=== PATIENT | female | born 1945 ===

== ENCOUNTER 2017-06-14 07:40 | Inpatient (IN) | payer OTHER ==
[2017-06-14 07:52] VITALS: BMI 32.5
--- NOTE | 2017-06-14 07:54 | ED PDOC ---
Arrival/HPI - General Time Seen by Provider: 06/14/17 07:47 Historian: Patient - Critical Care Critical Care Minutes: 30 minutes - History of Present Illness Narrative History of Present Illness (Text): 06/14/17 07:41 A 72 year old female whose past medical history includes, hypertension, Type II Diabetes, presents to the emergency department with neurological deficit after a family member found her in bed this morning. As per EMS, the patient's last known normal was at 11PM. Patient's history was obtained from EMS. PMD: Dr. Jones Time/Duration: Prior to Arrival Symptom Onset: Sudden Symptom Course: Unchanged Activities at Onset: Rest, Light Context: Home Past Medical History - Provider Review Nursing Documentation Reviewed: Yes - Tetanus Immunization Tetanus Immunization: Unknown - Cardiac Hx Cardiac Disorders: Yes Hx Hypertension: Yes - Pulmonary Other/Comment: 06/04/2014. 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 - Neurological Hx Neurological Disorder: No - HEENT Hx HEENT Disorder: Yes Hx Cataracts: Yes - Renal Hx Renal Disorder: No - Endocrine/Metabolic Hx Endocrine Disorders: Yes Hx Diabetes Mellitus Type 2: Yes - Hematological/Oncological Hx Blood Disorders: No Hx Blood Transfusions: No Hx Blood Transfusion Reaction: No - Integumentary Hx Dermatological Disorder: No - Musculoskeletal/Rheumatological Hx Musculoskeletal Disorders: Yes Hx Arthritis: Yes - Gastrointestinal Hx Gastrointestinal Disorders: Yes Hx Gastroesophageal Reflux: Yes - Genitourinary/Gynecological Hx Genitourinary Disorders: No Hx Reproductive Disorders: No - Psychiatric Hx Psychophysiologic Disorder: No Hx Emotional Abuse: No Hx Physical Abuse: No Hx Substance Use: No - Surgical History Hx Cardiac Catheterization: Yes - Anesthesia Hx Anesthesia Reactions: No Hx Malignant Hyperthermia: No - Suicidal Assessment Feels Threatened In Home Enviroment: No Family/Social History - Physician Review Nursing Documentation Reviewed: Yes Family/Social History: No Known Family HX Smoking Status: Never Smoked Hx Alcohol Use: No Hx Substance Use: No Hx Substance Use Treatment: No Allergies/Home Meds Allergies/Adverse Reactions: Allergies shrimp Allergy (Verified 06/14/17 07:50) SWELLING Home Medications: Home Meds Medication Instructions Recorded Confirmed Risperidone 1 mg PO BID 07/05/13 06/14/17 Atorvastatin [Lipitor] 40 mg PO DAILY 06/15/15 06/14/17 Clopidogrel [Plavix] 75 mg PO DAILY 06/15/15 06/14/17 Metformin HCl [Metformin] 1,000 mg PO BID 06/15/15 06/14/17 Insulin Human NPH/Reg [humulin 0 units SC ACB 12/12/15 06/14/17 70/30 70 U/Ml-30 U/Ml 10 Ml] Ranitidine HCl [Sunmark Acid 150 mg PO BID 12/12/15 06/14/17 Editorial Specialist] Ciclopirox/Ure/Camph/Menth/Euc 34.6 ml TOP DAILY 06/14/17 06/14/17 [Ciclodan 34.6 ml] Clonazepam [Klonopin] 1 mg PO BID 06/14/17 06/14/17 Esomeprazole Magnesium [Nexium] 40 mg PO DAILY 06/14/17 06/14/17 GlipiZIDE [Glipizide] 10 mg PO DAILY 06/14/17 06/14/17 Levocetirizine Dihydrochloride 5 mg PO DAILY 06/14/17 06/14/17 [Xyzal] Losartan [Cozaar] 100 mg PO DAILY 06/14/17 06/14/17 Lubiprostone [Amitiza] 24 mcg PO BID 06/14/17 06/14/17 Metoprolol Tartrate [Lopressor] 100 mg PO DAILY 06/14/17 06/14/17 Montelukast [Singulair] 10 mg PO DAILY 06/14/17 06/14/17 Review of Systems - Review of Systems Systems not reviewed;Unavailable: Altered Mental Status Physical Exam - Physical Exam Narrative Physical Exam (Text): 06/14/17 07:46 - Review of Systems: unobtainable due to patient's condition. - Physical exam - Systems Exam Head: Present: Left sided facial droop, Atraumatic, Normocephalic Pupils: Present: PERRL Conjunctiva: Present: Normal Mouth: Present: Moist Mucous Membranes Neck: Present: Normal Range of Motion. No: MIDLINE TENDERNESS, Paraspinal Tenderness Respiratory/Chest: Present: poor insp and exp. effort Cardiovascular: Present: Regular Rate and Rhythm, Normal S1, S2, Peripheral Pulses Present. No: Murmurs Abdomen: Present: Normal Bowel Sounds, No: Tenderness, Peritoneal Signs, Rebound, Guarding, Distention Back: Present: Normal Inspection. No: Midline Tenderness, Paraspinal Tenderness Upper Extremity: Present: Left sided body paralysis No: Cyanosis, Edema Lower Extremity: Present: Left sided body paralysis. No: Edema Neurological: Present: facial droop Skin: Present: Warm, Dry, Normal Color. No: Rashes Lymphatic: Present: OX3, NI, NC Psychiatric: Present: alert to verbal and tactile stimuli, incoherent speech Vital Signs Reviewed: Yes Vital Signs Temp Pulse Resp BP Pulse Ox 06/14/17 10:08 152/81 H 06/14/17 10:00 87 19 181/99 H 100 06/14/17 09:46 198/102 H 06/14/17 08:03 88 18 153/108 H 99 06/14/17 07:55 96 F L 72 14 68/36 L 93 L Temperature: Afebrile Blood Pressure: Hypotensive Pulse: Regular Respiratory Rate: Normal Medical Decision Making ED Course and Treatment: Impression: A 72 year old female brought in via EMS with neurological deficits this morning. On exam, left sided facial droop and left sided body paralysis. Seen immediately on arrival. Differential Diagnosis included but are not limited to: hemorrhagic vs ischemic stroke Plan: -- Head Ct -- EKG -- Chest X- Ray -- Labs -- Diprivan and Desmopressin -- Reassess and disposition Prior Visits: Notes and results from previous visits were reviewed. On 12/13/2016 patient was advised to come in to the emergency department by her forest fire equipment operator for elevated blood pressure. Progress Notes: 06/14/17 07:41: Patient seen immediately upon arrival. CT ordered. Code stroke called. Blood Glucose 187. 06/14/17 07:48: Case discussed with Dr. Glover (Neurology) in detail. Agrees with no tPA at this time. Will follow up. CT HEAD WITHOUT CONTRAST Dictator : Julio César Weber MD Report Date : 06/14/2017 08:05:03 IMPRESSION:There is a large intraparenchymal hemorrhage in the left occipital lobe with intraventricular extension. The hemorrhage measures 4 cm in diameter. The lateral 3rd and 4th ventricles are filled with blood. 06/14/17 08:22: Patient started vomiting and was no longer protecting her airway. Patient was intubated. Passive oxygenation. O2 sat remained >95% during procedure. After intubation, patient was placed in 90 degrees with head forward position. 06/14/17 08:30: Patient's nurse confirms she is on Plavix. 06/14/17 08:39: Case discussed with Dr. Santos. States that there is no indication for acute intervention intraoperatively at this time. Recommends Desmopressin. 06/14/17 08:41: Dose of Desmopressin 0.3mcg per kilo per dose ordered. 06/14/17 09:28: Dr. Mccarthy at bedside. patient's blood pressure 206 systolic. Cardene drip ordered pt accepted to the MICU. Family informed. - Critical Care Critical Care Minutes: 30 minutes - Lab Interpretations Lab Results: 06/14/17 07:50 06/14/17 07:50 Lab Results 06/14/17 09:09: pCO2 33 L, pO2 164.0 H, HCO3 25.7, ABG pH 7.50 H, ABG Total CO2 26.7, ABG O2 Saturation 99.2 H, ABG O2 Content 17.0, ABG Base Excess 2.8, ABG Hemoglobin 12.2, ABG Carboxyhemoglobin 1.3, POC ABG HHb (Measured) 0.8, ABG Methemoglobin 0.6, ABG O2 Capacity 17.1, Hgb O2 Saturation 97.4, FiO2 50.0 06/14/17 07:50: Hemoglobin A1c 6.1 06/14/17 07:50: Sodium 144, Potassium 3.2 L, Chloride 104, Carbon Dioxide 30, Anion Gap 13, BUN 17, Creatinine 0.8, Est GFR ( Amer) > 60, Est GFR (Non- Af Amer) > 60, Random Glucose 189 H, Calcium 9.5, Total Bilirubin 0.8, AST 32, ALT 29, Alkaline Phosphatase 131 H, Troponin I 0.02, Total Protein 8.0, Albumin 4.2, Globulin 3.8, Albumin/Globulin Ratio 1.1, Triglycerides 175 H, Cholesterol 191, LDL Cholesterol Direct 84, HDL Cholesterol 54 06/14/17 07:50: PT 10.6, INR 0.98, APTT 24.9 06/14/17 07:50: WBC 16.6 H D, RBC 4.40, Hgb 12.9, Hct 38.8, MCV 88.2, MCH 29.3, MCHC 33.2, RDW 13.1, Plt Count 236, MPV 9.8, Gran % 79.9 H, Lymph % (Auto) 15.0 L, [place] % (Auto) 4.1, Eos % (Auto) 0.9 L, Baso % (Auto) 0.1, Gran # 13.27 H, Lymph # 2.5, [place] # 0.7 H, Eos # 0.2, Baso # 0.02 06/14/17 07:40: Blood Type O POSITIVE, Antibody Screen Negative, BBK History Checked Patient has bt I have reviewed the lab results: Yes - RAD Interpretation Radiology Orders: 06/14/17 07:43 HEAD W/O (CODE STROKE) [CT] Stat 06/14/17 07:48 CHEST PORTABLE [RAD] Stat - EKG Interpretation Interpreted by ED Physician: Yes Type: 12 lead EKG - Medication Orders Current Medication Orders: Fentanyl (Fentanyl) 50 mcg IVP Q1H PRN PRN Reason: Pain, moderate (4-7) Propofol (Diprivan) 1,000 mg in 100 mls @ 2.658 mls/hr IV .Q24H PRN; Protocol; 5 MCG/KG/MIN PRN Reason: TITRATE PER MD ORDER Last Admin: 06/14/17 16:05 Dose: 30 mcg/kg/min, 15.948 mls/hr Nicardipine HCl (Cardene Iv Premix) 20 mg in 200 mls @ 50 mls/hr IV .Q4H PRN; Protocol; 5 MG/HR PRN Reason: TITRATE PER MD ORDER Last Titration: 06/14/17 15:57 Dose: 3.5 mg/hr, 35 mls/hr Insulin Human Lispro (Humalog Low) 0 units SC Q4H CHUY PRN Reason: Protocol Last Admin: 06/14/17 11:30 Dose: 2 units Pantoprazole Sodium (Protonix Inj) 40 mg IVP DAILY [facility] Last Admin: 06/14/17 15:53 Dose: 40 mg Discontinued Medications Propofol (Diprivan) Confirm Administered Dose 1,000 mg in 100 mls @ ud .ROUTE .STK-MED ONE Stop: 06/14/17 08:19 Last Admin: 06/14/17 09:52 Dose: Desmopressin Acetate 27 mcg/ (Sodium Chloride) 56.75 mls @ 100 mls/hr IV ONCE ONE Stop: 06/14/17 09:08 Last Admin: 06/14/17 09:35 Dose: 100 mls/hr Nicardipine HCl (Cardene Iv Premix) 20 mg in 200 mls @ 50 mls/hr IV .Q4H PRN; Protocol; 5 MG/HR PRN Reason: TITRATE PER MD ORDER Last Titration: 06/14/17 11:31 Dose: 4 mg/hr, 40 mls/hr Ampicillin Sodium/Sulbactam (Sodium 3 gm/ Sodium Chloride) 100 mls @ 100 mls/ hr IVPB STAT STA PRN Reason: Protocol Stop: 06/14/17 10:46 Last Admin: 06/14/17 12:37 Dose: 100 mls/hr Insulin Human Lispro (Humalog Low) 0 units SC ACHS CHUY PRN Reason: Protocol Pneumococcal Polyvalent Vaccine (Pneumovax 23 Vaccine) 0.5 ml IM .ONCE ONE Stop: 06/14/17 14:15 Potassium Chloride (Potassium Chloride Oral Soln) 40 meq PO ONCE ONE Stop: 06/14/17 15:06 Last Admin: 06/14/17 15:57 Dose: 40 meq NIHSS Scale ([place]) Time Performed: 07:45 - How Severe is the Stoke Baseline Level of Consciousness: 2=Obtunded LOC to Questions: 1=One correct LOC to commands: 1=Obeys one correctly Best Gaze: 1=Partial gaze palsy Visual: 0=No visual loss Facial: 2=Partial (lower face paralysis) Motor Arm - Left: 4=No movement Motor Arm - Right: 0=No drift Motor Leg - Left: 4=No movement Motor Leg - Right: 0=No drift Limb Ataxia: 2=Present both Sensory: 1=Mild to moderate loss Best Language: 2=Severe aphasia Dysarthia: 2=Severe, near unintelligible or worse Extinction & Inattention (Neglect): 2=Profound neglect(does not recognize own hand or orients to one side) Score: 24 Risk Level: Severe Stroke Risk rTPA Inclusion/Exclusion - Refusal of Treatment Patient Refused Treatment: No - Inclusion Criteria for Altepase Patient is 18 years or Older: Yes The Clinical Diagnosis of Ischemic Stroke That is Causing a Potentially Disabling Neurological Deficit: No Time of Onset is Well Established to be Less Than 270 Minute Before Treatment Would Begin: No Risk/Benefit Discussed With Patient/Family Member Present: No - Scribe Statement The provider has reviewed the documentation as recorded by the Scribe Liz Kaufman Provider Scribe Attestation: All medical record entries made by the Scribe were at my direction and personally dictated by me. I have reviewed the chart and agree that the record accurately reflects my personal performance of the history, physical exam, medical decision making, and the department course for this patient. I have also personally directed, reviewed, and agree with the discharge instructions and disposition Disposition/Present on Arrival - Present on Arrival Any Indicators Present on Arrival: No History of DVT/PE: No History of Uncontrolled Diabetes: Yes Urinary Catheter: No History Surgical Site Infection Following: None - Disposition Have Diagnosis and Disposition been Completed?: Yes Diagnosis: Hemorrhagic stroke Disposition: HOSPITALIZED Disposition Time: 09:27 Patient Plan: Admission Condition: CRITICAL
[2017-06-14] MEDS ORDERED: Propofol 10 mg/ml Inj (20 ML) IVP ONE (08:00)
[2017-06-14] MEDS ORDERED: Rocuronium 10 mg/ml (5 ml) IVP ONE (08:05)
--- NOTE | 2017-06-14 08:06 | CT ---
PROCEDURE: CT HEAD WITHOUT CONTRAST. HISTORY: CODE STROKE COMPARISON: None available. TECHNIQUE: Axial computed tomography images were obtained through the head/brain without intravenous contrast. Radiation dose: Total exam DLP = 813 mGy-cm. This CT exam was performed using one or more of the following dose reduction techniques: Automated exposure control, adjustment of the mA and/or kV according to patient size, and/or use of iterative reconstruction technique. FINDINGS: HEMORRHAGE: There is a large intraparenchymal hemorrhage in the left occipital lobe with intraventricular extension. The hemorrhage measures 4 cm in diameter. The lateral 3rd and 4th ventricles are filled with blood. BRAIN: There is sulcal effacement but no midline shift. The basal cisterns are maintained. No atrophy or chronic microvascular ischemic changes. VENTRICLES: Unremarkable. No hydrocephalus. CALVARIUM: Unremarkable. PARANASAL SINUSES: Unremarkable as visualized. No significant inflammatory changes. MASTOID AIR CELLS: Unremarkable as visualized. No inflammatory changes. OTHER FINDINGS: Dr. Pizano was called at 8 a.m. IMPRESSION: There is a large intraparenchymal hemorrhage in the left occipital lobe with intraventricular extension. The hemorrhage measures 4 cm in diameter. The lateral 3rd and 4th ventricles are filled with blood.
[2017-06-14 08:12] LABS: BASO # 0.02 K/mm3 (0.0-2.0); BASO % 0.1 % (0.0-3.0); EOS # 0.2 (0.0-0.7); EOS % 0.9 % (1.5-5.0); GRAN # 13.27 (1.4-6.5); GRAN % 79.9 % (50.0-68.0); HEMATOCRIT 38.8 % (36.0-48.0); LYMPH # 2.5 (1.2-3.4); MEAN CELL VOLUME 88.2 fl (80.0-105.0); MEAN CORPUSCULAR HEMOGLOBIN 29.3 pg (25.0-35.0); MEAN CORPUSCULAR HGB CONC 33.2 g/dl (31.0-37.0); MEAN PLATELET VOLUME 9.8 fl (7.0-11.0); MONO # 0.7 (0.1-0.6); MONO % 4.1 % (1.0-6.0); RED CELL DISTRIBUTION WIDTH 13.1 % (11.5-14.5); WHITE BLOOD COUNT 16.6 10^3/ul (4.5-11.0)
[2017-06-14] MEDS ORDERED: Propofol 10 mg/ml 1,000 MG/100 ML VIAL ONE (08:18)
[2017-06-14 08:24] LABS: ALB/GLOB RATIO 1.1 (1.1-1.8); ALKALINE PHOSPHATASE 131 U/L (38-126); ALT/SGPT 29 U/L (7-56); AST/SGOT 32 U/L (14-36); BILIRUBIN,TOTAL 0.8 mg/dL (0.2-1.3); BLOOD UREA NITROGEN 17 mg/dL (7-21); CALCIUM 9.5 mg/dL (8.4-10.5); CARBON DIOXIDE 30 mmol/L (21-33); CHLORIDE 104 mmol/L (98-107); CHOLESTEROL 191 mg/dL (130-200); GFR AFRICAN-AMERICAN > 60; GLUCOSE,RANDOM 189 mg/dL (70-110); POTASSIUM 3.2 mmol/L (3.6-5.0); SODIUM 144 mmol/L (132-148)
[2017-06-14 08:27] LABS: INR 0.98 (0.93-1.08); PARTIAL THROMBOPLASTIN TIME 24.9 Seconds (23.7-30.8)
[2017-06-14 08:38] LABS: TROPONIN I 0.02 ng/mL
[2017-06-14 09:13] LABS: ARTERIAL BLOOD GAS HCO3 25.7 mmol/L (21-28); ARTERIAL BLOOD GAS O2 CAPACITY 17.1 mL/dl (16-24); ARTERIAL BLOOD HGB O2 SAT 97.4 % (95.0-98.0); CARBOXYHEMOGLOBIN 1.3 % (0.5-1.5); HHB 0.8 % (0-5); METHEMOGLOBIN 0.6 % (0.0-3.0)
[2017-06-14] MEDS ORDERED: Nicardipine 20 MG/200 ML 20 MG/200 ML BAG IV PRN (09:27)
[2017-06-14] MEDS: Propofol 10 mg/ml 1,000 MG/100 ML VIAL IV PRN ×2 (09:35→16:05)
[2017-06-14] MEDS ORDERED: Ampicillin/Sulbactam 3 GM in Sodium Chloride 0.9% 100 ML IVPB STA (09:47)
--- NOTE | 2017-06-14 10:43 | CP.CCUPN ---
CCU Subjective - Physician Review Events Since Last Encounter (Free Text): 06/14/17 10:35 72 y/o F w/ HTN, CHF, DM presented to the ER with GCS<8 found at home near her bed . Unclear downtime but family was at home and heard her fall and was not able to speak or protect airway upon arrival . Her sister who is at bedside explains that she has been very uncompliant with her HTn medications and always had high BP. In the ER she was intubated after she was found not protecting her airway . Her BP was 212/ 112 in the field and in the ER remained high. Sedated on propofol she was taken to HEAD CT which showed extensive ICH with ventricular extension. CCU Objective - Vital Signs / Intake & Output Vital Signs (Last 4 hours): Vital Signs Pulse Resp BP Pulse Ox 06/14/17 10:08 152/81 H 06/14/17 10:00 87 19 181/99 H 100 06/14/17 09:46 198/102 H - Physical Exam Physical Exam Limitations: Positive for: Altered Mental Status Head: Positive for: Atraumatic Pupils: Positive for: Sluggish Conjunctiva: Positive for: Normal Ears: Positive for: Normal Mouth: Positive for: Moist Mucous Membranes, Other (ett in place) Pharnyx: Positive for: Normal Neck: Positive for: Normal Range of Motion Respiratory/Chest: Positive for: Clear to Auscultation, Good Air Exchange Cardiovascular: Positive for: Regular Rate and Rhythm Abdomen: Positive for: Normal Bowel Sounds Upper Extremity: Positive for: Normal Inspection Lower Extremity: Positive for: Normal Inspection Neurological: Positive for: Other (on sedation. original GCS<8) Psychiatric: Positive for: Lethargic, Other (intubated and sedated ) - Medications Active Medications: Active Medications Generic Name Dose Route Start Last Admin Trade Name Freq PRN Reason Stop Dose Admin Propofol 1,000 mg in 100 mls @ 2.658 mls/hr 06/14/17 08:23 06/14/17 09:35 Diprivan IV 2.658 mls/hr .Q24H PRN Administration TITRATE PER MD ORDER Protocol 5 MCG/KG/MIN Nicardipine HCl 20 mg in 200 mls @ 50 mls/hr 06/14/17 09:27 06/14/17 09:46 Cardene Iv Premix IV 50 mls/hr .Q4H PRN Administration TITRATE PER MD ORDER Protocol 5 MG/HR Ampicillin Sodium/Sulbactam 100 mls @ 100 mls/hr 06/14/17 09:47 Sodium 3 gm/ Sodium Chloride IVPB 06/14/17 10:46 STAT STA Protocol Insulin Human Lispro 0 units 06/14/17 11:30 Humalog Low SC ACHS CHUY Protocol - Patient Studies Fingerstick Blood Sugar Results: 187 Review of Systems - Review of Systems Systems not reviewed;Unavailable: Intubated Critical Care Progress Note - Ventilator Checklist Daily Spontaneous Breathing Trial: Yes PUD Prophalyxis: Yes DVT Prophylaxis: Yes Assessment/Plan - Assessment and Plan (Free Text) Assessment: 72 y/o F w/ ICH with ventricular extension. GCS<8 Intubated for airway protection. Keep Ph> 7.3 pao2> 60 . Currently on 50% peep5 , TV 6-8ml/kg Mild elevation in WBC, Blood anc urine cx ordered . One dose Unasyn given. BP control with cardene started to keep SBP 160. Neurology and NSG aware of the patient. Plan for possible Ventriculostomy to be determined after next head CT in 4 hrs. Poor prognosis due to large intraparenchymal ICH and ventricular extension. Unclear if any intervention would be helpful. No sign of seizures currently . Will d/w Neurology . RISS to keep BS 140-160 . DVT P SCD Does have hx of taking asprin and Plavix. Keep platelets. 100K and INR< 2. Case d/w with housestaff and sister at bedside who is POA. cc time 65 min
[2017-06-14] MEDS: Insulin Lispro (humaLOG) LOW Coverage SC SCH ×3 (11:30→19:45)
[2017-06-14] MEDS ORDERED: Insulin Lispro (humaLOG) LOW Coverage SC SCH ×2 (11:30→11:45)
--- NOTE | 2017-06-14 11:49 | RAD ---
HISTORY: stroke COMPARISON: 05/18/2014. FINDINGS: LUNGS: No active pulmonary disease. PLEURA: No significant pleural effusion identified, no pneumothorax apparent. CARDIOVASCULAR: Cardiomegaly. No evidence of acute, significant cardiovascular disease. OSSEOUS STRUCTURES: No significant abnormalities. VISUALIZED UPPER ABDOMEN: Normal. OTHER FINDINGS: None. IMPRESSION: No active disease. No significant interval change compared to the prior examination(s).
--- NOTE | 2017-06-14 12:49 | CT ---
PROCEDURE: CT HEAD WITHOUT CONTRAST. HISTORY: bleed COMPARISON: CT earlier same day TECHNIQUE: Axial computed tomography images were obtained through the head/brain without intravenous contrast. Radiation dose: Total exam DLP = 779 mGy-cm. This CT exam was performed using one or more of the following dose reduction techniques: Automated exposure control, adjustment of the mA and/or kV according to patient size, and/or use of iterative reconstruction technique. FINDINGS: HEMORRHAGE: There is no change in the left occipital parenchymal hemorrhage and intraventricular hemorrhage. BRAIN: As above No atrophy or chronic microvascular ischemic changes. VENTRICLES: Unremarkable. No hydrocephalus. CALVARIUM: Unremarkable. PARANASAL SINUSES: Unremarkable as visualized. No significant inflammatory changes. MASTOID AIR CELLS: Unremarkable as visualized. No inflammatory changes. OTHER FINDINGS: None. IMPRESSION: Stable appearance of large intraparenchymal hemorrhage in the left occipital lobe with extensive intraventricular hemorrhage.
--- NOTE | 2017-06-14 14:13 | CON ---
DATE: 06/14/2017 HISTORY OF PRESENT ILLNESS: This is an unfortunate 72-year-old that presented to the ER having last seen acting improperly midnight. She was found to have an intraparenchymal and intraventricular hemorrhage, deteriorated, and was intubated, not very responsive. I was contacted to review the CAT scan, there was minimal to moderate left occipital hemorrhage with minimal any mass effect. However, there is rupture into the ventricular system. At this point in time, there was really no significant hydrocephalus. In addition, the patient has been on Plavix. IMPRESSION: No indication to evacuate the intraparenchymal hemorrhage as this is relatively minimal. She also does not have hydrocephalus that warrants a ventriculostomy. This may certainly develop; however, she has been on Plavix. This is a very difficult situation. PLAN: At this point, my recommendation would be to attempt to treat her conservatively with head of bed elevation. She is already intubated. We will check another CAT scan shortly to monitor her hydrocephalus. We are attempting to get DDAVP into the patient. Ford Santos MD
[2017-06-14] MEDS ORDERED: Pneumococcal 23-Valent Vaccine IM ONE (14:14)
[2017-06-14] MEDS ORDERED: Potassium Chloride 40 mEq/30 ml LIQ UD PO ONE (15:05)
[2017-06-14] MEDS: Nicardipine 20 MG/200 ML 20 MG/200 ML BAG IV PRN ×2 (15:43→18:38)
--- NOTE | 2017-06-14 16:48 | RAD ---
HISTORY: ET position COMPARISON: 06/14/2017 at 8:25 a.m. FINDINGS: LUNGS: No infiltrate. PLEURA: No significant pleural effusion identified, no pneumothorax apparent. CARDIOVASCULAR: Normal heart size. ET tube tip 11 mm above tracheal momo. Nasogastric tube extends to left upper quadrant of abdomen. OSSEOUS STRUCTURES: No significant abnormalities. VISUALIZED UPPER ABDOMEN: Normal. OTHER FINDINGS: None. IMPRESSION: ET tube 11 mm above the tracheal momo. Nasogastric tube appropriately positioned.
[2017-06-14] MEDS: Ampicillin/Sulbactam 3 GM in Sodium Chloride 0.9% 100 ML IVPB SCH (18:39)
--- NOTE | 2017-06-14 20:55 | CARD ---
APPROVED REPORT EKG Measurement Heart [id number] <Conclusion> Normal sinus rhythm Left axis deviation Moderate voltage criteria for LVH, may be normal variant Abnormal ECG
[2017-06-15] MEDS: Ampicillin/Sulbactam 3 GM in Sodium Chloride 0.9% 100 ML IVPB SCH ×4 (00:01→18:15)
[2017-06-15] MEDS: Insulin Lispro (humaLOG) LOW Coverage SC SCH ×6 (00:07→20:00)
--- NOTE | 2017-06-15 04:25 | HP ---
CHIEF COMPLAINT: Neurological deficits. HISTORY OF PRESENT ILLNESS: Ms. Noy Bryant is a 72-year-old female with past medical history of hypertension and diabetes mellitus came to the emergency room department with neurological deficits. Actually, I spoke to her daughter, she told me that the mother is supposed to go for stress test today with Dr. Corado's office, then she woke up at 5, she took shower, and after that family do not know anything and later her nephew found her on the floor with the vomiting and blood in the mouth. They call 911 and brought the patient to [facility] emergency room. PAST MEDICAL HISTORY: Hypertension, cataract surgery, diabetes mellitus, hypertension, very noncompliant with blood pressure medication, arthritis, GERD, dyspepsia, and schizophrenia. FAMILY HISTORY: Father and mother noncontributory. HABITS: No smoking, no drugs, and no ethanol. ALLERGIES: THE PATIENT IS ALLERGIC WITH SHRIMP. HOME MEDICATIONS: Atorvastatin, Plavix, metformin, Klonopin, glipizide, Cozaar, Amitiza, Lopressor, and montelukast. REVIEW OF SYSTEMS: Not available. The patient is intubated, has altered mental status, but looks like do not have fever. PHYSICAL EXAMINATION: VITAL SIGNS: Temperature 100.4, pulse 83, blood pressure 150/95, and respiratory rate 18. HEENT: Head looks like normocephalic. Eyes; closed. Nose patent. Mucous membrane moist. She is intubated. Pupils are sluggish. NECK: Supple. Range of motion cannot be evaluated. LUNGS: Clear to auscultation. Good air exchange. CARDIOVASCULAR: Regular rate and rhythm. ABDOMEN: Soft. Bowel sounds positive. No organomegaly. EXTREMITIES: Normal inspection. No cyanosis. No edema. NEUROLOGIC: The patient is sedative, this cannot be done and lethargic. LABORATORY DATA: White blood cell 16.6, hemoglobin 12.9, hematocrit 38.8, and platelets 236. Sodium 144, potassium 3.2, BUN 17, creatinine 0.8, random glucose 189, alkaline phosphatase 131, and triglycerides 175. ASSESSMENT AND PLAN: Mrs. Noy Bryant is a 72-year-old lady with history of hypertension, congestive heart failure, diabetes mellitus, has intracranial hemorrhage with ventricular extension, intubated for airway protection, mild elevated white blood cell, fever, started on Unasyn, hypertension, and blood pressure controlled with Cardene, may be the patient need ventriculectomy. Neurosurgeon is on the case; ideally if any intervention could be helpful. Discussion done with the stone mason. No seizures currently, DVT prophylaxis, and review stone mason Dr. Glover's note. Seen by Dr. Ford Santos, neurosurgeon. According to him, no indication to evacuate the intraparenchymal hemorrhage as this is relatively minimal, so she also does not have hydrocephalus that warrants ventriculostomy. This may certainly develop; however, she has been on Plavix, this is very difficult situation. At this point, they are recommending attempt to treat her conservatively with head to be elevated. She is already intubated and they want to get CAT scan shortly to monitor her hydrocephalus. Attempting to get a DDAVP into the patient. Length of time discussion done with the patient's daughter and son-in-law on the bedside. GI/DVT prophylaxis. Repeat labs. We will followup. Gayle Jones MD
--- NOTE | 2017-06-15 05:17 | CON ---
PULMONARY CRITICAL CARE CONSULT DATE: 06/14/2017 REFERRING PHYSICIAN: Gayle Jones MD REASON FOR CONSULTATION: Respiratory failure on ventilator status post [employer] bleed. HISTORY OF PRESENT ILLNESS: This is a 72 years old female, past medical history significant for hypertension, diabetes, family member found her change of mental status in bed and brought her to the emergency room. CAT scan showed intracranial bleed and upper respiratory failure requiring ventilator, presently admitted to intensive care unit. She was seen by neurosurgeon deemed no intervention required, presently on sedation, intubated. Daughter is at bedside. She is arousable. No hemoptysis, hematemesis, or hematuria. No diarrhea reported. PAST MEDICAL HISTORY: Hypertension, diabetes, obesity, may have sleep apnea syndrome. ALLERGIES: SHRIMPS. FAMILY HISTORY: No significant cardiopulmonary disease reported. MEDICATIONS: She is on Unasyn 3 g IV q.6 hours, nicardipine IV drip, decrease it for sedation, fentanyl IV, Ofirmev p.r.n., Protonix 40 mg daily, Zofran on p.r.n. basis. REVIEW OF SYSTEMS: She was found change in mental status in the bed by the family. There is no history of hemoptysis, no hematuria, no diarrhea, no vomiting and no leg swelling reported. PHYSICAL EXAMINATION GENERAL: Intubated and sedated. VITAL SIGNS: Temperature 100.4, heart rate is 83, respiratory rate is 18, blood pressure 152/95, pulse ox 100% on 50% oxygen ventilator. HEENT: Moist mucous membrane. Crowded airway. ET tube, no secretions. NECK: Short thick neck. LUNGS: Fair airflow with few rhonchi. HEART: S1 and S2. ABDOMEN: Soft, nontender. No organomegaly. EXTREMITIES: Not much edema. NEUROLOGIC: On ventilator. LABORATORY DATA: Shows hemoglobin 12.9, hematocrit 38.8, WBC 16.6 and platelet is 236. INR 0.98 and PTT is 25. Blood gas shows pH 7.50, PCO2 of 33, O2 of 164. This is on 50% oxygen on ventilator. Sodium 144, potassium 3.2, chloride 104, bicarbonate 30, BUN 17, creatinine 0.8, glucose 189, hemoglobin A1c 6.1, calcium 9.5, AST 32, ALT 29 and Raisa phos is 131. Troponin 0.02, albumin 4.2, triglycerides 175 and cholesterol is 191. CAT scan of the head done this morning shows large intraparenchymal hemorrhage in the left occipital lobe with extensive intraventricular hemorrhage. Chest x-ray done shows no active pulmonary disease. IMPRESSION AND PLAN: Intraparenchymal hemorrhage, hypertension, diabetes, may have sleep apnea syndrome, obesity. The patient is seen by neurosurgery awaiting for neurology. We will keep present ventilator setting, keep head at 45 degree. We will start nasogastric tube feeding, gastric prophylaxis, sequential compression device to lower extremity. Need CTA to assure there is no arteriovenous malformation or cranial aneurysm. I spoke to daughter at bedside. All questions were answered. Followup labs in the morning. Thank you and we will follow with you. Livia Francois MD
[2017-06-15 05:37] LABS: GRAN # 9.67 (1.4-6.5); GRAN % 83.3 % (50.0-68.0); LYMPH # 1.3 (1.2-3.4); LYMPH % 11.2 % (22.0-35.0); MEAN CELL VOLUME 85.7 fl (80.0-105.0); MEAN CORPUSCULAR HGB CONC 33.9 g/dl (31.0-37.0); MEAN PLATELET VOLUME 9.8 fl (7.0-11.0); MONO # 0.6 (0.1-0.6); MONO % 5.5 % (1.0-6.0); RED CELL DISTRIBUTION WIDTH 13.4 % (11.5-14.5); WHITE BLOOD COUNT 11.6 10^3/ul (4.5-11.0)
[2017-06-15 05:41] LABS: ALB/GLOB RATIO 1.1 (1.1-1.8); ALKALINE PHOSPHATASE 110 U/L (38-126); ALT/SGPT 33 U/L (7-56); AST/SGOT 43 U/L (14-36); BILIRUBIN,TOTAL 0.9 mg/dL (0.2-1.3); BLOOD UREA NITROGEN 16 mg/dL (7-21); CALCIUM 8.7 mg/dL (8.4-10.5); CARBON DIOXIDE 22 mmol/L (21-33); CHLORIDE 103 mmol/L (98-107); GFR AFRICAN-AMERICAN > 60; GLUCOSE,RANDOM 203 mg/dL (70-110); MAGNESIUM 1.4 mg/dL (1.7-2.2); PHOSPHOROUS 3.7 mg/dL (2.5-4.5); POTASSIUM 3.5 mmol/L (3.6-5.0); SODIUM 138 mmol/L (132-148); TOTAL PROTEIN 7.3 g/dL (5.8-8.3)
[2017-06-15 05:53] LABS: ARTERIAL BLOOD GAS HCO3 22.9 mmol/L (21-28); ARTERIAL BLOOD GAS O2 CAPACITY 15.7 mL/dl (16-24); ARTERIAL BLOOD GAS O2 CONTENT 15.5 ML/dl (15-23); ARTERIAL BLOOD GAS PH 7.57 (7.35-7.45); ARTERIAL BLOOD HGB O2 SAT 96.7 % (95.0-98.0); CARBOXYHEMOGLOBIN 1.2 % (0.5-1.5); METHEMOGLOBIN 1.1 % (0.0-3.0)
[2017-06-15 05:54] LABS: INR 1.02 (0.93-1.08)
[2017-06-15] MEDS: Propofol 10 mg/ml 1,000 MG/100 ML VIAL IV PRN (08:30)
--- NOTE | 2017-06-15 09:14 | CT ---
PROCEDURE: CT HEAD WITHOUT CONTRAST. HISTORY: ICH COMPARISON: 06/14/2017 TECHNIQUE: Axial computed tomography images were obtained through the head/brain without intravenous contrast. Radiation dose: Total exam DLP = 780 mGy-cm. This CT exam was performed using one or more of the following dose reduction techniques: Automated exposure control, adjustment of the mA and/or kV according to patient size, and/or use of iterative reconstruction technique. FINDINGS: HEMORRHAGE: There is no significant change in the appearance of the intraparenchymal and ventricular hemorrhage. There is a 4.4 cm hematoma in the left occipital lobe. Blood is seen throughout the ventricular system. There is a mild degree of hydrocephalus with enlargement of the temporal horns. The ventricles are slightly increased in size. BRAIN: No significant midline shift VENTRICLES: Mild hydrocephalus CALVARIUM: Unremarkable. PARANASAL SINUSES: Unremarkable as visualized. No significant inflammatory changes. MASTOID AIR CELLS: Unremarkable as visualized. No inflammatory changes. OTHER FINDINGS: None. IMPRESSION: Stable appearance of intraparenchymal and intraventricular hemorrhage. Mild hydrocephalus slightly increased
--- NOTE | 2017-06-15 09:16 | CT ---
PROCEDURE: CT Chest without contrast HISTORY: pulm nodules COMPARISON: None. TECHNIQUE: Contiguous axial images were obtained through the chest without intravenous contrast enhancement. Sagittal and coronal reconstructions were performed. Radiation dose (DLP): 789 mGy-cm. This CT exam was performed using one or more of the following dose reduction techniques: Automated exposure control, adjustment of the mA and/or kV according to patient size, and/or use of iterative reconstruction technique. FINDINGS: LUNGS: There is bibasilar consolidation with air bronchograms. The lungs are otherwise clear. There are no pulmonary nodules MEDIASTINUM: Unremarkable thoracic aorta. No aneurysm. Normal sized heart. Main pulmonary artery unremarkable. No vascular congestion. No lymphadenopathy. PLEURA: No pleural fluid. No pneumothorax. BONES: No fracture. No destructive lesion. UPPER ABDOMEN: Grossly unremarkable. OTHER FINDINGS: None. IMPRESSION: There is bibasilar consolidation with air bronchograms. The lungs are otherwise clear. There are no pulmonary nodules
[2017-06-15] MEDS ORDERED: Magnesium Sulfate 1 gm in D5W 1 GM/100 ML BAG IVPB ONE (10:29)
--- NOTE | 2017-06-15 11:44 | EEG ---
DATE: ELECTROENCEPHALOGRAM REPORT INTRODUCTION: This is a digitally recorded EEG monitoring using standard EEG montages. BACKGROUND RHYTHM: The EEG shows a background activity of 8 to 9 hertz alpha activity in parieto-occipital region. The EEG activity is bilaterally symmetrical and synchronous. Small amount of myogenic artifact noticed in this EEG recording. ABNORMAL POTENTIALS: No spike, sharp waves or focal slowing was seen. PHOTIC STIMULATION AND HYPERVENTILATION. Photic stimulation and hyperventilation were not performed. IMPRESSION: Normal electroencephalogram. No epileptiform activity seen in this electroencephalogram recording. Evan Glover MD
[2017-06-15] MEDS: Nicardipine 20 MG/200 ML 20 MG/200 ML BAG IV PRN ×2 (11:45→15:40)
--- NOTE | 2017-06-15 12:02 | RAD ---
HISTORY: mechanical vent COMPARISON: 06/14/2017 FINDINGS: LUNGS: No active pulmonary disease. PLEURA: No significant pleural effusion identified, no pneumothorax apparent. CARDIOVASCULAR: Normal. OSSEOUS STRUCTURES: No significant abnormalities. VISUALIZED UPPER ABDOMEN: Normal. OTHER FINDINGS: Endotracheal and nasogastric tubes in satisfactory position IMPRESSION: No active disease.
--- NOTE | 2017-06-15 14:41 | CON ---
NEUROLOGY CONSULTATION DATE: REASON FOR CONSULTATION: Intracerebral hemorrhage. HISTORY OF PRESENT ILLNESS: The patient is a 72-year-old female who was brought to the hospital after she was found in the bed in the morning with right-sided weakness. The patient was intubated in the emergency room for airway protection. History from the family as well as the chart. REVIEW OF SYSTEMS: Unable to obtain because of the patient's current status. PAST MEDICAL HISTORY: Included hypertension, diabetes mellitus, and hypercholesterolemia. MEDICATIONS: Her medications at home include Risperdal, ranitidine, Singulair, Lopressor, metformin, Amitiza, Cozaar, Xyzal, insulin, Nexium, Plavix, Klonopin, and Lipitor. ALLERGIES: TO SHRIMP. SOCIAL HISTORY: The patient is a nonsmoker, nonalcoholic, and does not use any illicit drugs. FAMILY HISTORY: Noncontributory to the case. PHYSICAL EXAMINATION: GENERAL: The patient is an elderly female, lying on the bed, on a ventilator. VITAL SIGNS: Her blood pressure is 141/83, heart rate is 77 per minute, temperature is 100 degree Fahrenheit, and she is breathing at the rate of 18 per minute. HEENT: Normocephalic and atraumatic. NECK: Supple. There are no carotid bruits. LUNGS: Clear. CARDIOVASCULAR: S1 and S2 audible. No murmurs. ABDOMEN: Soft and nontender. Bowel sounds are present. NEUROLOGIC: Mental Status: The patient is comatose. She does not follow any commands. She does not moans to pain. Cranial nerve examination: Pupils 3 mm, minimally reactive to light. Positive roving eye movements. Positive corneal reflex. Positive gag reflex. She does not withdrawal extremities to noxious painful stimuli; however, she spontaneously moved her left upper extremity. Reflexes are absent. Plantars no response. LABORATORY DATA: Labs reviewed, shows WBC of 11.6, hemoglobin of 12.2, hematocrit of 36.0, and platelets of 244. Her sodium is 138, potassium 3.5, chloride 103, carbon dioxide content of 22, BUN of 16, creatinine 0.8, and glucose of 203. She had CT scan of the head done on admission, which showed large intraparenchymal hemorrhage in the left occipital lobe with intraventricular extension. The hemorrhage measures 4 cm in diameter. The lateral 3rd and 4th ventricles filled with blood. She had a repeat CT scan of the head done this morning, which showed stable appearance of intraparenchymal and intraventricular hemorrhage, mild hydrocephalus slightly increased. IMPRESSION: 1. Cerebrovascular accident with intraparenchymal hemorrhage with intraventricular extension. 2. Comatose secondary to above. 3. Respiratory failure. RECOMMENDATIONS: 1. The patient was evaluated by neurosurgery yesterday. The patient to be reevaluated by neurosurgeon for possible ventriculostomy and tube placement. 2. The patient had an electroencephalogram done yesterday, which was normal. 3. The patient's head of the bed to be kept elevated to 30 degree all the time. 4. The patient's blood pressure is better controlled with Cardene drip. 5. Discussed the patient's current condition with the family as well as the ICU physician. 6. The patient's prognosis is [id number]. 7. Please continue supportive care and other treatment. Thank you for the opportunity to participate in the care of this patient. Evan Glover MD
--- NOTE | 2017-06-15 15:59 | PN ---
DATE: 06/15/2017. SUBJECTIVE: The patient seen and examined at bedside. She is intubated. She is on PRVC 400/18/5/40, on bedside and oxygen saturation 100%. She is not overbreathing vent. She is sedated with propofol 30 mcg/kg/minute. PHYSICAL EXAMINATION VITAL SIGNS: Blood pressure 144/83, temperature 100.6, respiratory rate 18. HEENT: Head and neck, atraumatic. LUNGS: Clear to auscultation bilaterally. HEART: Regular rate and rhythm. S1 and S2 normal. ABDOMEN: Soft, nontender and nondistended. MUSCULOSKELETAL: No C/C/E. NEUROLOGIC: The patient is sedated. SKIN: Moist. PSYCHIATRIC: The patient is sedated. LABORATORY DATA: Sodium 138, potassium 3.5, chloride 103, carbon dioxide 22, BUN 16, creatinine 0.8, glucose 203. AST 43, ALT 33. WBC 11.6, hemoglobin 12.2, and platelet count 244. MEDICATIONS: Tylenol IV p.r.n., fentanyl p.r.n., nicardipine drip for blood pressure above 160, regular insulin sliding scale, low protocol, Zofran p.r.n., Protonix, propofol, and Unasyn. ASSESSMENT AND PLAN: This 72-year-old lady with large intracranial bleed with intraventricular extension. She was not candidate for neurosurgical intervention as per neurosurgical service yesterday. Of note, the patient was on Plavix, which is held now. The patient is going for CAT scan today morning to evaluate progression of the bleed. Meanwhile, we will maintain blood pressure below 160 (140-160), euglycemia, normothermia and oxygen saturation more than 90%. We will maintain head of bed elevated >35 degrees in neutral position. We will prevent over and hypo-ventilation. We will continue to maintain euvolemia. We will continue deep venous thrombosis and gastrointestinal prophylaxis. Addendum: Todays CT head and patient's exam was discussed with Dr. Satnos at bedside-->No EVD today, exam a bit better. Will order CT head in am ccm time 40 min Hasmukh Chapin MD [facility]
--- NOTE | 2017-06-15 16:58 | PN ---
PULMONARY CRITICAL CARE PROGRESS NOTE DATE OF SERVICE: 06/15/2017 REFERRING PROVIDER: Dr. Jones. SUBJECTIVE: Seen intubated and sedated. Family is at beside, not much ET tube secretions. No hemoptysis, no hematemesis, no hematuria, no diarrhea reported. OBJECTIVE: GENERAL: No acute distress. VITAL SIGNS: Temperature 98, heart rate 77, respiratory rate 20, blood pressure 165/90, pulse oximetry 100% on 40% oxygen on ventilator. HEENT: Moist mucus membrane. NECK: Supple, no JVD. ET tube, no secretion. LUNGS: Fair airflow with rhonchi. HEART: S1 and S2. ABDOMEN: Soft, nontender. No organomegaly. EXTREMITIES: There is no edema. NEUROLOGIC: Sedated and intubated. MEDICATIONS: She is on Unasyn 3 g IV q.6 hours, nicardipine p.r.n. basis, Diprivan 1000 mg daily, IV Diprivan, fentanyl IV p.r.n., insulin coverage, Tylenol p.r.n., Protonix 40 mg daily, Zofran q.6 hours p.r.n. LABORATORY DATA: Shows hemoglobin 12.2, hematocrit 36.0, WBC 11.6, platelet is 244, INR 1.02. Blood gases show pH 7.57, pCO2 25, pO2 174. Sodium 138, potassium 3.5, chloride 103, bicarbonate 22, BUN 16, creatinine 0.8, glucose 203, calcium 8.7, phosphorous 3.7, magnesium 1.4, AST 43, ALT 33, alkaline phosphatase is 110, albumin is 3.8. Microbiology, blood culture, urine culture, and nasal culture are unremarkable. CAT scan of the chest done this morning, bibasilar consolidation with air bronchogram. CT of the head was repeated this morning which shows stable appearance of intraparenchymal intraventricular hemorrhage, mild hydrocephalus likely increased. IMPRESSION AND PLAN: Intraparenchymal hemorrhage with ventricular extension, mild hydrocephalus, hypertension, diabetes, may have sleep apnea syndrome, basilar infiltrate maybe aspiration. Spoke to the patient from bedside. All the questions answered. Spoke to nursing staff. Waiting for Neurosurgery for external ventricular drain. Continue antibiotics, aspiration precaution, gastric prophylaxis, SCD to lower extremity, high risk of thromboembolic disease. Thank you and we will follow with you. Livia Francois MD [facility] # [id number]
[2017-06-15 17:47] LABS: ARTERIAL BLOOD GAS HCO3 23.8 mmol/L (21-28); ARTERIAL BLOOD GAS O2 CAPACITY 17.2 mL/dl (16-24); ARTERIAL BLOOD GAS PH 7.48 (7.35-7.45); ARTERIAL BLOOD HGB O2 SAT 96.6 % (95.0-98.0); CARBOXYHEMOGLOBIN 1.2 % (0.5-1.5); HHB 1.3 % (0-5); METHEMOGLOBIN 0.9 % (0.0-3.0)
[2017-06-16] MEDS: Ampicillin/Sulbactam 3 GM in Sodium Chloride 0.9% 100 ML IVPB SCH ×4 (00:08→18:20)
[2017-06-16] MEDS: Insulin Lispro (humaLOG) MEDIUM Coverage SC SCH ×2 (00:35→04:30)
--- NOTE | 2017-06-16 03:48 | PN ---
DATE: 06/15/2017 SUBJECTIVE: The patient is a 72 years old female. The patient is seen and examined on the bedside on 06/15/2017. Family was around. Patient is still intubated, showing a little bit of movement of left upper extremity and toes of the left foot. Family is excited. I spoke to the nurse who tried to give bedside passive physical therapy. REVIEW OF SYSTEMS: Patient is not able give review of systems. PHYSICAL EXAMINATION VITAL SIGNS: Temperature is 98, heart rate 77, respiratory rate 20, blood pressure 155/90, pulse oximetry 100% on 40% of oxygen on ventilator. HEENT: Head normocephalic. Eyes closed. Nose patent. Mucous membranes moist. NECK: Supple. No JVD. ET tube is working and no secretions. LUNGS: Fair airflow with few rhonchi. HEART: S1 and S2 positive. ABDOMEN: Soft, nontender. No organomegaly. EXTREMITIES: No edema. No cyanosis. NEUROLOGIC: Patient is sedated and intubated. MEDICATIONS: Unasyn, nicardipine, Diprivan, fentanyl, insulin coverage, Tylenol, Protonix, Zofran. LABORATORY DATA: Hemoglobin 12.2, hematocrit 36.0, WBC 11.6, platelets 244. Sodium 138, potassium 3.5, BUN 16, creatinine 0.8, AST 43. CAT scan of the chest done, bibasilar consolidation with air bronchospasm. A CT of the head was repeated this morning, which shows stable appearance of the intraparenchymal intraventricular hemorrhage, mild hydrocephalus likely increased. ASSESSMENT AND PLAN: Ms. Ching Villafuerte, my private patient has intraparenchymal hemorrhage with ventricular extension, mild hydrocephalus noted today, hypertension, arthritis, history of schizophrenia, bipolar, sleep apnea syndrome, chronic obstructive pulmonary disease, bibasilar infiltrates, mainly aspiration. Lot of time discussion done with the patient's twin daughters, Obi Francois and patient's grandson who is living with the patient. Waiting for neurosurgery for a sternal ventricular drainage, continue antibiotics, aspirations precautions, gastric prophylaxis. Sequential compressive devices of the lower extremities, high risk of thromboembolic disease. Seen by Dr. Evan Glover, neurologist. Patient has history of hypocholesterolemia, cerebrovascular accident with intraparenchymal hemorrhage with intraventricular extension, comatose secondary to above, respiratory failure. Patient was evaluated by neurosurgery yesterday. Need more reevaluation. Maybe ventriculostomy and tube placement. EEG was done yesterday that is normal. Patient has to be elevated by 30 degrees as per neurologist. Need better blood pressure control. Prognosis is critical. Continue supportive care. Gastrointestinal and deep venous thrombosis prophylaxis. Repeat labs. We will follow up. Gayle Jones MD
[2017-06-16 04:57] LABS: ARTERIAL BLOOD GAS HCO3 24.2 mmol/L (21-28); ARTERIAL BLOOD GAS O2 CAPACITY 16.1 mL/dl (16-24); ARTERIAL BLOOD GAS O2 CONTENT 15.9 ML/dl (15-23); ARTERIAL BLOOD GAS PH 7.53 (7.35-7.45); ARTERIAL BLOOD HGB O2 SAT 96.5 % (95.0-98.0); CARBOXYHEMOGLOBIN 1.4 % (0.5-1.5); METHEMOGLOBIN 1.1 % (0.0-3.0)
[2017-06-16 05:12] LABS: BASO # 0.01 K/mm3 (0.0-2.0); BASO % 0.1 % (0.0-3.0); GRAN # 11.25 (1.4-6.5); GRAN % 85.2 % (50.0-68.0); HEMATOCRIT 36.2 % (36.0-48.0); LYMPH # 1.1 (1.2-3.4); LYMPH % 8.6 % (22.0-35.0); MEAN CORPUSCULAR HEMOGLOBIN 29.5 pg (25.0-35.0); MEAN CORPUSCULAR HGB CONC 34.3 g/dl (31.0-37.0); MEAN PLATELET VOLUME 9.8 fl (7.0-11.0); MONO # 0.8 (0.1-0.6); MONO % 6.1 % (1.0-6.0); RED CELL DISTRIBUTION WIDTH 13.6 % (11.5-14.5); WHITE BLOOD COUNT 13.2 10^3/ul (4.5-11.0)
[2017-06-16 05:32] LABS: INR 0.99 (0.93-1.08)
[2017-06-16 05:34] LABS: ALKALINE PHOSPHATASE 107 U/L (38-126); ALT/SGPT 33 U/L (7-56); AST/SGOT 32 U/L (14-36); BILIRUBIN,TOTAL 1.2 mg/dL (0.2-1.3); BLOOD UREA NITROGEN 17 mg/dL (7-21); CARBON DIOXIDE 26 mmol/L (21-33); CHLORIDE 103 mmol/L (98-107); GFR AFRICAN-AMERICAN > 60; GLUCOSE,RANDOM 238 mg/dL (70-110); MAGNESIUM 1.8 mg/dL (1.7-2.2); PHOSPHOROUS 3.3 mg/dL (2.5-4.5); POTASSIUM 3.2 mmol/L (3.6-5.0); SODIUM 139 mmol/L (132-148); TOTAL PROTEIN 7.4 g/dL (5.8-8.3)
[2017-06-16] MEDS ORDERED: Insulin Regular 100 UNITS in Sodium Chloride 0.9% 99 ML IV PRN ×2 (08:10→16:12)
--- NOTE | 2017-06-16 08:14 | PN ---
DATE: 06/16/2017 SUBJECTIVE: The patient was seen in followup today. She actually looks a little bit better than yesterday and that she is volitionally moving her entire left side. She also does seem to follow some commands, although oddly enough there was less eye opening than yesterday. Her pupils remain briskly reactive and unfortunately not much of any movement on the right side. Today's new CT does show some mild expansion of the ventricles, but this is truly minimal ventriculomegaly. Otherwise not much change. I had a long discussion with multiple family members at which point they said obviously because of the Plavix, and in general, we would like to try to ride through as conservatively possible, not place a ventricular drain unless absolutely necessary. In light of her clinical improvement and only minimal hydrocephalus, at this point I would certainly hold of. The plan will be to obtain a new CT of the brain early tomorrow morning. If that shows further ventricular expansion, we will obviously consider placement of ventriculostomy at that time. Ford Santos MD
--- NOTE | 2017-06-16 09:30 | CT ---
PROCEDURE: CT HEAD WITHOUT CONTRAST. HISTORY: Evaluate hydrocephalus COMPARISON: 06/15/2017 TECHNIQUE: Axial computed tomography images were obtained through the head/brain without intravenous contrast. Radiation dose: Total exam DLP = 774 mGy-cm. This CT exam was performed using one or more of the following dose reduction techniques: Automated exposure control, adjustment of the mA and/or kV according to patient size, and/or use of iterative reconstruction technique. FINDINGS: HEMORRHAGE: No change in left occipital and intraventricular hemorrhages BRAIN: There are no new findings VENTRICLES: Ventricular size is stable. There is mild enlargement of the temporal horns unchanged from yesterday's study. The findings were discussed with Dr. Santos at 9:20 a.m. CALVARIUM: Unremarkable. PARANASAL SINUSES: Unremarkable as visualized. No significant inflammatory changes. MASTOID AIR CELLS: Unremarkable as visualized. No inflammatory changes. OTHER FINDINGS: None. IMPRESSION: Ventricular size is stable. There is mild enlargement of the temporal horns unchanged from yesterday's study. No change in appearance of left occipital parenchymal hemorrhage and intraventricular hemorrhage
--- NOTE | 2017-06-16 10:02 | CP.PCM.PN ---
Subjective - Date & Time of Evaluation Date of Evaluation: 06/16/17 Time of Evaluation: 09:57 - Subjective Subjective: clinically stable pupils eq and brisk moves well and appropriately on left dense r hemip CT unchanged d/w Dr Deng radiology- both agree no expansion of vent size comp yesterday only mild hydro thus no need for ventriculostomy - can hold off rec f/u CT 48 hrs D/W family at bedside Objective - Vital Signs/Intake and Output Vital Signs (last 24 hours): Temp Pulse Resp BP Pulse Ox 100.6 F H 106 H 19 145/95 H 99 06/16/17 07:20 06/16/17 07:20 06/16/17 06:00 06/16/17 07:00 06/16/17 07:20 Intake and Output: 06/16/17 06/16/17 06:59 18:59 Output Total 1000 Balance -1000 - Medications Medications: Current Medications Fentanyl (Fentanyl) 50 mcg IVP Q1H PRN PRN Reason: Pain, moderate (4-7) Propofol (Diprivan) 1,000 mg in 100 mls @ 2.658 mls/hr IV .Q24H PRN; Protocol; 5 MCG/KG/MIN PRN Reason: TITRATE PER MD ORDER Last Titration: 06/15/17 09:15 Dose: 0 mcg/kg/min, 0 mls/hr Nicardipine HCl (Cardene Iv Premix) 20 mg in 200 mls @ 50 mls/hr IV .Q4H PRN; Protocol; 5 MG/HR PRN Reason: TITRATE PER MD ORDER Last Titration: 06/15/17 17:45 Dose: 5.5 mg/hr, 55 mls/hr Ampicillin Sodium/Sulbactam (Sodium 3 gm/ Sodium Chloride) 100 mls @ 100 mls/ hr IVPB Q6H CHUY PRN Reason: Protocol Last Admin: 06/16/17 05:00 Dose: 100 mls/hr Acetaminophen (Ofirmev) 1,000 mg in 100 mls @ 400 mls/hr IVPB Q6H PRN PRN Reason: T>99.8 Stop: 06/16/17 17:55 Last Admin: 06/16/17 04:00 Dose: 400 mls/hr Potassium Chloride (Potassium Chloride 20 Meq/100 Ml) 20 meq in 100 mls @ 50 mls/hr IVPB Q2H CHUY Stop: 06/16/17 12:14 Last Admin: 06/16/17 09:42 Dose: 50 mls/hr Insulin Human Regular 100 (units/ Sodium Chloride) 100 mls @ 2 mls/hr IV .Q24H PRN; Protocol; 2 UNITS/HR PRN Reason: TITRATE PER MD ORDER Last Admin: 06/16/17 09:15 Dose: 2 units/hr, 2 mls/hr Ondansetron HCl (Zofran Inj) 4 mg IVP Q6H PRN PRN Reason: Nausea/Vomiting Pantoprazole Sodium (Protonix Inj) 40 mg IVP DAILY [facility] Last Admin: 06/16/17 09:43 Dose: 40 mg - Labs Labs: 06/16/17 05:00 06/16/17 05:00 PT 10.7 Seconds (9.9-11.8) 06/16/17 05:00 INR 0.99 (0.93-1.08) 06/16/17 05:00 APTT 24.9 Seconds (23.7-30.8) 06/14/17 07:50
--- NOTE | 2017-06-16 10:05 | PN ---
DATE: 06/16/2017 SUBJECTIVE: The patient seen and examined at bedside. She is responsive only to painful stimuli. She is still intubated. She is on PRVC 400/10/5/40%. PHYSICAL EXAMINATION VITAL SIGNS: On ventilator setting, her oxygen saturation is 99%, heart rate 106, blood pressure 145/95, temperature 100.6. (The patient is on cooling blanket and IV Tylenol.) ENT: Head and neck, atraumatic. LUNGS: Clear to auscultation bilaterally. HEART: Regular rate and rhythm. S1 and S2 normal. ABDOMEN: Soft, nontender and nondistended. MUSCULOSKELETAL: No C/C/E. NEUROLOGIC: The patient responds to pain but was not noted to move all extremities spontaneously. SKIN: Moist. PSYCHIATRIC: The patient does not respond to commands. LABORATORY DATA: WBC 13.2, hemoglobin 12.4, and platelet count 243. Sodium 139, potassium 3.2 (supplemented), BUN 17, creatinine 0.8, glucose 238. Calcium 9. AST 32, ALT 33. Albumin 3.7. INR 0.99. MEDICATIONS: Tylenol p.r.n., fentanyl p.r.n., insulin drip, nicardipine drip, Zofran p.r.n., Protonix daily, potassium supplementation, Unasyn. ASSESSMENT AND PLAN: This is 72-year-old lady who presented with unresponsiveness secondary to large intraparenchymal bleed with intraventricular extension, requiring intubation with airway protection. No significant progression in mild hydrocephalus on CTH (based on discussion with Dr. Santos and Dr. Deng), thus decision not to proceed with neurosurgical intervention was made by Dr. Santos. The patient was managed conservatively with maintaining euvolemia euglycemia, normothermia, and oxygen saturation more than 90%. We will continue with protective lung ventilation strategy and continue to wean with daily weaning trial. Head of bed elevated at >35 degrees. Conservative oxygen management. Patient is off of propofol, but only minimally responsive. Will start enteral nutrition. We will maintain blood pressure 140-160. The patient is on nicardipine drip. We will continue with mechanical DVT prophylaxis. GI prophylaxis. Discussed case with neuro service--agreed with trach as unlikely recover mental status enough soon to be able to protect airways. ccm time 40 min Hasmukhmagaly Chapin MD [facility] # [id number] [facility]
[2017-06-16] MEDS: Nicardipine 20 MG/200 ML 20 MG/200 ML BAG IV PRN ×3 (10:20→18:19)
--- NOTE | 2017-06-16 11:13 | RAD ---
HISTORY: mechanical vent COMPARISON: 06/15/2017 FINDINGS: LUNGS: No active pulmonary disease. PLEURA: No significant pleural effusion identified, no pneumothorax apparent. CARDIOVASCULAR: Normal. OSSEOUS STRUCTURES: No significant abnormalities. VISUALIZED UPPER ABDOMEN: Normal. OTHER FINDINGS: Endotracheal and nasogastric tubes remain in satisfactory position IMPRESSION: No active disease.
--- NOTE | 2017-06-16 19:19 | PN ---
NEUROLOGY PROGRESS NOTE SUBJECTIVE: The patient is lying in the bed, on the ventilator. PHYSICAL EXAMINATION: VITAL SIGNS: Her blood pressure is 149/85, heart rate is 97 per minute, breathing at rate of 16 per minute and her temperature was 100.6 degree Fahrenheit. HEENT: Head is normocephalic and atraumatic. NECK: Supple. There are no carotid bruits. LUNGS: Clear. CARDIOVASCULAR: S1, S2 audible. No murmurs. ABDOMEN: Soft and nontender. Bowel sounds are present. NEUROLOGY: Mental status: The patient is comatose. She does not follow any commands. Cranial nerve examination: Pupils are 2 mm minimally reactive to light. Positive Doll's eye movement. Positive corneal reflex. Positive gag reflex. She minimally withdraws her left upper and lower extremities to noxious painful stimuli. Tone is decreased on the right side and she does not withdraw her right side. Plantars are upgoing bilaterally. LABORATORY DATA: Reviewed shows WBC of 13.2, hemoglobin 12.4, hematocrit 36.2 and platelets of 243. Sodium is 139, potassium 3.2, chloride of 103, carbon dioxide 26, BUN of 17, creatinine 0.8 and glucose of 238. The patient has a repeat CT scan of the head done today which shows ventricular size is stable. There is mild enlargement of the temporal horns unchanged from yesterday's study. No change in the appearance of left occipital parenchymal hemorrhage or intraventricular hemorrhage. IMPRESSION: 1. Intracerebral hemorrhage with intraventricular extension. 2. Comatose secondary to above. 3. Respiratory failure. RECOMMENDATIONS: 1. The patient has not shown any significant improvement in her neurologic status. 2. The patient was reevaluated by neurosurgery and no intervention to be done at present. 3. The patient's head of the bed to be kept elevated to 30 degrees. 4. The patient's blood pressure is better controlled. 5. The patient's prognosis remains guarded to poor. 6. Discussed the patient's current condition with the family and they wish to continue to do maximum treatment for the patient's condition. 7. Please continue supportive care and other treatment. Thank you for the opportunity of participate in the care of this patient. Evan Glover MD
--- NOTE | 2017-06-16 20:26 | CON ---
EARS, NOSE AND THROAT CONSULTATION DATE OF CONSULTATION: 06/16/2017 CONSULTING PHYSICIAN: Dr. Dyllan Booker. REFERRING PHYSICIAN: Dr. Gayle Jones. REASON FOR CONSULTATION: Tracheostomy. HISTORY OF PRESENT ILLNESS: This is a 72-year-old female, past medical history includes hypertension, diabetes, who presented to the emergency room at [facility] and was admitted on 06/14/2017 for neurological deficits, demonstrated to have an intracranial hemorrhage with ventricular extension. She was subsequently intubated for airway protection and transferred to the ICU for management. At this point, the patient has been intubated for 3 days and neuro surgery has recommended treating the patient conservatively at this point. Per the ICU, the recovery process for this patient will require intubation for several more days, potentially weeks; therefore, ear, nose and throat was consulted for a tracheostomy evaluation. Upon examination, the patient is intubated, sedated in ICU. Daughter is at the bedside. The risks and benefits of a tracheotomy were discussed with the daughter at the bedside and the daughter stated that she will discuss with her siblings and this is how they wish to proceed. PAST MEDICAL HISTORY: Includes hypertension, cataract surgery, diabetes, arthritis, acid reflux, schizophrenia. PAST SURGICAL HISTORY: No head or neck surgeries. SOCIAL HISTORY: No smoking, drug, or alcohol use. ALLERGIES: SHRIMP ALLERGY. HOME MEDICATIONS: Include atorvastatin, Plavix, metformin, Klonopin, glipizide, Cozaar, Amitiza, Lopressor, montelukast. REVIEW OF SYSTEMS: Unable to obtain at this time. OBJECTIVE: VITAL SIGNS: Pulse rate of 97, blood pressure 149/85, oxygen is 99% on the ventilator, temperature is 100.6. GENERAL: The patient is intubated and sedated in the ICU. HEENT: Eyes: Pupils equal, round and reactive to light. Oral cavity/oropharynx: There is an endotracheal tube in place that is secured. Tongue is midline. No masses. No lesions. NECK: Supple, obese. No lymphadenopathy. Trachea midline. Respirations are ventilated and mechanical. LABORATORY DATA: She has a white blood cell of 13.2, hemoglobin 12.4, hematocrit 36.2, platelet count 243. Sodium 139, potassium 3.2, bicarb 26, BUN 17, creatinine 0.8, glucose 252. IMAGING: She has a chest x-ray from 06/16/2017 which shows endotracheal, nasogastric tubes in place, no active disease. She has a CT head from 06/16 which shows left occipital and intraventricular hemorrhages. ASSESSMENT AND PLAN: This is a 72-year-old female who sustained an intracranial bleed, who is now intubated and sedated in the ICU. Ears, nose, and throat service has been consulted for possible tracheotomy placement for ventilatory-dependent respiratory failure. Given that the patient will likely be intubated for a prolonged period of time, tracheostomy at this time is indicated. This is discussed with the daughter at the bedside who wanted to talk to her siblings about the procedure before signing consent. Ears, nose, and throat team will be available this week should the daughter wish to proceed with the tracheostomy. Should the patient go to the operating room for this, I would recommend keeping them n.p.o. the night before the procedure with IV fluids, stopping anticoagulation the morning of procedure. The remainder of the management is as per the primary ICU team. Thank you for allowing us to participate in this patient's care. Dyllan Booker DO
[2017-06-17] MEDS: Ampicillin/Sulbactam 3 GM in Sodium Chloride 0.9% 100 ML IVPB SCH ×4 (00:10→17:21)
--- NOTE | 2017-06-17 00:53 | PN ---
PULMONARY CRITICAL CARE PROGRESS NOTE DATE: 06/16/2017 REFERRING PHYSICIAN: Dr. Jones. SUBJECTIVE: She is intubated, sleepy, arousable, not much ET tube secretion. No hemoptysis, hematemesis, or hematuria. No diarrhea reported. OBJECTIVE: GENERAL: On ventilator. VITAL SIGNS: Temp is 98, heart rate 75, respiratory rate is 20, blood pressure 143/77, and pulse ox 99% on ventilator. HEENT: Moist mucous membranes. Crowded airway. NECK: Supple. No JVD. LUNGS: Fair airflow with rhonchi. HEART: S1 and S2. ABDOMEN: Soft, nontender. No organomegaly. EXTREMITIES: No edema. NEUROLOGIC: Sleepy, arousable. MEDICATIONS: She is on Unasyn 3 g IV q. 6 hour, nicardipine, Diprivan, fentanyl, insulin, Protonix 40 mg daily, Zofran p.r.n. basis. LABORATORY DATA: Shows hemoglobin 12.4, hematocrit 36.2, WBC 13.2, platelets are 243. INR 0.9. Blood gases show pH 7.53, pCO2 of 29, O2 of 118, this is on 40% oxygen, on ventilator. Blood sugar is 212. Sodium 139, potassium 3.2, chloride 103, bicarbonate 26, BUN 17, creatinine 0.8, glucose 238, calcium is 9.0, phosphorous 3.3, AST 32, ALT 33, alk phos is 107, albumin is 3.7. Microbiology; blood culture and urine culture, there is no growth. Chest x-ray done today shows no active pulmonary disease. CAT scan of the head is done, which shows ventricle size is stable. Since yesterday, there is a mild enlargement of the temporal horn, unchanged from yesterday's study. No change in appearance of the left occipital parenchymal hemorrhage and intraventricular hemorrhage. IMPRESSION AND PLAN: Intraparenchymal hemorrhage with ventricular extension, mild hydrocephalus, hypertension, diabetes, may have sleep apnea syndrome, basal infiltrates on the x-ray. Spoke to chief lock operator, also spoke to the patient's daughter at the bedside, all the questions answered. Keep present ventilator setting, keep head at 45 degree. Discontinue sedatives. If fully awake, can try CPAP pressure support; otherwise, will benefit from tracheostomy, gastric prophylaxis, CD to lower extremity, replace potassium. Followup ABG, chest x-ray, CBC, CMP in the morning. Critical care time spent more than 35 minutes. Thank you and we will follow with you. Livia Francois MD
[2017-06-17] MEDS: Nicardipine 20 MG/200 ML 20 MG/200 ML BAG IV PRN (01:00)
--- NOTE | 2017-06-17 02:29 | PN ---
DATE: SUBJECTIVE: The patient seen and examined on the bedside. Daughter was sitting on the bedside. Also, the patient placed on the ventilator. For a length of time continued discussion with the patient's daughter about trach, not much change in the status. The patient not able to give review of systems. PHYSICAL EXAMINATION: VITAL SIGNS: Temperature, the patient afebrile; pulse 75; blood pressure 143/77; respiratory rate 18. HEENT: Head normocephalic. Eyes closed. Nose patent. Mucous membranes moist. The patient is intubated. NECK: Supple. No carotid bruit, JVD or thyromegaly. CHEST: Bilaterally symmetrical. HEART: S1 and S2 positive. LUNGS: Clear to auscultation. ABDOMEN: Soft. Bowel sounds positive. No organomegaly. EXTREMITIES: No edema. No cyanosis. NEUROLOGIC: The patient is intubated, sedated. Cannot do neurological examination. MEDICATIONS: Amoxicillin/sulbactam, nicardipine, propofol, fentanyl, insulin, Protonix, Zofran. LABORATORY DATA: White blood cell 13.2, hemoglobin 12.4, hematocrit 36.2, platelets 243. Glucose 188, 200, 212, 214. ASSESSMENT AND PLAN: Ms. Ching Villafuerte is a 72-year-old lady with intracerebral hemorrhage with intraventricular extension, comatose secondary to stroke, respiratory failure, he is intubated, diabetes mellitus, hypertension, hypercholesterolemia, schizophrenia. The patient has not shown any signs of improvement in her neurologic status in 24 hours. The patient was reevaluated by neurosurgery and no intervention to be done at present as per neurologist. Blood pressure is very well controlled enough. Prognosis are made guarded to poor. Length of time discussion done with the patient's daughter. Continue supportive care. The patient is FULL CODE. Review Dr. Ford Santos's notes. According to him clinically stable. Pupil equal and brisk, moves well and appropriately on the left dense left hemapheresis. CT unchanged. According to the neurologist, he had discussion with Dr. Deng, expansion of ventricle size compared to yesterday, only mild hydronephrosis, thus no need for ventriculostomy. Can hold off. Need followup CAT scan in [address] Santos had discussion with the family. I have discussion with the family. May be the patient need a trach tube. We will follow up. Gayle Jones MD MTDDaphney
[2017-06-17 05:53] LABS: ARTERIAL BLOOD GAS HCO3 26.5 mmol/L (21-28); ARTERIAL BLOOD GAS O2 CAPACITY 15.8 mL/dl (16-24); ARTERIAL BLOOD GAS O2 CONTENT 15.6 ML/dl (15-23); ARTERIAL BLOOD GAS PH 7.43 (7.35-7.45); ARTERIAL BLOOD HGB O2 SAT 96.2 % (95.0-98.0); CARBOXYHEMOGLOBIN 1.5 % (0.5-1.5); HHB 1.3 % (0-5)
[2017-06-17 06:20] LABS: BASO # 0.02 K/mm3 (0.0-2.0); BASO % 0.2 % (0.0-3.0); EOS % 0.2 % (1.5-5.0); GRAN # 8.76 (1.4-6.5); HEMATOCRIT 37.6 % (36.0-48.0); LYMPH # 2.3 (1.2-3.4); LYMPH % 19.4 % (22.0-35.0); MEAN CELL VOLUME 87.9 fl (80.0-105.0); MEAN CORPUSCULAR HEMOGLOBIN 29.4 pg (25.0-35.0); MEAN CORPUSCULAR HGB CONC 33.5 g/dl (31.0-37.0); MEAN PLATELET VOLUME 10.1 fl (7.0-11.0); MONO # 0.9 (0.1-0.6); MONO % 7.2 % (1.0-6.0); RED CELL DISTRIBUTION WIDTH 13.7 % (11.5-14.5)
[2017-06-17 06:22] LABS: INR 0.93 (0.93-1.08)
[2017-06-17 06:26] LABS: ALB/GLOB RATIO 0.9 (1.1-1.8); ALKALINE PHOSPHATASE 98 U/L (38-126); ALT/SGPT 40 U/L (7-56); AST/SGOT 40 U/L (14-36); BILIRUBIN,TOTAL 0.9 mg/dL (0.2-1.3); BLOOD UREA NITROGEN 18 mg/dL (7-21); CARBON DIOXIDE 27 mmol/L (21-33); CHLORIDE 103 mmol/L (95-110); GFR AFRICAN-AMERICAN > 60; GLUCOSE,RANDOM 140 mg/dL (70-110); MAGNESIUM 1.9 mg/dL (1.7-2.2); PHOSPHOROUS 3.9 mg/dL (2.5-4.5); POTASSIUM 3.3 mmol/L (3.6-5.0); SODIUM 140 mmol/L (132-148); TOTAL PROTEIN 7.6 g/dL (5.8-8.3)
--- NOTE | 2017-06-17 08:23 | RAD ---
HISTORY: mechanical vent COMPARISON: 06/16/2017 FINDINGS: LUNGS: No active pulmonary disease. PLEURA: No significant pleural effusion identified, no pneumothorax apparent. CARDIOVASCULAR: Normal heart size. ET tube positioned approximately 1.3 cm above tracheal momo. Consider a repositioning more proximally. Nasogastric tube extends to left upper quadrant of abdomen. OSSEOUS STRUCTURES: No significant abnormalities. VISUALIZED UPPER ABDOMEN: Normal. OTHER FINDINGS: None. IMPRESSION: No infiltrate. ET tube positioned 1.3 cm proximal to tracheal momo. Consider repositioning more proximally.
[2017-06-17] MEDS: Insulin Reg-LOW-Coverage SC SCH ×3 (10:15→14:10)
[2017-06-17] MEDS ORDERED: Insulin Reg-LOW-Coverage SC SCH (11:30)
--- NOTE | 2017-06-17 11:46 | CP.PCM.PN ---
Subjective - Date & Time of Evaluation Date of Evaluation: 06/17/17 Time of Evaluation: 11:45 - Subjective Subjective: remains intubated moving left purposfully attempting to follow command open eyes spont and to voice attempt to mov r arm suggest extubate Objective - Vital Signs/Intake and Output Vital Signs (last 24 hours): Temp Pulse Resp BP Pulse Ox 99.5 F 85 32 H 148/73 40 L 06/17/17 04:00 06/17/17 06:00 06/17/17 07:45 06/17/17 06:00 06/17/17 07:45 Intake and Output: 06/17/17 06/17/17 06:59 18:59 Intake Total 955 68 Output Total 600 Balance 355 68 - Medications Medications: Current Medications Fentanyl (Fentanyl) 50 mcg IVP Q1H PRN PRN Reason: Pain, moderate (4-7) Propofol (Diprivan) 1,000 mg in 100 mls @ 2.658 mls/hr IV .Q24H PRN; Protocol; 5 MCG/KG/MIN PRN Reason: TITRATE PER MD ORDER Last Titration: 06/15/17 09:15 Dose: 0 mcg/kg/min, 0 mls/hr Nicardipine HCl (Cardene Iv Premix) 20 mg in 200 mls @ 50 mls/hr IV .Q4H PRN; Protocol; 5 MG/HR PRN Reason: TITRATE PER MD ORDER Last Titration: 06/17/17 10:34 Dose: 2 mg/hr, 20 mls/hr Ampicillin Sodium/Sulbactam (Sodium 3 gm/ Sodium Chloride) 100 mls @ 100 mls/ hr IVPB Q6H CHUY PRN Reason: Protocol Last Admin: 06/17/17 05:29 Dose: 100 mls/hr Acetaminophen (Ofirmev) 1,000 mg in 100 mls @ 400 mls/hr IVPB Q6H PRN PRN Reason: Temperature Stop: 06/18/17 23:00 Last Admin: 06/17/17 08:56 Dose: 400 mls/hr Insulin Human Regular (Humulin R Low) 0 units SC Q2H CHUY PRN Reason: Protocol Last Admin: 06/17/17 10:15 Dose: 2 units Labetalol HCl (Trandate) 10 mg IV Q2H PRN PRN Reason: Systolic Blood Pressure Metoprolol Tartrate (Lopressor) 25 mg PO BID [facility] Ondansetron HCl (Zofran Inj) 4 mg IVP Q6H PRN PRN Reason: Nausea/Vomiting Pantoprazole Sodium (Protonix Inj) 40 mg IVP DAILY [facility] Last Admin: 06/17/17 09:00 Dose: 40 mg - Labs Labs: 06/17/17 05:15 06/17/17 05:15 PT 10.0 Seconds (9.9-11.8) 06/17/17 05:15 INR 0.93 (0.93-1.08) 06/17/17 05:15 APTT 24.9 Seconds (23.7-30.8) 06/14/17 07:50
--- NOTE | 2017-06-17 13:36 | CON ---
DATE: HISTORY OF PRESENT ILLNESS: Of note is that this patient is in [facility] that was not given as a choice to me to punctuate. In any case, this is a 72-year-old lady with very sensitive medical history on 14 medications, one of which is Plavix, has atherosclerotic heart disease, hypertension and diabetes in any way. She was down and unresponsive this morning by family, last known to be functional at about 10 p.m. the night before, brought emergently to the [facility] ER, was found to be minimally responsive. CT of the brain documented large intraparenchymal combined intraventricular hemorrhage. Neurosurgical evaluation was requested at that time. I felt that the hemorrhage was really [id number] size with minimal mass affect and there was no hydrocephalus, she should admitted to the ICU. Reviewing her at this point in time, she is intubated. She actually has her eyes open and she does look when called to the left side, she has pronounced left gaze preference. Her pupils are 4 mm briskly reactive bilaterally. Corneal are brisk. She has a positive gag. She is not moving her extremities much, even to noxious. She did not follow any commands. She may have attempted to squeeze my hand on the left side. CT of the brain done on admission early this morning and then repeated around noon shows a left occipital intraparenchymal hemorrhage it is ruptured into left lateral ventricle. There was some blood seen in the aqueduct and in the fourth ventricle; however, there is CSF seen around all blood in the fourth ventricle. Most importantly, there is no hydrocephalus and there is no increase in the size of the ventricles on the second scan compared to the first. IMPRESSION AND PLAN: Basically, the patient has been on Plavix, would like to try to manage this conservatively without any surgical intervention, certainly there is no need to consider any hematoma evacuation as there is very little mass affect certainly no midline shift and we would like to try to avoid ventriculostomy as well again because of her Plavix. So far, her ventricles are stable and we will repeat the scan again tomorrow morning. We will continue head of bed elevation and blood pressure controlled. All the above we discussed at length with several family members at the bedside. Ford Santos MD [facility] # [id number]
--- NOTE | 2017-06-17 15:49 | CP.CCUPN ---
CCU Subjective - Physician Review Events Since Last Encounter (Free Text): 06/17/17 15:43 72 y/o F admitted to the ICU following an ICH This morning seen to be moving left arm and tracking with her eyes. CCU Objective - Vital Signs / Intake & Output Vital Signs (Last 4 hours): Vital Signs Temp Pulse BP 06/17/17 12:00 99.7 F H 06/17/17 11:48 71 134/81 Intake and Output (Last 8hrs): Intake & Output 06/17/17 06/17/17 06/17/17 06:59 14:59 22:59 Intake Total 808 105 Output Total 600 Balance 208 105 Weight 156 lb 11.2 oz Intake: IV 808 105 Right Forearm 420 Right Hand 200 Output: Urine 600 Urethral ([place]) 600 Other: Voiding Method Indwelling Catheter - Physical Exam Head: Positive for: Atraumatic Pupils: Positive for: Sluggish Conjunctiva: Positive for: Normal Ears: Positive for: Normal Mouth: Positive for: Moist Mucous Membranes, Other (ett in place) Pharnyx: Positive for: Normal Neck: Positive for: Normal Range of Motion Respiratory/Chest: Positive for: Clear to Auscultation, Good Air Exchange Cardiovascular: Positive for: Regular Rate and Rhythm Abdomen: Positive for: Normal Bowel Sounds Upper Extremity: Positive for: Normal Inspection Lower Extremity: Positive for: Normal Inspection Neurological: Positive for: Speech Normal, Other (on sedation. original GCS<8) Skin: Positive for: Warm Psychiatric: Positive for: Alert, Lethargic, Other (intubated and sedated ) - Medications Active Medications: Active Medications Generic Name Dose Route Start Last Admin Trade Name Freq PRN Reason Stop Dose Admin Fentanyl 50 mcg 06/14/17 12:48 Fentanyl IVP Q1H PRN Pain, moderate (4-7) Propofol 1,000 mg in 100 mls @ 2.658 mls/hr 06/14/17 08:23 06/15/17 09:15 Diprivan IV 0 mcg/kg/min .Q24H PRN 0 mls/hr TITRATE PER MD ORDER Titration Protocol 5 MCG/KG/MIN Nicardipine HCl 20 mg in 200 mls @ 50 mls/hr 06/14/17 12:23 06/17/17 14:00 Cardene Iv Premix IV 0.5 mg/hr .Q4H PRN 5 mls/hr TITRATE PER MD ORDER Titration Protocol 5 MG/HR Ampicillin Sodium/Sulbactam 100 mls @ 100 mls/hr 06/14/17 18:00 06/17/17 11: 52 Sodium 3 gm/ Sodium Chloride IVPB 100 mls/hr Q6H CHUY Administration Protocol Acetaminophen 1,000 mg in 100 mls @ 400 mls/hr 06/16/17 22:59 06/17/17 08:56 Ofirmev IVPB 06/18/17 23:00 400 mls/hr Q6H PRN Administration Temperature Insulin Human Regular 0 units 06/17/17 10:00 06/17/17 14:10 Humulin R Low SC 2 units Q2H CHUY Administration Protocol Labetalol HCl 10 mg 06/17/17 11:33 Trandate IV Q2H PRN Systolic Blood Pressure Metoprolol Tartrate 25 mg 06/17/17 11:45 06/17/17 11:48 Lopressor PO 25 mg BID CHUY Administration Ondansetron HCl 4 mg 06/14/17 16:15 Zofran Inj IVP Q6H PRN Nausea/Vomiting Pantoprazole Sodium 40 mg 06/14/17 14:15 06/17/17 09:00 Protonix Inj IVP 40 mg DAILY CHUY Administration - Patient Studies Lab Studies: Microbiology Studies 06/14/17 10:36 Blood Culture - Preliminary Blood-Venous NO GROWTH AFTER 3 DAYS 06/14/17 10:36 Blood Culture - Preliminary Blood-Venous NO GROWTH AFTER 3 DAYS Lab Studies 06/17/17 06/17/17 06/17/17 Range/Units 06:00 05:30 05:15 WBC (4.5-11.0) 10^3/ul RBC (3.5-6.1) 10^6/uL Hgb (12.0-16.0) g/dL Hct (36.0-48.0) % MCV (80.0-105.0) fl MCH (25.0-35.0) pg MCHC (31.0-37.0) g/dl RDW (11.5-14.5) % Plt Count (120.0-450.0) 10^3/uL MPV (7.0-11.0) fl Gran % (50.0-68.0) % Lymph % (Auto) (22.0-35.0) % Mclennan % (Auto) (1.0-6.0) % Eos % (Auto) (1.5-5.0) % Baso % (Auto) (0.0-3.0) % Gran # (1.4-6.5) Lymph # (1.2-3.4) Mclennan # (0.1-0.6) Eos # (0.0-0.7) Baso # (0.0-2.0) K/mm3 PT (9.9-11.8) Seconds INR (0.93-1.08) pCO2 40 (35-45) mm/Hg pO2 122.0 H (80-100) mm/Hg HCO3 26.5 (21-28) mmol/L ABG pH 7.43 (7.35-7.45) ABG Total CO2 27.7 (22-28) mmol.L ABG O2 Saturation 98.7 H (95-98) % ABG O2 Content 15.6 (15-23) ML/dl ABG Base Excess 2.0 (-2.0-3.0) mmol/L ABG Hemoglobin 11.4 L (11.7-17.4) g/dL ABG Carboxyhemoglobin 1.5 (0.5-1.5) % POC ABG HHb (Measured) 1.3 (0-5) % ABG Methemoglobin 1.0 (0.0-3.0) % ABG O2 Capacity 15.8 L (16-24) mL/dl Hgb O2 Saturation 96.2 (95.0-98.0) % FiO2 40.0 % Sodium 140 (132-148) mmol/L Potassium 3.3 L (3.6-5.0) mmol/L Chloride 103 (95-110) mmol/L Carbon Dioxide 27 (21-33) mmol/L Anion Gap 13 (10-20) BUN 18 (7-21) mg/dL Creatinine 0.7 (0.5-1.4) mg/dL Est GFR ( Amer) > 60 Est GFR (Non-Af Amer) > 60 POC Glucose (mg/dL) 134 H (65-110) mg/dL Random Glucose 140 H (70-110) mg/dL Calcium 9.0 (8.4-10.5) mg/dL Phosphorus 3.9 (2.5-4.5) mg/dL Magnesium 1.9 (1.7-2.2) mg/dL Total Bilirubin 0.9 (0.2-1.3) mg/dL AST 40 H D (14-36) U/L ALT 40 (7-56) U/L Alkaline Phosphatase 98 (38-126) U/L Total Protein 7.6 (5.8-8.3) g/dL Albumin 3.5 (3.0-4.8) g/dL Globulin 4.0 gm/dL Albumin/Globulin Ratio 0.9 L (1.1-1.8) 06/17/17 06/17/17 06/17/17 Range/Units 05:15 05:15 04:57 WBC 12.0 H (4.5-11.0) 10^3/ul RBC 4.28 (3.5-6.1) 10^6/uL Hgb 12.6 (12.0-16.0) g/dL Hct 37.6 (36.0-48.0) % MCV 87.9 (80.0-105.0) fl MCH 29.4 (25.0-35.0) pg MCHC 33.5 (31.0-37.0) g/dl RDW 13.7 (11.5-14.5) % Plt Count 240 (120.0-450.0) 10^3/uL MPV 10.1 (7.0-11.0) fl Gran % 73.0 H (50.0-68.0) % Lymph % (Auto) 19.4 L (22.0-35.0) % Mclennan % (Auto) 7.2 H (1.0-6.0) % Eos % (Auto) 0.2 L (1.5-5.0) % Baso % (Auto) 0.2 (0.0-3.0) % Gran # 8.76 H (1.4-6.5) Lymph # 2.3 (1.2-3.4) Mclennan # 0.9 H (0.1-0.6) Eos # 0.0 (0.0-0.7) Baso # 0.02 (0.0-2.0) K/mm3 PT 10.0 (9.9-11.8) Seconds INR 0.93 (0.93-1.08) pCO2 (35-45) mm/Hg pO2 (80-100) mm/Hg HCO3 (21-28) mmol/L ABG pH (7.35-7.45) ABG Total CO2 (22-28) mmol.L ABG O2 Saturation (95-98) % ABG O2 Content (15-23) ML/dl ABG Base Excess (-2.0-3.0) mmol/L ABG Hemoglobin (11.7-17.4) g/dL ABG Carboxyhemoglobin (0.5-1.5) % POC ABG HHb (Measured) (0-5) % ABG Methemoglobin (0.0-3.0) % ABG O2 Capacity (16-24) mL/dl Hgb O2 Saturation (95.0-98.0) % FiO2 % Sodium (132-148) mmol/L Potassium (3.6-5.0) mmol/L Chloride (95-110) mmol/L Carbon Dioxide (21-33) mmol/L Anion Gap (10-20) BUN (7-21) mg/dL Creatinine (0.5-1.4) mg/dL Est GFR ( Amer) Est GFR (Non-Af Amer) POC Glucose (mg/dL) 159 H (65-110) mg/dL Random Glucose (70-110) mg/dL Calcium (8.4-10.5) mg/dL Phosphorus (2.5-4.5) mg/dL Magnesium (1.7-2.2) mg/dL Total Bilirubin (0.2-1.3) mg/dL AST (14-36) U/L ALT (7-56) U/L Alkaline Phosphatase (38-126) U/L Total Protein (5.8-8.3) g/dL Albumin (3.0-4.8) g/dL Globulin gm/dL Albumin/Globulin Ratio (1.1-1.8) 06/17/17 06/17/17 06/17/17 Range/Units 04:06 03:14 02:02 WBC (4.5-11.0) 10^3/ul RBC (3.5-6.1) 10^6/uL Hgb (12.0-16.0) g/dL Hct (36.0-48.0) % MCV (80.0-105.0) fl MCH (25.0-35.0) pg MCHC (31.0-37.0) g/dl RDW (11.5-14.5) % Plt Count (120.0-450.0) 10^3/uL MPV (7.0-11.0) fl Gran % (50.0-68.0) % Lymph % (Auto) (22.0-35.0) % Mclennan % (Auto) (1.0-6.0) % Eos % (Auto) (1.5-5.0) % Baso % (Auto) (0.0-3.0) % Gran # (1.4-6.5) Lymph # (1.2-3.4) Mclennan # (0.1-0.6) Eos # (0.0-0.7) Baso # (0.0-2.0) K/mm3 PT (9.9-11.8) Seconds INR (0.93-1.08) pCO2 (35-45) mm/Hg pO2 (80-100) mm/Hg HCO3 (21-28) mmol/L ABG pH (7.35-7.45) ABG Total CO2 (22-28) mmol.L ABG O2 Saturation (95-98) % ABG O2 Content (15-23) ML/dl ABG Base Excess (-2.0-3.0) mmol/L ABG Hemoglobin (11.7-17.4) g/dL ABG Carboxyhemoglobin (0.5-1.5) % POC ABG HHb (Measured) (0-5) % ABG Methemoglobin (0.0-3.0) % ABG O2 Capacity (16-24) mL/dl Hgb O2 Saturation (95.0-98.0) % FiO2 % Sodium (132-148) mmol/L Potassium (3.6-5.0) mmol/L Chloride (95-110) mmol/L Carbon Dioxide (21-33) mmol/L Anion Gap (10-20) BUN (7-21) mg/dL Creatinine (0.5-1.4) mg/dL Est GFR ( Amer) Est GFR (Non-Af Amer) POC Glucose (mg/dL) 159 H 156 H 134 H (65-110) mg/dL Random Glucose (70-110) mg/dL Calcium (8.4-10.5) mg/dL Phosphorus (2.5-4.5) mg/dL Magnesium (1.7-2.2) mg/dL Total Bilirubin (0.2-1.3) mg/dL AST (14-36) U/L ALT (7-56) U/L Alkaline Phosphatase (38-126) U/L Total Protein (5.8-8.3) g/dL Albumin (3.0-4.8) g/dL Globulin gm/dL Albumin/Globulin Ratio (1.1-1.8) 06/17/17 06/17/17 06/16/17 Range/Units 01:02 00:05 23:07 WBC (4.5-11.0) 10^3/ul RBC (3.5-6.1) 10^6/uL Hgb (12.0-16.0) g/dL Hct (36.0-48.0) % MCV (80.0-105.0) fl MCH (25.0-35.0) pg MCHC (31.0-37.0) g/dl RDW (11.5-14.5) % Plt Count (120.0-450.0) 10^3/uL MPV (7.0-11.0) fl Gran % (50.0-68.0) % Lymph % (Auto) (22.0-35.0) % Mclennan % (Auto) (1.0-6.0) % Eos % (Auto) (1.5-5.0) % Baso % (Auto) (0.0-3.0) % Gran # (1.4-6.5) Lymph # (1.2-3.4) Mclennan # (0.1-0.6) Eos # (0.0-0.7) Baso # (0.0-2.0) K/mm3 PT (9.9-11.8) Seconds INR (0.93-1.08) pCO2 (35-45) mm/Hg pO2 (80-100) mm/Hg HCO3 (21-28) mmol/L ABG pH (7.35-7.45) ABG Total CO2 (22-28) mmol.L ABG O2 Saturation (95-98) % ABG O2 Content (15-23) ML/dl ABG Base Excess (-2.0-3.0) mmol/L ABG Hemoglobin (11.7-17.4) g/dL ABG Carboxyhemoglobin (0.5-1.5) % POC ABG HHb (Measured) (0-5) % ABG Methemoglobin (0.0-3.0) % ABG O2 Capacity (16-24) mL/dl Hgb O2 Saturation (95.0-98.0) % FiO2 % Sodium (132-148) mmol/L Potassium (3.6-5.0) mmol/L Chloride (95-110) mmol/L Carbon Dioxide (21-33) mmol/L Anion Gap (10-20) BUN (7-21) mg/dL Creatinine (0.5-1.4) mg/dL Est GFR ( Amer) Est GFR (Non-Af Amer) POC Glucose (mg/dL) 151 H 162 H 178 H (65-110) mg/dL Random Glucose (70-110) mg/dL Calcium (8.4-10.5) mg/dL Phosphorus (2.5-4.5) mg/dL Magnesium (1.7-2.2) mg/dL Total Bilirubin (0.2-1.3) mg/dL AST (14-36) U/L ALT (7-56) U/L Alkaline Phosphatase (38-126) U/L Total Protein (5.8-8.3) g/dL Albumin (3.0-4.8) g/dL Globulin gm/dL Albumin/Globulin Ratio (1.1-1.8) 06/16/17 06/16/17 06/16/17 Range/Units 22:11 21:09 20:19 WBC (4.5-11.0) 10^3/ul RBC (3.5-6.1) 10^6/uL Hgb (12.0-16.0) g/dL Hct (36.0-48.0) % MCV (80.0-105.0) fl MCH (25.0-35.0) pg MCHC (31.0-37.0) g/dl RDW (11.5-14.5) % Plt Count (120.0-450.0) 10^3/uL MPV (7.0-11.0) fl Gran % (50.0-68.0) % Lymph % (Auto) (22.0-35.0) % Mclennan % (Auto) (1.0-6.0) % Eos % (Auto) (1.5-5.0) % Baso % (Auto) (0.0-3.0) % Gran # (1.4-6.5) Lymph # (1.2-3.4) Mclennan # (0.1-0.6) Eos # (0.0-0.7) Baso # (0.0-2.0) K/mm3 PT (9.9-11.8) Seconds INR (0.93-1.08) pCO2 (35-45) mm/Hg pO2 (80-100) mm/Hg HCO3 (21-28) mmol/L ABG pH (7.35-7.45) ABG Total CO2 (22-28) mmol.L ABG O2 Saturation (95-98) % ABG O2 Content (15-23) ML/dl ABG Base Excess (-2.0-3.0) mmol/L ABG Hemoglobin (11.7-17.4) g/dL ABG Carboxyhemoglobin (0.5-1.5) % POC ABG HHb (Measured) (0-5) % ABG Methemoglobin (0.0-3.0) % ABG O2 Capacity (16-24) mL/dl Hgb O2 Saturation (95.0-98.0) % FiO2 % Sodium (132-148) mmol/L Potassium (3.6-5.0) mmol/L Chloride (95-110) mmol/L Carbon Dioxide (21-33) mmol/L Anion Gap (10-20) BUN (7-21) mg/dL Creatinine (0.5-1.4) mg/dL Est GFR ( Amer) Est GFR (Non-Af Amer) POC Glucose (mg/dL) 183 H 171 H 184 H (65-110) mg/dL Random Glucose (70-110) mg/dL Calcium (8.4-10.5) mg/dL Phosphorus (2.5-4.5) mg/dL Magnesium (1.7-2.2) mg/dL Total Bilirubin (0.2-1.3) mg/dL AST (14-36) U/L ALT (7-56) U/L Alkaline Phosphatase (38-126) U/L Total Protein (5.8-8.3) g/dL Albumin (3.0-4.8) g/dL Globulin gm/dL Albumin/Globulin Ratio (1.1-1.8) 06/16/17 06/16/17 06/16/17 Range/Units 19:14 18:24 17:37 WBC (4.5-11.0) 10^3/ul RBC (3.5-6.1) 10^6/uL Hgb (12.0-16.0) g/dL Hct (36.0-48.0) % MCV (80.0-105.0) fl MCH (25.0-35.0) pg MCHC (31.0-37.0) g/dl RDW (11.5-14.5) % Plt Count (120.0-450.0) 10^3/uL MPV (7.0-11.0) fl Gran % (50.0-68.0) % Lymph % (Auto) (22.0-35.0) % Mclennan % (Auto) (1.0-6.0) % Eos % (Auto) (1.5-5.0) % Baso % (Auto) (0.0-3.0) % Gran # (1.4-6.5) Lymph # (1.2-3.4) Mclennan # (0.1-0.6) Eos # (0.0-0.7) Baso # (0.0-2.0) K/mm3 PT (9.9-11.8) Seconds INR (0.93-1.08) pCO2 (35-45) mm/Hg pO2 (80-100) mm/Hg HCO3 (21-28) mmol/L ABG pH (7.35-7.45) ABG Total CO2 (22-28) mmol.L ABG O2 Saturation (95-98) % ABG O2 Content (15-23) ML/dl ABG Base Excess (-2.0-3.0) mmol/L ABG Hemoglobin (11.7-17.4) g/dL ABG Carboxyhemoglobin (0.5-1.5) % POC ABG HHb (Measured) (0-5) % ABG Methemoglobin (0.0-3.0) % ABG O2 Capacity (16-24) mL/dl Hgb O2 Saturation (95.0-98.0) % FiO2 % Sodium (132-148) mmol/L Potassium (3.6-5.0) mmol/L Chloride (95-110) mmol/L Carbon Dioxide (21-33) mmol/L Anion Gap (10-20) BUN (7-21) mg/dL Creatinine (0.5-1.4) mg/dL Est GFR ( Amer) Est GFR (Non-Af Amer) POC Glucose (mg/dL) 171 H 189 H 188 H (65-110) mg/dL Random Glucose (70-110) mg/dL Calcium (8.4-10.5) mg/dL Phosphorus (2.5-4.5) mg/dL Magnesium (1.7-2.2) mg/dL Total Bilirubin (0.2-1.3) mg/dL AST (14-36) U/L ALT (7-56) U/L Alkaline Phosphatase (38-126) U/L Total Protein (5.8-8.3) g/dL Albumin (3.0-4.8) g/dL Globulin gm/dL Albumin/Globulin Ratio (1.1-1.8) 06/16/17 Range/Units 16:02 WBC (4.5-11.0) 10^3/ul RBC (3.5-6.1) 10^6/uL Hgb (12.0-16.0) g/dL Hct (36.0-48.0) % MCV (80.0-105.0) fl MCH (25.0-35.0) pg MCHC (31.0-37.0) g/dl RDW (11.5-14.5) % Plt Count (120.0-450.0) 10^3/uL MPV (7.0-11.0) fl Gran % (50.0-68.0) % Lymph % (Auto) (22.0-35.0) % Mclennan % (Auto) (1.0-6.0) % Eos % (Auto) (1.5-5.0) % Baso % (Auto) (0.0-3.0) % Gran # (1.4-6.5) Lymph # (1.2-3.4) Mclennan # (0.1-0.6) Eos # (0.0-0.7) Baso # (0.0-2.0) K/mm3 PT (9.9-11.8) Seconds INR (0.93-1.08) pCO2 (35-45) mm/Hg pO2 (80-100) mm/Hg HCO3 (21-28) mmol/L ABG pH (7.35-7.45) ABG Total CO2 (22-28) mmol.L ABG O2 Saturation (95-98) % ABG O2 Content (15-23) ML/dl ABG Base Excess (-2.0-3.0) mmol/L ABG Hemoglobin (11.7-17.4) g/dL ABG Carboxyhemoglobin (0.5-1.5) % POC ABG HHb (Measured) (0-5) % ABG Methemoglobin (0.0-3.0) % ABG O2 Capacity (16-24) mL/dl Hgb O2 Saturation (95.0-98.0) % FiO2 % Sodium (132-148) mmol/L Potassium (3.6-5.0) mmol/L Chloride (95-110) mmol/L Carbon Dioxide (21-33) mmol/L Anion Gap (10-20) BUN (7-21) mg/dL Creatinine (0.5-1.4) mg/dL Est GFR ( Amer) Est GFR (Non-Af Amer) POC Glucose (mg/dL) 200 H (65-110) mg/dL Random Glucose (70-110) mg/dL Calcium (8.4-10.5) mg/dL Phosphorus (2.5-4.5) mg/dL Magnesium (1.7-2.2) mg/dL Total Bilirubin (0.2-1.3) mg/dL AST (14-36) U/L ALT (7-56) U/L Alkaline Phosphatase (38-126) U/L Total Protein (5.8-8.3) g/dL Albumin (3.0-4.8) g/dL Globulin gm/dL Albumin/Globulin Ratio (1.1-1.8) Laboratory Results - last 24 hr 06/16/17 06/16/17 06/16/17 16:02 17:37 18:24 WBC RBC Hgb Hct MCV MCH MCHC RDW Plt Count MPV Gran % Lymph % (Auto) Mclennan % (Auto) Eos % (Auto) Baso % (Auto) Gran # Lymph # Mclennan # Eos # Baso # PT INR pCO2 pO2 HCO3 ABG pH ABG Total CO2 ABG O2 Saturation ABG O2 Content ABG Base Excess ABG Hemoglobin ABG Carboxyhemoglobin POC ABG HHb (Measured) ABG Methemoglobin ABG O2 Capacity Hgb O2 Saturation FiO2 Sodium Potassium Chloride Carbon Dioxide Anion Gap BUN Creatinine Est GFR ( Amer) Est GFR (Non-Af Amer) POC Glucose (mg/dL) 200 H 188 H 189 H Random Glucose Calcium Phosphorus Magnesium Total Bilirubin AST ALT Alkaline Phosphatase Total Protein Albumin Globulin Albumin/Globulin Ratio 06/16/17 06/16/17 06/16/17 19:14 20:19 21:09 WBC RBC Hgb Hct MCV MCH MCHC RDW Plt Count MPV Gran % Lymph % (Auto) Mclennan % (Auto) Eos % (Auto) Baso % (Auto) Gran # Lymph # Mclennan # Eos # Baso # PT INR pCO2 pO2 HCO3 ABG pH ABG Total CO2 ABG O2 Saturation ABG O2 Content ABG Base Excess ABG Hemoglobin ABG Carboxyhemoglobin POC ABG HHb (Measured) ABG Methemoglobin ABG O2 Capacity Hgb O2 Saturation FiO2 Sodium Potassium Chloride Carbon Dioxide Anion Gap BUN Creatinine Est GFR ( Amer) Est GFR (Non-Af Amer) POC Glucose (mg/dL) 171 H 184 H 171 H Random Glucose Calcium Phosphorus Magnesium Total Bilirubin AST ALT Alkaline Phosphatase Total Protein Albumin Globulin Albumin/Globulin Ratio 06/16/17 06/16/17 06/17/17 22:11 23:07 00:05 WBC RBC Hgb Hct MCV MCH MCHC RDW Plt Count MPV Gran % Lymph % (Auto) Mclennan % (Auto) Eos % (Auto) Baso % (Auto) Gran # Lymph # Mclennan # Eos # Baso # PT INR pCO2 pO2 HCO3 ABG pH ABG Total CO2 ABG O2 Saturation ABG O2 Content ABG Base Excess ABG Hemoglobin ABG Carboxyhemoglobin POC ABG HHb (Measured) ABG Methemoglobin ABG O2 Capacity Hgb O2 Saturation FiO2 Sodium Potassium Chloride Carbon Dioxide Anion Gap BUN Creatinine Est GFR ( Amer) Est GFR (Non-Af Amer) POC Glucose (mg/dL) 183 H 178 H 162 H Random Glucose Calcium Phosphorus Magnesium Total Bilirubin AST ALT Alkaline Phosphatase Total Protein Albumin Globulin Albumin/Globulin Ratio 06/17/17 06/17/17 06/17/17 01:02 02:02 03:14 WBC RBC Hgb Hct MCV MCH MCHC RDW Plt Count MPV Gran % Lymph % (Auto) Mclennan % (Auto) Eos % (Auto) Baso % (Auto) Gran # Lymph # Mclennan # Eos # Baso # PT INR pCO2 pO2 HCO3 ABG pH ABG Total CO2 ABG O2 Saturation ABG O2 Content ABG Base Excess ABG Hemoglobin ABG Carboxyhemoglobin POC ABG HHb (Measured) ABG Methemoglobin ABG O2 Capacity Hgb O2 Saturation FiO2 Sodium Potassium Chloride Carbon Dioxide Anion Gap BUN Creatinine Est GFR ( Amer) Est GFR (Non-Af Amer) POC Glucose (mg/dL) 151 H 134 H 156 H Random Glucose Calcium Phosphorus Magnesium Total Bilirubin AST ALT Alkaline Phosphatase Total Protein Albumin Globulin Albumin/Globulin Ratio 06/17/17 06/17/17 06/17/17 04:06 04:57 05:15 WBC 12.0 H RBC 4.28 Hgb 12.6 Hct 37.6 MCV 87.9 MCH 29.4 MCHC 33.5 RDW 13.7 Plt Count 240 MPV 10.1 Gran % 73.0 H Lymph % (Auto) 19.4 L Mclennan % (Auto) 7.2 H Eos % (Auto) 0.2 L Baso % (Auto) 0.2 Gran # 8.76 H Lymph # 2.3 Mclennan # 0.9 H Eos # 0.0 Baso # 0.02 PT INR pCO2 pO2 HCO3 ABG pH ABG Total CO2 ABG O2 Saturation ABG O2 Content ABG Base Excess ABG Hemoglobin ABG Carboxyhemoglobin POC ABG HHb (Measured) ABG Methemoglobin ABG O2 Capacity Hgb O2 Saturation FiO2 Sodium Potassium Chloride Carbon Dioxide Anion Gap BUN Creatinine Est GFR ( Amer) Est GFR (Non-Af Amer) POC Glucose (mg/dL) 159 H 159 H Random Glucose Calcium Phosphorus Magnesium Total Bilirubin AST ALT Alkaline Phosphatase Total Protein Albumin Globulin Albumin/Globulin Ratio 06/17/17 06/17/17 06/17/17 05:15 05:15 05:30 WBC RBC Hgb Hct MCV MCH MCHC RDW Plt Count MPV Gran % Lymph % (Auto) Mclennan % (Auto) Eos % (Auto) Baso % (Auto) Gran # Lymph # Mclennan # Eos # Baso # PT 10.0 INR 0.93 pCO2 40 pO2 122.0 H HCO3 26.5 ABG pH 7.43 ABG Total CO2 27.7 ABG O2 Saturation 98.7 H ABG O2 Content 15.6 ABG Base Excess 2.0 ABG Hemoglobin 11.4 L ABG Carboxyhemoglobin 1.5 POC ABG HHb (Measured) 1.3 ABG Methemoglobin 1.0 ABG O2 Capacity 15.8 L Hgb O2 Saturation 96.2 FiO2 40.0 Sodium 140 Potassium 3.3 L Chloride 103 Carbon Dioxide 27 Anion Gap 13 BUN 18 Creatinine 0.7 Est GFR ( Amer) > 60 Est GFR (Non-Af Amer) > 60 POC Glucose (mg/dL) Random Glucose 140 H Calcium 9.0 Phosphorus 3.9 Magnesium 1.9 Total Bilirubin 0.9 AST 40 H D ALT 40 Alkaline Phosphatase 98 Total Protein 7.6 Albumin 3.5 Globulin 4.0 Albumin/Globulin Ratio 0.9 L 06/17/17 06:00 WBC RBC Hgb Hct MCV MCH MCHC RDW Plt Count MPV Gran % Lymph % (Auto) Mclennan % (Auto) Eos % (Auto) Baso % (Auto) Gran # Lymph # Mclennan # Eos # Baso # PT INR pCO2 pO2 HCO3 ABG pH ABG Total CO2 ABG O2 Saturation ABG O2 Content ABG Base Excess ABG Hemoglobin ABG Carboxyhemoglobin POC ABG HHb (Measured) ABG Methemoglobin ABG O2 Capacity Hgb O2 Saturation FiO2 Sodium Potassium Chloride Carbon Dioxide Anion Gap BUN Creatinine Est GFR ( Amer) Est GFR (Non-Af Amer) POC Glucose (mg/dL) 134 H Random Glucose Calcium Phosphorus Magnesium Total Bilirubin AST ALT Alkaline Phosphatase Total Protein Albumin Globulin Albumin/Globulin Ratio Fingerstick Blood Sugar Results: 202 Review of Systems - Review of Systems Systems not reviewed;Unavailable: Intubated Critical Care Progress Note - Ventilator Checklist Daily Assessment of Readiness to Wean: Yes Daily Spontaneous Breathing Trial: Yes PUD Prophalyxis: Yes DVT Prophylaxis: Yes Oral Care with Chlorhexidine Gluconate {CHG}: Yes Assessment/Plan - Assessment and Plan (Free Text) Assessment: 72 y/o F w/ ICH , Stable per last 3 CT head Neuro status improving. No neurosurgical intervention planned. Neurology following as well, no seizure like activity. BP control on Cardene and plan to transition to PO and IV PRn medications . P.S SBT trial done today but patient was unable to follow commands and keep up her RR, episodes of apnea was noted and RR 2-5 w/ low MV. Plan for Trach and PEG this . DVT P SCD. cc time 55 min
[2017-06-17] MEDS: Insulin Reg-MEDIUM-Coverage SC SCH ×2 (16:13→23:34)
--- NOTE | 2017-06-17 18:35 | PN ---
NEUROLOGY PROGRESS NOTE SUBJECTIVE: The patient is lying in the bed, on the ventilator, no acute distress. PHYSICAL EXAMINATION: VITAL SIGNS: Her blood pressure is 148/73, heart rate is 85 per minute, breathing at rate of 14 per minute and she is afebrile. HEENT: Head is normocephalic and atraumatic. NECK: Supple. There are no carotid bruits. LUNGS: Clear. CARDIOVASCULAR: S1 and S2 audible. No murmurs. ABDOMEN: Soft and nontender. Bowel sounds are present. NEUROLOGY: Mental status: The patient is opening her eyes. She follows some simple commands. Cranial nerve examination: Pupils are 3 mm bilaterally reactive to light. Extraocular movements are intact. There is right-sided hemiplegia noted. She is moving her left side on command. Plantars upgoing on the right side. LABORATORY DATA: Labs reviewed shows WBC of 12.0, hemoglobin of 12.6, hematocrit 37.6 and platelets of 240. Her sodium is 140, potassium 3.3, chloride 103, carbon dioxide content of 27, BUN of 18, creatinine 0.7 and glucose of 140. IMPRESSION: 1. Cerebrovascular accident with left occipital hemorrhage with intraventricular extension. 2. Respiratory failure. RECOMMENDATIONS: 1. The patient has shown signs of improvement with the patient awake and following commands. 2. The patient's head of the bed to be kept elevated to 30 degrees. 3. The patient's blood pressure is well under control. 4. Please continue the treatment and supportive care. Thank you for the opportunity to participate in the care of this patient. Evan Glover MD
[2017-06-17] MEDS: Labetalol 5 mg/ml Inj 20ML IV PRN (23:38)
[2017-06-18] MEDS: Ampicillin/Sulbactam 3 GM in Sodium Chloride 0.9% 100 ML IVPB SCH ×5 (00:38→23:43)
--- NOTE | 2017-06-18 01:58 | PN ---
DATE: 06/17/2017 PULMONARY CRITICAL CARE PROGRESS NOTE REFERRING PHYSICIAN: Gayle Jones MD SUBJECTIVE: She is intubated. Upper extremity is restrained. Family is at bedside. Much more awake and alert, follows simple commands. Feels CPAP pressures more this morning. She has some episode of central apnea, not much ET tube secretion. No hemoptysis, hematemesis, or hematuria. No diarrhea. No leg swelling reported. OBJECTIVE: GENERAL: On ventilator. VITAL SIGNS: Temperature is 98, heart rate 76, respiratory rate is 22, blood pressure 163/100, and pulse ox 100% on ventilator. HEENT: Moist mucous membranes. ET tube, no secretion. NECK: Supple. No JVD. LUNGS: Has scattered rhonchi. HEART: S1 and S2. ABDOMEN: Soft, nontender. No organomegaly. EXTREMITIES: No edema. NEUROLOGIC: Awake, alert, does follow simple commands. MEDICATIONS: She is on Unasyn 3 g IV q. 6 hours, Diprivan IV, fentanyl IV, metoprolol tartrate 25 mg twice day, Tylenol p.r.n. basis, Protonix 40 mg daily, Labetalol p.r.n. basis, and Zofran p.r.n. basis. LABORATORY DATA: Shows hemoglobin 12.6, hematocrit 37.6, WBC 12.0, platelet count is 240. INR 0.93. Blood gases show pH 7.43, pCO2 of 40, O2 of 122, this is on vent with 40% oxygen. Blood sugar today is 175. Sodium 140, potassium 3.3, chloride 103, bicarbonate 27, BUN 18, creatinine 0.7, glucose is 140, calcium is 9.0, phosphorous 3.9, magnesium is 1.9, AST 40, ALT is 40, alkaline phosphatase is 98, albumin is 3.5. Microbiology; blood culture has been negative. Chest x-ray shows ET tube position 1.3 cm proximal to tracheal momo, otherwise no infiltrate or effusion noted. IMPRESSION AND PLAN: Intraparenchymal hemorrhage with ventricular extension, mild hydrocephalus, hypertension, diabetes, may have a sleep apnea syndrome, respiratory failure, on ventilator. Spoke to the patient's family at bedside, all the questions answered. Also spoke to [employer] Dispatcher, Dr. Glover in detail. We will suggest in the morning to put her continuous positive airway pressure, if does well, may place on T-piece and deflate the cuff. If she does well and no sinus edema, I think we should attempt to extubate. She may have some issue with sleep apnea. We can always use bilevel positive airway pressure. If failed, definitely will need tracheostomy, gastric prophylaxis, keep head elevated at 45 degrees. Continue feeding. Followup ABG, chest x-ray, CBC, CMP in the morning. Critical care time is more than 35 minutes. Thank you and we will follow with you. Livia Francois MD
[2017-06-18] MEDS: Nicardipine 20 MG/200 ML 20 MG/200 ML BAG IV PRN (03:37)
[2017-06-18 05:42] LABS: ARTERIAL BLOOD GAS HCO3 30.2 mmol/L (21-28); ARTERIAL BLOOD GAS O2 CAPACITY 16.8 mL/dl (16-24); ARTERIAL BLOOD GAS O2 CONTENT 16.6 ML/dl (15-23); ARTERIAL BLOOD GAS PH 7.52 (7.35-7.45); ARTERIAL BLOOD HGB O2 SAT 96.3 % (95.0-98.0); CARBOXYHEMOGLOBIN 1.1 % (0.5-1.5); HHB 1.3 % (0-5); METHEMOGLOBIN 1.3 % (0.0-3.0)
[2017-06-18 05:47] LABS: BASO # 0.01 K/mm3 (0.0-2.0); BASO % 0.1 % (0.0-3.0); EOS # 0.1 (0.0-0.7); EOS % 1.3 % (1.5-5.0); GRAN # 7.97 (1.4-6.5); HEMATOCRIT 37.1 % (36.0-48.0); LYMPH # 2.1 (1.2-3.4); LYMPH % 19.2 % (22.0-35.0); MEAN CELL VOLUME 87.5 fl (80.0-105.0); MEAN CORPUSCULAR HGB CONC 33.2 g/dl (31.0-37.0); MEAN PLATELET VOLUME 9.7 fl (7.0-11.0); MONO # 0.7 (0.1-0.6); MONO % 6.4 % (1.0-6.0); RED CELL DISTRIBUTION WIDTH 13.4 % (11.5-14.5); WHITE BLOOD COUNT 10.9 10^3/ul (4.5-11.0)
[2017-06-18 06:10] LABS: ALB/GLOB RATIO 0.9 (1.1-1.8); ALKALINE PHOSPHATASE 112 U/L (38-126); ALT/SGPT 61 U/L (7-56); AST/SGOT 56 U/L (14-36); BILIRUBIN,TOTAL 0.8 mg/dL (0.2-1.3); BLOOD UREA NITROGEN 19 mg/dL (7-21); CALCIUM 9.1 mg/dL (8.4-10.5); CARBON DIOXIDE 28 mmol/L (21-33); CHLORIDE 103 mmol/L (95-110); GFR AFRICAN-AMERICAN > 60; GLUCOSE,RANDOM 197 mg/dL (70-110); MAGNESIUM 1.8 mg/dL (1.7-2.2); PHOSPHOROUS 3.3 mg/dL (2.5-4.5); POTASSIUM 3.7 mmol/L (3.6-5.0); SODIUM 140 mmol/L (132-148); TOTAL PROTEIN 7.2 g/dL (5.8-8.3)
[2017-06-18 06:53] LABS: INR 0.94 (0.93-1.08)
[2017-06-18] MEDS: Insulin Reg-MEDIUM-Coverage SC SCH ×4 (08:19→22:11)
--- NOTE | 2017-06-18 09:29 | RAD ---
HISTORY: mechanical vent COMPARISON: 06/17/2017 FINDINGS: LUNGS: No active pulmonary disease. PLEURA: No significant pleural effusion identified, no pneumothorax apparent. CARDIOVASCULAR: Moderate cardiomegaly OSSEOUS STRUCTURES: No significant abnormalities. VISUALIZED UPPER ABDOMEN: Normal. OTHER FINDINGS: The endotracheal and nasogastric tubes are in satisfactory position IMPRESSION: No active disease.
--- NOTE | 2017-06-18 11:18 | CP.CCUPN ---
<India Hernandez - Last Filed: 06/18/17 11:29> CCU Subjective - Physician Review Events Since Last Encounter (Free Text): 06/18/17 11:15 No acute events overnight Subjective (Free Text): 06/18/17 11:15 Critical care progress note for Dr. Eben Hernandez, PGY-1 Pt S & E at bedside. Pt intubated/sedated, following simple commands in Cambodian. Critical Care Time Spent (in minutes): 35 CCU Objective - Vital Signs / Intake & Output Vital Signs (Last 4 hours): Vital Signs Pulse Resp BP Pulse Ox 06/18/17 09:33 74 161/103 H 06/18/17 07:24 12 100 Intake and Output (Last 8hrs): Intake & Output 06/17/17 06/18/17 06/18/17 22:59 06:59 14:59 Intake Total 1155 1160 70 Output Total 905 1400 Balance 250 -240 70 Intake: IV 705 620 70 Right Forearm 600 365 Right Hand 100 200 Oral 0 Tube Feeding 450 540 Output: Urine 900 1400 Urethral ([place]) 900 1400 Emesis 5 Other: Voiding Method Indwelling Catheter # Bowel Movements 0 1 - Physical Exam Head: Positive for: Atraumatic, Normocephalic Pupils: Positive for: PERRL Extroacular Muscles: Positive for: EOMI Conjunctiva: Positive for: Normal Ears: Positive for: Normal Mouth: Positive for: Moist Mucous Membranes, Drooling, Other (ett in place) Nose (External): Positive for: Atraumatic Neck: Positive for: Trachea Midline Respiratory/Chest: Positive for: Clear to Auscultation, Good Air Exchange. Negative for: Respiratory Distress, Accessory Muscle Use, Wheezes, Rales, Rhonchi Cardiovascular: Positive for: Regular Rate and Rhythm, Normal S1, S2 Abdomen: Positive for: Normal Bowel Sounds. Negative for: Tenderness, Distention (obese), Peritoneal Signs Upper Extremity: Positive for: Normal Inspection, NORMAL PULSES. Negative for: Cyanosis, Edema Lower Extremity: Positive for: Normal Inspection. Negative for: Edema Neurological: Positive for: Other (intubated, sedated, unable to assess) Skin: Positive for: Warm, Dry, Normal Color. Negative for: Rashes Psychiatric: Positive for: Other (intubated and sedated, arousable to verbal and tactile stimuli) - Medications Active Medications: Active Medications Generic Name Dose Route Start Last Admin Trade Name Freq PRN Reason Stop Dose Admin Ampicillin Sodium/Sulbactam 100 mls @ 100 mls/hr 06/14/17 18:00 06/18/17 05: 33 Sodium 3 gm/ Sodium Chloride IVPB 100 mls/hr Q6H CHYU Administration Protocol Acetaminophen 1,000 mg in 100 mls @ 400 mls/hr 06/16/17 22:59 06/18/17 05:35 Ofirmev IVPB 06/18/17 23:00 400 mls/hr Q6H PRN Administration Temperature Insulin Human Regular 0 units 06/17/17 16:30 06/18/17 08:19 Humulin R Med SC 1 units ACHS CHUY Administration Protocol Labetalol HCl 10 mg 06/17/17 11:33 06/17/17 23:38 Trandate IV 10 mg Q2H PRN Administration Systolic Blood Pressure Metoprolol Tartrate 25 mg 06/17/17 11:45 06/18/17 09:33 Lopressor PO 25 mg BID CHUY Administration Ondansetron HCl 4 mg 06/14/17 16:15 Zofran Inj IVP Q6H PRN Nausea/Vomiting Pantoprazole Sodium 40 mg 06/14/17 14:15 06/18/17 09:26 Protonix Inj IVP 40 mg DAILY CHUY Administration - Patient Studies Lab Studies: Microbiology Studies 06/14/17 10:36 Blood Culture - Preliminary Blood-Venous NO GROWTH AFTER 4 DAYS 06/14/17 10:36 Blood Culture - Preliminary Blood-Venous NO GROWTH AFTER 4 DAYS Lab Studies 06/18/17 06/18/17 06/18/17 Range/Units 07:34 05:32 05:32 WBC (4.5-11.0) 10^3/ul RBC (3.5-6.1) 10^6/uL Hgb (12.0-16.0) g/dL Hct (36.0-48.0) % MCV (80.0-105.0) fl MCH (25.0-35.0) pg MCHC (31.0-37.0) g/dl RDW (11.5-14.5) % Plt Count (120.0-450.0) 10^3/uL MPV (7.0-11.0) fl Gran % (50.0-68.0) % Lymph % (Auto) (22.0-35.0) % [place] % (Auto) (1.0-6.0) % Eos % (Auto) (1.5-5.0) % Baso % (Auto) (0.0-3.0) % Gran # (1.4-6.5) Lymph # (1.2-3.4) [place] # (0.1-0.6) Eos # (0.0-0.7) Baso # (0.0-2.0) K/mm3 PT 10.1 (9.9-11.8) Seconds INR 0.94 (0.93-1.08) pCO2 (35-45) mm/Hg pO2 (80-100) mm/Hg HCO3 (21-28) mmol/L ABG pH (7.35-7.45) ABG Total CO2 (22-28) mmol.L ABG O2 Saturation (95-98) % ABG O2 Content (15-23) ML/dl ABG Base Excess (-2.0-3.0) mmol/L ABG Hemoglobin (11.7-17.4) g/dL ABG Carboxyhemoglobin (0.5-1.5) % POC ABG HHb (Measured) (0-5) % ABG Methemoglobin (0.0-3.0) % ABG O2 Capacity (16-24) mL/dl Hgb O2 Saturation (95.0-98.0) % FiO2 % Sodium 140 (132-148) mmol/L Potassium 3.7 (3.6-5.0) mmol/L Chloride 103 (95-110) mmol/L Carbon Dioxide 28 (21-33) mmol/L Anion Gap 13 (10-20) BUN 19 (7-21) mg/dL Creatinine 0.7 (0.5-1.4) mg/dL Est GFR ( Amer) > 60 Est GFR (Non-Af Amer) > 60 POC Glucose (mg/dL) 168 H (65-110) mg/dL Random Glucose 197 H (70-110) mg/dL Calcium 9.1 (8.4-10.5) mg/dL Phosphorus 3.3 (2.5-4.5) mg/dL Magnesium 1.8 (1.7-2.2) mg/dL Total Bilirubin 0.8 (0.2-1.3) mg/dL AST 56 H D (14-36) U/L ALT 61 H (7-56) U/L Alkaline Phosphatase 112 (38-126) U/L Total Protein 7.2 (5.8-8.3) g/dL Albumin 3.5 (3.0-4.8) g/dL Globulin 3.7 gm/dL Albumin/Globulin Ratio 0.9 L (1.1-1.8) 06/18/17 06/18/17 06/17/17 Range/Units 05:32 05:30 21:59 WBC 10.9 (4.5-11.0) 10^3/ul RBC 4.24 (3.5-6.1) 10^6/uL Hgb 12.3 (12.0-16.0) g/dL Hct 37.1 (36.0-48.0) % MCV 87.5 (80.0-105.0) fl MCH 29.0 (25.0-35.0) pg MCHC 33.2 (31.0-37.0) g/dl RDW 13.4 (11.5-14.5) % Plt Count 230 (120.0-450.0) 10^3/uL MPV 9.7 (7.0-11.0) fl Gran % 73.0 H (50.0-68.0) % Lymph % (Auto) 19.2 L (22.0-35.0) % [place] % (Auto) 6.4 H (1.0-6.0) % Eos % (Auto) 1.3 L (1.5-5.0) % Baso % (Auto) 0.1 (0.0-3.0) % Gran # 7.97 H (1.4-6.5) Lymph # 2.1 (1.2-3.4) [place] # 0.7 H (0.1-0.6) Eos # 0.1 (0.0-0.7) Baso # 0.01 (0.0-2.0) K/mm3 PT (9.9-11.8) Seconds INR (0.93-1.08) pCO2 37 (35-45) mm/Hg pO2 127.0 H (80-100) mm/Hg HCO3 30.2 H (21-28) mmol/L ABG pH 7.52 H (7.35-7.45) ABG Total CO2 31.3 H (22-28) mmol.L ABG O2 Saturation 98.7 H (95-98) % ABG O2 Content 16.6 (15-23) ML/dl ABG Base Excess 7.0 H (-2.0-3.0) mmol/L ABG Hemoglobin 12.1 (11.7-17.4) g/dL ABG Carboxyhemoglobin 1.1 (0.5-1.5) % POC ABG HHb (Measured) 1.3 (0-5) % ABG Methemoglobin 1.3 (0.0-3.0) % ABG O2 Capacity 16.8 (16-24) mL/dl Hgb O2 Saturation 96.3 (95.0-98.0) % FiO2 40.0 % Sodium (132-148) mmol/L Potassium (3.6-5.0) mmol/L Chloride (95-110) mmol/L Carbon Dioxide (21-33) mmol/L Anion Gap (10-20) BUN (7-21) mg/dL Creatinine (0.5-1.4) mg/dL Est GFR ( Amer) Est GFR (Non-Af Amer) POC Glucose (mg/dL) 169 H (65-110) mg/dL Random Glucose (70-110) mg/dL Calcium (8.4-10.5) mg/dL Phosphorus (2.5-4.5) mg/dL Magnesium (1.7-2.2) mg/dL Total Bilirubin (0.2-1.3) mg/dL AST (14-36) U/L ALT (7-56) U/L Alkaline Phosphatase (38-126) U/L Total Protein (5.8-8.3) g/dL Albumin (3.0-4.8) g/dL Globulin gm/dL Albumin/Globulin Ratio (1.1-1.8) 06/17/17 06/17/17 06/17/17 Range/Units 16:12 14:09 11:52 WBC (4.5-11.0) 10^3/ul RBC (3.5-6.1) 10^6/uL Hgb (12.0-16.0) g/dL Hct (36.0-48.0) % MCV (80.0-105.0) fl MCH (25.0-35.0) pg MCHC (31.0-37.0) g/dl RDW (11.5-14.5) % Plt Count (120.0-450.0) 10^3/uL MPV (7.0-11.0) fl Gran % (50.0-68.0) % Lymph % (Auto) (22.0-35.0) % [place] % (Auto) (1.0-6.0) % Eos % (Auto) (1.5-5.0) % Baso % (Auto) (0.0-3.0) % Gran # (1.4-6.5) Lymph # (1.2-3.4) [place] # (0.1-0.6) Eos # (0.0-0.7) Baso # (0.0-2.0) K/mm3 PT (9.9-11.8) Seconds INR (0.93-1.08) pCO2 (35-45) mm/Hg pO2 (80-100) mm/Hg HCO3 (21-28) mmol/L ABG pH (7.35-7.45) ABG Total CO2 (22-28) mmol.L ABG O2 Saturation (95-98) % ABG O2 Content (15-23) ML/dl ABG Base Excess (-2.0-3.0) mmol/L ABG Hemoglobin (11.7-17.4) g/dL ABG Carboxyhemoglobin (0.5-1.5) % POC ABG HHb (Measured) (0-5) % ABG Methemoglobin (0.0-3.0) % ABG O2 Capacity (16-24) mL/dl Hgb O2 Saturation (95.0-98.0) % FiO2 % Sodium (132-148) mmol/L Potassium (3.6-5.0) mmol/L Chloride (95-110) mmol/L Carbon Dioxide (21-33) mmol/L Anion Gap (10-20) BUN (7-21) mg/dL Creatinine (0.5-1.4) mg/dL Est GFR ( Amer) Est GFR (Non-Af Amer) POC Glucose (mg/dL) 175 H 202 H 199 H (65-110) mg/dL Random Glucose (70-110) mg/dL Calcium (8.4-10.5) mg/dL Phosphorus (2.5-4.5) mg/dL Magnesium (1.7-2.2) mg/dL Total Bilirubin (0.2-1.3) mg/dL AST (14-36) U/L ALT (7-56) U/L Alkaline Phosphatase (38-126) U/L Total Protein (5.8-8.3) g/dL Albumin (3.0-4.8) g/dL Globulin gm/dL Albumin/Globulin Ratio (1.1-1.8) 06/17/17 06/17/17 Range/Units 09:58 07:49 WBC (4.5-11.0) 10^3/ul RBC (3.5-6.1) 10^6/uL Hgb (12.0-16.0) g/dL Hct (36.0-48.0) % MCV (80.0-105.0) fl MCH (25.0-35.0) pg MCHC (31.0-37.0) g/dl RDW (11.5-14.5) % Plt Count (120.0-450.0) 10^3/uL MPV (7.0-11.0) fl Gran % (50.0-68.0) % Lymph % (Auto) (22.0-35.0) % [place] % (Auto) (1.0-6.0) % Eos % (Auto) (1.5-5.0) % Baso % (Auto) (0.0-3.0) % Gran # (1.4-6.5) Lymph # (1.2-3.4) [place] # (0.1-0.6) Eos # (0.0-0.7) Baso # (0.0-2.0) K/mm3 PT (9.9-11.8) Seconds INR (0.93-1.08) pCO2 (35-45) mm/Hg pO2 (80-100) mm/Hg HCO3 (21-28) mmol/L ABG pH (7.35-7.45) ABG Total CO2 (22-28) mmol.L ABG O2 Saturation (95-98) % ABG O2 Content (15-23) ML/dl ABG Base Excess (-2.0-3.0) mmol/L ABG Hemoglobin (11.7-17.4) g/dL ABG Carboxyhemoglobin (0.5-1.5) % POC ABG HHb (Measured) (0-5) % ABG Methemoglobin (0.0-3.0) % ABG O2 Capacity (16-24) mL/dl Hgb O2 Saturation (95.0-98.0) % FiO2 % Sodium (132-148) mmol/L Potassium (3.6-5.0) mmol/L Chloride (95-110) mmol/L Carbon Dioxide (21-33) mmol/L Anion Gap (10-20) BUN (7-21) mg/dL Creatinine (0.5-1.4) mg/dL Est GFR ( Amer) Est GFR (Non-Af Amer) POC Glucose (mg/dL) 215 H 169 H (65-110) mg/dL Random Glucose (70-110) mg/dL Calcium (8.4-10.5) mg/dL Phosphorus (2.5-4.5) mg/dL Magnesium (1.7-2.2) mg/dL Total Bilirubin (0.2-1.3) mg/dL AST (14-36) U/L ALT (7-56) U/L Alkaline Phosphatase (38-126) U/L Total Protein (5.8-8.3) g/dL Albumin (3.0-4.8) g/dL Globulin gm/dL Albumin/Globulin Ratio (1.1-1.8) Laboratory Results - last 24 hr 06/17/17 06/17/17 06/17/17 07:49 09:58 11:52 WBC RBC Hgb Hct MCV MCH MCHC RDW Plt Count MPV Gran % Lymph % (Auto) [place] % (Auto) Eos % (Auto) Baso % (Auto) Gran # Lymph # [place] # Eos # Baso # PT INR pCO2 pO2 HCO3 ABG pH ABG Total CO2 ABG O2 Saturation ABG O2 Content ABG Base Excess ABG Hemoglobin ABG Carboxyhemoglobin POC ABG HHb (Measured) ABG Methemoglobin ABG O2 Capacity Hgb O2 Saturation FiO2 Sodium Potassium Chloride Carbon Dioxide Anion Gap BUN Creatinine Est GFR ( Amer) Est GFR (Non-Af Amer) POC Glucose (mg/dL) 169 H 215 H 199 H Random Glucose Calcium Phosphorus Magnesium Total Bilirubin AST ALT Alkaline Phosphatase Total Protein Albumin Globulin Albumin/Globulin Ratio 06/17/17 06/17/17 06/17/17 14:09 16:12 21:59 WBC RBC Hgb Hct MCV MCH MCHC RDW Plt Count MPV Gran % Lymph % (Auto) [place] % (Auto) Eos % (Auto) Baso % (Auto) Gran # Lymph # [place] # Eos # Baso # PT INR pCO2 pO2 HCO3 ABG pH ABG Total CO2 ABG O2 Saturation ABG O2 Content ABG Base Excess ABG Hemoglobin ABG Carboxyhemoglobin POC ABG HHb (Measured) ABG Methemoglobin ABG O2 Capacity Hgb O2 Saturation FiO2 Sodium Potassium Chloride Carbon Dioxide Anion Gap BUN Creatinine Est GFR ( Amer) Est GFR (Non-Af Amer) POC Glucose (mg/dL) 202 H 175 H 169 H Random Glucose Calcium Phosphorus Magnesium Total Bilirubin AST ALT Alkaline Phosphatase Total Protein Albumin Globulin Albumin/Globulin Ratio 06/18/17 06/18/17 06/18/17 05:30 05:32 05:32 WBC 10.9 RBC 4.24 Hgb 12.3 Hct 37.1 MCV 87.5 MCH 29.0 MCHC 33.2 RDW 13.4 Plt Count 230 MPV 9.7 Gran % 73.0 H Lymph % (Auto) 19.2 L [place] % (Auto) 6.4 H Eos % (Auto) 1.3 L Baso % (Auto) 0.1 Gran # 7.97 H Lymph # 2.1 [place] # 0.7 H Eos # 0.1 Baso # 0.01 PT 10.1 INR 0.94 pCO2 37 pO2 127.0 H HCO3 30.2 H ABG pH 7.52 H ABG Total CO2 31.3 H ABG O2 Saturation 98.7 H ABG O2 Content 16.6 ABG Base Excess 7.0 H ABG Hemoglobin 12.1 ABG Carboxyhemoglobin 1.1 POC ABG HHb (Measured) 1.3 ABG Methemoglobin 1.3 ABG O2 Capacity 16.8 Hgb O2 Saturation 96.3 FiO2 40.0 Sodium Potassium Chloride Carbon Dioxide Anion Gap BUN Creatinine Est GFR ( Amer) Est GFR (Non-Af Amer) POC Glucose (mg/dL) Random Glucose Calcium Phosphorus Magnesium Total Bilirubin AST ALT Alkaline Phosphatase Total Protein Albumin Globulin Albumin/Globulin Ratio 06/18/17 06/18/17 05:32 07:34 WBC RBC Hgb Hct MCV MCH MCHC RDW Plt Count MPV Gran % Lymph % (Auto) [place] % (Auto) Eos % (Auto) Baso % (Auto) Gran # Lymph # [place] # Eos # Baso # PT INR pCO2 pO2 HCO3 ABG pH ABG Total CO2 ABG O2 Saturation ABG O2 Content ABG Base Excess ABG Hemoglobin ABG Carboxyhemoglobin POC ABG HHb (Measured) ABG Methemoglobin ABG O2 Capacity Hgb O2 Saturation FiO2 Sodium 140 Potassium 3.7 Chloride 103 Carbon Dioxide 28 Anion Gap 13 BUN 19 Creatinine 0.7 Est GFR ( Amer) > 60 Est GFR (Non-Af Amer) > 60 POC Glucose (mg/dL) 168 H Random Glucose 197 H Calcium 9.1 Phosphorus 3.3 Magnesium 1.8 Total Bilirubin 0.8 AST 56 H D ALT 61 H Alkaline Phosphatase 112 Total Protein 7.2 Albumin 3.5 Globulin 3.7 Albumin/Globulin Ratio 0.9 L Fingerstick Blood Sugar Results: 168 Review of Systems - Review of Systems Systems not reviewed;Unavailable: Intubated Critical Care Progress Note - Ventilator Checklist Head of Bed 30 Degrees: Yes Daily Sedation Vacation: Yes Daily Assessment of Readiness to Wean: Yes Daily Spontaneous Breathing Trial: Yes PUD Prophalyxis: Yes DVT Prophylaxis: Yes Oral Care with Chlorhexidine Gluconate {CHG}: Yes - Vent Settings MODE:: PRVC TIDAL VOLUME:: 400 RESP RATE:: 10 FIO2:: 40 PEEP:: 5 - Extremities/Vascular Does the Patient have a Central Venous Catheter?: No Does the Patient need a Central Venous Catheter?: No Does the Patient have a [place] Catheter?: Yes Does the Patient need a Sierra Catheter?: Yes Catheter Insertion Criteria: Need for accurate measurement of output in critically ill patient - Prophylaxis GI Prophylaxis GI: PPI - Prophylaxis DVT Prophylaxis DVT: SCDs Assessment/Plan - Assessment and Plan (Free Text) Assessment: 72F w/left occipital parenchymal hemorrhage and intraventricular hemorrhage, currently intubated and sedated, plan for extubation Plan: Neuro Intraparenchymal and intraventricular hemorrhage Intubated/sedated Arousable to verbale stimuli Follows simple commands Plan for extubation Seizure precautions Aspiration precautions HOB to 45 degrees Neuro following Neuro surgery following ENT consulted for possible trach- plan for , if stable post extubation, will ANDREAS ENT CVS BP labile, HTN overnight - restarted on cardene drip D/c'd cardene drip Labetalol PRN Lopressor Target SPB 140-160 Monitor Pulm ON mechanical vent PRVC 40%/5/10/400 ABG pH 7.52, pCO2 37, pO2 127, HCO3 30.2 CPAP Wean protocol CXR NAD Plan for extubation Pulm following GI Slight transaminitis AST 56 ALT 61 NPO Zofran PO care Plan for swallow eval 24H post extubation Monitor GI consulted for possible PEG [place] in place Monitor UOP Nephro Electrolytes WNL ID Febrile overnight, Tmax 101.2 Leukocytosis resolved Blood cx neg x 4D Ofirmev PRN temp Unasyn Monitor Endo BS 168 ISS Accuchecks Monitor MSK Will plan for PT post extubation GI/DVT ppx Contraindications for VTE therapy 2/2 intracranial bleeding SCDs Protonix Dispo Plan for extubation Swallow eval 24H post extubation PT post extubation Monitor DW attending Mary, PGY-1 - Date & Time Date: 06/18/17 Time: 07:30 <Adalberto PRATT,Inasubha H - Last Filed: 06/18/17 17:43> CCU Objective - Vital Signs / Intake & Output Vital Signs (Last 4 hours): Vital Signs Pulse BP Pulse Ox 06/18/17 17:26 72 171/97 H 06/18/17 14:36 99 Intake and Output (Last 8hrs): Intake & Output 06/18/17 06/18/17 06/18/17 06:59 14:59 22:59 Intake Total 1160 70 Output Total 1400 Balance -240 70 Intake: IV 620 70 Right Forearm 365 Right Hand 200 Oral 0 Tube Feeding 540 Output: Urine 1400 Urethral ([place]) 1400 Other: # Bowel Movements 1 - Medications Active Medications: Active Medications Generic Name Dose Route Start Last Admin Trade Name Freq PRN Reason Stop Dose Admin Ampicillin Sodium/Sulbactam 100 mls @ 100 mls/hr 06/14/17 18:00 06/18/17 17: 26 Sodium 3 gm/ Sodium Chloride IVPB 100 mls/hr Q6H CHUY Administration Protocol Acetaminophen 1,000 mg in 100 mls @ 400 mls/hr 06/16/17 22:59 06/18/17 16:15 Ofirmev IVPB 06/18/17 23:00 400 mls/hr Q6H PRN Administration Temperature Insulin Human Regular 0 units 06/17/17 16:30 06/18/17 16:40 Humulin R Med SC 1 units ACHS CHUY Administration Protocol Labetalol HCl 10 mg 06/17/17 11:33 06/18/17 13:10 Trandate IV 10 mg Q2H PRN Administration Systolic Blood Pressure Metoprolol Tartrate 25 mg 06/17/17 11:45 06/18/17 17:26 Lopressor PO Not Given BID CHUY Ondansetron HCl 4 mg 06/14/17 16:15 Zofran Inj IVP Q6H PRN Nausea/Vomiting Pantoprazole Sodium 40 mg 06/14/17 14:15 06/18/17 09:26 Protonix Inj IVP 40 mg DAILY CHUY Administration - Patient Studies Lab Studies: Microbiology Studies 06/14/17 10:36 Blood Culture - Preliminary Blood-Venous NO GROWTH AFTER 4 DAYS 06/14/17 10:36 Blood Culture - Preliminary Blood-Venous NO GROWTH AFTER 4 DAYS Lab Studies 06/18/17 06/18/17 06/18/17 Range/Units 11:21 07:34 05:32 WBC (4.5-11.0) 10^3/ul RBC (3.5-6.1) 10^6/uL Hgb (12.0-16.0) g/dL Hct (36.0-48.0) % MCV (80.0-105.0) fl MCH (25.0-35.0) pg MCHC (31.0-37.0) g/dl RDW (11.5-14.5) % Plt Count (120.0-450.0) 10^3/uL MPV (7.0-11.0) fl Gran % (50.0-68.0) % Lymph % (Auto) (22.0-35.0) % [place] % (Auto) (1.0-6.0) % Eos % (Auto) (1.5-5.0) % Baso % (Auto) (0.0-3.0) % Gran # (1.4-6.5) Lymph # (1.2-3.4) [place] # (0.1-0.6) Eos # (0.0-0.7) Baso # (0.0-2.0) K/mm3 PT (9.9-11.8) Seconds INR (0.93-1.08) pCO2 (35-45) mm/Hg pO2 (80-100) mm/Hg HCO3 (21-28) mmol/L ABG pH (7.35-7.45) ABG Total CO2 (22-28) mmol.L ABG O2 Saturation (95-98) % ABG O2 Content (15-23) ML/dl ABG Base Excess (-2.0-3.0) mmol/L ABG Hemoglobin (11.7-17.4) g/dL ABG Carboxyhemoglobin (0.5-1.5) % POC ABG HHb (Measured) (0-5) % ABG Methemoglobin (0.0-3.0) % ABG O2 Capacity (16-24) mL/dl Hgb O2 Saturation (95.0-98.0) % FiO2 % Sodium 140 (132-148) mmol/L Potassium 3.7 (3.6-5.0) mmol/L Chloride 103 (95-110) mmol/L Carbon Dioxide 28 (21-33) mmol/L Anion Gap 13 (10-20) BUN 19 (7-21) mg/dL Creatinine 0.7 (0.5-1.4) mg/dL Est GFR ( Amer) > 60 Est GFR (Non-Af Amer) > 60 POC Glucose (mg/dL) 185 H 168 H (65-110) mg/dL Random Glucose 197 H (70-110) mg/dL Calcium 9.1 (8.4-10.5) mg/dL Phosphorus 3.3 (2.5-4.5) mg/dL Magnesium 1.8 (1.7-2.2) mg/dL Total Bilirubin 0.8 (0.2-1.3) mg/dL AST 56 H D (14-36) U/L ALT 61 H (7-56) U/L Alkaline Phosphatase 112 (38-126) U/L Total Protein 7.2 (5.8-8.3) g/dL Albumin 3.5 (3.0-4.8) g/dL Globulin 3.7 gm/dL Albumin/Globulin Ratio 0.9 L (1.1-1.8) 06/18/17 06/18/17 06/18/17 Range/Units 05:32 05:32 05:30 WBC 10.9 (4.5-11.0) 10^3/ul RBC 4.24 (3.5-6.1) 10^6/uL Hgb 12.3 (12.0-16.0) g/dL Hct 37.1 (36.0-48.0) % MCV 87.5 (80.0-105.0) fl MCH 29.0 (25.0-35.0) pg MCHC 33.2 (31.0-37.0) g/dl RDW 13.4 (11.5-14.5) % Plt Count 230 (120.0-450.0) 10^3/uL MPV 9.7 (7.0-11.0) fl Gran % 73.0 H (50.0-68.0) % Lymph % (Auto) 19.2 L (22.0-35.0) % [place] % (Auto) 6.4 H (1.0-6.0) % Eos % (Auto) 1.3 L (1.5-5.0) % Baso % (Auto) 0.1 (0.0-3.0) % Gran # 7.97 H (1.4-6.5) Lymph # 2.1 (1.2-3.4) [place] # 0.7 H (0.1-0.6) Eos # 0.1 (0.0-0.7) Baso # 0.01 (0.0-2.0) K/mm3 PT 10.1 (9.9-11.8) Seconds INR 0.94 (0.93-1.08) pCO2 37 (35-45) mm/Hg pO2 127.0 H (80-100) mm/Hg HCO3 30.2 H (21-28) mmol/L ABG pH 7.52 H (7.35-7.45) ABG Total CO2 31.3 H (22-28) mmol.L ABG O2 Saturation 98.7 H (95-98) % ABG O2 Content 16.6 (15-23) ML/dl ABG Base Excess 7.0 H (-2.0-3.0) mmol/L ABG Hemoglobin 12.1 (11.7-17.4) g/dL ABG Carboxyhemoglobin 1.1 (0.5-1.5) % POC ABG HHb (Measured) 1.3 (0-5) % ABG Methemoglobin 1.3 (0.0-3.0) % ABG O2 Capacity 16.8 (16-24) mL/dl Hgb O2 Saturation 96.3 (95.0-98.0) % FiO2 40.0 % Sodium (132-148) mmol/L Potassium (3.6-5.0) mmol/L Chloride (95-110) mmol/L Carbon Dioxide (21-33) mmol/L Anion Gap (10-20) BUN (7-21) mg/dL Creatinine (0.5-1.4) mg/dL Est GFR ( Amer) Est GFR (Non-Af Amer) POC Glucose (mg/dL) (65-110) mg/dL Random Glucose (70-110) mg/dL Calcium (8.4-10.5) mg/dL Phosphorus (2.5-4.5) mg/dL Magnesium (1.7-2.2) mg/dL Total Bilirubin (0.2-1.3) mg/dL AST (14-36) U/L ALT (7-56) U/L Alkaline Phosphatase (38-126) U/L Total Protein (5.8-8.3) g/dL Albumin (3.0-4.8) g/dL Globulin gm/dL Albumin/Globulin Ratio (1.1-1.8) 06/17/17 Range/Units 21:59 WBC (4.5-11.0) 10^3/ul RBC (3.5-6.1) 10^6/uL Hgb (12.0-16.0) g/dL Hct (36.0-48.0) % MCV (80.0-105.0) fl MCH (25.0-35.0) pg MCHC (31.0-37.0) g/dl RDW (11.5-14.5) % Plt Count (120.0-450.0) 10^3/uL MPV (7.0-11.0) fl Gran % (50.0-68.0) % Lymph % (Auto) (22.0-35.0) % [place] % (Auto) (1.0-6.0) % Eos % (Auto) (1.5-5.0) % Baso % (Auto) (0.0-3.0) % Gran # (1.4-6.5) Lymph # (1.2-3.4) [place] # (0.1-0.6) Eos # (0.0-0.7) Baso # (0.0-2.0) K/mm3 PT (9.9-11.8) Seconds INR (0.93-1.08) pCO2 (35-45) mm/Hg pO2 (80-100) mm/Hg HCO3 (21-28) mmol/L ABG pH (7.35-7.45) ABG Total CO2 (22-28) mmol.L ABG O2 Saturation (95-98) % ABG O2 Content (15-23) ML/dl ABG Base Excess (-2.0-3.0) mmol/L ABG Hemoglobin (11.7-17.4) g/dL ABG Carboxyhemoglobin (0.5-1.5) % POC ABG HHb (Measured) (0-5) % ABG Methemoglobin (0.0-3.0) % ABG O2 Capacity (16-24) mL/dl Hgb O2 Saturation (95.0-98.0) % FiO2 % Sodium (132-148) mmol/L Potassium (3.6-5.0) mmol/L Chloride (95-110) mmol/L Carbon Dioxide (21-33) mmol/L Anion Gap (10-20) BUN (7-21) mg/dL Creatinine (0.5-1.4) mg/dL Est GFR ( Amer) Est GFR (Non-Af Amer) POC Glucose (mg/dL) 169 H (65-110) mg/dL Random Glucose (70-110) mg/dL Calcium (8.4-10.5) mg/dL Phosphorus (2.5-4.5) mg/dL Magnesium (1.7-2.2) mg/dL Total Bilirubin (0.2-1.3) mg/dL AST (14-36) U/L ALT (7-56) U/L Alkaline Phosphatase (38-126) U/L Total Protein (5.8-8.3) g/dL Albumin (3.0-4.8) g/dL Globulin gm/dL Albumin/Globulin Ratio (1.1-1.8) Laboratory Results - last 24 hr 06/17/17 06/18/17 06/18/17 21:59 05:30 05:32 WBC 10.9 RBC 4.24 Hgb 12.3 Hct 37.1 MCV 87.5 MCH 29.0 MCHC 33.2 RDW 13.4 Plt Count 230 MPV 9.7 Gran % 73.0 H Lymph % (Auto) 19.2 L [place] % (Auto) 6.4 H Eos % (Auto) 1.3 L Baso % (Auto) 0.1 Gran # 7.97 H Lymph # 2.1 [place] # 0.7 H Eos # 0.1 Baso # 0.01 PT INR pCO2 37 pO2 127.0 H HCO3 30.2 H ABG pH 7.52 H ABG Total CO2 31.3 H ABG O2 Saturation 98.7 H ABG O2 Content 16.6 ABG Base Excess 7.0 H ABG Hemoglobin 12.1 ABG Carboxyhemoglobin 1.1 POC ABG HHb (Measured) 1.3 ABG Methemoglobin 1.3 ABG O2 Capacity 16.8 Hgb O2 Saturation 96.3 FiO2 40.0 Sodium Potassium Chloride Carbon Dioxide Anion Gap BUN Creatinine Est GFR ( Amer) Est GFR (Non-Af Amer) POC Glucose (mg/dL) 169 H Random Glucose Calcium Phosphorus Magnesium Total Bilirubin AST ALT Alkaline Phosphatase Total Protein Albumin Globulin Albumin/Globulin Ratio 06/18/17 06/18/17 06/18/17 05:32 05:32 07:34 WBC RBC Hgb Hct MCV MCH MCHC RDW Plt Count MPV Gran % Lymph % (Auto) [place] % (Auto) Eos % (Auto) Baso % (Auto) Gran # Lymph # [place] # Eos # Baso # PT 10.1 INR 0.94 pCO2 pO2 HCO3 ABG pH ABG Total CO2 ABG O2 Saturation ABG O2 Content ABG Base Excess ABG Hemoglobin ABG Carboxyhemoglobin POC ABG HHb (Measured) ABG Methemoglobin ABG O2 Capacity Hgb O2 Saturation FiO2 Sodium 140 Potassium 3.7 Chloride 103 Carbon Dioxide 28 Anion Gap 13 BUN 19 Creatinine 0.7 Est GFR ( Amer) > 60 Est GFR (Non-Af Amer) > 60 POC Glucose (mg/dL) 168 H Random Glucose 197 H Calcium 9.1 Phosphorus 3.3 Magnesium 1.8 Total Bilirubin 0.8 AST 56 H D ALT 61 H Alkaline Phosphatase 112 Total Protein 7.2 Albumin 3.5 Globulin 3.7 Albumin/Globulin Ratio 0.9 L 06/18/17 11:21 WBC RBC Hgb Hct MCV MCH MCHC RDW Plt Count MPV Gran % Lymph % (Auto) [place] % (Auto) Eos % (Auto) Baso % (Auto) Gran # Lymph # [place] # Eos # Baso # PT INR pCO2 pO2 HCO3 ABG pH ABG Total CO2 ABG O2 Saturation ABG O2 Content ABG Base Excess ABG Hemoglobin ABG Carboxyhemoglobin POC ABG HHb (Measured) ABG Methemoglobin ABG O2 Capacity Hgb O2 Saturation FiO2 Sodium Potassium Chloride Carbon Dioxide Anion Gap BUN Creatinine Est GFR ( Amer) Est GFR (Non-Af Amer) POC Glucose (mg/dL) 185 H Random Glucose Calcium Phosphorus Magnesium Total Bilirubin AST ALT Alkaline Phosphatase Total Protein Albumin Globulin Albumin/Globulin Ratio Attending/Attestation - Attestation I have personally seen and examined this patient.: Yes I have fully participated in the care of the patient.: Yes I have reviewed all pertinent clinical information: Yes Notes (Text): 06/18/17 17:41 72 /o F s/p Large ICH w/ Respiratory failure S/P Extubation today and is following some minimal commands. Protecting airway currently and will need formal swallow evaluation. HTn controlled , off cardene and on Labetalol PRN . P.O meds to start once swallow is passed or NGT is re-placed. DVT P SCD ppi cc time 65 min
[2017-06-18] MEDS: Labetalol 5 mg/ml Inj 20ML IV PRN ×3 (13:10→23:43)
--- NOTE | 2017-06-18 13:14 | PN ---
DATE: SUBJECTIVE: The patient is lying in the bed, in no acute distress status post extubation earlier this morning. PHYSICAL EXAMINATION: VITAL SIGNS: Her blood pressure is 149/90, heart rate is 76 per minute, breathing at rate of 14 per minute and her temperature is 101.2 degree Fahrenheit. HEENT: Head is normocephalic and atraumatic. NECK: Supple. There are no carotid bruits. LUNGS: Clear. CARDIOVASCULAR: S1 and S2 audible. No murmurs. ABDOMEN: Soft and nontender. Bowel sounds are present. NEUROLOGIC: Mental status: The patient is awake and alert. She follows some simple commands. Cranial nerve examination: Pupils are 3 mm bilaterally reactive to light. Visual bonner decrease on the right side. Extraocular movements are intact. There is decreased nasolabial fold on the right side. Motor examination: She is spontaneously moving her left side. Power appears to be 4/5. Power on the right side is 0/5. Plantars upgoing on the right side and downgoing on the left side. LABORATORY DATA: Labs reviewed shows WBC 10.9, hemoglobin 12.3, hematocrit 37.1 and platelets of 230. Sodium is 140, potassium 3.7, chloride 103, carbon dioxide content of 28, BUN of 19, creatinine 0.7 and glucose of 197. IMPRESSION: 1. Intracerebral hemorrhage involving the left occipital region with intraventricular extension. 2. Status post respiratory failure. RECOMMENDATIONS: 1. The patient has shown significant improvement in her neurologic status. 2. The patient is status post extubation. 3. If the patient remains stable and able to tolerate without ventilator then consider getting swallowing evaluation. 4. The patient's blood pressure is better controlled. 5. The patient to be started on physical therapy and occupational therapy. 6. Please continue the treatment and supportive care. Thank you for the opportunity to participate in the care of this patient. Evan Glover MD
--- NOTE | 2017-06-18 13:29 | CP.PCM.CON ---
<Erin Fay - Last Filed: 06/18/17 13:39> History of Present Illness - History of Present Illness History of Present Illness: Gastroenterology Fellow/PGY5 Consult Note 72 year old female with history of CHF, Diabetes, Hypertension, and on Plavix ( unknown diagnosis) presenting with fall and altered mental status. Patient was found down at home after family members heard her fall leading to intubation in ER for airway protection and uncontrolled Hypertension 2/2 medication noncompliance complicated by 4.4cm left occipital intracranial hemorrhage with intraventricular extension. Gi consultation for PEG placement after failed wean trial yesterday, 06/17/17. Nursing denies acute events overnight. Patient is more awake today on ventilator support with successful extubation. Patient is responding with inappropriate response. 12-point review of system unable to be completed due to altered mental status in setting of intracranial hemorrhage. Unknown endoscopic history. Family- unable to obtain, daughter- denies colon cancer Social- unable to obtain, daughter denies tobacco, alcohol, illicit drug use Surgery- unable to obtain Review of Systems - Review of Systems Review of Systems: Unable to obtain 12-point review of systems given altered mental status in setting of intracranial hemorrhage Past Patient History - Infectious Disease Hx of Infectious Diseases: None - Tetanus Immunizations Tetanus Immunization: Unknown - Past Medical History & Family History Past Medical History?: Yes - Past Social History Smoking Status: Never Smoked - CARDIAC Hx Cardiac Disorders: Yes Hx Hypertension: Yes - PULMONARY Other/Comment: 06/04/2014. 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 - NEUROLOGICAL Hx Neurological Disorder: No - HEENT Hx HEENT Problems: Yes Hx Cataracts: Yes - RENAL Hx Chronic Kidney Disease: No - ENDOCRINE/METABOLIC Hx Endocrine Disorders: Yes Hx Diabetes Mellitus Type 2: Yes - HEMATOLOGICAL/ONCOLOGICAL Hx Blood Disorders: No Hx Blood Transfusions: No Hx Blood Transfusion Reaction: No - INTEGUMENTARY Hx Dermatological Problems: No - MUSCULOSKELETAL/RHEUMATOLOGICAL Hx Musculoskeletal Disorders: Yes Hx Arthritis: Yes - GASTROINTESTINAL Hx Gastrointestinal Disorders: Yes Hx Gastroesophageal Reflux: Yes - GENITOURINARY/GYNECOLOGICAL Hx Genitourinary Disorders: No Hx Reproductive Disorders: No - PSYCHIATRIC Hx Psychophysiologic Disorder: No Hx Emotional Abuse: No Hx Physical Abuse: No Hx Substance Use: No - SURGICAL HISTORY Hx Cardiac Catheterization: Yes - ANESTHESIA Hx Anesthesia Reactions: No Hx Malignant Hyperthermia: No Meds Allergies/Adverse Reactions: Allergies Allergy/AdvReac Type Severity Reaction Status Date / Time shrimp Allergy SWELLING Verified 06/14/17 07:50 - Medications Medications: Current Medications Ampicillin Sodium/Sulbactam (Sodium 3 gm/ Sodium Chloride) 100 mls @ 100 mls/ hr IVPB Q6H [facility] PRN Reason: Protocol Last Admin: 06/18/17 12:08 Dose: 100 mls/hr Acetaminophen (Ofirmev) 1,000 mg in 100 mls @ 400 mls/hr IVPB Q6H PRN PRN Reason: Temperature Stop: 06/18/17 23:00 Last Admin: 06/18/17 05:35 Dose: 400 mls/hr Insulin Human Regular (Humulin R Med) 0 units SC ACHS [facility] PRN Reason: Protocol Last Admin: 06/18/17 11:40 Dose: 1 units Labetalol HCl (Trandate) 10 mg IV Q2H PRN PRN Reason: Systolic Blood Pressure Last Admin: 06/18/17 13:10 Dose: 10 mg Metoprolol Tartrate (Lopressor) 25 mg PO BID [facility] Last Admin: 06/18/17 09:33 Dose: 25 mg Ondansetron HCl (Zofran Inj) 4 mg IVP Q6H PRN PRN Reason: Nausea/Vomiting Pantoprazole Sodium (Protonix Inj) 40 mg IVP DAILY [facility] Last Admin: 06/18/17 09:26 Dose: 40 mg Physical Exam - Constitutional Appears: Non-toxic, No Acute Distress - Head Exam Head Exam: ATRAUMATIC, NORMOCEPHALIC - Eye Exam Eye Exam: EOMI, PERRL Pupil Exam: PERRL. absent: Miosis, Mydriatic - ENT Exam ENT Exam: Mucous Membranes Moist, Normal Oropharynx - Neck Exam Neck exam: Positive for: Full Rom, Normal Inspection - Respiratory Exam Respiratory Exam: Clear to Auscultation Bilateral. absent: Rales, Rhonchi, Wheezes - Cardiovascular Exam Cardiovascular Exam: RRR, +S1, +S2. absent: Gallop, Rubs - GI/Abdominal Exam GI & Abdominal Exam: Normal Bowel Sounds, Soft. absent: Distended, Firm, Guarding, Organomegaly, Rebound, Rigid, Tenderness - Extremities Exam Extremities exam: Positive for: normal inspection, pedal edema - Neurological Exam Neurological exam: Alert - Psychiatric Exam Psychiatric exam: Normal Affect, Normal Mood - Skin Skin Exam: Dry, Intact, Normal Color, Warm Results - Vital Signs Recent Vital Signs: Last Vital Signs Temp 101.2 F H 06/18/17 05:00 Pulse 76 06/18/17 13:10 Resp 12 06/18/17 07:24 BP 189/103 H 06/18/17 13:10 Pulse Ox 100 06/18/17 07:24 - Labs Result Diagrams: 06/18/17 05:32 06/18/17 05:32 Labs: Laboratory Results - last 24 hr 06/17/17 06/17/17 06/17/17 07:49 09:58 11:52 WBC RBC Hgb Hct MCV MCH MCHC RDW Plt Count MPV Gran % Lymph % (Auto) Bonner % (Auto) Eos % (Auto) Baso % (Auto) Gran # Lymph # Bonner # Eos # Baso # PT INR pCO2 pO2 HCO3 ABG pH ABG Total CO2 ABG O2 Saturation ABG O2 Content ABG Base Excess ABG Hemoglobin ABG Carboxyhemoglobin POC ABG HHb (Measured) ABG Methemoglobin ABG O2 Capacity Hgb O2 Saturation FiO2 Sodium Potassium Chloride Carbon Dioxide Anion Gap BUN Creatinine Est GFR ( Amer) Est GFR (Non-Af Amer) POC Glucose (mg/dL) 169 H 215 H 199 H Random Glucose Calcium Phosphorus Magnesium Total Bilirubin AST ALT Alkaline Phosphatase Total Protein Albumin Globulin Albumin/Globulin Ratio 06/17/17 06/17/17 06/17/17 14:09 16:12 21:59 WBC RBC Hgb Hct MCV MCH MCHC RDW Plt Count MPV Gran % Lymph % (Auto) Bonner % (Auto) Eos % (Auto) Baso % (Auto) Gran # Lymph # Bonner # Eos # Baso # PT INR pCO2 pO2 HCO3 ABG pH ABG Total CO2 ABG O2 Saturation ABG O2 Content ABG Base Excess ABG Hemoglobin ABG Carboxyhemoglobin POC ABG HHb (Measured) ABG Methemoglobin ABG O2 Capacity Hgb O2 Saturation FiO2 Sodium Potassium Chloride Carbon Dioxide Anion Gap BUN Creatinine Est GFR ( Amer) Est GFR (Non-Af Amer) POC Glucose (mg/dL) 202 H 175 H 169 H Random Glucose Calcium Phosphorus Magnesium Total Bilirubin AST ALT Alkaline Phosphatase Total Protein Albumin Globulin Albumin/Globulin Ratio 06/18/17 06/18/17 06/18/17 05:30 05:32 05:32 WBC 10.9 RBC 4.24 Hgb 12.3 Hct 37.1 MCV 87.5 MCH 29.0 MCHC 33.2 RDW 13.4 Plt Count 230 MPV 9.7 Gran % 73.0 H Lymph % (Auto) 19.2 L Bonner % (Auto) 6.4 H Eos % (Auto) 1.3 L Baso % (Auto) 0.1 Gran # 7.97 H Lymph # 2.1 Bonner # 0.7 H Eos # 0.1 Baso # 0.01 PT 10.1 INR 0.94 pCO2 37 pO2 127.0 H HCO3 30.2 H ABG pH 7.52 H ABG Total CO2 31.3 H ABG O2 Saturation 98.7 H ABG O2 Content 16.6 ABG Base Excess 7.0 H ABG Hemoglobin 12.1 ABG Carboxyhemoglobin 1.1 POC ABG HHb (Measured) 1.3 ABG Methemoglobin 1.3 ABG O2 Capacity 16.8 Hgb O2 Saturation 96.3 FiO2 40.0 Sodium Potassium Chloride Carbon Dioxide Anion Gap BUN Creatinine Est GFR ( Amer) Est GFR (Non-Af Amer) POC Glucose (mg/dL) Random Glucose Calcium Phosphorus Magnesium Total Bilirubin AST ALT Alkaline Phosphatase Total Protein Albumin Globulin Albumin/Globulin Ratio 06/18/17 06/18/17 06/18/17 05:32 07:34 11:21 WBC RBC Hgb Hct MCV MCH MCHC RDW Plt Count MPV Gran % Lymph % (Auto) Bonner % (Auto) Eos % (Auto) Baso % (Auto) Gran # Lymph # Bonner # Eos # Baso # PT INR pCO2 pO2 HCO3 ABG pH ABG Total CO2 ABG O2 Saturation ABG O2 Content ABG Base Excess ABG Hemoglobin ABG Carboxyhemoglobin POC ABG HHb (Measured) ABG Methemoglobin ABG O2 Capacity Hgb O2 Saturation FiO2 Sodium 140 Potassium 3.7 Chloride 103 Carbon Dioxide 28 Anion Gap 13 BUN 19 Creatinine 0.7 Est GFR ( Amer) > 60 Est GFR (Non-Af Amer) > 60 POC Glucose (mg/dL) 168 H 185 H Random Glucose 197 H Calcium 9.1 Phosphorus 3.3 Magnesium 1.8 Total Bilirubin 0.8 AST 56 H D ALT 61 H Alkaline Phosphatase 112 Total Protein 7.2 Albumin 3.5 Globulin 3.7 Albumin/Globulin Ratio 0.9 L Assessment & Plan - Assessment and Plan (Free Text) Assessment: 72 year old female with history of CHF, Diabetes, Hypertension, and on Plavix ( unknown diagnosis) presenting with fall and altered mental status. Active treatment of ventilator dependent respiratory failure secondary to airway protection uncontrolled Hypertension 2/2 medication noncompliance complicated by 4.4cm left occipital intracranial hemorrhage with intraventricular extension. GI consultation for PEG placement. Unknown endoscopic history. Plan: >extubated today >await speech and swallow evaluation >daughter agrees to hold off on PEG consideration until assess swallowing ability for adequate nutritional support >history of Plavix on home meds- presumed last use 06/14/17 >further recommendations based on clinical course >will continue to follow <Juan Pablo Khan - Last Filed: 06/19/17 07:43> Meds - Medications Medications: Current Medications Ampicillin Sodium/Sulbactam (Sodium 3 gm/ Sodium Chloride) 100 mls @ 100 mls/ hr IVPB Q6H [facility] PRN Reason: Protocol Last Admin: 06/19/17 05:02 Dose: 100 mls/hr Potassium Chloride (Potassium Chloride 10 Meq/100 Ml) 10 meq in 100 mls @ 100 mls/hr IVPB Q2H [facility] Stop: 06/19/17 10:44 Insulin Human Regular (Humulin R Med) 0 units SC ACHS [facility] PRN Reason: Protocol Last Admin: 06/18/17 22:11 Dose: Not Given Labetalol HCl (Trandate) 10 mg IV Q2H PRN PRN Reason: Systolic Blood Pressure Last Admin: 06/18/17 23:43 Dose: 10 mg Metoprolol Tartrate (Lopressor) 25 mg PO BID [facility] Last Admin: 06/18/17 17:26 Dose: Not Given Ondansetron HCl (Zofran Inj) 4 mg IVP Q6H PRN PRN Reason: Nausea/Vomiting Pantoprazole Sodium (Protonix Inj) 40 mg IVP DAILY [facility] Last Admin: 06/18/17 09:26 Dose: 40 mg Results - Vital Signs Recent Vital Signs: Last Vital Signs Temp 100.0 F H 06/19/17 03:23 Pulse 73 06/19/17 06:01 Resp 21 06/19/17 06:01 BP 157/86 H 06/19/17 06:02 Pulse Ox 98 06/19/17 02:45 - Labs Result Diagrams: 06/19/17 05:10 06/19/17 05:10 Labs: Laboratory Results - last 24 hr 06/17/17 06/18/17 06/18/17 21:59 07:34 11:21 WBC RBC Hgb Hct MCV MCH MCHC RDW Plt Count MPV Gran % Lymph % (Auto) Bonner % (Auto) Eos % (Auto) Baso % (Auto) Gran # Lymph # Bonner # Eos # Baso # PT INR Sodium Potassium Chloride Carbon Dioxide Anion Gap BUN Creatinine Est GFR ( Amer) Est GFR (Non-Af Amer) POC Glucose (mg/dL) 169 H 168 H 185 H Random Glucose Calcium Phosphorus Magnesium Total Bilirubin AST ALT Alkaline Phosphatase Total Protein Albumin Globulin Albumin/Globulin Ratio 06/18/17 06/18/17 06/19/17 16:45 21:58 05:10 WBC 12.2 H RBC 4.64 Hgb 13.5 Hct 40.4 MCV 87.1 MCH 29.1 MCHC 33.4 RDW 13.3 Plt Count 278 MPV 10.0 Gran % 74.1 H Lymph % (Auto) 20.0 L Bonner % (Auto) 5.3 Eos % (Auto) 0.5 L Baso % (Auto) 0.1 Gran # 9.05 H Lymph # 2.5 Bonner # 0.7 H Eos # 0.1 Baso # 0.01 PT INR Sodium Potassium Chloride Carbon Dioxide Anion Gap BUN Creatinine Est GFR ( Amer) Est GFR (Non-Af Amer) POC Glucose (mg/dL) 158 H 142 H Random Glucose Calcium Phosphorus Magnesium Total Bilirubin AST ALT Alkaline Phosphatase Total Protein Albumin Globulin Albumin/Globulin Ratio 06/19/17 06/19/17 05:10 05:10 WBC RBC Hgb Hct MCV MCH MCHC RDW Plt Count MPV Gran % Lymph % (Auto) Bonner % (Auto) Eos % (Auto) Baso % (Auto) Gran # Lymph # Bonner # Eos # Baso # PT 10.6 INR 0.98 Sodium 144 Potassium 3.5 L Chloride 100 Carbon Dioxide 28 Anion Gap 20 BUN 17 Creatinine 0.7 Est GFR ( Amer) > 60 Est GFR (Non-Af Amer) > 60 POC Glucose (mg/dL) Random Glucose 154 H Calcium 9.5 Phosphorus 3.5 Magnesium 2.0 Total Bilirubin 1.0 AST 43 H D ALT 50 Alkaline Phosphatase 135 H D Total Protein 8.1 Albumin 4.0 Globulin 4.1 Albumin/Globulin Ratio 1.0 L Attending/Attestation - Attestation I have personally seen and examined this patient.: Yes I have fully participated in the care of the patient.: Yes I have reviewed all pertinent clinical information: Yes Notes (Text): 06/18/17 17:40 72 year old female with h/o CHF, DM, HTN a/w ICH, respiratory failure now extubated, we are consulted for dysphagia and possible PEG. 1. Dysphagia Plan: -neurological cause for dysphagia -recommend speech and swallow evaluation -dietary recommendations per speech therapy -if she is unable to intake an adequate diet by mouth, she may need a PEG, but currently it is not warranted until further evaluation
--- NOTE | 2017-06-18 20:55 | PN ---
DATE: 06/17/2017 SUBJECTIVE: The patient was seen and examined on 06/17/2017 late evening, both daughters and both grandsons were on the bedside. Length of time discussion done. The patient is still intubated, moving left upper extremity, left lower extremity and right lower extremity little bit, but right upper extremity is not showing any signs of movement and had some episodes of central apnea. Again, no hemoptysis, no hematuria, no hematochezia. The patient is not able to give review of systems. PHYSICAL EXAMINATION: VITAL SIGNS: Temperature 98, heart rate 76, respiratory rate 18, blood pressure 163/100 and pulse oximetry 100% on ventilator. HEENT: Head is normocephalic. Eyes, closed. Nose patent. Has ET tube and ET tube has not much secretions. NECK: Supple. No carotid bruits, or thyromegaly. LUNGS: Scattered rhonchi. HEART: S1 and S2 positive. ABDOMEN: Soft, nontender. No organomegaly. EXTREMITIES: No edema. No cyanosis. NEUROLOGICALLY: The patient is opening eyes with command, follows simple command like raising her left upper extremity, MEDICATIONS: Unasyn, Diprivan, Fentanyl, metoprolol, Tylenol, Protonix, labetalol, Zofran. LABORATORY DATA: Hemoglobin 12.6, hematocrit 37.6, white blood cells 12, platelets 240. Sodium 140, potassium 3.3, BUN 18, creatinine is 0.7, glucose 140, AST 40, ALT 40. ASSESSMENT AND PLAN: The patient with a history of multiple medical problems,schizophrenia, insulin-dependent diabetes mellitus, came in with intraparenchymal hemorrhage with ventricular extension, mild hydronephrosis, hypertension, sleep apnea syndrome, respiratory failure, on ventilator. Length of time discussion done with the patient's both twin daughters and grandsons of twin daughters. Reviewed Dr. Francois's notes. Decided to do morning extubation. Gastrointestinal and deep venous thrombosis prophylaxis. Obtain further tests. We will follow up. Gayle Jones MD [facility]
--- NOTE | 2017-06-19 00:18 | PN ---
PULMONARY PROGRESS NOTE DATE: 06/18/2017 REFERRING PHYSICIAN: Gayle Jones MD SUBJECTIVE: She extubated on nasal cannula, fully awake and alert. Daughter is at bedside. Still have oropharyngeal dysphagia, has mild cough. No sputum production, no hemoptysis, no hematemesis, or hematuria, no diarrhea. OBJECTIVE: VITAL SIGNS: Temperature is 98, heart rate 70, respiratory rate is 20, blood pressure 190/105, and pulse ox 100% on nasal cannula. HEENT: Moist mucous membranes. Crowded airway. Mallampati score is IV. NECK: Supple. No JVD. LUNGS: Has a fair airflow with rhonchus. HEART: S1 and S2. ABDOMEN: Soft, nontender. No organomegaly. EXTREMITIES: There is no edema. NEUROLOGIC: Awake, alert, does follow simple commands. MEDICATIONS: She is on Unasyn 3 gm IV q. 6 hours, insulin coverage, metoprolol tartarate 25 mg twice a day, Protonix 40 mg daily, labetalol 10 mg q. 2 hours p.r.n. for systolic blood pressure, Zofran p.r.n. basis. LABORATORY DATA: Shows hemoglobin 12.3, hematocrit 37.1, WBC 10.9, platelet count is 230. INR 0.94. ABG show pH 7.52, pCO2 of 37, O2 127, that is on nasal cannula. Sodium 140, potassium 3.7, chloride 103, bicarbonate 28, BUN 19, creatinine 0.7, glucose 197, calcium 9.1, phosphorous 3.3, magnesium 1.8, AST 56, ALT is 61, alkaline phosphatase is 112, albumin is 3.5. Microbiology; blood culture, urine culture there is no growth. Chest x-ray done today shows no infiltrate or effusion. IMPRESSION AND PLAN: Intraparenchymal hemorrhage with ventricular extension, mild hydrocephalus, hypertension, diabetes, may have a sleep apnea syndrome. Spoke to the patient's family at bedside, all the questions answered. Keep head elevated at 45 degrees. May continue BiPAP while sleeping, p.r.n. mouth suction. Speech therapy evaluation. Needing modify diet. Aspiration precaution. Gastric prophylaxis. SCDs to the lower extremity. Neurology, neurosurgery followup. Critical care time is more than 35 minutes. Thank you and we will follow with you. Livia Francois MD
--- NOTE | 2017-06-19 02:43 | PN ---
DATE: SUBJECTIVE: The patient is a 72 years old female. The patient is seen and examined at the bedside. The patient is extubated successfully. Breathing on her own. No nausea, vomiting, or diarrhea. Daughter is on the bedside. Still the patient is lethargic. No hematemesis or hematochezia. PHYSICAL EXAMINATION: VITAL SIGNS: Pulse is 71, respiratory rate 18 , the patient has a temperature of 101.2 rectally, and blood pressure 158/99. HEENT: Head; normocephalic. Eyes; PERRLA. Extraocular muscles intact. Conjunctivae clear. Nose patent. Mucous membranes moist. NECK: Supple. No carotid bruits, JVD, or thyromegaly. CHEST: Bilaterally symmetrical. HEART: S1 and S2 positive. LUNGS: Clear to auscultation. ABDOMEN: Soft. Bowel sounds positive. No organomegaly. EXTREMITIES: No edema. No cyanosis. NEUROLOGICAL: The patient is awake, is not moving all four extremities, moving only left upper and lower extremities and moving right foot dorsum. MEDICATIONS: Ampicillin/sulbactam, Lopressor, Protonix, Prandin, and Zofran. LABORATORY DATA: White blood cell 10.9, hemoglobin 12.3, hematocrit 37.1, and platelets 230. Glucoses 142, 158, 185, and 168. ASSESSMENT AND PLAN: Mrs. Noy Bryant is 72 years old lady with uncontrolled diabetes mellitus, abnormal liver function tests, history of leukocytosis improved, seen by Dr. Evan Glover, neurologist with a history of large intracerebral hemorrhage with respiratory failure,and following some minimal commands just by opening and closing eyes, protecting airway currently, and needs swallowing evaluation. GI is on the case. In case if she will fail, we will talk to the family about percutaneous endoscopic gastrostomy tube. Hypertension is not very well controlled, off Cardene, on labetalol. For deep venous thrombosis, we have sequential compression device, getting proton pump inhibitor. Seen by the neurosurgeon, Dr. Binu Tran. History of congestive heart failure, hypertension, history of coronary artery disease, and was getting Plavix due to coronary artery disease. Length of time discussion done with the family. Reviewed GI notes. GI and DVT prophylaxis. We will followup. Gayle Jones MD [facility] # [id number] [facility]
[2017-06-19] MEDS: Ampicillin/Sulbactam 3 GM in Sodium Chloride 0.9% 100 ML IVPB SCH ×4 (05:02→23:29)
[2017-06-19 06:18] LABS: BASO # 0.01 K/mm3 (0.0-2.0); BASO % 0.1 % (0.0-3.0); EOS # 0.1 (0.0-0.7); EOS % 0.5 % (1.5-5.0); GRAN # 9.05 (1.4-6.5); GRAN % 74.1 % (50.0-68.0); HEMATOCRIT 40.4 % (36.0-48.0); LYMPH # 2.5 (1.2-3.4); MEAN CELL VOLUME 87.1 fl (80.0-105.0); MEAN CORPUSCULAR HEMOGLOBIN 29.1 pg (25.0-35.0); MEAN CORPUSCULAR HGB CONC 33.4 g/dl (31.0-37.0); MONO # 0.7 (0.1-0.6); MONO % 5.3 % (1.0-6.0); RED CELL DISTRIBUTION WIDTH 13.3 % (11.5-14.5); WHITE BLOOD COUNT 12.2 10^3/ul (4.5-11.0)
[2017-06-19 06:23] LABS: INR 0.98 (0.93-1.08)
[2017-06-19 06:56] LABS: ALKALINE PHOSPHATASE 135 U/L (38-126); ALT/SGPT 50 U/L (7-56); AST/SGOT 43 U/L (14-36); BLOOD UREA NITROGEN 17 mg/dL (7-21); CALCIUM 9.5 mg/dL (8.4-10.5); CARBON DIOXIDE 28 mmol/L (21-33); CHLORIDE 100 mmol/L (98-107); GFR AFRICAN-AMERICAN > 60; GLUCOSE,RANDOM 154 mg/dL (70-110); PHOSPHOROUS 3.5 mg/dL (2.5-4.5); POTASSIUM 3.5 mmol/L (3.6-5.0); SODIUM 144 mmol/L (132-148); TOTAL PROTEIN 8.1 g/dL (5.8-8.3)
--- NOTE | 2017-06-19 08:00 | CP.CCUPN ---
<India Hernandez - Last Filed: 06/19/17 11:39> CCU Subjective - Physician Review Events Since Last Encounter (Free Text): 06/19/17 07:55 Extubated yesterday, doing well overnight on O2 via NC Subjective (Free Text): 06/18/17 11:15 Critical care progress note for Dr. Eben Hernandez, PGY-1 Pt S & E at bedside. Pt intubated/sedated, following simple commands in [place]. 06/19/17 07:56 Critical care progress note for Dr. Myrtle Hernandez, PGY-1 Pt S & E at bedside. Pt extubated yesterday, doing well overnight, following simple commands in [place] selectively. Critical Care Time Spent (in minutes): 35 CCU Objective - Vital Signs / Intake & Output Vital Signs (Last 4 hours): Vital Signs Pulse Resp BP 06/19/17 06:02 157/86 H 06/19/17 06:01 73 21 06/19/17 06:00 72 11 L 06/19/17 05:45 73 16 06/19/17 05:30 70 9 L 06/19/17 05:15 69 19 06/19/17 05:08 161/84 H 06/19/17 05:07 70 19 06/19/17 05:00 66 13 06/19/17 04:45 74 11 L 06/19/17 04:30 64 17 06/19/17 04:20 159/97 H 06/19/17 04:19 65 18 06/19/17 04:15 77 14 06/19/17 04:00 75 Intake and Output (Last 8hrs): Intake & Output 06/18/17 06/19/17 06/19/17 22:59 06:59 14:59 Intake Total 350 300 Output Total 1999 1400 Balance -1650 -1100 Intake: IV 350 300 Right Forearm 350 300 Oral 0 Output: Urine 1999 1400 Urethral (Sierra) 1999 1400 - Physical Exam Head: Positive for: Atraumatic, Normocephalic Pupils: Positive for: PERRL Extroacular Muscles: Positive for: EOMI Conjunctiva: Positive for: Normal Ears: Positive for: Normal Mouth: Positive for: Dry Pharnyx: Positive for: Normal Nose (External): Positive for: Atraumatic Neck: Positive for: Trachea Midline Respiratory/Chest: Positive for: Clear to Auscultation, Good Air Exchange. Negative for: Respiratory Distress, Accessory Muscle Use, Wheezes, Rales, Rhonchi Cardiovascular: Positive for: Regular Rate and Rhythm, Normal S1, S2 Abdomen: Positive for: Normal Bowel Sounds. Negative for: Tenderness, Distention (obese), Peritoneal Signs Upper Extremity: Positive for: Normal Inspection, NORMAL PULSES. Negative for: Cyanosis, Edema, Normal ROM (Does not move right side of body) Lower Extremity: Positive for: Normal Inspection. Negative for: Edema, Normal ROM (Does not move right side of body) Neurological: Positive for: GCS=15. Negative for: Speech Normal (slurred) Skin: Positive for: Warm, Dry, Normal Color. Negative for: Rashes Psychiatric: Positive for: Alert, Other (Pt's speech slurred in [place], unable to determine insight, concentration, orientation) - Medications Active Medications: Active Medications Generic Name Dose Route Start Last Admin Trade Name Freq PRN Reason Stop Dose Admin Ampicillin Sodium/Sulbactam 100 mls @ 100 mls/hr 06/14/17 18:00 06/19/17 05: 02 Sodium 3 gm/ Sodium Chloride IVPB 100 mls/hr Q6H [facility] Administration Protocol Potassium Chloride 10 meq in 100 mls @ 100 mls/hr 06/19/17 07:45 Potassium Chloride 10 Meq/100 Ml IVPB 06/19/17 10:44 Q2H [facility] Acetaminophen 1,000 mg in 100 mls @ 400 mls/hr 06/19/17 07:48 Ofirmev IVPB 06/21/17 07:49 Q6H PRN T>99.9 Insulin Human Regular 0 units 06/19/17 08:00 Humulin R Med SC Q6H [facility] Protocol Labetalol HCl 10 mg 06/17/17 11:33 06/18/17 23:43 Trandate IV 10 mg Q2H PRN Administration Systolic Blood Pressure Metoprolol Tartrate 25 mg 06/17/17 11:45 06/18/17 17:26 Lopressor PO Not Given BID [facility] Ondansetron HCl 4 mg 06/14/17 16:15 Zofran Inj IVP Q6H PRN Nausea/Vomiting Pantoprazole Sodium 40 mg 06/14/17 14:15 06/18/17 09:26 Protonix Inj IVP 40 mg DAILY CHUY Administration - Patient Studies Lab Studies: Microbiology Studies 06/14/17 10:36 Blood Culture - Preliminary Blood-Venous NO GROWTH AFTER 4 DAYS 06/14/17 10:36 Blood Culture - Preliminary Blood-Venous NO GROWTH AFTER 4 DAYS Lab Studies 06/19/17 06/19/17 06/19/17 Range/Units 05:10 05:10 05:10 WBC 12.2 H (4.5-11.0) 10^3/ul RBC 4.64 (3.5-6.1) 10^6/uL Hgb 13.5 (12.0-16.0) g/dL Hct 40.4 (36.0-48.0) % MCV 87.1 (80.0-105.0) fl MCH 29.1 (25.0-35.0) pg MCHC 33.4 (31.0-37.0) g/dl RDW 13.3 (11.5-14.5) % Plt Count 278 (120.0-450.0) 10^3/uL MPV 10.0 (7.0-11.0) fl Gran % 74.1 H (50.0-68.0) % Lymph % (Auto) 20.0 L (22.0-35.0) % [place] % (Auto) 5.3 (1.0-6.0) % Eos % (Auto) 0.5 L (1.5-5.0) % Baso % (Auto) 0.1 (0.0-3.0) % Gran # 9.05 H (1.4-6.5) Lymph # 2.5 (1.2-3.4) [place] # 0.7 H (0.1-0.6) Eos # 0.1 (0.0-0.7) Baso # 0.01 (0.0-2.0) K/mm3 PT 10.6 (9.9-11.8) Seconds INR 0.98 (0.93-1.08) Sodium 144 (132-148) mmol/L Potassium 3.5 L (3.6-5.0) mmol/L Chloride 100 (98-107) mmol/L Carbon Dioxide 28 (21-33) mmol/L Anion Gap 20 (10-20) BUN 17 (7-21) mg/dL Creatinine 0.7 (0.5-1.4) mg/dL Est GFR ( Amer) > 60 Est GFR (Non-Af Amer) > 60 POC Glucose (mg/dL) (65-110) mg/dL Random Glucose 154 H (70-110) mg/dL Calcium 9.5 (8.4-10.5) mg/dL Phosphorus 3.5 (2.5-4.5) mg/dL Magnesium 2.0 (1.7-2.2) mg/dL Total Bilirubin 1.0 (0.2-1.3) mg/dL AST 43 H D (14-36) U/L ALT 50 (7-56) U/L Alkaline Phosphatase 135 H D (38-126) U/L Total Protein 8.1 (5.8-8.3) g/dL Albumin 4.0 (3.0-4.8) g/dL Globulin 4.1 gm/dL Albumin/Globulin Ratio 1.0 L (1.1-1.8) 06/18/17 06/18/17 06/18/17 Range/Units 21:58 16:45 11:21 WBC (4.5-11.0) 10^3/ul RBC (3.5-6.1) 10^6/uL Hgb (12.0-16.0) g/dL Hct (36.0-48.0) % MCV (80.0-105.0) fl MCH (25.0-35.0) pg MCHC (31.0-37.0) g/dl RDW (11.5-14.5) % Plt Count (120.0-450.0) 10^3/uL MPV (7.0-11.0) fl Gran % (50.0-68.0) % Lymph % (Auto) (22.0-35.0) % [place] % (Auto) (1.0-6.0) % Eos % (Auto) (1.5-5.0) % Baso % (Auto) (0.0-3.0) % Gran # (1.4-6.5) Lymph # (1.2-3.4) [place] # (0.1-0.6) Eos # (0.0-0.7) Baso # (0.0-2.0) K/mm3 PT (9.9-11.8) Seconds INR (0.93-1.08) Sodium (132-148) mmol/L Potassium (3.6-5.0) mmol/L Chloride (98-107) mmol/L Carbon Dioxide (21-33) mmol/L Anion Gap (10-20) BUN (7-21) mg/dL Creatinine (0.5-1.4) mg/dL Est GFR ( Amer) Est GFR (Non-Af Amer) POC Glucose (mg/dL) 142 H 158 H 185 H (65-110) mg/dL Random Glucose (70-110) mg/dL Calcium (8.4-10.5) mg/dL Phosphorus (2.5-4.5) mg/dL Magnesium (1.7-2.2) mg/dL Total Bilirubin (0.2-1.3) mg/dL AST (14-36) U/L ALT (7-56) U/L Alkaline Phosphatase (38-126) U/L Total Protein (5.8-8.3) g/dL Albumin (3.0-4.8) g/dL Globulin gm/dL Albumin/Globulin Ratio (1.1-1.8) Laboratory Results - last 24 hr 06/18/17 06/18/17 06/18/17 11:21 16:45 21:58 WBC RBC Hgb Hct MCV MCH MCHC RDW Plt Count MPV Gran % Lymph % (Auto) [place] % (Auto) Eos % (Auto) Baso % (Auto) Gran # Lymph # [place] # Eos # Baso # PT INR Sodium Potassium Chloride Carbon Dioxide Anion Gap BUN Creatinine Est GFR ( Amer) Est GFR (Non-Af Amer) POC Glucose (mg/dL) 185 H 158 H 142 H Random Glucose Calcium Phosphorus Magnesium Total Bilirubin AST ALT Alkaline Phosphatase Total Protein Albumin Globulin Albumin/Globulin Ratio 06/19/17 06/19/17 06/19/17 05:10 05:10 05:10 WBC 12.2 H RBC 4.64 Hgb 13.5 Hct 40.4 MCV 87.1 MCH 29.1 MCHC 33.4 RDW 13.3 Plt Count 278 MPV 10.0 Gran % 74.1 H Lymph % (Auto) 20.0 L [place] % (Auto) 5.3 Eos % (Auto) 0.5 L Baso % (Auto) 0.1 Gran # 9.05 H Lymph # 2.5 [place] # 0.7 H Eos # 0.1 Baso # 0.01 PT 10.6 INR 0.98 Sodium 144 Potassium 3.5 L Chloride 100 Carbon Dioxide 28 Anion Gap 20 BUN 17 Creatinine 0.7 Est GFR ( Amer) > 60 Est GFR (Non-Af Amer) > 60 POC Glucose (mg/dL) Random Glucose 154 H Calcium 9.5 Phosphorus 3.5 Magnesium 2.0 Total Bilirubin 1.0 AST 43 H D ALT 50 Alkaline Phosphatase 135 H D Total Protein 8.1 Albumin 4.0 Globulin 4.1 Albumin/Globulin Ratio 1.0 L Fingerstick Blood Sugar Results: 142 Review of Systems - Review of Systems Systems not reviewed;Unavailable: Uncooperative Critical Care Progress Note - Extremities/Vascular Does the Patient have a Central Venous Catheter?: No Does the Patient need a Central Venous Catheter?: No Does the Patient have a Sierra Catheter?: No Does the Patient need a Sierra Catheter?: No - Prophylaxis GI Prophylaxis GI: PPI - Prophylaxis DVT Prophylaxis DVT: Not Indicated Assessment/Plan - Assessment and Plan (Free Text) Assessment: 72F w/left occipital parenchymal hemorrhage and intraventricular hemorrhage, extubated, doing well overnight, for speech and swallow eval today Plan: Neuro Intraparenchymal and intraventricular hemorrhage Extubated Occasionally following some simple commands Seizure precautions Aspiration precautions HOB to 45 degrees Neuro following Neuro surgery following ENT consulted for possible trach- plan for , will inform ENT CVS BP labile, HTN overnight Labetalol PRN Lopressor Target SPB 140-160 Monitor Pulm Stable on O2 via NC Pulm following GI Slight transaminitis- resolving AST 43 from 56 ALT 50 from 61 NPO Zofran PO care Monitor Speech and Swallow eval today GI following- recs pending swallow eval Sierra removed Wick in place Monitor UOP Nephro Hypokalemia K 3.5 Replaced KCl 20mEq Monitor ID Continues to be febrile over last 24H, Tmax 101.2 Leukocytosis 12.2 from 10.9 Blood cx neg x 4D Urine cx neg Ofirmev PRN temp Unasyn Monitor Endo BS 154 ISS Accuchecks Monitor MSK PT Monitor for skin break down GI/DVT ppx Contraindications for VTE therapy 2/2 intracranial bleeding SCDs Protonix Dispo Speech and swallow PT OT FU GI recs Stable Transfer to [facility] attending Mary, PGY-1 - Date & Time Date: 06/19/17 Time: 06:45 <Hasmukh Chapin - Last Filed: 06/19/17 15:12> CCU Objective - Vital Signs / Intake & Output Vital Signs (Last 4 hours): Vital Signs Pulse BP 06/19/17 12:26 68 191/81 H Intake and Output (Last 8hrs): Intake & Output 06/19/17 06/19/17 06/19/17 06:59 14:59 22:59 Intake Total 300 Output Total 1400 Balance -1100 Intake: IV 300 Right Forearm 300 Output: Urine 1400 Urethral (Sierra) 1400 - Medications Active Medications: Active Medications Generic Name Dose Route Start Last Admin Trade Name Freq PRN Reason Stop Dose Admin Clonidine HCl 1 patch 06/20/17 10:15 Catapres-Tts2 0.2 Mg/24 Hr TD Q7D@1000 [facility] Ampicillin Sodium/Sulbactam 100 mls @ 100 mls/hr 06/14/17 18:00 06/19/17 13: 40 Sodium 3 gm/ Sodium Chloride IVPB 100 mls/hr Q6H [facility] Administration Protocol Acetaminophen 1,000 mg in 100 mls @ 400 mls/hr 06/19/17 07:48 06/19/17 08:32 Ofirmev IVPB 06/21/17 07:49 400 mls/hr Q6H PRN Administration T>99.9 Insulin Human Regular 0 units 06/19/17 08:00 06/19/17 08:19 Humulin R Med SC Not Given Q6H [facility] Protocol Labetalol HCl 10 mg 06/17/17 11:33 06/19/17 12:26 Trandate IV 10 mg Q2H PRN Administration Systolic Blood Pressure Metoprolol Tartrate 25 mg 06/17/17 11:45 06/19/17 09:36 Lopressor PO Not Given BID [facility] Ondansetron HCl 4 mg 06/14/17 16:15 Zofran Inj IVP Q6H PRN Nausea/Vomiting Pantoprazole Sodium 40 mg 06/14/17 14:15 06/19/17 09:41 Protonix Inj IVP 40 mg DAILY [facility] Administration - Patient Studies Lab Studies: Microbiology Studies 06/14/17 10:36 Blood Culture - Final Blood-Venous NO GROWTH AFTER 5 DAYS Gram Stain - Final 06/14/17 10:36 Blood Culture - Final Blood-Venous NO GROWTH AFTER 5 DAYS Gram Stain - Final Lab Studies 06/19/17 06/19/17 06/19/17 Range/Units 12:46 05:10 05:10 WBC (4.5-11.0) 10^3/ul RBC (3.5-6.1) 10^6/uL Hgb (12.0-16.0) g/dL Hct (36.0-48.0) % MCV (80.0-105.0) fl MCH (25.0-35.0) pg MCHC (31.0-37.0) g/dl RDW (11.5-14.5) % Plt Count (120.0-450.0) 10^3/uL MPV (7.0-11.0) fl Gran % (50.0-68.0) % Lymph % (Auto) (22.0-35.0) % [place] % (Auto) (1.0-6.0) % Eos % (Auto) (1.5-5.0) % Baso % (Auto) (0.0-3.0) % Gran # (1.4-6.5) Lymph # (1.2-3.4) [place] # (0.1-0.6) Eos # (0.0-0.7) Baso # (0.0-2.0) K/mm3 PT 10.6 (9.9-11.8) Seconds INR 0.98 (0.93-1.08) Sodium 144 (132-148) mmol/L Potassium 3.5 L (3.6-5.0) mmol/L Chloride 100 (98-107) mmol/L Carbon Dioxide 28 (21-33) mmol/L Anion Gap 20 (10-20) BUN 17 (7-21) mg/dL Creatinine 0.7 (0.5-1.4) mg/dL Est GFR ( Amer) > 60 Est GFR (Non-Af Amer) > 60 POC Glucose (mg/dL) 168 H (65-110) mg/dL Random Glucose 154 H (70-110) mg/dL Calcium 9.5 (8.4-10.5) mg/dL Phosphorus 3.5 (2.5-4.5) mg/dL Magnesium 2.0 (1.7-2.2) mg/dL Total Bilirubin 1.0 (0.2-1.3) mg/dL AST 43 H D (14-36) U/L ALT 50 (7-56) U/L Alkaline Phosphatase 135 H D (38-126) U/L Total Protein 8.1 (5.8-8.3) g/dL Albumin 4.0 (3.0-4.8) g/dL Globulin 4.1 gm/dL Albumin/Globulin Ratio 1.0 L (1.1-1.8) 06/19/17 06/18/17 06/18/17 Range/Units 05:10 21:58 16:45 WBC 12.2 H (4.5-11.0) 10^3/ul RBC 4.64 (3.5-6.1) 10^6/uL Hgb 13.5 (12.0-16.0) g/dL Hct 40.4 (36.0-48.0) % MCV 87.1 (80.0-105.0) fl MCH 29.1 (25.0-35.0) pg MCHC 33.4 (31.0-37.0) g/dl RDW 13.3 (11.5-14.5) % Plt Count 278 (120.0-450.0) 10^3/uL MPV 10.0 (7.0-11.0) fl Gran % 74.1 H (50.0-68.0) % Lymph % (Auto) 20.0 L (22.0-35.0) % [place] % (Auto) 5.3 (1.0-6.0) % Eos % (Auto) 0.5 L (1.5-5.0) % Baso % (Auto) 0.1 (0.0-3.0) % Gran # 9.05 H (1.4-6.5) Lymph # 2.5 (1.2-3.4) [place] # 0.7 H (0.1-0.6) Eos # 0.1 (0.0-0.7) Baso # 0.01 (0.0-2.0) K/mm3 PT (9.9-11.8) Seconds INR (0.93-1.08) Sodium (132-148) mmol/L Potassium (3.6-5.0) mmol/L Chloride (98-107) mmol/L Carbon Dioxide (21-33) mmol/L Anion Gap (10-20) BUN (7-21) mg/dL Creatinine (0.5-1.4) mg/dL Est GFR ( Amer) Est GFR (Non-Af Amer) POC Glucose (mg/dL) 142 H 158 H (65-110) mg/dL Random Glucose (70-110) mg/dL Calcium (8.4-10.5) mg/dL Phosphorus (2.5-4.5) mg/dL Magnesium (1.7-2.2) mg/dL Total Bilirubin (0.2-1.3) mg/dL AST (14-36) U/L ALT (7-56) U/L Alkaline Phosphatase (38-126) U/L Total Protein (5.8-8.3) g/dL Albumin (3.0-4.8) g/dL Globulin gm/dL Albumin/Globulin Ratio (1.1-1.8) Laboratory Results - last 24 hr 06/18/17 06/18/17 06/19/17 16:45 21:58 05:10 WBC 12.2 H RBC 4.64 Hgb 13.5 Hct 40.4 MCV 87.1 MCH 29.1 MCHC 33.4 RDW 13.3 Plt Count 278 MPV 10.0 Gran % 74.1 H Lymph % (Auto) 20.0 L [place] % (Auto) 5.3 Eos % (Auto) 0.5 L Baso % (Auto) 0.1 Gran # 9.05 H Lymph # 2.5 [place] # 0.7 H Eos # 0.1 Baso # 0.01 PT INR Sodium Potassium Chloride Carbon Dioxide Anion Gap BUN Creatinine Est GFR ( Amer) Est GFR (Non-Af Amer) POC Glucose (mg/dL) 158 H 142 H Random Glucose Calcium Phosphorus Magnesium Total Bilirubin AST ALT Alkaline Phosphatase Total Protein Albumin Globulin Albumin/Globulin Ratio 06/19/17 06/19/17 06/19/17 05:10 05:10 12:46 WBC RBC Hgb Hct MCV MCH MCHC RDW Plt Count MPV Gran % Lymph % (Auto) [place] % (Auto) Eos % (Auto) Baso % (Auto) Gran # Lymph # [place] # Eos # Baso # PT 10.6 INR 0.98 Sodium 144 Potassium 3.5 L Chloride 100 Carbon Dioxide 28 Anion Gap 20 BUN 17 Creatinine 0.7 Est GFR ( Amer) > 60 Est GFR (Non-Af Amer) > 60 POC Glucose (mg/dL) 168 H Random Glucose 154 H Calcium 9.5 Phosphorus 3.5 Magnesium 2.0 Total Bilirubin 1.0 AST 43 H D ALT 50 Alkaline Phosphatase 135 H D Total Protein 8.1 Albumin 4.0 Globulin 4.1 Albumin/Globulin Ratio 1.0 L Critical Care Progress Note - Nutrition Nutrition: Nutrition Category Date Time Status NPO Diet [DIET] Diets 06/19/17 Breakfast Ordered Attending/Attestation - Attestation I have personally seen and examined this patient.: Yes I have fully participated in the care of the patient.: Yes I have reviewed all pertinent clinical information: Yes Notes (Text): 06/19/17 15:08 72 yo female with HTN ICH, now extubated, not in respiratory or otherwise distress, speech and swallow eval is pending, mildly hypertensive. Will start clonidine patch. Fever, likely of central origin and blood resorption from ICH, however cant rule out infectious component--on abx and ID service consulted. protecting airways. PT/OT, early mobilization. DVT/GI prophylaxis. ccm time 40 min
[2017-06-19] MEDS: Insulin Reg-MEDIUM-Coverage SC SCH ×3 (08:19→20:30)
--- NOTE | 2017-06-19 08:24 | CP.PCM.PN ---
<Vasu Altman - Last Filed: 06/19/17 12:32> Subjective - Date & Time of Evaluation Date of Evaluation: 06/19/17 Time of Evaluation: 08:20 - Subjective Subjective: GI Progress Note for Dr. Teague Pt seen and examined at bedside. No acute events overnight as per nursing. Pt extubated at this time. Pt appears dysarthric. 12 point ROS not obtained due to patient's current condition. Objective - Vital Signs/Intake and Output Vital Signs (last 24 hours): Temp Pulse Resp BP Pulse Ox 100.0 F H 73 21 157/86 H 98 06/19/17 03:23 06/19/17 06:01 06/19/17 06:01 06/19/17 06:02 06/19/17 02:45 Intake and Output: 06/19/17 06/19/17 06:59 18:59 Intake Total 300 Output Total 1400 Balance -1100 - Medications Medications: Current Medications Ampicillin Sodium/Sulbactam (Sodium 3 gm/ Sodium Chloride) 100 mls @ 100 mls/ hr IVPB Q6H [facility] PRN Reason: Protocol Last Admin: 06/19/17 05:02 Dose: 100 mls/hr Potassium Chloride (Potassium Chloride 10 Meq/100 Ml) 10 meq in 100 mls @ 100 mls/hr IVPB Q2H ON LICENSE OF [facility] Stop: 06/19/17 10:44 Last Admin: 06/19/17 08:14 Dose: 100 mls/hr Acetaminophen (Ofirmev) 1,000 mg in 100 mls @ 400 mls/hr IVPB Q6H PRN PRN Reason: T>99.9 Stop: 06/21/17 07:49 Insulin Human Regular (Humulin R Med) 0 units SC Q6H [facility] PRN Reason: Protocol Labetalol HCl (Trandate) 10 mg IV Q2H PRN PRN Reason: Systolic Blood Pressure Last Admin: 06/18/17 23:43 Dose: 10 mg Metoprolol Tartrate (Lopressor) 25 mg PO BID ON LICENSE OF [facility] Last Admin: 06/18/17 17:26 Dose: Not Given Ondansetron HCl (Zofran Inj) 4 mg IVP Q6H PRN PRN Reason: Nausea/Vomiting Pantoprazole Sodium (Protonix Inj) 40 mg IVP DAILY ON LICENSE OF [facility] Last Admin: 06/18/17 09:26 Dose: 40 mg - Labs Labs: 06/19/17 05:10 06/19/17 05:10 PT 10.6 Seconds (9.9-11.8) 06/19/17 05:10 INR 0.98 (0.93-1.08) 06/19/17 05:10 APTT 24.9 Seconds (23.7-30.8) 06/14/17 07:50 - Constitutional Appears: Non-toxic, No Acute Distress - Head Exam Head Exam: ATRAUMATIC, NORMAL INSPECTION, NORMOCEPHALIC - ENT Exam ENT Exam: Mucous Membranes Moist, Normal Exam - Respiratory Exam Respiratory Exam: Clear to Ausculation Bilateral, NORMAL BREATHING PATTERN. absent: Rales, Rhonchi, Wheezes - Cardiovascular Exam Cardiovascular Exam: Tachycardia, +S1, +S2 - GI/Abdominal Exam GI & Abdominal Exam: Soft, Normal Bowel Sounds. absent: Tenderness - Extremities Exam Extremities Exam: absent: Calf Tenderness, Pedal Edema - Neurological Exam Neurological Exam: Alert, Awake - Skin Skin Exam: Intact, Normal Color, Warm Assessment and Plan - Assessment and Plan (Free Text) Plan: 72 y/o F with PMH of CHF, DM, and HTN presents with left occipital ICH secondary to AMS and fall. Speech pathologist saw patient yesterday while intubated and unable to fully evaluate patient at that time. Will await speech pathologist evaluation before making further recommendations for possible PEG tube placement. Plan: Speech and swallow evaluation Will give further recommendations based upon evaluation Family also awaiting recommendations of Speech pathologist before considering PEG Will continue to monitor Agapito, PGY-2 <Zahida PRATT,Oksana - Last Filed: 06/19/17 15:36> Objective - Vital Signs/Intake and Output Vital Signs (last 24 hours): Temp Pulse Resp BP Pulse Ox 100.2 F H 65 13 170/105 H 97 06/19/17 15:00 06/19/17 15:00 06/19/17 15:00 06/19/17 15:00 06/19/17 15:00 Intake and Output: 06/19/17 06/19/17 06:59 18:59 Intake Total 300 Output Total 1400 Balance -1100 - Medications Medications: Current Medications Clonidine HCl (Catapres-Tts2 0.2 Mg/24 Hr) 1 patch TD Q7D@1530 CHUY Ampicillin Sodium/Sulbactam (Sodium 3 gm/ Sodium Chloride) 100 mls @ 100 mls/ hr IVPB Q6H [facility] PRN Reason: Protocol Last Admin: 06/19/17 13:40 Dose: 100 mls/hr Acetaminophen (Ofirmev) 1,000 mg in 100 mls @ 400 mls/hr IVPB Q6H PRN PRN Reason: T>99.9 Stop: 06/21/17 07:49 Last Admin: 06/19/17 08:32 Dose: 400 mls/hr Insulin Human Regular (Humulin R Med) 0 units SC Q6H CHUY PRN Reason: Protocol Last Admin: 06/19/17 08:19 Dose: Not Given Labetalol HCl (Trandate) 10 mg IV Q2H PRN PRN Reason: Systolic Blood Pressure Last Admin: 06/19/17 12:26 Dose: 10 mg Metoprolol Tartrate (Lopressor) 25 mg PO BID ON LICENSE OF [facility] Last Admin: 06/19/17 09:36 Dose: Not Given Ondansetron HCl (Zofran Inj) 4 mg IVP Q6H PRN PRN Reason: Nausea/Vomiting Pantoprazole Sodium (Protonix Inj) 40 mg IVP DAILY ON LICENSE OF [facility] Last Admin: 06/19/17 09:41 Dose: 40 mg - Labs Labs: 06/19/17 05:10 06/19/17 05:10 PT 10.6 Seconds (9.9-11.8) 06/19/17 05:10 INR 0.98 (0.93-1.08) 06/19/17 05:10 APTT 24.9 Seconds (23.7-30.8) 06/14/17 07:50 Attending/Attestation - Attestation I have personally seen and examined this patient.: Yes I have fully participated in the care of the patient.: Yes I have reviewed all pertinent clinical information, including history, physical exam and plan: Yes Notes (Text): 06/19/17 15:34 Patient seen with GI fellow and medical doctor nuclear medicine. This is a 72 year old female with h/o CHF, DM, HTN a/w ICH, respiratory failure now extubated, we are consulted for dysphagia and possible PEG. Pending speecha nd swallow. Tmax in past 24 hours over 101 with unknown cause of fever. Too early to push gastrostomy tube placement in a patient with recent extubation and speech and swallow evaluation pending. Needs fever work up. Plaese reconsult prn once above issues addressed. Thank you for letting us participate in the care of your patient.
[2017-06-19] MEDS: Labetalol 5 mg/ml Inj 20ML IV PRN ×3 (12:26→23:07)
--- NOTE | 2017-06-19 14:43 | PN ---
DATE: NEUROLOGY PROGRESS NOTE SUBJECTIVE: The patient is lying on the bed, in no acute distress. PHYSICAL EXAMINATION: VITAL SIGNS: Her blood pressure is 159/93, heart rate is 79 per minute, breathing at rate of 16 per minute and her temperature is 101.7 degree Fahrenheit. HEENT: Normocephalic and atraumatic. NECK: Supple. There are no carotid bruits. LUNGS: Clear. CARDIOVASCULAR: S1 and S2 audible. No murmurs. ABDOMEN: Soft and nontender. Bowel sounds are present. NEUROLOGIC: Mental status: The patient is awake and alert. She is looking at the examiner. She follows some simple commands. Today, she started saying some words. Cranial nerve examination: Pupils are 3 mm bilaterally reactive to light. Visual bonner impaired on the right side. There is left gaze preference. There is decreased nasolabial fold on the right side. Motor examination: She is spontaneously moving her left side. She has right hemiparesis with power in the right lower extremity is 2/5 and power on the right upper extremity is 0/5. Plantars upgoing on the right and downgoing on the left side. Gait is untestable. LABORATORY DATA: Reviewed shows WBC of 12.2, hemoglobin 13.5, hematocrit 40.4, and platelets of 278. Sodium is 144, potassium 3.5, chloride 100, carbon dioxide content 28, BUN of 17, creatinine 0.7 and glucose of 154. IMPRESSION: 1. Cerebrovascular accident with intracerebral hemorrhage with intraventricular extension. 2. Status post respiratory failure. RECOMMENDATIONS: 1. The patient continues to be stable and showing slow improvement in her neurologic status. 2. I agree with antibiotics with increasing WBC count and fever. 3. The patient to have physical therapy, speech therapy as well as occupational therapy. 4. The patient's blood pressure needs to be better controlled. 5. The patient may be transferred out of the ICU. 6. Please continue the treatment and supportive care. Thank you for the opportunity to participate in the care of this patient. Evan Glover MD
--- NOTE | 2017-06-19 15:01 | CP.PCM.CON ---
History of Present Illness - History of Present Illness History of Present Illness: Infectious Disease Consultation June 19, 2017 72 yo female presented with fall and altered mental status. She was found at home on floor by family who heard her fall. The patient was brought into the ER and found to be in uncontrolled hypertension and requiring intubation on arrival in the ER. The patient was found to hae a 4.4 cm left occipital intracranial hemorrhage with intraventricular extension. Patient is recovering but still having episodes of low grade fevers. Patient herself is not making any new complaints. She still has residual right sided weakness. PMHx: CHF, DM, HTN PSHx: None given Allergies: Shrimp Social Hx: No known tobacco, EtOH, or illicit drug use Active Medications Clonidine HCl (Catapres-Tts2 0.2 Mg/24 Hr) 1 patch TD Q7D@1530 [facility] Last Admin: 06/19/17 15:36 Dose: 1 patch Ampicillin Sodium/Sulbactam (Sodium 3 gm/ Sodium Chloride) 100 mls @ 100 mls/ hr IVPB Q6H [facility] PRN Reason: Protocol Last Admin: 06/19/17 13:40 Dose: 100 mls/hr Acetaminophen (Ofirmev) 1,000 mg in 100 mls @ 400 mls/hr IVPB Q6H PRN PRN Reason: T>99.9 Stop: 06/21/17 07:49 Last Admin: 06/19/17 08:32 Dose: 400 mls/hr Insulin Human Regular (Humulin R Med) 0 units SC Q6H [facility] PRN Reason: Protocol Last Admin: 06/19/17 15:35 Dose: 1 units Labetalol HCl (Trandate) 10 mg IV Q2H PRN PRN Reason: Systolic Blood Pressure Last Admin: 06/19/17 12:26 Dose: 10 mg Metoprolol Tartrate (Lopressor) 25 mg PO BID [facility] Last Admin: 06/19/17 09:36 Dose: Not Given Ondansetron HCl (Zofran Inj) 4 mg IVP Q6H PRN PRN Reason: Nausea/Vomiting Pantoprazole Sodium (Protonix Inj) 40 mg IVP DAILY [facility] Last Admin: 06/19/17 09:41 Dose: 40 mg Family Hx: none given ROS: right sided weakness, fevers, fall, AMS. No chest pain, abdominal pain, melena , hematuria, hematemesis, hematochezia, depression, anxiety. Past Patient History - Infectious Disease Hx of Infectious Diseases: None - Tetanus Immunizations Tetanus Immunization: Unknown - Past Medical History & Family History Past Medical History?: Yes - Past Social History Smoking Status: Never Smoked - CARDIAC Hx Cardiac Disorders: Yes Hx Hypertension: Yes - PULMONARY Other/Comment: 06/04/2014. 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 - NEUROLOGICAL Hx Neurological Disorder: No - HEENT Hx HEENT Problems: Yes Hx Cataracts: Yes - RENAL Hx Chronic Kidney Disease: No - ENDOCRINE/METABOLIC Hx Diabetes Mellitus Type 2: Yes - HEMATOLOGICAL/ONCOLOGICAL Hx Blood Disorders: No Hx Blood Transfusions: No Hx Blood Transfusion Reaction: No - INTEGUMENTARY Hx Dermatological Problems: No - MUSCULOSKELETAL/RHEUMATOLOGICAL Hx Arthritis: Yes - GASTROINTESTINAL Hx Gastrointestinal Disorders: Yes Hx Gastroesophageal Reflux: Yes - GENITOURINARY/GYNECOLOGICAL Hx Genitourinary Disorders: No Hx Reproductive Disorders: No - PSYCHIATRIC Hx Psychophysiologic Disorder: No Hx Emotional Abuse: No Hx Physical Abuse: No Hx Substance Use: No - SURGICAL HISTORY Hx Cardiac Catheterization: Yes - ANESTHESIA Hx Anesthesia Reactions: No Hx Malignant Hyperthermia: No Meds Allergies/Adverse Reactions: Allergies Allergy/AdvReac Type Severity Reaction Status Date / Time shrimp Allergy SWELLING Verified 06/14/17 07:50 - Medications Medications: Current Medications Clonidine HCl (Catapres-Tts2 0.2 Mg/24 Hr) 1 patch TD Q7D@1000 [facility] Ampicillin Sodium/Sulbactam (Sodium 3 gm/ Sodium Chloride) 100 mls @ 100 mls/ hr IVPB Q6H [facility] PRN Reason: Protocol Last Admin: 06/19/17 13:40 Dose: 100 mls/hr Acetaminophen (Ofirmev) 1,000 mg in 100 mls @ 400 mls/hr IVPB Q6H PRN PRN Reason: T>99.9 Stop: 06/21/17 07:49 Last Admin: 06/19/17 08:32 Dose: 400 mls/hr Insulin Human Regular (Humulin R Med) 0 units SC Q6H [facility] PRN Reason: Protocol Last Admin: 06/19/17 08:19 Dose: Not Given Labetalol HCl (Trandate) 10 mg IV Q2H PRN PRN Reason: Systolic Blood Pressure Last Admin: 06/19/17 12:26 Dose: 10 mg Metoprolol Tartrate (Lopressor) 25 mg PO BID [facility] Last Admin: 06/19/17 09:36 Dose: Not Given Ondansetron HCl (Zofran Inj) 4 mg IVP Q6H PRN PRN Reason: Nausea/Vomiting Pantoprazole Sodium (Protonix Inj) 40 mg IVP DAILY [facility] Last Admin: 06/19/17 09:41 Dose: 40 mg Physical Exam - Constitutional Appears: Non-toxic, No Acute Distress, Chronically Ill - Head Exam Head Exam: ATRAUMATIC, NORMOCEPHALIC - Eye Exam Eye Exam: EOMI, PERRL Pupil Exam: NORMAL ACCOMODATION, PERRL - ENT Exam ENT Exam: Mucous Membranes Moist, Normal External Ear Exam, TM's Normal Bilaterally - Neck Exam Neck exam: Positive for: Full Rom, Normal Inspection - Respiratory Exam Respiratory Exam: Clear to Auscultation Bilateral, NORMAL BREATHING PATTERN. absent: Rales, Rhonchi, Wheezes - Cardiovascular Exam Cardiovascular Exam: REGULAR RHYTHM, RRR, +S1, +S2 - GI/Abdominal Exam GI & Abdominal Exam: Normal Bowel Sounds, Soft. absent: Distended, Tenderness - Extremities Exam Extremities exam: Positive for: normal inspection, pedal edema Additional comments: right sided weakness. - Neurological Exam Neurological exam: Alert, Oriented x3 Additional comments: right sided weakness - Psychiatric Exam Psychiatric exam: Depressed, Normal Affect - Skin Skin Exam: Intact, Normal Color Results - Vital Signs Recent Vital Signs: Last Vital Signs Temp 101.7 F H 06/19/17 08:45 Pulse 68 06/19/17 12:26 Resp 29 H 06/19/17 08:45 BP 191/81 H 06/19/17 12:26 Pulse Ox 98 06/19/17 08:45 - Labs Result Diagrams: 06/19/17 05:10 06/19/17 05:10 Labs: Laboratory Results - last 24 hr 06/18/17 06/18/17 06/19/17 16:45 21:58 05:10 WBC 12.2 H RBC 4.64 Hgb 13.5 Hct 40.4 MCV 87.1 MCH 29.1 MCHC 33.4 RDW 13.3 Plt Count 278 MPV 10.0 Gran % 74.1 H Lymph % (Auto) 20.0 L [place] % (Auto) 5.3 Eos % (Auto) 0.5 L Baso % (Auto) 0.1 Gran # 9.05 H Lymph # 2.5 [place] # 0.7 H Eos # 0.1 Baso # 0.01 PT INR Sodium Potassium Chloride Carbon Dioxide Anion Gap BUN Creatinine Est GFR ( Amer) Est GFR (Non-Af Amer) POC Glucose (mg/dL) 158 H 142 H Random Glucose Calcium Phosphorus Magnesium Total Bilirubin AST ALT Alkaline Phosphatase Total Protein Albumin Globulin Albumin/Globulin Ratio 06/19/17 06/19/17 06/19/17 05:10 05:10 12:46 WBC RBC Hgb Hct MCV MCH MCHC RDW Plt Count MPV Gran % Lymph % (Auto) [place] % (Auto) Eos % (Auto) Baso % (Auto) Gran # Lymph # [place] # Eos # Baso # PT 10.6 INR 0.98 Sodium 144 Potassium 3.5 L Chloride 100 Carbon Dioxide 28 Anion Gap 20 BUN 17 Creatinine 0.7 Est GFR ( Amer) > 60 Est GFR (Non-Af Amer) > 60 POC Glucose (mg/dL) 168 H Random Glucose 154 H Calcium 9.5 Phosphorus 3.5 Magnesium 2.0 Total Bilirubin 1.0 AST 43 H D ALT 50 Alkaline Phosphatase 135 H D Total Protein 8.1 Albumin 4.0 Globulin 4.1 Albumin/Globulin Ratio 1.0 L Assessment & Plan - Assessment and Plan (Free Text) Assessment: 72 yo female with low grade fevers of up to 100.4 F after suffering from a 4.4cm left occipital intracranial hemorrhage with intraventricular extension. The patient initially had fevers up to 101.7 F. Clinically, the patient has been improving. Supportive care. She was intubated on admission. She was extubated on 06/18/2017. She speaks romanian mostly. The family states that the patient is acting and speaking appropriately other than the slurring of speech due to her right sided residual weakness. Tolliver cultures sent. There was a mild initial leukocytosis on admission but this has slowly improved. Fever trend has shown improvement. The cultures done to date have been negative so far. No consolidation seen on Chest X-ray. Patient answering question during interview and examination. Supportive care. Currently on Unasyn for antibiotic coverage. Noted C. Diff and repeat urine culture sent. Would obtain urinalysis. Would continue Unasyn for now. The current temperature is more likely secondary to the recent intracranial hemorrhage. Thank you for allowing me to participate in the care of the patient, we will follow with you.
--- NOTE | 2017-06-19 15:39 | RAD ---
HISTORY: infiltrate COMPARISON: 06/18/2017 FINDINGS: LUNGS: Again current lung volumes shallow. The right infrahilar soft tissue prominence is attributed to crowding of vessels here. No definite consolidation seen. PLEURA: No significant pleural effusion identified, no pneumothorax apparent. CARDIOVASCULAR: Cardiomegaly. Atherosclerotic aorta OSSEOUS STRUCTURES: Thoracic spondylosis VISUALIZED UPPER ABDOMEN: Normal. OTHER FINDINGS: Interval removal of endotracheal tube and NG tube IMPRESSION: Shallow lung volumes -attributed to crowding of right infra /perihilar vessels no consolidation. Cardiomegaly as before Interval removal of endotracheal tube and NG tube Interval removal of endotracheal tube and NG tube
--- NOTE | 2017-06-19 18:14 | CARD ---
APPROVED REPORT EXAM: Two-dimensional and M-mode echocardiogram with Doppler and color Doppler. INDICATION CVA/TIA Congestive Heart Failure 2D DIMENSIONS IVSd1.2 (0.7-1.1cm)LVDd4.0 (3.9-5.9cm) PWd1.4 (0.7-1.1cm)LVDs2.9 (2.5-4.0cm) FS (%) 27.5 %LVEF (%)53.9 (>50%) M-Mode DIMENSIONS Aortic Root3.10 (2.2-3.7cm)Aortic Cusp Exc.1.70 (1.5-2.0cm) Aortic Valve AoV Peak Hjbhnrja205.0cm/Anders Peak GR.8mmHg Mitral Valve MV E Auhprubr78.2cm/sMV A Tkepqjah205.0cm/sE/A ratio0.5 TDI Lateral E' Peak V4.97cm/sMedial E' Peak V4.68cm/sE/Lateral E'10.3 E/Medial E'10.9 Pulmonary Valve PV Peak Qtilbeed04.2cm/sPV Peak Grad.2mmHg Tricuspid Valve TR Peak Egepeioo316dv/sRAP [id number] Peak Gr.20mmHg [id number] LEFT VENTRICLE The left ventricle is normal size. There is mild concentric left ventricular hypertrophy. The left ventricular function is normal.EF-55-60% There is normal LV segmental wall motion. Transmitral Doppler flow pattern is Grade III-reversible restrictive diastolic dysfunction. No left ventricle thrombus noted on this study. There is no ventricular septal defect visualized. There is no left ventricular aneurysm. There is no mass noted in the left ventricle. RIGHT VENTRICLE The right ventricle is normal size. There is normal right ventricular wall thickness. The right ventricular systolic function is normal. ATRIA The left atrium is mildly dilated. The right atrium size is normal. The interatrial septum is intact with no evidence for an atrial septal defect. AORTIC VALVE The aortic valve is thickened but opens well. There is trace aortic regurgitation. There is no aortic valvular stenosis. There is no aortic valvular vegetation. MITRAL VALVE The mitral valve is thickened but opens well. Mitral regurgitation is trace to mild. There is no mitral valve stenosis. There is no evidence of mitral valve prolapse. TRICUSPID VALVE The tricuspid valve leaflets are thickened , but open well. There is trace to mild tricuspid regurgitation.RVSP-30 mmof hg. There is no tricuspid valve stenosis. There is no tricuspid valve prolapse or vegetation. PULMONIC VALVE The pulmonic valve is borderline thickened. There is trace to mild pulmonic valvular regurgitation. There is no pulmonic valvular stenosis. GREAT VESSELS The aortic root is normal in size. The ascending aorta is normal in size. The pulmonary artery is normal. The IVC is normal in size and collapses >50% with inspiration. PERICARDIAL EFFUSION There is no pleural effusion. There is a trace pericardial effusion. <Conclusion> The left ventricle is normal size. The left ventricular function is normal.EF-55-60% There is trace aortic regurgitation. Mitral regurgitation is trace to mild. There is trace to mild tricuspid regurgitation.RVSP-30 mmof hg. The IVC is normal in size and collapses >50% with inspiration. There is a trace pericardial effusion. No Vegetation or thrombus noted.
--- NOTE | 2017-06-19 18:51 | PN ---
DATE: 06/19/2017 PULMONARY CRITICAL CARE PROGRESS NOTE REFERRING PHYSICIAN: Gayle Jones MD. SUBJECTIVE: She is lying in the bed, head at 45 degrees, sleepy, arousable, had a fever with chills, had some cough. No hemoptysis, hematemesis, or hematuria. No diarrhea reported. PHYSICAL EXAMINATION: GENERAL: Sleepy, arousable. VITAL SIGNS: T-max 101.7, heart rate is 82, respiratory rate is 20, blood pressure 159/93, pulse ox 98% on nasal cannula. HEENT: Moist mucous membranes. Crowded airway. Mallampati score is IV. NECK: Supple. No JVD. LUNGS: Have scattered rhonchi. HEART: S1 and S2. ABDOMEN: Soft, nontender. No organomegaly. EXTREMITIES: No edema. NEUROLOGIC: Sleepy, arousable, follows simple commands. MEDICATIONS: She is on Unasyn 3 g IV q.6 hours, Catapres 0.2 mg weekly, insulin coverage, metoprolol tartrate 25 mg twice day, Tylenol p.r.n. basis, Protonix 40 mg daily, Labetalol 10 mg q.2 hours p.r.n. and Zofran p.r.n. basis. LABORATORY DATA: Shows hemoglobin 13.5, hematocrit 40.4, WBC 12.2, platelet is 278. INR 0.95. ABG showed pH 7.52, pCO2 of 37, O2 of 127, this was supplemental oxygen. Sodium 144, potassium 3.5, chloride 100, bicarbonate 28, BUN 17, creatinine 0.7, glucose is 154, calcium is 9.5, phosphorous 3.5, magnesium is 2.0, AST 43, ALT is 50, alkaline phosphatase is 135, albumin is 4.0. Microbiology; blood culture, urine culture so far there is no growth. IMPRESSION AND PLAN: Intraparenchymal hemorrhage with ventricular extension, has a mild hydrocephalus, hypertension, diabetes, respiratory failure, extubated, on nasal cannula, may have a sleep apnea syndrome, oropharyngeal dysphagia, has a chills and fever, only aspirated. We will get upper right chest x-ray to show there is no new infiltrate. Send urinalysis, urine culture as well as a stool for clostridium difficile. Spoke to the patient's family at bedside, all the questions answered. Awaiting to be seen by speech therapy. Gastric prophylaxis. If fails swallow evaluation, we will place nasogastric tube and start feeding. Sequential compression device to the lower extremity. Followup labs in the morning. Critical care time is more than 35 minutes. Thank you and we will follow with you. Livia Francois MD
--- NOTE | 2017-06-19 20:01 | CON ---
DATE: 06/19/2017 REASON FOR CONSULTATION: Followup cardiac evaluation, intracerebral bleed, rule out CHF, status post intubated, now successfully extubated. BRIEF CLINICAL HISTORY: This is a 72-year-old obese female with past medical history significant for diabetes, hypertension, hyperlipidemia, who was coming for a stress test today, brought by the family because of altered mental status and fell down, found to be intracerebral bleed, status post respiratory failure requiring intubation. Now, the patient successfully extubated this morning. PAST MEDICAL HISTORY: Significant for diabetes, hypertension, hyperlipidemia, obesity, history significant for cataract surgery, questionable history of schizophrenia, noncompliance with the medication. FAMILY HISTORY: Noncontributory. SOCIAL HISTORY: Denies smoking. Denies any history of alcohol abuse. ALLERGIES: ALLERGY TO SHRIMP. HOME MEDICATIONS: The patient is taking atorvastatin, Plavix, metformin, Klonopin, glipizide, Cozaar, Lopressor, montelukast, and Singulair. No significant workup of cardiac noted previously. Possible history of a stress test in 2014, at that time in 06/15/2015, the patient's stress test was negative, ejection fraction 60%, normal myocardial perfusion study. The patient is scheduled for a stress test the day the patient had altered mental status. REVIEW OF SYSTEMS: As per HPI. PHYSICAL EXAMINATION: VITAL SIGNS: As follows: Temp 101.7, heart rate 72, blood pressure 159/93. HEENT: PERRLA intact. NECK: Supple. No carotid bruits or thyromegaly. CHEST: Clear to auscultation. HEART: S1 and S2 regular. ABDOMEN: Soft. EXTREMITIES: Clubbing and cyanosis negative. LABORATORY DATA: Blood workup as follows: WBC 12.8, hemoglobin 13.5, hematocrit 40.4, platelet count 278. Chemistry showed sodium 144, potassium 3.5, chloride of 100, carbon dioxide 28, anion gap of 20, BUN 17, and creatinine 0.7. IMPRESSION: Status post intracerebral bleed; altered mental status secondary to intracerebral bleed; questionable history of schizophrenia; hypertension; intubated, now the patient is successfully extubated; on Labetalol currently; obesity; diabetes; hypertension; and hyperlipidemia. RECOMMENDATIONS: Since the patient is NPO and blood pressure is not well controlled, we will start clonidine patch #2 and monitor the blood pressure. Once the patient starts p.o., we will change to p.o. medication. We will get lipid profile, TSH, hemoglobin A1c. Also, we will get the TSH and we will get function. Thank you Dr. Jones for providing us the opportunity in taking care of the patient. Livia Rendon MD
[2017-06-20] MEDS: Insulin Reg-MEDIUM-Coverage SC SCH ×4 (02:18→20:00)
--- NOTE | 2017-06-20 02:40 | PN ---
DATE: SUBJECTIVE: The patient is 72 years old female. The patient is seen and examined at the bedside, sleepy, and arousable. Getting fevers and chills. Daughter was on the bedside. The patient is showing some signs of anxiety sometime and history of schizophrenia. She uses her psych medications. Now because of her medical condition, medicine was on hold. consult with Dr. Sarah Rubio to discuss with restarting of psych medications. Otherwise, no diarrhea, no hematuria or hematochezia. PHYSICAL EXAMINATION: VITAL SIGNS: Heart rate is 52, respiratory rate 20, blood pressure 159/93, pulse oximetry is 98% on nasal cannula, and T-max 101.7. HEENT: Head is normocephalic and atraumatic. Eyes; PERRLA. Extraocular muscles intact. Conjunctivae clear. Nose patent. NECK: Supple. No carotid bruits, JVD, or thyromegaly. LUNGS: Has scattered rhonchi. HEART: S1 and S2 positive. ABDOMEN: Soft and nontender. No organomegaly. EXTREMITIES: No edema. No cyanosis. NEUROLOGIC: The patient is sleepy and arousable. Follow simple commands. MEDICATIONS: Unasyn, Catapres, insulin coverage, metoprolol, Tylenol, Protonix, labetalol, and Zofran. LABORATORY DATA: Hemoglobin 13.5, hematocrit 30.4, white blood cell 12.2, and platelets 278. Sodium 144, potassium 3.5, BUN 70, creatinine 0.7, and calcium 9.5. AST 43 and ALT 50. ASSESSMENT AND PLAN: Mrs. Noy Bryant is 72 years old lady with intraparenchymal hemorrhage with ventricular extension, has mild hydrocephalus, hypertension, diabetes mellitus, respiratory failure, was intubated, now extubated on nasal cannula, sleep apnea syndrome, oropharyngeal dysphagia, sometimes getting fever and chills, and the patient is only on aspiration precaution. Chest x-ray and urinalysis reviewed. Length of time discussion done with the patient's daughter, decided to call and consult with Dr. Sarah Rubio to restart psych medications. Awaiting for speech therapy. Gastric prophylaxis. GI is on the case . We will followup. Gayle Jones MD [facility] # [id number] DAREK
[2017-06-20] MEDS: Ampicillin/Sulbactam 3 GM in Sodium Chloride 0.9% 100 ML IVPB SCH ×3 (06:14→17:17)
[2017-06-20 07:08] LABS: ALKALINE PHOSPHATASE 150 U/L (38-126); ALT/SGPT 43 U/L (7-56); AST/SGOT 39 U/L (14-36); BILIRUBIN,TOTAL 1.2 mg/dL (0.2-1.3); BLOOD UREA NITROGEN 21 mg/dL (7-21); CALCIUM 10.2 mg/dL (8.4-10.5); CARBON DIOXIDE 27 mmol/L (21-33); CHLORIDE 101 mmol/L (98-107); GFR AFRICAN-AMERICAN > 60; GLUCOSE,RANDOM 196 mg/dL (70-110); MAGNESIUM 2.2 mg/dL (1.7-2.2); PHOSPHOROUS 3.5 mg/dL (2.5-4.5); POTASSIUM 3.5 mmol/L (3.6-5.0); SODIUM 145 mmol/L (132-148); TOTAL PROTEIN 8.8 g/dL (5.8-8.3)
[2017-06-20 07:15] LABS: BASO # 0.01 K/mm3 (0.0-2.0); BASO % 0.1 % (0.0-3.0); GRAN # 13.6 (1.4-6.5); GRAN % 84.4 % (50.0-68.0); HEMATOCRIT 43.5 % (36.0-48.0); LYMPH # 1.7 (1.2-3.4); LYMPH % 10.5 % (22.0-35.0); MEAN CELL VOLUME 86.8 fl (80.0-105.0); MEAN CORPUSCULAR HEMOGLOBIN 29.7 pg (25.0-35.0); MEAN CORPUSCULAR HGB CONC 34.3 g/dl (31.0-37.0); MEAN PLATELET VOLUME 9.9 fl (7.0-11.0); MONO # 0.8 (0.1-0.6); RED CELL DISTRIBUTION WIDTH 13.3 % (11.5-14.5); WHITE BLOOD COUNT 16.1 10^3/ul (4.5-11.0)
--- NOTE | 2017-06-20 11:27 | PN ---
NEUROLOGY PROGRESS NOTE SUBJECTIVE: The patient is lying on the bed, in no acute distress. PHYSICAL EXAMINATION: VITAL SIGNS: Her blood pressure is 129/72, heart rate is 86 per minute, breathing at the rate of 16 per minute and temperature is 99.3 degree Fahrenheit. HEENT: Normocephalic and atraumatic. NECK: Supple. There are no carotid bruits. LUNGS: Clear. CARDIOVASCULAR: S1 and S2 audible. No murmurs. ABDOMEN: Soft and nontender. Bowel sounds are present. NEUROLOGIC: Mental Status: The patient is awake and alert. She looks at the examiner. She follows some simple commands. Cranial nerve examination: Pupils are 3 mm bilaterally, reactive to light. Extraocular moments are intact. There is decreased nasolabial fold on the right side. Motor examination: Tone is decreased on the right side. She has right hemiplegia. She is moving to left side spontaneously. Plantars upgoing on the right and downgoing on the left side. LABORATORY DATA: Reviewed, shows WBC of 16.1, hemoglobin of 14.9, hematocrit 43.5, and platelets of 321. Sodium is 145, potassium 3.5, chloride 101, carbon dioxide content of 27, BUN of 21, creatinine 0.8 and glucose of 196. IMPRESSION: 1. Cerebrovascular accident with left occipito-parietal hemorrhage with intraventricular extension. 2. Status post respiratory failure. 3. Increased WBC count. RECOMMENDATIONS: 1. The patient has not shown any deterioration in her neurologic status. 2. The patient to be continued on IV antibiotics. 3. The patient will have physical therapy and speech therapy. 4. Please continue supportive care and treatment. Thank you for the opportunity to participate in the care of this patient. Evan Glover MD
--- NOTE | 2017-06-20 14:55 | PN ---
DATE: 06/20/2017 REASON FOR CONSULTATION: Followup cardiac evaluation, intracerebral bleed, rule out CHF, status post successfully extubated. SUBJECTIVE: The patient speaks Tajik. Denies any chest pain, shortness of breath, or any palpitations. OBJECTIVE: GENERAL: The patient is lying flat in the bed, not in apparent distress. VITAL SIGNS: As follows;temperature , heart rate is 87, and blood pressure 129/72. HEENT: PERRLA. Extraocular muscles intact. NECK: Supple. No carotid bruits or thyromegaly. CHEST: Clear to auscultation. HEART: S1 and S2 regular. ABDOMEN: Soft. EXTREMITIES: Clubbing and cyanosis negative. LABORATORY DATA: Recent monitor shows blood pressure 176/106. I spoke to the night nurse, who says at one time, the patient needs labetalol and hydralazine after the blood pressure was stable. Now this morning, the patient's blood pressure again just now 176/106. Blood workup as follows: WBC 16 , hemoglobin 14.9, hematocrit 43.5, and platelet count 321. Chemistry showed sodium 145, potassium 3.5, chloride of 101, carbon dioxide 27, anion gap of 21, BUN 21, and creatinine 0.8. IMPRESSION: A 72-year-old female with past medical history of hypertension, psychiatric disorder, admitted with intracerebral bleed with ventricular extension, mild hydrocephalus, hypertension, diabetes, respiratory failure, intubated, now successfully extubated, was n.p.o., evaluated yesterday's swallowing and thickened liquid was started. Hypertension remains uncontrolled, started on Catapres patch #2. This morning, pressure was up, so the patient had an echocardiography done yesterday to assess left ventricular function, because at one point, the cardiac consult was called to rule out congestive heart failure. Echocardiography revealed the patient's preserved left ventricular function, ejection fraction is 55%-60%, [id number] mitral regurgitation, [id number] tricuspid regurgitation, and trace pericardial effusion. No vegetation or thrombus noted. RECOMMENDATIONS: Aggressive control for blood pressure. We will increase Catapres patch to #3. Since the patient is started on p.o. meds, we will put some JUSTINA inhibitors as well. The patient was on losartan 100 mg. We will resume back losartan and start low dose of metoprolol, the patient was on 100 mg at home, so if the patient can tolerate, we will start gradually because of the patient's intracerebral bleed to prevent bradyarrhythmia, we will start low doses 25 b.i.d., because of the patient's centrally acting drug clonidine that causes also bradycardia as well and then we put losartan 100 mg daily and I will put p.r.n. hydralazine. We will closely monitor with you. Monitor electrolytes. We will supplement electrolytes as needed. We will follow with you. Thank you Dr. Jones for providing me the opportunity in taking care of the patient, Nyo Bryant. Livia Rendon MD
--- NOTE | 2017-06-20 17:45 | CP.PCM.PN ---
Subjective - Date & Time of Evaluation Date of Evaluation: 06/20/17 Time of Evaluation: 17:00 - Subjective Subjective: Infectious Disease Follow Up June 20, 2017 72 yo female presented with fall and altered mental status. She was found at home on floor by family who heard her fall. The patient was brought into the ER and found to be in uncontrolled hypertension and requiring intubation on arrival in the ER. The patient was found to hae a 4.4 cm left occipital intracranial hemorrhage with intraventricular extension. Patient is recovering but still having episodes of low grade fevers. Patient herself is not making any new complaints. She still has residual right sided weakness. she continued to have low grade fevers yesterday... Today, afebrile. Objective - Vital Signs/Intake and Output Vital Signs (last 24 hours): Temp Pulse Resp BP Pulse Ox 99.3 F 107 H 22 117/89 98 06/20/17 04:00 06/20/17 17:16 06/20/17 16:15 06/20/17 17:16 06/20/17 16:01 Intake and Output: 06/20/17 06/20/17 06:59 18:59 Intake Total 200 Output Total 250 Balance -50 - Medications Medications: Current Medications Clonidine HCl (Catapres-Tts3 0.3 Mg/24 Hr) 1 patch TD Q7D@1000 CHUY Last Admin: 06/20/17 11:00 Dose: 1 patch Hydralazine HCl (Apresoline) 10 mg IVP Q6 PRN PRN Reason: for sbp.160 &/or Diastolic>100 Last Admin: 06/20/17 11:00 Dose: 10 mg Ampicillin Sodium/Sulbactam (Sodium 3 gm/ Sodium Chloride) 100 mls @ 100 mls/ hr IVPB Q6H CHUY PRN Reason: Protocol Last Admin: 06/20/17 17:17 Dose: 100 mls/hr Acetaminophen (Ofirmev) 1,000 mg in 100 mls @ 400 mls/hr IVPB Q6H PRN PRN Reason: T>99.9 Stop: 06/21/17 07:49 Last Admin: 06/19/17 08:32 Dose: 400 mls/hr Insulin Human Regular (Humulin R Med) 0 units SC Q6H CHUY PRN Reason: Protocol Last Admin: 06/20/17 14:14 Dose: 7 units Labetalol HCl (Trandate) 10 mg IV Q2H PRN PRN Reason: Systolic Blood Pressure Last Admin: 06/19/17 23:07 Dose: 10 mg Losartan Potassium (Cozaar) 100 mg PO DAILY [facility] Last Admin: 06/20/17 11:02 Dose: 100 mg Metoprolol Tartrate (Lopressor) 25 mg PO BID [facility] Last Admin: 06/20/17 17:16 Dose: 25 mg Ondansetron HCl (Zofran Inj) 4 mg IVP Q6H PRN PRN Reason: Nausea/Vomiting Pantoprazole Sodium (Protonix Susp) 40 mg PO 0600 [facility] - Labs Labs: 06/20/17 06:15 06/20/17 06:15 PT 10.6 Seconds (9.9-11.8) 06/19/17 05:10 INR 0.98 (0.93-1.08) 06/19/17 05:10 APTT 24.9 Seconds (23.7-30.8) 06/14/17 07:50 - Constitutional Appears: Non-toxic, No Acute Distress, Chronically Ill - Head Exam Head Exam: ATRAUMATIC, NORMOCEPHALIC - Eye Exam Eye Exam: EOMI, PERRL Pupil Exam: NORMAL ACCOMODATION, PERRL - ENT Exam ENT Exam: Mucous Membranes Moist, Normal External Ear Exam, TM's Normal Bilaterally - Neck Exam Neck Exam: Full ROM, Normal Inspection - Respiratory Exam Respiratory Exam: Clear to Ausculation Bilateral, NORMAL BREATHING PATTERN. absent: Rales, Rhonchi, Wheezes - Cardiovascular Exam Cardiovascular Exam: REGULAR RHYTHM, RRR, +S1, +S2 - GI/Abdominal Exam GI & Abdominal Exam: Soft, Normal Bowel Sounds. absent: Distended, Tenderness - Extremities Exam Extremities Exam: Normal Inspection, Pedal Edema Additional comments: right sided weakness. - Neurological Exam Neurological Exam: Alert, Awake, Oriented x3 Additional comments: right sided weakness. - Psychiatric Exam Psychiatric exam: Depressed, Normal Affect - Skin Skin Exam: Intact, Normal Color Assessment and Plan - Assessment and Plan (Free Text) Assessment: 72 yo female with low grade fevers of up to 100.4 F after suffering from a 4.4cm left occipital intracranial hemorrhage with intraventricular extension. The patient initially had fevers up to 101.7 F. Clinically, the patient has been improving. Supportive care. She was intubated on admission. She was extubated on 06/18/2017. She speaks kinyarwanda mostly. The family states that the patient is acting and speaking appropriately other than the slurring of speech due to her right sided residual weakness. Tolliver cultures sent. There was a mild initial leukocytosis on admission but this has slowly improved. Fever trend has shown improvement. The cultures done to date have been negative so far. No consolidation seen on Chest X-ray. Patient answering question during interview and examination. Supportive care. Currently on Unasyn for antibiotic coverage. Noted C. Diff and repeat urine culture sent. Would obtain urinalysis. Would continue Unasyn for now. The current temperature is more likely secondary to the recent intracranial hemorrhage. There is a slight increase in the leukocytosis to 16 today. Thank you for allowing me to participate in the care of the patient, we will follow with you.
--- NOTE | 2017-06-20 21:29 | CP.PCM.PN ---
Subjective - Date & Time of Evaluation Date of Evaluation: 06/20/17 Time of Evaluation: 21:27 - Subjective Subjective: S: It was requested to insert a heparin lock. Patient has no acute symptoms now. Pertinent medical record was reviewed. O: Last Vital Signs 3 Temp 101.2 F H 06/20/17 20:00 Pulse 76 06/20/17 20:23 Resp 15 06/20/17 20:00 BP 141/113 H 06/20/17 20:23 Pulse Ox 98 06/20/17 20:00 Awake, alert, not in distress. LUNGS: N Ormal breathing pattern. A: Poor venous access. Encounter for insertion of intravenous line. P: # 20 angiocath was inserted in left hand dorsum. Objective - Vital Signs/Intake and Output Vital Signs (last 24 hours): Temp Pulse Resp BP Pulse Ox 101.2 F H 76 15 141/113 H 98 06/20/17 20:00 06/20/17 20:23 06/20/17 20:00 06/20/17 20:23 06/20/17 20:00 - Medications Medications: Current Medications Clonidine HCl (Catapres-Tts3 0.3 Mg/24 Hr) 1 patch TD Q7D@1000 [facility] Last Admin: 06/20/17 11:00 Dose: 1 patch Hydralazine HCl (Apresoline) 10 mg IVP Q6 PRN PRN Reason: for sbp.160 &/or Diastolic>100 Last Admin: 06/20/17 20:23 Dose: 10 mg Ampicillin Sodium/Sulbactam (Sodium 3 gm/ Sodium Chloride) 100 mls @ 100 mls/ hr IVPB Q6H [facility] PRN Reason: Protocol Last Admin: 06/20/17 17:17 Dose: 100 mls/hr Acetaminophen (Ofirmev) 1,000 mg in 100 mls @ 400 mls/hr IVPB Q6H PRN PRN Reason: T>99.9 Stop: 06/21/17 07:49 Last Admin: 06/20/17 19:27 Dose: 400 mls/hr Insulin Human Regular (Humulin R Med) 0 units SC Q6H [facility]UY PRN Reason: Protocol Last Admin: 06/20/17 20:00 Dose: Not Given Labetalol HCl (Trandate) 10 mg IV Q2H PRN PRN Reason: Systolic Blood Pressure Last Admin: 06/19/17 23:07 Dose: 10 mg Losartan Potassium (Cozaar) 100 mg PO DAILY [facility] Last Admin: 06/20/17 11:02 Dose: 100 mg Metoprolol Tartrate (Lopressor) 25 mg PO BID [facility] Last Admin: 06/20/17 17:16 Dose: 25 mg Ondansetron HCl (Zofran Inj) 4 mg IVP Q6H PRN PRN Reason: Nausea/Vomiting Pantoprazole Sodium (Protonix Susp) 40 mg PO 0600 [facility] - Labs Labs: 06/20/17 06:15 06/20/17 06:15 PT 10.6 Seconds (9.9-11.8) 06/19/17 05:10 INR 0.98 (0.93-1.08) 06/19/17 05:10 APTT 24.9 Seconds (23.7-30.8) 06/14/17 07:50
--- NOTE | 2017-06-20 22:01 | PN ---
DATE: 06/20/2017 REFERRING PHYSICIAN: Dr. Jones. SUBJECTIVE: She is lying in the bed, sleepy, arousable. Has a swallow study done on modified diet. Mild cough. No sputum productus. No hemoptysis, no hematemesis, no hematuria. No diarrhea reported. PHYSICAL EXAMINATION GENERAL: Sleepy, arousable. VITAL SIGNS: Temperature is 99.3, heart rate is 80, respiratory rate is 20 and blood pressure 117/89. HEENT: Moist mucous membranes. Crowded airway. Mallampati score is IV. NECK: Supple. No JVD. LUNGS: Has a fair airflow with few rhonchi. HEART: S1 and S2. ABDOMEN: Soft and nontender. No organomegaly. EXTREMITIES: There is no edema. NEUROLOGIC: Sleepy and arousable. Follow simple commands. MEDICATIONS: She is on Unasyn 3 gm IV q. 6 hours, hydralazine 10 mg q. 6 hours p.r.n., clonidine patch 0.3 q. 7 days, Cozaar 100 mg daily, insulin coverage, metoprolol tartrate 25 mg twice a day, Tylenol p.r.n. basis, Protonix 40 mg daily, labetalol 10 mg q. 2 hours p.r.n., Zofran p.r.n. basis. LABORATORY DATA: Shows hemoglobin 14.9, hematocrit 43.9, WBC 16,000 and platelet count is 321. Sodium 145, potassium 3.5, chloride 101, bicarbonate 27, BUN 21, creatinine 0.8, glucose 196, calcium 10.2, phosphorous 3.5, AST 39, ALT is 43, alkaline phosphatase is 150 and albumin is 4.3. TSH 0.61. Microbiology; blood culture has been negative. IMPRESSION AND PLAN: Intraparenchymal hemorrhage with ventricular extension, mild hydrocephalus, hypertension, diabetes, status post respiratory failure currently extubated on nasal cannula, may have sleep apnea syndrome, oropharyngeal dysphagia, modified diet. Continue antibiotics, bronchodilator, keep her head elevated 45 degrees. Gastric prophylaxis. Sequential compression device to the lower extremity. When cleared by renal may start deep venous thrombosis prophylaxis. The patient will benefit from acute inpatient neurology rehab. May refer to . Thank you and we will follow with you. Livia Francois MD
[2017-06-21] MEDS: Insulin Reg-MEDIUM-Coverage SC SCH ×4 (02:00→20:00)
[2017-06-21] MEDS: Ampicillin/Sulbactam 3 GM in Sodium Chloride 0.9% 100 ML IVPB SCH ×4 (05:22→17:33)
[2017-06-21] MEDS: Pantoprazole 40 mg Susp UD PO SCH (05:23)
--- NOTE | 2017-06-21 06:04 | PN ---
DATE: 06/20/2017 SUBJECTIVE: The patient is 72 years old female. The patient was seen and examined on 06/20/2017 in the unit, lying on the bed, sleepy, arousable, looks little bit sluggish. Had swallowing evaluation done on modified diet. Mild cough. Shortness breath is less. No hematuria. No hematochezia. No swelling of the legs. No chest pain. No palpitations. PHYSICAL EXAMINATION: VITAL SIGNS: Temperature 98.6, heart rate 80, respiratory rate 20, and blood pressure 117/89. HEENT: Head is normocephalic and atraumatic. Eyes, PERRLA. Extraocular muscles intact. Conjunctivae clear. Nose patent. NECK: Supple. No carotid bruits, JVD or thyromegaly. CHEST: Bilaterally symmetrical. HEART: S1 and S2 positive. LUNGS: Clear to auscultation. ABDOMEN: Soft. Bowel sounds present. No organomegaly. EXTREMITIES: No edema. No cyanosis. NEUROLOGIC: The patient is sleepy, arousable. MEDICATIONS: Unasyn, hydralazine, clonidine, Cozaar, insulin coverage, metoprolol, Tylenol, Protonix, labetalol, and Zofran. LABORATORY DATA: Hemoglobin 10.9, hematocrit of 43.9, and white blood cells 16,000. Sodium 145, potassium 3.9, BUN 21, creatinine 0.8, AST 39, and ALT 41. ASSESSMENT AND PLAN: Mrs. Noy Bryant is 72 years old lady with intraparenchymal hemorrhage with ventricular extension, mild hydrocephalus, history of intubation, was extubated, hypertension, diabetes mellitus, getting oxygen with nasal cannula, may be apnea syndrome, oropharyngeal dysphagia on modified diet. The patient has history of schizophrenia and bipolar, Dr. Rubio consult called to adjust psych medications. Sequential compression devices to lower extremities. As per Dr. Francois, the patient need acute neurological rehab. May be we will talk to Dr. Francois to transfer the patient to [facility]. I appreciate Dr. Ho and Dr. Glover's input. We will follow up. Gayle Jones MD
[2017-06-21 07:37] LABS: BASO # 0.01 K/mm3 (0.0-2.0); BASO % 0.1 % (0.0-3.0); EOS % 0.1 % (1.5-5.0); GRAN # 12.73 (1.4-6.5); GRAN % 80.2 % (50.0-68.0); HEMATOCRIT 40.3 % (36.0-48.0); LYMPH # 1.8 (1.2-3.4); LYMPH % 11.1 % (22.0-35.0); MEAN CELL VOLUME 85.9 fl (80.0-105.0); MEAN CORPUSCULAR HEMOGLOBIN 29.4 pg (25.0-35.0); MEAN CORPUSCULAR HGB CONC 34.2 g/dl (31.0-37.0); MEAN PLATELET VOLUME 9.7 fl (7.0-11.0); MONO # 1.4 (0.1-0.6); MONO % 8.5 % (1.0-6.0); RED CELL DISTRIBUTION WIDTH 13.6 % (11.5-14.5); WHITE BLOOD COUNT 15.9 10^3/ul (4.5-11.0)
[2017-06-21 07:55] LABS: ALKALINE PHOSPHATASE 124 U/L (38-126); ALT/SGPT 29 U/L (7-56); AST/SGOT 45 U/L (14-36); BILIRUBIN,TOTAL 1.1 mg/dL (0.2-1.3); BLOOD UREA NITROGEN 36 mg/dL (7-21); CALCIUM 9.8 mg/dL (8.4-10.5); CARBON DIOXIDE 27 mmol/L (21-33); CHLORIDE 103 mmol/L (98-107); GFR AFRICAN-AMERICAN > 60; GLUCOSE,RANDOM 192 mg/dL (70-110); MAGNESIUM 2.3 mg/dL (1.7-2.2); PHOSPHOROUS 3.6 mg/dL (2.5-4.5); SODIUM 144 mmol/L (132-148)
--- NOTE | 2017-06-21 12:28 | PN ---
NEUROLOGY PROGRESS NOTE SUBJECTIVE: The patient is lying on the bed, in no acute distress, denies having any headache. PHYSICAL EXAMINATION: VITAL SIGNS: Her blood pressure is 151/87, heart rate is 88 per minute, breathing at the rate of 16 per minute and temperature is 99.3 degree Fahrenheit. HEENT: Head is normocephalic and atraumatic. NECK: Supple. There are no carotid bruits. LUNGS: Clear. CARDIOVASCULAR: S1 and S2 audible. No murmurs. ABDOMEN: Soft and nontender. Bowel sounds are present. NEUROLOGIC: Mental status: The patient is awake and alert. She follows some commands. Cranial nerve examination: Pupils are 3 mm bilaterally, reactive to light. Visual bonner impaired on the right side. Extraocular movements are intact. There is decreased nasolabial fold on the right side. Tongue is midline. Motor examination: Tone is decreased on the right side. Power on the left side is 4/5. Power on the right side in the upper extremity is 0/5 and in lower extremity 2/5 to 3/5. Plantars upgoing on the right and downgoing on the left side. LABORATORY DATA: Reviewed shows WBC of 15.9, hemoglobin of 13.8, hematocrit of 40.3, and platelets of 313. Sodium is 144, potassium 3.0, chloride 103, carbon dioxide of 27, BUN of 36, creatinine 0.8 and glucose of 192. IMPRESSION: 1. Cerebrovascular accident with left occipito-parietal hemorrhage with intraventricular extension. 2. Increased WBC count. RECOMMENDATIONS: 1. The patient has shown no deterioration in her neurologic status. She continues to have right-sided weakness and has aphasic symptoms. 2. The patient to be continued on IV antibiotics. 3. The patient to have physical therapy and speech therapy. 4. Please continue IV antibiotics for elevated WBC count. 5. Please continue supportive care and other treatment. Thank you for the opportunity to participate in the care of this patient. Evan Glover MD
--- NOTE | 2017-06-21 12:45 | PN ---
DATE: 06/21/2017 REASON FOR CONSULTATION: Followup cardiac evaluation, intracerebral bleed, and uncontrolled hypertension. SUBJECTIVE: The patient speaks Palestinian. Denies any chest pain, shortness of breath, or any palpitations. OBJECTIVE: GENERAL: Lying flat on the bed, not in apparent distress, having cooling blanket. VITAL SIGNS: As follows; temperature 100, heart rate 104, and blood pressure 136/88. HEENT: PERRLA. Extraocular muscles intact. NECK: Supple. No carotid bruits or thyromegaly. CHEST: Clear to auscultation. HEART: S1 and S2 regular. ABDOMEN: Soft. EXTREMITIES: Clubbing and cyanosis negative. LABORATORY DATA: Blood workup as follows: WBC 15.9, hemoglobin 13.8, hematocrit 43.3, and platelet count 313. Chemistry shows sodium 134, potassium 3, chloride 103, carbon dioxide 27, anion gap of 17, BUN 36, creatinine 0.8, magnesium 2.3, total protein 8, albumin 4, albumin-globulin ratio 1. IMPRESSION: A 72-year-old female with past medical history significant for hypertension, admitted with intracerebral bleed, respiratory failure, intubated, successfully extubated, still altered mental status, hypertension, fever, hypokalemia, probably fever could be the central cause, on cooling blanket. Uncontrolled hypertension was improved. Yesterday, increased to Catapres patch #3. Most recent echo done day before yesterday that revealed normal ejection fraction of 55% to 60%, [id number] mitral regurgitation, [id number] tricuspid regurgitation, RV systolic pressure 30. RECOMMENDATIONS: Continue Catapres patch #3. She is started on losartan 100 mg daily and we will continue p.r.n. hydralazine. We will supplement aggressively potassium. We will follow with you. Thank you Dr. Jones for providing me the opportunity in taking care of the patient, Noy Bryant. We will follow with you. Livia Rendon MD
--- NOTE | 2017-06-21 14:31 | CP.PCM.PN ---
Subjective - Date & Time of Evaluation Date of Evaluation: 06/21/17 Time of Evaluation: 14:15 - Subjective Subjective: Infectious Disease Follow Up June 21, 2017 72 yo female presented with fall and altered mental status. She was found at home on floor by family who heard her fall. The patient was brought into the ER and found to be in uncontrolled hypertension and requiring intubation on arrival in the ER. The patient was found to hae a 4.4 cm left occipital intracranial hemorrhage with intraventricular extension. Patient is recovering but still having episodes of low grade fevers. Patient herself is not making any new complaints. She still has residual right sided weakness. she continued to have low grade fevers yesterday... Today, afebrile. Objective - Vital Signs/Intake and Output Vital Signs (last 24 hours): Temp Pulse Resp BP Pulse Ox 99.9 F H 104 H 16 142/88 97 06/21/17 04:00 06/21/17 12:20 06/21/17 06:00 06/21/17 12:20 06/21/17 06:00 Intake and Output: 06/21/17 06/21/17 06:59 18:59 Intake Total 200 Output Total 350 Balance -150 - Medications Medications: Current Medications Clonidine HCl (Catapres-Tts3 0.3 Mg/24 Hr) 1 patch TD Q7D@1000 [facility] Last Admin: 06/21/17 12:20 Dose: 1 patch Hydralazine HCl (Apresoline) 10 mg IVP Q6 PRN PRN Reason: for sbp.160 &/or Diastolic>100 Last Admin: 06/20/17 20:23 Dose: 10 mg Ampicillin Sodium/Sulbactam (Sodium 3 gm/ Sodium Chloride) 100 mls @ 100 mls/ hr IVPB Q6H [facility] PRN Reason: Protocol Last Admin: 06/21/17 05:22 Dose: 100 mls/hr Insulin Human Regular (Humulin R Med) 0 units SC Q6H [facility] PRN Reason: Protocol Last Admin: 06/21/17 14:22 Dose: Not Given Labetalol HCl (Trandate) 10 mg IV Q2H PRN PRN Reason: Systolic Blood Pressure Last Admin: 06/19/17 23:07 Dose: 10 mg Losartan Potassium (Cozaar) 100 mg PO DAILY [facility] Last Admin: 06/21/17 09:00 Dose: 100 mg Metoprolol Tartrate (Lopressor) 25 mg PO BID [facility] Last Admin: 06/21/17 08:59 Dose: 25 mg Ondansetron HCl (Zofran Inj) 4 mg IVP Q6H PRN PRN Reason: Nausea/Vomiting Pantoprazole Sodium (Protonix Susp) 40 mg PO 0600 [facility] Last Admin: 06/21/17 05:23 Dose: 40 mg - Labs Labs: 06/21/17 06:30 06/21/17 06:30 PT 10.6 Seconds (9.9-11.8) 06/19/17 05:10 INR 0.98 (0.93-1.08) 06/19/17 05:10 APTT 24.9 Seconds (23.7-30.8) 06/14/17 07:50 - Constitutional Appears: Non-toxic, No Acute Distress, Chronically Ill - Head Exam Head Exam: ATRAUMATIC, NORMOCEPHALIC - Eye Exam Eye Exam: EOMI, PERRL Pupil Exam: NORMAL ACCOMODATION, PERRL - ENT Exam ENT Exam: Mucous Membranes Moist, Normal External Ear Exam, TM's Normal Bilaterally - Neck Exam Neck Exam: Full ROM, Normal Inspection - Respiratory Exam Respiratory Exam: Clear to Ausculation Bilateral, NORMAL BREATHING PATTERN. absent: Rales, Rhonchi, Wheezes - Cardiovascular Exam Cardiovascular Exam: REGULAR RHYTHM, RRR, +S1, +S2 - GI/Abdominal Exam GI & Abdominal Exam: Soft, Normal Bowel Sounds. absent: Distended, Tenderness - Extremities Exam Extremities Exam: Normal Inspection, Pedal Edema Additional comments: right sided weakness. - Neurological Exam Neurological Exam: Alert, Awake, CN II-XII Intact, Oriented x3 - Psychiatric Exam Psychiatric exam: Depressed, Normal Affect - Skin Skin Exam: Intact, Normal Color Assessment and Plan - Assessment and Plan (Free Text) Assessment: 72 yo female with low grade fevers of up to 100.4 F after suffering from a 4.4cm left occipital intracranial hemorrhage with intraventricular extension. The patient initially had fevers up to 101.7 F. Clinically, the patient has been improving. Supportive care. She was intubated on admission. She was extubated on 06/18/2017. She speaks german mostly. The family states that the patient is acting and speaking appropriately other than the slurring of speech due to her right sided residual weakness. Tolliver cultures sent. There was a mild initial leukocytosis on admission but this has slowly improved. Fever trend has shown improvement. The cultures done to date have been negative so far. No consolidation seen on Chest X-ray. Patient answering question during interview and examination. Supportive care. Currently on Unasyn for antibiotic coverage. Noted C. Diff and repeat urine culture sent. Would obtain urinalysis. Would continue Unasyn for now. The current temperature is more likely secondary to the recent intracranial hemorrhage. There is a slight increase in the leukocytosis to 15.9 today. Cultures to date are negative. Fever spike of 101.2 F last night. Afebrile so far today. If another fever occurs, I would reculture the patient. Thank you for allowing me to participate in the care of the patient, we will follow with you.
[2017-06-21 20:36] LABS: URINE BILIRUBIN NEGATIVE (NEGATIVE); URINE BLOOD TRACE-INTACT (NEGATIVE); URINE GLUCOSE (UA) 500 mg/dL (NEGATIVE); URINE KETONE NEGATIVE (NEGATIVE); URINE LEUKOCYTE ESTERASE NEGATIVE Leu/uL (NEGATIVE); URINE PROTEIN >=300 mg/dL (<30 mg/dL); URINE UROBILINOGEN 0.2 E.U./dL (<1 E.U./dL)
[2017-06-21 20:43] LABS: URINE APPEARANCE SL CLOUDY (CLEAR); URINE COLOR YELLOW (YELLOW)
[2017-06-21 20:51] LABS: URINE RBC 0 - 2 /hpf (0-2); URINE WBC 0 - 2 /hpf (0-6)
--- NOTE | 2017-06-21 21:48 | PN ---
PULMONARY PROGRESS NOTE DATE: 06/21/2017 REFERRING PHYSICIAN: Gayle Jones MD SUBJECTIVE: She is lying in the bed 45 degrees, sleepy, arousable. Night was unremarkable. She has mild cough. . No vomiting. No hematuria. No diarrhea. No leg pain. No leg swelling. OBJECTIVE GENERAL: In no acute distress. VITAL SIGNS: Temperature 98, heart rate 105, respirator rate is 20, blood pressure 111/64, pulse ox 96% on room air. HEENT: Moist mucous membranes. Crowded airway. Mallampati score is IV. NECK: Supple. No JVD. LUNGS: Have scattered rhonchi. HEART: S1 and S2. ABDOMEN: Soft, nontender. No organomegaly. EXTREMITIES: There is no edema. NEUROLOGIC: Sleepy, arousable, follows simple commands. MEDICATIONS: She is on Unasyn 3 g IV q.6 hours, hydralazine 10 mg q.6 hours p.r.n., Ativan 0.5 mg three times a day p.r.n., Catapres 0.3 mg weekly, Cozaar 100 mg daily, insulin coverage, metoprolol tartrate 25 mg twice day, Protonix 40 mg daily, trandate (Labetalol) 10 mg q.2 hours p.r.n. and Zofran p.r.n. basis. LABORATORY DATA: Shows hemoglobin 13.8, hematocrit 40.3, WBC 15.9, platelet count is 313. Sodium 144, potassium 3.0, chloride 103, bicarbonate 27, BUN 36, creatinine 0.8, glucose 190, calcium is 9.8, phosphorous 3.6, magnesium is 2.3, AST 45, ALT is 29, alkaline phosphatase is 124, albumin is 4.0. Microbiology; blood culture and urine culture there is no growth. IMPRESSION AND PLAN: Intraparenchymal hemorrhage with ventricular extension, has a mild hydrocephalus, hypertension, diabetes, status post respiratory failure apparently extubated on nasal cannula, may have a component of sleep apnea syndrome, oropharyngeal dysphagia, modified diet, high risk for aspiration, keep her elevated at 45 degree, bronchodilator, gastric prophylaxis, SCD to lower extremity. Once cleared by neurology we will start anticoagulation, aspiration precaution and start physical therapy. The patient will benefit from acute inpatient neuro rehab. Thank you and we will follow with you. Livia Francois MD [facility] # [id number]
[2017-06-22] MEDS: Ampicillin/Sulbactam 3 GM in Sodium Chloride 0.9% 100 ML IVPB SCH ×5 (00:03→23:15)
--- NOTE | 2017-06-22 00:44 | CON ---
HISTORY OF PRESENT ILLNESS: The patient is a 72-year-old female, multiple medical problems including hypertension, type 2 diabetes, was admitted to ICU for evaluation of neurological deficit. The patient was found to have hemorrhagic stroke. Psych consult was called because the patient has history of mental illness, most likely bipolar disorder, was on psychotropic medication. Medical team is requesting reevaluation of medications. The patient was seen and examined and the patient presented to be confused. The patient is nonverbal, just looking at this expert medical writer, no option to have meaningful conversation. This expert medical writer reviewed previous history. Most recently, the patient was admitted to the psychiatric inpatient unit in February [address] Becerra's service. The patient was on Risperdal as well as Klonopin. Collateral information was obtained from the nursing staff as well as from the primary care physician, Dr. Jones. The patient does not have any behavioral issues overnight. The patient was restless, trying to pull IV line, but besides that, there is no agitation or aggression. PHYSICAL EXAMINATION VITAL SIGNS: Stable. Pulse is 104, blood pressure 142/88, respirations 16, and oxygen saturation 97%. MEDICATIONS: Reviewed. From the presentation note, the patient might benefit from small dose of benzodiazepines considering the fact that the patient was on Klonopin before. This expert medical writer will recommend Ativan p.o. 0.5 mg IV push as needed for agitation and restless behavior. This expert medical writer would not recommend to resume any antipsychotic medication because most likely the patient has some signs of dementia and this would put her on even higher risk of stroke. LABORATORY DATA: Labs reviewed. The patient has leukocytosis. Chemistry reviewed, low potassium level. Notes from neurology team, cardiology, infectious disease team reviewed. Discussed with the primary care physician. MENTAL STATUS EXAMINATION: As this expert medical writer described above, the patient is nonverbal, looks at this expert medical writer and needs assistance with eating. The patient does not exhibit any aggressive or agitated behavior. Overnight, the patient was restless. No option to have meaningful conversation and no full assistant foreman is possible at present moment. IMPRESSION: As per history, the patient has bipolar disorder. The patient also has hemorrhagic stroke. Also, the patient has leukocytosis, fever. PLAN: This expert medical writer would not recommend any antipsychotic medications, small of Ativan IV push as needed for restless, anxious and agitated behavior. There is no option to have meaningful conversation with the patient. This expert medical writer will sign off. Case was discussed with the Karen Benson. Should they have any questions, give me a call back. Thank you very much for letting me to participate in the care of your patient. Sarah Rubio MD
[2017-06-22] MEDS: Insulin Reg-MEDIUM-Coverage SC SCH ×4 (02:00→23:02)
[2017-06-22 05:52] LABS: BASO # 0.02 K/mm3 (0.0-2.0); BASO % 0.1 % (0.0-3.0); EOS % 0.2 % (1.5-5.0); GRAN # 11.16 (1.4-6.5); GRAN % 74.3 % (50.0-68.0); HEMATOCRIT 39.2 % (36.0-48.0); LYMPH # 2.6 (1.2-3.4); MEAN CELL VOLUME 87.3 fl (80.0-105.0); MEAN CORPUSCULAR HEMOGLOBIN 28.7 pg (25.0-35.0); MEAN CORPUSCULAR HGB CONC 32.9 g/dl (31.0-37.0); MEAN PLATELET VOLUME 9.4 fl (7.0-11.0); MONO # 1.3 (0.1-0.6); MONO % 8.4 % (1.0-6.0); RED CELL DISTRIBUTION WIDTH 13.7 % (11.5-14.5)
[2017-06-22 06:05] LABS: ALKALINE PHOSPHATASE 116 U/L (38-126); ALT/SGPT 43 U/L (7-56); AST/SGOT 38 U/L (14-36); BILIRUBIN,TOTAL 1.1 mg/dL (0.2-1.3); BLOOD UREA NITROGEN 28 mg/dL (7-21); CALCIUM 9.4 mg/dL (8.4-10.5); CARBON DIOXIDE 26 mmol/L (21-33); CHLORIDE 107 mmol/L (98-107); GFR AFRICAN-AMERICAN > 60; GLUCOSE,RANDOM 196 mg/dL (70-110); MAGNESIUM 2.1 mg/dL (1.7-2.2); PHOSPHOROUS 3.2 mg/dL (2.5-4.5); POTASSIUM 3.2 mmol/L (3.6-5.0); SODIUM 149 mmol/L (132-148); TOTAL PROTEIN 7.6 g/dL (5.8-8.3)
[2017-06-22] MEDS: Pantoprazole 40 mg Susp UD PO SCH (06:10)
--- NOTE | 2017-06-22 12:36 | PN ---
DATE: 06/22/2017 REASON FOR CONSULTATION: Followup cardiac evaluation, intracerebral bleed, uncontrolled hypertension. SUBJECTIVE: The patient speaks Albanian. Denies any chest pain, shortness of breath, any palpitation. OBJECTIVE: GENERAL: Lying flat on bed. Shivering on cooling blanket. VITAL SIGNS: Temperature afebrile, heart rate 120, blood pressure 163/117. HEENT: PERRLA. Extraocular muscles intact. NECK: Supple. No carotid bruit. No thyromegaly. CHEST: Clear to auscultation. HEART: S1 and S2 and regular. ABDOMEN: Soft. EXTREMITIES: Clubbing and cyanosis negative. LABORATORY DATA: Blood workup as follows; WBC 15, hemoglobin 12.9, hematocrit 39.2, platelet count 288. Chemistry shows sodium 149, potassium 3.2, chloride 107, carbon dioxide 26, anion gap of 19, BUN 28, creatinine 0.8. IMPRESSION: Fever, temperature of 100.6, possibility rule out sepsis, cerebrovascular accident, intracerebral bleed, hypertension, uncontrolled. Successfully extubated. Altered mental status, hypokalemia, tachycardia, most recent echo shows ejection fraction 55% to 60%, mild regurgitation, mild tricuspid regurgitation, RV systolic pressure 30. RECOMMENDATIONS: Continue cooling blanket. Will get rectal suppository p.r.n., and we will continue metoprolol 25 mg b.i.d. We will increase also Cardizem to control the blood pressure and heart rate, and we will follow with you. Continue antibiotics. We will repeat the blood culture most likely central fever. Livia Rendon MD
--- NOTE | 2017-06-22 16:00 | PN ---
DATE: SUBJECTIVE: The patient is 72 years old female. The patient is seen and examined on the bedside. I saw the patient in the unit ,the patient transferred to telemetry. Daughter, Emily Francois is on the bedside. The patient is arousable, trying to move extremities. No nausea or vomiting. Got swallowing evaluation, passed the test, and food is advanced to chopped with the thick pureed diet. No fever today right now. No chills. PHYSICAL EXAMINATION: VITAL SIGNS: Temperature is stable, heart rate 20, blood pressure 153/117, and respiratory rate 18. HEENT: Head is normocephalic and atraumatic. Eyes; PERRLA. Extraocular muscles intact. Conjunctivae clear. Nose is patent. Mucous membranes moist. NECK: Supple. No carotid bruit or thyromegaly. CHEST: Bilaterally symmetrical. HEART: S1 and S2 positive. LUNGS: Clear to auscultation. ABDOMEN: Soft. Bowel sounds positive. No organomegaly. EXTREMITIES: No edema. No cyanosis. NEUROLOGIC: The patient is sleepy, arousable. LABORATORY DATA: White blood cell 15, hemoglobin 12.9, and hematocrit 39.2. Last 12/04/2016; sodium 149, potassium 3.2, BUN 20, and creatinine 0.8. ASSESSMENT AND PLAN: Mrs. 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 Repeat labs. We will followup. Gayle Jones MD MTDD
--- NOTE | 2017-06-22 16:53 | PN ---
DATE: 06/22/2017 PULMONARY PROGRESS NOTE REFERRING PHYSICIAN: Dr. Jones. SUBJECTIVE: She is transferred out of ICU, on telemetry, lying in the bed, sleepy, arousable, mild cough. No sputum production. No nausea. No diarrhea. No leg pain. No leg swelling. OBJECTIVE GENERAL: In no acute distress. VITAL SIGNS: Temperature is 100.2, heart rate is 98, respirator rate is 20, blood pressure 178/113, pulse ox 98% on room air. HEENT: Moist mucous membranes. Crowded airway. Mallampati score is IV. NECK: Supple. No JVD. LUNGS: Have fair air flow with few rhonchi. HEART: S1 and S2. ABDOMEN: Soft, nontender. No organomegaly. EXTREMITIES: There is no edema. NEUROLOGIC: Sleepy, arousable, follows simple commands. MEDICATIONS: She is on Unasyn 3 g IV q.6 hours, hydralazine 10 mg q.6 hours p.r.n., Ativan 0.5 mg 3 times a day, Cardizem CD 30 mg q.i.d., Catapres 0.3 mg weekly, Cozaar 100 mg daily, metoprolol tartrate 25 mg twice day, Protonix 40 mg daily, Labetalol p.r.n. basis, Tylenol p.r.n., Zofran p.r.n. LABORATORY DATA: Shows hemoglobin 12.9, hematocrit 39.2, WBC 15, platelet count is 288. Sodium 149, potassium 3.2, chloride 107, bicarbonate 26, BUN 28, creatinine 0.8, glucose 196, calcium 9.4, phosphorous 3.2, magnesium 2.1, AST 38, ALT 43, alk phos is 116, albumin is 3.8. Microbiology: Blood culture has been negative. IMPRESSION AND PLAN: Intraparenchymal hemorrhage with ventricular extension, hydrocephalus, hypertension, diabetes, respiratory failure, extubated, on nasal cannula, may have a component of sleep apnea syndrome, oropharyngeal dysphagia, modified diet, has a low-grade fever, already on Unasyn. We will get chest x-ray, make sure there are no infiltrates. Send urine for culture sensitivity, stool for Clostridium difficile. keep head elevated at 45 degrees. May add daytime stimulant, has hypersomnia. Physical therapy, out of bed to reclining chair if possible. Will benefit from acute inpatient neuro rehab. Thank you and we will follow with you. Livia Francois MD
--- NOTE | 2017-06-22 17:06 | CP.PCM.PN ---
Subjective - Date & Time of Evaluation Date of Evaluation: 06/22/17 Time of Evaluation: 16:00 - Subjective Subjective: Infectious Disease Follow Up June 22, 2017 72 yo female presented with fall and altered mental status. She was found at home on floor by family who heard her fall. The patient was brought into the ER and found to be in uncontrolled hypertension and requiring intubation on arrival in the ER. The patient was found to hae a 4.4 cm left occipital intracranial hemorrhage with intraventricular extension. Patient is recovering but still having episodes of low grade fevers. Patient herself is not making any new complaints. She still has residual right sided weakness. she continued to have low grade fevers yesterday and is still having low grade fevers today. Repeat cultures sent. Cannot rule out central fever. Objective - Vital Signs/Intake and Output Vital Signs (last 24 hours): Temp Pulse Resp BP Pulse Ox 100.2 F H 98 H 19 178/113 H 98 06/22/17 15:38 06/22/17 15:38 06/22/17 14:00 06/22/17 15:35 06/22/17 14:00 Intake and Output: 06/22/17 06/22/17 06:59 18:59 Intake Total 200 420 Output Total 600 0 Balance -400 420 - Medications Medications: Current Medications Acetaminophen (Tylenol 325 Mg Supp) 325 mg RC Q6H PRN PRN Reason: Temperature >100.4 Last Admin: 06/22/17 15:38 Dose: 325 mg Armodafinil (Nuvigil 150 Mg Tab) 150 mg PO DAILY [facility] Clonidine HCl (Catapres-Tts3 0.3 Mg/24 Hr) 1 patch TD Q7D@1000 [facility] Last Admin: 06/21/17 12:20 Dose: 1 patch Diltiazem HCl (Cardizem) 30 mg PO QID [facility] Last Admin: 06/22/17 15:38 Dose: 30 mg Hydralazine HCl (Apresoline) 10 mg IVP Q6 PRN PRN Reason: for sbp.160 &/or Diastolic>100 Last Admin: 06/22/17 15:35 Dose: 10 mg Ampicillin Sodium/Sulbactam (Sodium 3 gm/ Sodium Chloride) 100 mls @ 100 mls/ hr IVPB Q6H [facility] PRN Reason: Protocol Last Admin: 06/22/17 11:12 Dose: 100 mls/hr Insulin Human Regular (Humulin R Med) 0 units SC Q6H CHUY PRN Reason: Protocol Last Admin: 06/22/17 15:49 Dose: 5 units Labetalol HCl (Trandate) 10 mg IV Q2H PRN PRN Reason: Systolic Blood Pressure Last Admin: 06/19/17 23:07 Dose: 10 mg Lorazepam (Ativan) 0.5 mg IVP TID PRN; Protocol PRN Reason: anxiety, restlessness Last Admin: 06/22/17 04:18 Dose: 0.5 mg Losartan Potassium (Cozaar) 100 mg PO DAILY [facility] Last Admin: 06/22/17 09:23 Dose: 100 mg Metoprolol Tartrate (Lopressor) 25 mg PO BID [facility] Last Admin: 06/22/17 09:23 Dose: 25 mg Ondansetron HCl (Zofran Inj) 4 mg IVP Q6H PRN PRN Reason: Nausea/Vomiting Pantoprazole Sodium (Protonix Susp) 40 mg PO 0600 [facility] Last Admin: 06/22/17 06:10 Dose: 40 mg - Labs Labs: 06/22/17 05:25 06/22/17 05:25 PT 10.6 Seconds (9.9-11.8) 06/19/17 05:10 INR 0.98 (0.93-1.08) 06/19/17 05:10 APTT 24.9 Seconds (23.7-30.8) 06/14/17 07:50 - Constitutional Appears: Non-toxic, No Acute Distress, Chronically Ill - Head Exam Head Exam: ATRAUMATIC, NORMOCEPHALIC - Eye Exam Eye Exam: EOMI, PERRL Pupil Exam: NORMAL ACCOMODATION, PERRL - ENT Exam ENT Exam: Mucous Membranes Moist, Normal External Ear Exam, TM's Normal Bilaterally - Neck Exam Neck Exam: Full ROM, Normal Inspection - Respiratory Exam Respiratory Exam: Clear to Ausculation Bilateral, NORMAL BREATHING PATTERN. absent: Rales, Rhonchi, Wheezes - Cardiovascular Exam Cardiovascular Exam: REGULAR RHYTHM, RRR, +S1, +S2 - GI/Abdominal Exam GI & Abdominal Exam: Soft, Normal Bowel Sounds. absent: Distended, Tenderness - Extremities Exam Extremities Exam: Pedal Edema Additional comments: right sided weakness - Neurological Exam Neurological Exam: Alert, Awake, CN II-XII Intact Additional comments: AAO x 2-3, right sided weakness. - Psychiatric Exam Psychiatric exam: Depressed, Normal Affect - Skin Skin Exam: Intact, Normal Color Assessment and Plan - Assessment and Plan (Free Text) Assessment: 72 yo female with low grade fevers of up to 100.4 F after suffering from a 4.4cm left occipital intracranial hemorrhage with intraventricular extension. The patient initially had fevers up to 101.7 F. Clinically, the patient has been improving. Supportive care. She was intubated on admission. She was extubated on 06/18/2017. She speaks puerto rican mostly. The family states that the patient is acting and speaking appropriately other than the slurring of speech due to her right sided residual weakness. Tolliver cultures sent. There was a mild initial leukocytosis on admission but this has slowly improved. Fever trend has shown improvement. The cultures done to date have been negative so far. No consolidation seen on Chest X-ray. Patient answering question during interview and examination. Supportive care. Currently on Unasyn for antibiotic coverage. Noted C. Diff and repeat urine culture sent. Would obtain urinalysis. Would continue Unasyn for now. The current temperature is more likely secondary to the recent intracranial hemorrhage. There is leukocytosis of 15.0 today. Cultures to date are negative. Fever up to 100.6 F in the past 24 hours. Awaiting repeat cultures. Cannot rule out central fever. Thank you for allowing me to participate in the care of the patient, we will follow with you.
--- NOTE | 2017-06-22 17:40 | RAD ---
HISTORY: infiltrate COMPARISON: Comparison chest 06/19/2017 FINDINGS: LUNGS: Poor inspiration with low lung volumes, crowded bronchovascular markings and suspected minor bibasilar atelectasis. PLEURA: No significant pleural effusion identified, no pneumothorax apparent. CARDIOVASCULAR: Cardiomegaly. OSSEOUS STRUCTURES: Multilevel degenerative spondylosis of the thoracic spine VISUALIZED UPPER ABDOMEN: Normal. OTHER FINDINGS: None. IMPRESSION: Poor inspiration with low lung volumes, crowded bronchovascular markings and mild bibasilar atelectasis. Cardiomegaly
--- NOTE | 2017-06-22 20:07 | PN ---
DATE: 06/21/2017 SUBJECTIVE: The patient was seen and examined at the bedside on 06/21/2017 in the unit, looking comfortable. No nausea, vomiting, diarrhea. No hematuria. No hematochezia. The patient is not giving too many complaints. Sleepy, arousable. No change in the status. Mild cough. No swelling of the legs. PHYSICAL EXAMINATION VITAL SIGNS: Temperature 98, getting fever at night, heart rate 105, respiratory rate 20, blood pressure 114/54, pulse oximetry 93% on room air. HEENT: Eyes, closed. Nose patent. Mucous membrane moist. NECK: Supple. No carotid bruits. No JVD or thyromegaly. CHEST: Bilaterally symmetrical. HEART: S1 and S2 positive. LUNGS: Clear to auscultation. ABDOMEN: Soft. Bowel sounds present. No organomegaly. EXTREMITIES: No edema. No cyanosis. NEUROLOGIC: The patient is sleepy, arousable, follows simple commands. MEDICATIONS: Unasyn, hydralazine, Ativan, Catapres, Cozaar, insulin coverage, metoprolol, Protonix, labetalol, Zofran. LABORATORY DATA: Hemoglobin 13.8, hematocrit of 40.3, white blood cells 15.9, platelets of 330. Sodium 144, potassium 3.0, BUN 36, creatinine 0.8, glucose 190. AST 46, ALT 29. ASSESSMENT AND PLAN: The patient is a 72 years old lady with intraparenchymal hemorrhage with ventricular distention, has a mild hydrocephalus, hypertension, diabetes mellitus, status post intubated and then successfully extubated, sleep apnea syndrome, oropharyngeal dysphagia. Speech therapy recommended. Modified the diet. History of diabetes, hypertension, hypercholesterolemia, noncompliant. Continue present treatment. 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 We will follow. Gayle Jones MD
[2017-06-23] MEDS: Insulin Reg-MEDIUM-Coverage SC SCH ×4 (02:06→22:00)
[2017-06-23] MEDS: Ampicillin/Sulbactam 3 GM in Sodium Chloride 0.9% 100 ML IVPB SCH ×3 (05:25→17:23)
[2017-06-23] MEDS: Pantoprazole 40 mg Susp UD PO SCH (05:30)
[2017-06-23 06:47] LABS: BASO # 0.02 K/mm3 (0.0-2.0); BASO % 0.2 % (0.0-3.0); EOS # 0.1 (0.0-0.7); GRAN # 8.77 (1.4-6.5); GRAN % 67.5 % (50.0-68.0); LYMPH # 2.9 (1.2-3.4); LYMPH % 22.6 % (22.0-35.0); MEAN CELL VOLUME 88.2 fl (80.0-105.0); MEAN CORPUSCULAR HEMOGLOBIN 29.2 pg (25.0-35.0); MEAN CORPUSCULAR HGB CONC 33.2 g/dl (31.0-37.0); MEAN PLATELET VOLUME 9.7 fl (7.0-11.0); MONO # 1.1 (0.1-0.6); MONO % 8.7 % (1.0-6.0)
[2017-06-23 07:00] LABS: ALKALINE PHOSPHATASE 108 U/L (38-126); ALT/SGPT 36 U/L (7-56); AST/SGOT 34 U/L (14-36); BILIRUBIN,TOTAL 1.2 mg/dL (0.2-1.3); BLOOD UREA NITROGEN 30 mg/dL (7-21); CALCIUM 9.4 mg/dL (8.4-10.5); CARBON DIOXIDE 26 mmol/L (21-33); CHLORIDE 110 mmol/L (95-110); GFR AFRICAN-AMERICAN > 60; GLUCOSE,RANDOM 191 mg/dL (70-110); MAGNESIUM 2.2 mg/dL (1.7-2.2); PHOSPHOROUS 3.8 mg/dL (2.5-4.5); POTASSIUM 3.1 mmol/L (3.6-5.0); SODIUM 150 mmol/L (132-148); TOTAL PROTEIN 7.4 g/dL (5.8-8.3)
[2017-06-23] MEDS ORDERED: Potassium Chloride 20 mEq ER Tab PO ONE (11:10)
[2017-06-23] MEDS: diltiaZEM 180 mg/24 Hours CD Cap PO SCH (12:07)
--- NOTE | 2017-06-23 13:55 | CP.PCM.PN ---
Subjective - Date & Time of Evaluation Date of Evaluation: 06/23/17 Time of Evaluation: 13:30 - Subjective Subjective: Infectious Disease Follow Up June 23, 2017 72 yo female presented with fall and altered mental status. She was found at home on floor by family who heard her fall. The patient was brought into the ER and found to be in uncontrolled hypertension and requiring intubation on arrival in the ER. The patient was found to hae a 4.4 cm left occipital intracranial hemorrhage with intraventricular extension. Patient is recovering but still having episodes of low grade fevers. Patient herself is not making any new complaints. She still has residual right sided weakness. she continued to have low grade fevers yesterday and is still having low grade fevers today up to 101.1 F in the past 24 hours. Repeat cultures sent. Cannot rule out central fever. Cultures negative to date. Objective - Vital Signs/Intake and Output Vital Signs (last 24 hours): Temp Pulse Resp BP Pulse Ox 99.6 F 99 H 19 134/83 97 06/23/17 12:00 06/23/17 12:07 06/23/17 12:00 06/23/17 12:07 06/23/17 06:00 Intake and Output: 06/23/17 06/23/17 06:59 18:59 Intake Total 200 Balance 200 - Medications Medications: Current Medications Acetaminophen (Tylenol 325 Mg Supp) 325 mg RC Q6H PRN PRN Reason: Temperature >100.4 Last Admin: 06/22/17 23:08 Dose: 325 mg Armodafinil (Nuvigil 150 Mg Tab) 150 mg PO DAILY [facility] Last Admin: 06/23/17 10:26 Dose: 150 mg Clonidine HCl (Catapres-Tts3 0.3 Mg/24 Hr) 1 patch TD Q7D@1000 [facility] Last Admin: 06/21/17 12:20 Dose: 1 patch Diltiazem HCl (Cardizem Cd) 180 mg PO DAILY [facility] Last Admin: 06/23/17 12:07 Dose: 180 mg Hydralazine HCl (Apresoline) 10 mg IVP Q6 PRN PRN Reason: for sbp.160 &/or Diastolic>100 Last Admin: 06/23/17 05:23 Dose: 10 mg Ampicillin Sodium/Sulbactam (Sodium 3 gm/ Sodium Chloride) 100 mls @ 100 mls/ hr IVPB Q6H [facility] PRN Reason: Protocol Last Admin: 06/23/17 12:09 Dose: 100 mls/hr Insulin Human Regular (Humulin R Med) 0 units SC Q6H CHUY PRN Reason: Protocol Last Admin: 06/23/17 10:22 Dose: 3 units Labetalol HCl (Trandate) 10 mg IV Q2H PRN PRN Reason: Systolic Blood Pressure Last Admin: 06/19/17 23:07 Dose: 10 mg Lorazepam (Ativan) 0.5 mg IVP TID PRN; Protocol PRN Reason: anxiety, restlessness Last Admin: 06/23/17 02:51 Dose: 0.5 mg Losartan Potassium (Cozaar) 100 mg PO DAILY [facility] Last Admin: 06/23/17 10:23 Dose: 100 mg Metoprolol Tartrate (Lopressor) 25 mg PO BID [facility] Last Admin: 06/23/17 10:23 Dose: 25 mg Ondansetron HCl (Zofran Inj) 4 mg IVP Q6H PRN PRN Reason: Nausea/Vomiting Pantoprazole Sodium (Protonix Susp) 40 mg PO 0600 [facility] Last Admin: 06/23/17 05:30 Dose: Not Given Spironolactone (Aldactone) 50 mg PO DAILY [facility] Last Admin: 06/23/17 12:09 Dose: 50 mg - Labs Labs: 06/23/17 06:00 06/23/17 06:00 PT 10.6 Seconds (9.9-11.8) 06/19/17 05:10 INR 0.98 (0.93-1.08) 06/19/17 05:10 APTT 24.9 Seconds (23.7-30.8) 06/14/17 07:50 - Constitutional Appears: Non-toxic, No Acute Distress, Chronically Ill - Head Exam Head Exam: ATRAUMATIC, NORMOCEPHALIC - Eye Exam Eye Exam: EOMI, PERRL Pupil Exam: NORMAL ACCOMODATION, PERRL - ENT Exam ENT Exam: Mucous Membranes Moist, Normal External Ear Exam, TM's Normal Bilaterally - Neck Exam Neck Exam: Full ROM, Normal Inspection - Respiratory Exam Respiratory Exam: Clear to Ausculation Bilateral, NORMAL BREATHING PATTERN. absent: Rales, Rhonchi, Wheezes - Cardiovascular Exam Cardiovascular Exam: REGULAR RHYTHM, RRR, +S1, +S2 - GI/Abdominal Exam GI & Abdominal Exam: Soft, Normal Bowel Sounds. absent: Distended, Tenderness - Extremities Exam Extremities Exam: Pedal Edema Additional comments: right sided weakness - Neurological Exam Neurological Exam: Alert, Awake, CN II-XII Intact Additional comments: AAO x 2-3, right sided weakness. - Psychiatric Exam Psychiatric exam: Depressed, Normal Affect - Skin Skin Exam: Intact, Normal Color Assessment and Plan - Assessment and Plan (Free Text) Assessment: 72 yo female with low grade fevers of up to 100.4 F after suffering from a 4.4cm left occipital intracranial hemorrhage with intraventricular extension. The patient initially had fevers up to 101.7 F. Clinically, the patient has been improving. Supportive care. She was intubated on admission. She was extubated on 06/18/2017. She speaks slovak mostly. The family states that the patient is acting and speaking appropriately other than the slurring of speech due to her right sided residual weakness. Tolliver cultures sent. There was a mild initial leukocytosis on admission but this has slowly improved. Fever trend has shown improvement. The cultures done to date have been negative so far. No consolidation seen on Chest X-ray. Patient answering question during interview and examination. Supportive care. Currently on Unasyn for antibiotic coverage. Noted C. Diff and repeat urine culture sent. No adequate sample for C. diff testing. Would obtain urinalysis. Would continue Unasyn for now. The current temperature is more likely secondary to the recent intracranial hemorrhage. Leukocytosis improved to 10.9 today. Cultures to date are negative. Fever up to 100.6 F in the past 24 hours. Awaiting repeat cultures results. Cultures negative to date. Cannot rule out central fever. Thank you for allowing me to participate in the care of the patient, we will follow with you.
--- NOTE | 2017-06-23 14:28 | PN ---
DATE: 06/23/2017 REASON FOR CONSULTATION: Cardiac evaluation, intracerebral bleed, and uncontrolled hypertension. SUBJECTIVE: The patient speaks Hebrew. Denies any chest pain, shortness of breath, and palpitation. Daughter is at the bedside. OBJECTIVE: GENERAL: Lying flat on the bed, not in apparent distress, now the patient is in telemetry 2R 262, bed 2. VITAL SIGNS: Temperature 99.7, heart rate 89, blood pressure 159/100. HEENT: PERRLA. Extraocular muscles intact. NECK: Supple. No carotid bruit. No thyromegaly. CHEST: Clear to auscultation. HEART: S1 and S2 are regular. ABDOMEN: Soft. EXTREMITIES: Clubbing and cyanosis negative. LABORATORY DATA: Blood workup as follows, WBC 13, hemoglobin 12, hematocrit 38, platelet count 297. Chemistry shows sodium 150, potassium 3.1, chloride 110, carbon dioxide 27, anion gap of 17, BUN 13, creatinine 0.9. IMPRESSION: Hypokalemia, uncontrolled hypertension, fever rule out sepsis, rule out central fever, altered mental status, intracerebral bleed, cerebrovascular accident, status post respiratory failure successfully extubated, most recent echo shows ejection fraction of 55% to 60%, mild mitral regurgitation and moderate tricuspid regurgitation, and RV systolic pressure of 30. RECOMMENDATIONS: Yesterday blood culture was sent. Supplement electrolytes, we will add Aldactone. Change Cardizem CD to 180 from today. Continue Losartan. We will follow with you. We will discontinue Cardizem. Continue hydralazine IV p.r.n. for systolic more than 170. We will follow with you. Repeat the lab in the morning. We will give 40 K-Dur also. Continue clonidine patch to control hypertension. Thank you Dr. Jones for providing me the opportunity in taking care of the patient, Ching Bryant. Livia Rendon MD
--- NOTE | 2017-06-23 22:41 | PN ---
PULMONARY PROGRESS NOTE DATE: 06/23/2017 REFERRING PHYSICIAN: Gayle Jones MD SUBJECTIVE: She is lying in the bed, sleepy, daughter is at bedside, arousable, follows simple command, and mildly confused. No nausea, vomiting, or diarrhea. No leg pain. No leg swelling. OBJECTIVE GENERAL: In no acute distress. VITAL SIGNS: Temperature 99, heart rate is 93, respiratory rate 20, blood pressure 142/94, pulse ox 97% on room air. HEENT: Moist mucous membranes. Crowded airway. Mallampati score is IV. NECK: Supple. No JVD. LUNGS: Have fair air flow with few rhonchi. HEART: S1 and S2. ABDOMEN: Soft, nontender. No organomegaly. EXTREMITIES: There is not much edema. NEUROLOGIC: Sleepy, arousable, follows simple commands. MEDICATIONS: She is on Aldactone 50 mg daily, Unasyn 3 g q.6 hours, hydralazine 10 mg q.6 hours p.r.n., Ativan 0.5 mg q.8 hours p.r.n., Cardizem CD 180 mg daily, clonidine 0.3 patch weekly, Cozaar 100 mg daily, insulin coverage, metoprolol tartrate 25 mg twice day, Nuvigil 150 mg daily in the morning, Protonix 40 mg daily, Trandate 10 mg IV q.2 hour p.r.n., Tylenol p.r.n., and Zofran p.r.n. basis LABORATORY DATA: Shows hemoglobin 12.6, hematocrit 38.0, WBC 13,000, platelet count is 297. Sodium 150, potassium 3.1, chloride 110, bicarbonate 26, BUN 30, creatinine 0.9, glucose 191, calcium 9.4, phosphorous 3.8, magnesium 2.2, AST 34, ALT 36, alk phos is 108, albumin is 3.6. Chest x-ray done yesterday shows poor inspiratory effort, crowded bronchial vascular marking, basilar atelectasis, and cardiomegaly. IMPRESSION AND PLAN: Intraparenchymal hemorrhage with ventricular extension, hydrocephalus, hypertension, diabetes, respiratory failure, extubated on nasal cannula, may have a component of sleep apnea syndrome, daytime hypersomnia, oropharyngeal dysphagia, modified diet, spoke to the patient's daughter at bedside. All the questions answered. Continue daytime stimulant, DC Ativan, aspiration precaution, gastric prophylaxis, and SCD to lower extremity. Thank you and we will follow with you. Livia Francois MD
[2017-06-24] MEDS: Ampicillin/Sulbactam 3 GM in Sodium Chloride 0.9% 100 ML IVPB SCH ×4 (00:15→18:00)
[2017-06-24] MEDS: Insulin Reg-MEDIUM-Coverage SC SCH ×4 (03:10→22:04)
[2017-06-24] MEDS: Pantoprazole 40 mg Susp UD PO SCH (05:25)
[2017-06-24 07:10] LABS: ALKALINE PHOSPHATASE 93 U/L (38-126); ALT/SGPT 29 U/L (7-56); AST/SGOT 28 U/L (14-36); BLOOD UREA NITROGEN 24 mg/dL (7-21); CALCIUM 9.1 mg/dL (8.4-10.5); CARBON DIOXIDE 26 mmol/L (21-33); CHLORIDE 115 mmol/L (98-107); GFR AFRICAN-AMERICAN > 60; GLUCOSE,RANDOM 164 mg/dL (70-110); MAGNESIUM 2.1 mg/dL (1.7-2.2); PHOSPHOROUS 3.5 mg/dL (2.5-4.5); POTASSIUM 3.6 mmol/L (3.6-5.0); SODIUM 152 mmol/L (132-148); TOTAL PROTEIN 6.9 g/dL (5.8-8.3)
[2017-06-24 07:18] LABS: BASO # 0.03 K/mm3 (0.0-2.0); BASO % 0.2 % (0.0-3.0); EOS # 0.2 (0.0-0.7); EOS % 1.5 % (1.5-5.0); GRAN # 9.42 (1.4-6.5); GRAN % 67.2 % (50.0-68.0); LYMPH # 3.5 (1.2-3.4); LYMPH % 24.8 % (22.0-35.0); MEAN CELL VOLUME 90.2 fl (80.0-105.0); MEAN CORPUSCULAR HEMOGLOBIN 28.8 pg (25.0-35.0); MEAN CORPUSCULAR HGB CONC 31.9 g/dl (31.0-37.0); MEAN PLATELET VOLUME 9.7 fl (7.0-11.0); MONO # 0.9 (0.1-0.6); MONO % 6.3 % (1.0-6.0); RED CELL DISTRIBUTION WIDTH 14.5 % (11.5-14.5)
[2017-06-24] MEDS: diltiaZEM 180 mg/24 Hours CD Cap PO SCH (09:08)
--- NOTE | 2017-06-24 09:13 | CT ---
PROCEDURE: CT HEAD WITHOUT CONTRAST. 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 Radiation dose: Total exam DLP = 812.79 mGy-cm. This CT exam was performed using one or more of the following dose reduction techniques: Automated exposure control, adjustment of the mA and/or kV according to patient size, and/or use of iterative reconstruction technique. FINDINGS: HEMORRHAGE: There is interval involution of 5.2 cm subacute hematoma in the left occipital lobe with surrounding vasogenic edema without midline shift. There is mass effect and effacement of the left occipital horn of the lateral ventricle. There is interval significant resolution of intraventricular hemorrhage with residual small amount of layering hemorrhage in the right occipital lobe and small hemorrhage in the left lateral ventricle. No evidence of herniation. BRAIN: There are severe chronic microangiopathic changes. There is no extra-axial fluid collection. VENTRICLES: No hydrocephalus. Mild global parenchymal volume loss and proportionate enlargement of the ventricles and cortical sulci. CALVARIUM: Unremarkable. PARANASAL SINUSES: Predominantly clear. MASTOID AIR CELLS: Predominantly clear. OTHER FINDINGS: None. IMPRESSION: Interval evolution of known subacute hematoma in the left occipital lobe without midline shift or herniation. Resolving intraventricular hemorrhage with residual mild intraventricular hemorrhage. No hydrocephalus.
--- NOTE | 2017-06-24 09:37 | PN ---
DATE: 06/23/2017 The patient is 72 years old. SUBJECTIVE: The patient has been examined on the bedside, looking comfortable, sleepy, arousable, moving all 4 extremities. As per family, the patient was not sleeping last night. Geodon was given. As per nursing staff, she was restless last night, so they gave a dose of Geodon. Now, the patient is arousable. No complaints. No nausea, vomiting or diarrhea. No hematuria. No hematochezia. PHYSICAL EXAMINATION VITAL SIGNS: Temperate 99.7, heart rate 89, blood pressure 159/100. HEENT: Head is normocephalic and atraumatic. Eyes: PERRLA. Extraocular muscles intact. Conjunctivae clear. Nose patent. Mucous membrane moist. NECK: Supple. No carotid bruits, No thyromegaly. CHEST: Clear to auscultation. CARDIOPULMONARY: S1 and S2 positive. ABDOMEN: Soft. Bowel sounds positive. No organomegaly EXTREMITIES: No clubbing. No cyanosis. LABORATORY DATA: White blood cells 13, hemoglobin 12, hematocrit 38, and platelets 297. Sodium 150, potassium 3.1, BUN 13, creatinine 0.9, chloride 110. MEDICATIONS: Aldactone, Augmentin, hydralazine 81, Cardizem, Catapres, Cozaar, insulin, Nuvigil, Protonix, labetalol, Tylenol, Zofran. ASSESSMENT AND PLAN: The patient is a 72 years old lady with electrolyte imbalance, replaced; uncontrolled hypertension; fever, mainly sepsis, mainly central; altered mental status; intracerebral bleeding; cerebrovascular accident; status post respiratory failure, successfully extubated. Echo done shows 55% to 60% ejection fraction. Dr. Rendon added Aldactone. Change Cardizem CD to 180 from today. Hydralazine p.r.n. for systolic blood pressure more than 170. Potassium replaced. Clonidine patch to control hypertension. Seen by Dr. Ho, infectious disease. Her T-max 100.4. Leukocytosis improving. Cultures done were negative. Continue Unasyn. Clostridium difficile and repeat urine culture sent. According to ID, fever is secondary to intracranial hemorrhage. GI/DVT prophylaxis. The patient has history of bipolar and schizophrenia. Dr. Sarah Rubio is on the case. View Dr. Ho, Dr. Rendon and Dr. Francois's notes. Getting modified diet, partially oropharyngeal dysphagia. As per Dr. Francois, we will repeat chest x-ray to make sure this is not treated. No aspiration pneumonia. Keep her elevated at [address] Francois added a daytime stimulant. Will follow up. Gayle Jones MD
--- NOTE | 2017-06-24 13:15 | CP.PCM.PN ---
Subjective - Date & Time of Evaluation Date of Evaluation: 06/24/17 Time of Evaluation: 13:11 - Subjective Subjective: Infectious Disease Follow Up June 24, 2017 72 yo female presented with fall and altered mental status. She was found at home on floor by family who heard her fall. The patient was brought into the ER and found to be in uncontrolled hypertension and requiring intubation on arrival in the ER. The patient was found to hae a 4.4 cm left occipital intracranial hemorrhage with intraventricular extension. Patient is recovering but still having episodes of low grade fevers. Patient herself is not making any new complaints. She still has residual right sided weakness. she continued to have low grade fevers yesterday and is still having low grade fevers today up to 101.6 F in the past 24 hours. Repeat cultures sent. Cannot rule out central fever. Cultures negative to date at 48 hours. Objective - Vital Signs/Intake and Output Vital Signs (last 24 hours): Temp Pulse Resp BP Pulse Ox 100.9 F H 105 H 20 157/99 H 97 06/24/17 07:49 06/24/17 10:00 06/24/17 06:00 06/24/17 09:08 06/24/17 06:00 Intake and Output: 06/24/17 06/24/17 06:59 18:59 Intake Total 200 Balance 200 - Medications Medications: Current Medications Acetaminophen (Tylenol 325 Mg Supp) 325 mg RC Q6H PRN PRN Reason: Temperature >100.4 Last Admin: 06/24/17 06:49 Dose: 325 mg Armodafinil (Nuvigil 150 Mg Tab) 150 mg PO DAILY [facility] Last Admin: 06/24/17 09:11 Dose: 150 mg Clonidine HCl (Catapres-Tts3 0.3 Mg/24 Hr) 1 patch TD Q7D@1000 [facility] Last Admin: 06/21/17 12:20 Dose: 1 patch Diltiazem HCl (Cardizem Cd) 180 mg PO DAILY [facility] Last Admin: 06/24/17 09:08 Dose: 180 mg Hydralazine HCl (Apresoline) 10 mg IVP Q6 PRN PRN Reason: for sbp.160 &/or Diastolic>100 Last Admin: 06/24/17 00:12 Dose: 10 mg Ampicillin Sodium/Sulbactam (Sodium 3 gm/ Sodium Chloride) 100 mls @ 100 mls/ hr IVPB Q6H [facility] PRN Reason: Protocol Last Admin: 06/24/17 12:21 Dose: 100 mls/hr Insulin Human Regular (Humulin R Med) 0 units SC Q6H [facility] PRN Reason: Protocol Last Admin: 06/24/17 09:05 Dose: 1 units Labetalol HCl (Trandate) 10 mg IV Q2H PRN PRN Reason: Systolic Blood Pressure Last Admin: 06/19/17 23:07 Dose: 10 mg Losartan Potassium (Cozaar) 100 mg PO DAILY [facility] Last Admin: 06/24/17 09:08 Dose: 100 mg Metoprolol Tartrate (Lopressor) 25 mg PO BID [facility] Last Admin: 06/24/17 09:07 Dose: 25 mg Ondansetron HCl (Zofran Inj) 4 mg IVP Q6H PRN PRN Reason: Nausea/Vomiting Last Admin: 06/23/17 18:41 Dose: 4 mg Pantoprazole Sodium (Protonix Susp) 40 mg PO 0600 [facility] Last Admin: 06/24/17 05:25 Dose: Not Given Spironolactone (Aldactone) 50 mg PO DAILY [facility] Last Admin: 06/24/17 09:07 Dose: 50 mg - Labs Labs: 06/24/17 06:32 06/24/17 06:32 PT 10.6 Seconds (9.9-11.8) 06/19/17 05:10 INR 0.98 (0.93-1.08) 06/19/17 05:10 APTT 24.9 Seconds (23.7-30.8) 06/14/17 07:50 - Constitutional Appears: Non-toxic, No Acute Distress, Chronically Ill - Head Exam Head Exam: ATRAUMATIC, NORMOCEPHALIC - Eye Exam Eye Exam: EOMI, PERRL Pupil Exam: NORMAL ACCOMODATION, PERRL - ENT Exam ENT Exam: Mucous Membranes Moist, Normal External Ear Exam, TM's Normal Bilaterally - Neck Exam Neck Exam: Full ROM, Normal Inspection - Respiratory Exam Respiratory Exam: Clear to Ausculation Bilateral, Wheezes, NORMAL BREATHING PATTERN. absent: Rales, Rhonchi - Cardiovascular Exam Cardiovascular Exam: REGULAR RHYTHM, RRR, +S1, +S2 - GI/Abdominal Exam GI & Abdominal Exam: Soft, Normal Bowel Sounds. absent: Distended, Tenderness - Extremities Exam Extremities Exam: Pedal Edema Additional comments: right sided weakness - Neurological Exam Neurological Exam: Alert, Awake Additional comments: AAO x 2-3, right sided weakness. - Psychiatric Exam Psychiatric exam: Depressed, Normal Affect - Skin Skin Exam: Intact, Normal Color Assessment and Plan - Assessment and Plan (Free Text) Assessment: 72 yo female with low grade fevers of up to 100.4 F after suffering from a 4.4cm left occipital intracranial hemorrhage with intraventricular extension. The patient initially had fevers up to 101.7 F. Clinically, the patient has been improving. Supportive care. She was intubated on admission. She was extubated on 06/18/2017. She speaks uzbek mostly. The family states that the patient is acting and speaking appropriately other than the slurring of speech due to her right sided residual weakness. Tolliver cultures sent. There was a mild initial leukocytosis on admission but this has slowly improved. Fever trend has shown improvement. The cultures done to date have been negative so far. No consolidation seen on Chest X-ray. Patient answering question during interview and examination. Supportive care. Currently on Unasyn for antibiotic coverage. Noted C. Diff and repeat urine culture sent. No adequate sample for C. diff testing. Would obtain urinalysis. Would continue Unasyn for now. The current temperature is more likely secondary to the recent intracranial hemorrhage. Leukocytosis improved to 10.9 today. Cultures to date are negative. Fever up to 101.6 F in the past 24 hours. Awaiting repeat cultures results. Cultures negative to date at 48 hours. Cannot rule out central fever which is the most likely scenario. Thank you for allowing me to participate in the care of the patient, we will follow with you.
[2017-06-24] MEDS ORDERED: Potassium Chloride 20 mEq ER Tab PO ONE (13:23)
[2017-06-24] MEDS ORDERED: Sodium Chloride 0.9% 1,000 ML IV SCH (13:30)
--- NOTE | 2017-06-24 16:11 | PN ---
DATE: 06/24/2017 REASON FOR CONSULTATION: Followup cardiac evaluation, intracerebral bleed, and uncontrolled hypertension. SUBJECTIVE: The patient speaks [place]an. Denies any chest pain, shortness of breath, or any palpitation. Daughter was at the bedside. OBJECTIVE: GENERAL: Lying flat on the bed, not in apparent distress. VITAL SIGNS: Temperature 100.9, heart rate 83, and blood pressure 159/90. HEENT: PERRLA. Extraocular muscles intact. NECK: Supple. No carotid bruit. No thyromegaly. CHEST: Clear to auscultation. HEART: S1 and S2 regular. ABDOMEN: Soft. EXTREMITIES: Clubbing and cyanosis negative. LABORATORY DATA: Blood workup as follows: WBC 14, hemoglobin 11.8, hematocrit 37, and platelet count 284. Chemistry showed sodium 152, potassium 3.6, chloride 101, carbon dioxide 26, anion gap of 15, BUN 24, creatinine 0.9. IMPRESSION: Hypernatremia, uncontrolled hypertension, history of cerebrovascular accident, intracerebral bleed, altered mental status, fever, rule out sepsis versus central fever, status post respiratory failure, status post successfully extubated, intracerebral bleed. Last echo showed ejection fraction 55-60%, mild mitral regurgitation, moderate tricuspid regurgitation, RV systolic pressure 30. RECOMMENDATIONS: So far, the blood culture remains negative, so most likely it is fever from the central origin from stroke, CVA, and intracerebral bleed. Aggressively control of blood pressure. Start IV fluid half normal for hypernatremia. Cardizem was changed to Cardizem CD, we will give a 60 extra dose of Cardizem and change to 240 from tomorrow. Continue IV hydralazine. Continue clonidine patch #3. Continue low-dose beta-patel and if still needs, we will start some JUSTINA inhibitor. The patient is already on losartan, so we will increase Cardizem to 240 from tomorrow, we will give extra dose of 60 around 2 p.m. and to start half normal saline. Follow up electrolytes and repeat electrolytes in the morning. We will supplement potassium. Livia Rendon MD
--- NOTE | 2017-06-24 19:15 | PN ---
NEUROLOGY PROGRESS NOTE DATE: SUBJECTIVE: The patient is lying on the bed in no acute distress. PHYSICAL EXAMINATION: VITAL SIGNS: Her blood pressure is 153/88, heart rate is 84 per minute, breathing at the rate of 16 per minute, temperature 99.6 degrees Fahrenheit. HEENT: Head is normocephalic and traumatic. NECK: Supple. There are no carotid bruits. LUNGS: Clear. CARDIOVASCULAR: S1 and S2 audible. No murmur. ABDOMEN: Soft and nontender. Bowel sounds are present. NEUROLOGIC: Mental Status: The patient is awake, alert. She follows some commands. Cranial nerve examination: Pupils are 3 mm reactive. There is decreased visual field on the right side. Decreased nasolabial fold on the right side. Motor examination: Tone is normal. She is moving her left side more than the right side. The right side appears to be moving slightly, which appears to be 2/5. Left side is 4-5/5. LABORATORY DATA: Labs reviewed shows WBC 14.0, hemoglobin of 11.8, hematocrit of 37.0, and platelets of 284. Her sodium is 172, potassium is 3.6, chloride of 115, carbon dioxide 26, BUN of 24, creatinine 0.9, and glucose of 164. She had a repeat CT scan of the head done on 06/23/2017, which shows interval evolution of nonsubacute hematoma in the left occipital lobe without midline shift or herniation. Resolving intraventricular hemorrhage with the residual mild intraventricular hemorrhage. IMPRESSION: 1. Cerebrovascular accident with left occipital hemorrhage with intraventricular extension. 2. Leukocytosis. 3. Status post respiratory failure. RECOMMENDATIONS: 1. The patient's repeat CT scan shows improvement. 2. The patient has fever associated with increased WBC count, which appears to be secondary to infection. The patient is currently on IV antibiotics. 3. The patient to have physical therapy and speech therapy. 4. Once the patient's fever improves and she gets more stable, she may be transferred to an acute rehab facility. 5. Please continue supportive care and other treatment. Thank you for the opportunity to participate in the care of this patient. Evan Glover MD
[2017-06-24] MEDS ORDERED: Cefepime IV 2 gm in NS 2 GM/100 ML BAG IVPB STA (22:23)
--- NOTE | 2017-06-25 02:27 | PN ---
DATE: 06/24/2017 PULMONARY PROGRESS NOTE REFERRING PHYSICIAN: Gayle Jones MD SUBJECTIVE: She is lying in the bed, sleepy, arousable, follows simple command, and mild cough. No sputum production, no hemoptysis, no hematemesis, no hematuria. No diarrhea reported. OBJECTIVE: GENERAL: No acute distress. VITAL SIGNS: T-max 102, heart rate is 89 , respiratory rate 18, blood pressure 151/93, pulse ox 98% on room air. HEENT: Moist mucus membrane. Crowded airway. NECK: Supple, no JVD. LUNGS: Have scattered rhonchi. HEART: S1 and S2. ABDOMEN: Soft, nontender. No organomegaly. EXTREMITIES: There is no edema. NEUROLOGIC: Sleepy and arousable. Follow simple commands. MEDICATION: She is on Aldactone 50 mg daily, hydralazine 10 mg q.i.d., Cardizem CD 240 mg daily, Catapres 0.3 mg q. 7 days, Cozaar 100 mg daily, insulin coverage, metoprolol tartrate 50 mg twice a day, Nuvigil 150 mg daily, Protonix 40 mg daily, IV fluid normal saline 50 mL per hour, Tylenol p.r.n. basis. LABORATORY DATA: Shows hemoglobin 11.8, hematocrit 37.0, WBC 14 and platelet count is 284. Sodium 152, potassium 3.6, chloride 115, bicarbonate 26, BUN 24, creatinine 0.9, glucose 164, calcium 9.1, phosphorous 3.5, manganism 2.1. AST 28, ALT 29 and alk phos is 93. Albumin 3.5. CAT scan of the head done today shows internal evolution of known subacute hematoma in the left occipital lobe without mid lung shift or herniation, resolving intraventricular hemorrhage with residual mild intraventricular hemorrhage. IMPRESSION AND PLAN: Intraparenchymal hemophage with ventricular extension; mild hydrocephalus; hypertension; diabetes; respiratory failure, currently extubated, may have component of sleep apnea syndrome; daytime hypersomnia; oropharyngeal dysphagia, modify diet; spiked fiver; high risk for aspiration. We will repeat chest x-ray again. May need to restart oral antibiotics. Keep head elevated at 45 degrees. We will give one dose of cefepime until seen by infectious diseases. The patient will benefit from acute neuro rehab. Thank you and we will follow with you. Livia Francois MD [facility] # [id number]
[2017-06-25] MEDS: Insulin Reg-MEDIUM-Coverage SC SCH ×5 (03:00→22:09)
--- NOTE | 2017-06-25 03:39 | PN ---
DATE: SUBJECTIVE: The patient was seen and examined on the bedside, looking comfortable. No nausea, vomiting or diarrhea. No hematuria. No hematochezia. No swelling of the legs. No chest pain. No palpitation. The patient is not a good historian. Has fever. PHYSICAL EXAMINATION VITAL SIGNS: Temperate 102, pulse rate 88, blood pressure 179/115 and 181/102, respiratory rate 18, and oxygenation 98%. HEENT: Head is normocephalic and atraumatic. Eyes open. Nose patent. Mucous membrane moist. NECK: Supple. No carotid bruits, JVD, or thyromegaly. CHEST: Bilaterally symmetrical. HEART: S1 and S2 positive. LUNGS: Clear to auscultation. ABDOMEN: Soft. Bowel sounds present. No organomegaly. EXTREMITIES: No edema. No cyanosis. NEUROLOGIC: The patient is awake. REVIEW OF SYSTEMS: He is not giving review of systems. MEDICATIONS: Aldactone, hydralazine, Cardizem, losartan and Lopressor. LABORATORY DATA: White blood cells 14.0, hemoglobin 11.8, hematocrit of 37.0, and platelets of 284. Sodium 152, potassium 3.6, BUN 24, and glucose 156. ASSESSMENT AND PLAN: Ms. Noy Bryant is a 72-year-old lady with uncontrolled hypertension. I increased her metoprolol from 25 to 50, make her hydralazine around the clock instead of p.r.n. Cerebrovascular accident with intracranial hemorrhage with intraventricular extension, status post respiratory failure, hypercholesterolemia, and hypertriglyceridemia. The patient is showing very slow improvement. Seen by the tight barrel inspector and neurologist. Status post intracerebral bleed; altered mental status; schizophrenia, bipolar; hypertension; history of intubation; successfully extubated; obesity; hypercholesterolemia. Dr. Francois started Coumadin patch, and monitoring the blood pressure. We will repeat labs. GI/DVT prophylaxis. We will follow up. Gayle Jnoes MD
[2017-06-25] MEDS: Pantoprazole 40 mg Susp UD PO SCH (07:12)
[2017-06-25] MEDS: diltiaZEM 240 mg/24 Hours CD Cap PO SCH (11:43)
--- NOTE | 2017-06-25 13:16 | RAD ---
HISTORY: pneumonia COMPARISON: 06/22/2017 FINDINGS: LUNGS: The right lung is clear. There is a left retrocardiac opacity. There are low lung volumes. PLEURA: There is blunting of the left costophrenic angle. No right pleural effusion. No pneumothorax. CARDIOVASCULAR: There is persistent moderate cardiomegaly. OSSEOUS STRUCTURES: No significant abnormalities. VISUALIZED UPPER ABDOMEN: Normal. OTHER FINDINGS: None. IMPRESSION: Left retrocardiac opacity may represent atelectasis/ pneumonia. Suspect left pleural effusion. Follow-up after medical management is recommended to ensure complete resolution.
[2017-06-25] MEDS: Bisacodyl 5mg EC Tab PO SCH (13:19)
--- NOTE | 2017-06-25 16:17 | PN ---
DATE: 06/25/2017 REASON FOR CONSULTATION: Followup cardiac cath evaluation, intracerebral bleed . PHYSICAL EXAMINATION GENERAL: Lying flat on the bed, not in apparent distress. VITAL SIGNS: As follows; the patient is afebrile, temperature 99.2, heart rate 82, blood pressure 159/96. HEENT: PERRLA. Extraocular muscles intact. NECK: Supple. No carotid bruits. No thyromegaly. CHEST: Clear to auscultation. HEART: S1, S2 regular. ABDOMEN: Soft. EXTREMITIES: Clubbing or cyanosis negative. LABORATORY DATA: Blood workup as follows. WBC 14, hemoglobin 11.9, hematocrit 37.0, platelet count 284. Chemistry shows sodium 152, potassium 3.2, chloride 105, carbon dioxide 26, anion gap 15, BUN 24, creatinine 0.9. IMPRESSION: Hypernatremia, intracerebral bleed, hypertension, bradycardia, nausea, normal sinus, fever possibly central fever. Blood culture is negative. Last echo showed atrial fibrillation 60%, [id number] regurgitation, moderate 30. RECOMMENDATION: Followup blood culture. So far blood culture remains negative. Continue aggressive control of blood pressure. Continue Cardizem CD if started. Today we will get echo. Continue losartan. Monitor for bradycardia throughout, the patient is in , Cardizem and metoprolol with EKG and if the blood pressure regular, we will increase 25 b.i.d. versus the patient and start the Cardizem. Today we will monitor the blood pressure next 24- hour with EKG today. We will repeat the blood workup in the morning. Livia Rendon MD cc:
--- NOTE | 2017-06-25 18:02 | CP.PCM.PN ---
Subjective - Date & Time of Evaluation Date of Evaluation: 06/25/17 Time of Evaluation: 17:30 - Subjective Subjective: Infectious Disease Follow Up June 25, 2017 72 yo female presented with fall and altered mental status. She was found at home on floor by family who heard her fall. The patient was brought into the ER and found to be in uncontrolled hypertension and requiring intubation on arrival in the ER. The patient was found to hae a 4.4 cm left occipital intracranial hemorrhage with intraventricular extension. Patient is recovering but still having episodes of low grade fevers. Patient herself is not making any new complaints. She still has residual right sided weakness. she continued to have low grade fevers yesterday and is still having fevers today up to 102.2 F in the past 24 hours. Repeat cultures sent. Cannot rule out central fever. Cultures negative to date from sets taken on 06/21/2017 and 06/22/2017. Objective - Vital Signs/Intake and Output Vital Signs (last 24 hours): Temp Pulse Resp BP Pulse Ox 100.7 F H 88 19 174/98 H 98 06/25/17 17:20 06/25/17 17:19 06/25/17 12:00 06/25/17 17:19 06/25/17 06:00 Intake and Output: 06/25/17 06/25/17 06:59 18:59 Intake Total 700 Balance 700 - Medications Medications: Current Medications Acetaminophen (Tylenol 325 Mg Supp) 325 mg RC Q6H PRN PRN Reason: Temperature >100.4 Last Admin: 06/25/17 17:20 Dose: 325 mg Armodafinil (Nuvigil 150 Mg Tab) 150 mg PO DAILY [facility] Last Admin: 06/25/17 11:45 Dose: 150 mg Bisacodyl (Dulcolax) 5 mg PO DAILY [facility] Last Admin: 06/25/17 13:19 Dose: 5 mg Clonidine HCl (Catapres-Tts3 0.3 Mg/24 Hr) 1 patch TD Q7D@1000 [facility] Last Admin: 06/21/17 12:20 Dose: 1 patch Diltiazem HCl (Cardizem Cd) 240 mg PO DAILY [facility] Last Admin: 06/25/17 11:43 Dose: 240 mg Hydralazine HCl (Apresoline) 10 mg PO QID [facility] Last Admin: 06/25/17 17:19 Dose: 10 mg Insulin Human Regular (Humulin R Med) 0 units SC ACHS [facility] PRN Reason: Protocol Last Admin: 06/25/17 17:19 Dose: 3 units Losartan Potassium (Cozaar) 100 mg PO DAILY [facility] Last Admin: 06/25/17 11:43 Dose: 100 mg Metoprolol Tartrate (Lopressor) 50 mg PO BID [facility] Last Admin: 06/25/17 17:19 Dose: 50 mg Ondansetron HCl (Zofran Inj) 4 mg IVP Q4H PRN PRN Reason: Nausea/Vomiting Last Admin: 06/25/17 12:55 Dose: 4 mg Pantoprazole Sodium (Protonix Susp) 40 mg PO 0600 [facility] Last Admin: 06/25/17 07:12 Dose: Not Given Spironolactone (Aldactone) 50 mg PO DAILY [facility] Last Admin: 06/25/17 11:43 Dose: 50 mg - Labs Labs: 06/24/17 06:32 06/24/17 06:32 PT 10.6 Seconds (9.9-11.8) 06/19/17 05:10 INR 0.98 (0.93-1.08) 06/19/17 05:10 APTT 24.9 Seconds (23.7-30.8) 06/14/17 07:50 - Constitutional Appears: Non-toxic, No Acute Distress, Chronically Ill - Head Exam Head Exam: ATRAUMATIC, NORMOCEPHALIC - Eye Exam Eye Exam: EOMI, PERRL Pupil Exam: NORMAL ACCOMODATION, PERRL - ENT Exam ENT Exam: Mucous Membranes Moist, Normal External Ear Exam, TM's Normal Bilaterally - Neck Exam Neck Exam: Full ROM, Normal Inspection - Respiratory Exam Respiratory Exam: Clear to Ausculation Bilateral, NORMAL BREATHING PATTERN. absent: Rales, Rhonchi, Wheezes - Cardiovascular Exam Cardiovascular Exam: REGULAR RHYTHM, RRR, +S1, +S2 - GI/Abdominal Exam GI & Abdominal Exam: Soft, Normal Bowel Sounds. absent: Distended, Tenderness - Extremities Exam Extremities Exam: Pedal Edema Additional comments: right sided weakness - Neurological Exam Neurological Exam: Alert, Awake Additional comments: AAO x 2-3, right sided weakness. - Psychiatric Exam Psychiatric exam: Depressed, Normal Mood - Skin Skin Exam: Intact, Normal Color Assessment and Plan - Assessment and Plan (Free Text) Assessment: 72 yo female with low grade fevers of up to 100.4 F after suffering from a 4.4cm left occipital intracranial hemorrhage with intraventricular extension. The patient initially had fevers up to 101.7 F. Clinically, the patient has been improving. Supportive care. She was intubated on admission. She was extubated on 06/18/2017. She speaks german mostly. The family states that the patient is acting and speaking appropriately other than the slurring of speech due to her right sided residual weakness. Tolliver cultures sent. There was a mild initial leukocytosis on admission but this has slowly improved. Fever trend has shown improvement. The cultures done to date have been negative so far. No consolidation seen on Chest X-ray. Patient answering question during interview and examination. Supportive care. Currently on Unasyn for antibiotic coverage. Noted C. Diff and repeat urine culture sent. No adequate sample for C. diff testing. Would obtain urinalysis. Would continue Unasyn for now. The current temperature is more likely secondary to the recent intracranial hemorrhage. Leukocytosis of 14.0 today but with a normal differential. Multiple culture sets performed to date are negative. Fever up to 102.2 F in the past 24 hours. Cultures negative to date at greater than 48 hours. Cannot rule out central fever which is the most likely scenario. Last CT done on 06/23/2017 showing interval evolution of known subacute hematoma in left occipital love withou midline shift or herniation. Resolving intraventricular hemorrhage with residual mild intraventricular hemorrhage. If fevers spike again to over 102, repeat blood and urine cultures. She remains on Cefepime for antibiotic coverage. Thank you for allowing me to participate in the care of the patient, we will follow with you.
--- NOTE | 2017-06-25 20:43 | PN ---
NEUROLOGY PROGRESS NOTE SUBJECTIVE: The patient is lying on the bed in no acute distress. Denies any headache. Complained of some neck pain. PHYSICAL EXAMINATION VITAL SIGNS: Her blood pressure is 174/98, heart rate is 98 per minute, breathing at the rate of 16 per minute, and temperature is 100.7 degree Fahrenheit. HEENT EXAM: Head is normocephalic and atraumatic. NECK: Supple. There are no carotid bruits. LUNGS: Clear. CARDIOVASCULAR : S1 and S2 audible. No murmurs. ABDOMEN: Soft and nontender. Bowel sounds are present. NEUROLOGIC EXAMINATION: Mental status: The patient is awake and alert. She looks at the examiner. She follows some simple commands. Cranial nerve examination: Pupils are 3 mm bilaterally reactive to light. Visual bonner impaired on the right side. The patient is sleeping more towards the left side. There is decreased nasolabial fold on the right side. Motor examination: Tone is normal. Power on the left side is 4/5. Power on the right upper extremity 2 to 3/5. Power on the right lower extremity 2/5. Plantars upgoing on the right and downgoing on the left side. Gait is untestable at the moment. IMPRESSION: 1. Cerebrovascular accident with intracerebral hemorrhage involving the left occipital region with intraventricular extension. 2. Pneumonia. RECOMMENDATIONS: 1. The patient's mental status seems to be better today. 2. The patient to have IV antibiotics. 3. The patient to have MRI of the brain to look for any underlying pathology responsible for the hemorrhage. 4. The patient to have physical therapy and speech therapy. 5. The patient is complaining of pain in her neck. We will try to apply local analgesic, like Bengay. 6. Please continue physical therapy and speech therapy. 7. Please continue supportive care and treatment. Thank you for the opportunity to participate in the care of this patient. Evan Glover MD
[2017-06-25] MEDS: Menthol/Methyl Salicylate Ointment(1 oz) TOP SCH (22:11)
--- NOTE | 2017-06-25 22:36 | CARD ---
APPROVED REPORT EKG Measurement Heart [id number] <Conclusion> Ectopic Atrial vs Junctional rhythm Abnormal ECG
--- NOTE | 2017-06-25 22:51 | PN ---
SUBJECTIVE: The patient is a 72-year-old female. The patient was seen and examined on the bedside, looking comfortable. As per the patient's daughter, the patient is having headache; otherwise, no nausea, vomiting or diarrhea. No swelling of the legs. No big change in the status, still having fever. PHYSICAL EXAMINATION: VITAL SIGNS: Temperate 100.7, pulse 98, blood pressure 174/98, respiratory rate 19. HEENT: Head is normocephalic and atraumatic. Eyes; PERRLA. Extraocular muscles intact. Conjunctivae clear. Nose patent. Mucous membranes moist. NECK: Supple. No carotid bruits. No JVD or thyromegaly. CHEST: Bilaterally symmetrical. HEART: S1 and S2 positive. LUNGS: Clear to auscultation. ABDOMEN: Soft. Bowel sounds present. No organomegaly. EXTREMITIES: No edema. No cyanosis. NEUROLOGIC: The patient is awake, but is not communicating much. MEDICATIONS: Aldactone, hydralazine, Cardizem, Catapres, losartan, Dulcolax, insulin, Lopressor, Nuvigil, Protonix, Tylenol, Zofran. LABORATORY DATA: White blood cells 14.0, hemoglobin 11.8, hematocrit of 37.0, and platelets of 287. Chemistry: Sugar is 222, sodium 152, potassium 3.6, BUN 24, creatinine 0.9, glucose 165. ASSESSMENT AND PLAN: The patient is a 72-year-old female with leukocytosis, anemia, hypernatremia, hyperchloremia, hyperglycemia. Plan for chest x-ray according to that. Last retrocardiac opacity may represent atelectasis/pneumonia, suspect left pleural effusion. [employer] is on the case. ID is on the case. Blood pressure is high. We will increase dose of hydralazine. Seen by Dr. Go. LATHAM , we will continue Unasyn, and according to him, current temperature is secondary to intracranial hemorrhage, but the patient has leukocytosis also with normal differential. Multiple cultures that were performed to date are negative. Last CAT scan was done on 06/23 and showing interval evolution of known subacute hematoma in the left occipital lobe without midline shift or herniation, resolving intracranial hemophage with residual midline intraventricular hemorrhage. The patient has history of bipolar, Dr. Rubio is on the case. The patient needs DVT prophylaxis, waiting for neurologist clearance to start DVT prophylaxis. respiratory failure, was intubated, then extubated safely. Physical therapy is on the case. The patient has constant fever, cannot be transferred to rehab with constant fever and plan is to start some type of DVT prophylaxis. Length of time discussion done with the patient and with daughter. We will follow up. Gayle Jones MD MTDD
--- NOTE | 2017-06-26 00:46 | CP.PCM.PN ---
Subjective - Date & Time of Evaluation Date of Evaluation: 06/26/17 Time of Evaluation: 00:42 - Subjective Subjective: Patient was seen at bedside because she complained of head ache.BP was 158/100. 0637: Headache, BP 149/87, T: 99.9*F. Has no other complaints. Denies dizziness, nausea, vomiting, chest pain, sob. Medical record was reviewed. Has PMH of DM II , HTN, arthritis , GERD, dyspepsia, cataract surgery, schizophrenia. Objective - Vital Signs/Intake and Output Vital Signs (last 24 hours): Temp Pulse Resp BP Pulse Ox 98.7 F 73 20 128/78 100 06/25/17 20:46 06/25/17 22:12 06/25/17 20:46 06/25/17 22:12 06/25/17 20:46 Intake and Output: 06/25/17 06/26/17 18:59 06:59 Intake Total 480 Output Total 300 Balance 180 - Medications Medications: Current Medications Acetaminophen (Tylenol 325 Mg Supp) 325 mg RC Q6H PRN PRN Reason: Temperature >100.4 Last Admin: 06/25/17 22:15 Dose: 325 mg Armodafinil (Nuvigil 150 Mg Tab) 150 mg PO DAILY [facility] Last Admin: 06/25/17 11:45 Dose: 150 mg Bisacodyl (Dulcolax) 5 mg PO DAILY [facility] Last Admin: 06/25/17 13:19 Dose: 5 mg Camphor/Menthol (Bengay) 0 gm TOP QID [facility] Last Admin: 06/25/17 22:11 Dose: 11 oin Clonidine HCl (Catapres-Tts3 0.3 Mg/24 Hr) 1 patch TD Q7D@1000 [facility] Last Admin: 06/21/17 12:20 Dose: 1 patch Diltiazem HCl (Cardizem Cd) 240 mg PO DAILY [facility] Last Admin: 06/25/17 11:43 Dose: 240 mg Hydralazine HCl (Apresoline) 25 mg PO QID [facility] Last Admin: 06/25/17 22:12 Dose: 25 mg Cefepime HCl (Maxipime 2gm) 2 gm in 100 mls @ 100 mls/hr IVPB DAILY [facility] PRN Reason: Protocol Stop: 07/01/17 10:01 Insulin Human Regular (Humulin R Med) 0 units SC [facility] PRN Reason: Protocol Last Admin: 06/25/17 22:09 Dose: Not Given Losartan Potassium (Cozaar) 100 mg PO DAILY [facility] Last Admin: 06/25/17 11:43 Dose: 100 mg Metoprolol Tartrate (Lopressor) 50 mg PO BID [facility] Last Admin: 06/25/17 17:19 Dose: 50 mg Ondansetron HCl (Zofran Inj) 4 mg IVP Q4H PRN PRN Reason: Nausea/Vomiting Last Admin: 06/25/17 12:55 Dose: 4 mg Pantoprazole Sodium (Protonix Susp) 40 mg PO 0600 [facility] Last Admin: 06/25/17 07:12 Dose: Not Given Spironolactone (Aldactone) 50 mg PO DAILY [facility] Last Admin: 06/25/17 11:43 Dose: 50 mg - Labs Labs: 06/24/17 06:32 06/24/17 06:32 PT 10.6 Seconds (9.9-11.8) 06/19/17 05:10 INR 0.98 (0.93-1.08) 06/19/17 05:10 APTT 24.9 Seconds (23.7-30.8) 06/14/17 07:50 - Constitutional Appears: Well, No Acute Distress - Head Exam Head Exam: ATRAUMATIC, NORMAL INSPECTION, NORMOCEPHALIC - Eye Exam Eye Exam: Normal appearance - ENT Exam ENT Exam: Normal External Ear Exam - Neck Exam Neck Exam: Normal Inspection - Respiratory Exam Respiratory Exam: NORMAL BREATHING PATTERN - Cardiovascular Exam Cardiovascular Exam: absent: JVD - GI/Abdominal Exam GI & Abdominal Exam: absent: Distended - Rectal Exam Rectal Exam: Deferred - Exam Additional comments: Deferred. - Extremities Exam Extremities Exam: Normal Inspection - Back Exam Back Exam: NORMAL INSPECTION - Neurological Exam Neurological Exam: Alert, Oriented x3 - Psychiatric Exam Psychiatric exam: Normal Affect, Normal Mood - Skin Skin Exam: Normal Color Assessment and Plan - Assessment and Plan (Free Text) Assessment: Elevated blood pressure reading. Head ache. HTN. DM II. GERD. Dyspepsia. Arthritis. Schizophrenia. Plan: Tylenol 650 mg po stat. Recheck blood pressure. Continue present management.
--- NOTE | 2017-06-26 01:10 | PN ---
DATE: 06/25/2017 PULMONARY PROGRESS NOTE REFERRING PHYSICIAN: Dr. Jones SUBJECTIVE: She is lying in the bed at 45 degrees. Daughter is at bedside. Feels better than yesterday. T-max was 101. Has mild cough, no sputum production. No nausea, vomiting, diarrhea. No leg pain or leg swelling. OBJECTIVE: GENERAL: In no acute distress. VITAL SIGNS: Temp is 98, T-max 101, heart rate is 81, respiratory rate is 20, blood pressure 128/78 and pulse ox 100% on nasal cannula. HEENT: Moist mucous membranes and crowded airway. Mallampati score is 4. NECK: Supple. No JVD. LUNGS: Has scattered rhonchi. HEART: S1 and S2. ABDOMEN: Soft and nontender. No organomegaly. EXTREMITIES: There is no edema. NEUROLOGIC: Awake, alert. Does follow simple commands. MEDICATION: She is on Aldactone 50 mg daily, hydralazine 25 mg q.i.d., Bengay affected areas q.i.d., Cardizem CD 240 mg daily, Catapres patch 0.3 weekly, Cozaar 100 mg daily, Dulcolax 5 mg daily, insulin coverage, metoprolol tartrate 50 mg twice a day, Nuvigil 150 mg daily, Protonix 40 mg daily, Tylenol p.r.n., Zofran p.r.n., Lasix. LABORATORY DATA: Shows hemoglobin 11.8. Blood sugar this morning 172. Chest x-ray done today shows left retrocardiac opacity, may represent pneumonia with small pleural effusion. IMPRESSION AND PLAN: Intracranial hemorrhage with ventricular extension, mild hydrocephalus, hypertension, diabetes status post respiratory failure, and had a component of sleep apnea syndrome, oropharyngeal dysphagia, daytime hypersomnia, probably healthcare associated, left lower lobe pneumonia, received Maxipime yesterday. We will continue Maxipime 2 g IV daily. Keep head elevated to 45 degrees, pull the patient's daughter to bedside. All the questions answered, gastric prophylaxis. Case discussed with neurology, Dr. Glynn. Need to do CTA or MRA to assure there is no AV malformation or there is no aneurysm. If none is there, then we will benefit from DVT prophylaxis. Thank you and we will follow with you. Livia Francois MD [facility] # [id number]
[2017-06-26] MEDS: Pantoprazole 40 mg Susp UD PO SCH (05:55)
[2017-06-26 06:04] LABS: ALB/GLOB RATIO 0.8 (1.1-1.8); ALKALINE PHOSPHATASE 87 U/L (38-126); ALT/SGPT 33 U/L (7-56); AST/SGOT 28 U/L (14-36); BILIRUBIN,TOTAL 0.9 mg/dL (0.2-1.3); BLOOD UREA NITROGEN 16 mg/dL (7-21); CARBON DIOXIDE 25 mmol/L (21-33); CHLORIDE 111 mmol/L (95-110); GFR AFRICAN-AMERICAN > 60; GLUCOSE,RANDOM 143 mg/dL (70-110); MAGNESIUM 1.9 mg/dL (1.7-2.2); PHOSPHOROUS 3.5 mg/dL (2.5-4.5); POTASSIUM 3.9 mmol/L (3.6-5.0); SODIUM 146 mmol/L (132-148); TOTAL PROTEIN 6.7 g/dL (5.8-8.3)
[2017-06-26 06:05] LABS: BASO # 0.02 K/mm3 (0.0-2.0); BASO % 0.1 % (0.0-3.0); EOS # 0.5 (0.0-0.7); EOS % 3.5 % (1.5-5.0); GRAN # 9.19 (1.4-6.5); GRAN % 67.5 % (50.0-68.0); HEMATOCRIT 34.5 % (36.0-48.0); LYMPH # 3.2 (1.2-3.4); LYMPH % 23.4 % (22.0-35.0); MEAN CELL VOLUME 90.6 fl (80.0-105.0); MEAN CORPUSCULAR HEMOGLOBIN 28.6 pg (25.0-35.0); MEAN CORPUSCULAR HGB CONC 31.6 g/dl (31.0-37.0); MEAN PLATELET VOLUME 9.6 fl (7.0-11.0); MONO # 0.8 (0.1-0.6); MONO % 5.5 % (1.0-6.0); RED CELL DISTRIBUTION WIDTH 14.1 % (11.5-14.5); WHITE BLOOD COUNT 13.6 10^3/ul (4.5-11.0)
[2017-06-26] MEDS: Insulin Reg-MEDIUM-Coverage SC SCH ×4 (08:06→21:35)
[2017-06-26] MEDS: diltiaZEM 240 mg/24 Hours CD Cap PO SCH (10:45)
[2017-06-26] MEDS: Bisacodyl 5mg EC Tab PO SCH (10:45)
[2017-06-26] MEDS: Menthol/Methyl Salicylate Ointment(1 oz) TOP SCH ×4 (10:49→21:42)
[2017-06-26] MEDS: Cefepime IV 2 gm in NS 2 GM/100 ML BAG IVPB SCH (10:49)
--- NOTE | 2017-06-26 10:56 | CP.PCM.PN ---
Subjective - Date & Time of Evaluation Date of Evaluation: 06/26/17 Time of Evaluation: 10:00 - Subjective Subjective: Infectious Disease Follow Up June 26, 2017 72 yo female presented with fall and altered mental status. She was found at home on floor by family who heard her fall. The patient was brought into the ER and found to be in uncontrolled hypertension and requiring intubation on arrival in the ER. The patient was found to hae a 4.4 cm left occipital intracranial hemorrhage with intraventricular extension. Patient is recovering but still having episodes of low grade fevers. Patient herself is not making any new complaints. She still has residual right sided weakness. she continued to have low grade fevers yesterday and is still having fevers today up to 102.2 F in the past 24 hours. Repeat cultures sent. Cannot rule out central fever. Cultures negative to date from sets taken on 06/21/2017 and 06/22/2017. Objective - Vital Signs/Intake and Output Vital Signs (last 24 hours): Temp Pulse Resp BP Pulse Ox 99.9 F H 74 98 H 149/87 98 06/26/17 06:51 06/26/17 06:00 06/26/17 06:00 06/26/17 06:00 06/26/17 06:00 Intake and Output: 06/26/17 06/26/17 06:59 18:59 Intake Total 660 Output Total 150 Balance 510 - Medications Medications: Current Medications Acetaminophen (Tylenol 325 Mg Supp) 325 mg RC Q6H PRN PRN Reason: Temperature >100.4 Last Admin: 06/25/17 22:15 Dose: 325 mg Armodafinil (Nuvigil 150 Mg Tab) 150 mg PO DAILY [facility] Last Admin: 06/25/17 11:45 Dose: 150 mg Bisacodyl (Dulcolax) 5 mg PO DAILY [facility] Last Admin: 06/25/17 13:19 Dose: 5 mg Camphor/Menthol (Bengay) 0 gm TOP QID [facility] Last Admin: 06/25/17 22:11 Dose: 11 oin Clonidine HCl (Catapres-Tts3 0.3 Mg/24 Hr) 1 patch TD Q7D@1000 [facility] Last Admin: 06/21/17 12:20 Dose: 1 patch Diltiazem HCl (Cardizem Cd) 240 mg PO DAILY [facility] Last Admin: 06/25/17 11:43 Dose: 240 mg Hydralazine HCl (Apresoline) 25 mg PO QID [facility] Last Admin: 06/25/17 22:12 Dose: 25 mg Cefepime HCl (Maxipime 2gm) 2 gm in 100 mls @ 100 mls/hr IVPB DAILY [facility] PRN Reason: Protocol Stop: 07/01/17 10:01 Insulin Human Regular (Humulin R Med) 0 units SC ACHS [facility] PRN Reason: Protocol Last Admin: 06/26/17 08:06 Dose: Not Given Losartan Potassium (Cozaar) 100 mg PO DAILY [facility] Last Admin: 06/25/17 11:43 Dose: 100 mg Metoprolol Tartrate (Lopressor) 50 mg PO BID [facility] Last Admin: 06/25/17 17:19 Dose: 50 mg Ondansetron HCl (Zofran Inj) 4 mg IVP Q4H PRN PRN Reason: Nausea/Vomiting Last Admin: 06/25/17 12:55 Dose: 4 mg Pantoprazole Sodium (Protonix Susp) 40 mg PO 0600 [facility] Last Admin: 06/26/17 05:55 Dose: 40 mg Spironolactone (Aldactone) 50 mg PO DAILY [facility] Last Admin: 06/25/17 11:43 Dose: 50 mg - Labs Labs: 06/26/17 05:20 06/26/17 05:20 PT 10.6 Seconds (9.9-11.8) 06/19/17 05:10 INR 0.98 (0.93-1.08) 06/19/17 05:10 APTT 24.9 Seconds (23.7-30.8) 06/14/17 07:50 - Constitutional Appears: Non-toxic, No Acute Distress, Chronically Ill - Head Exam Head Exam: ATRAUMATIC, NORMOCEPHALIC - Eye Exam Eye Exam: EOMI, PERRL Pupil Exam: NORMAL ACCOMODATION, PERRL - ENT Exam ENT Exam: Mucous Membranes Moist, Normal External Ear Exam, TM's Normal Bilaterally - Neck Exam Neck Exam: Full ROM, Normal Inspection - Respiratory Exam Respiratory Exam: Clear to Ausculation Bilateral, NORMAL BREATHING PATTERN. absent: Rales, Rhonchi, Wheezes - Cardiovascular Exam Cardiovascular Exam: REGULAR RHYTHM, RRR, +S1, +S2 - GI/Abdominal Exam GI & Abdominal Exam: Soft, Normal Bowel Sounds. absent: Distended, Tenderness - Extremities Exam Extremities Exam: Pedal Edema Additional comments: right sided weakness - Neurological Exam Neurological Exam: Alert, Awake Additional comments: AAO x 2-3, right sided weakness. - Psychiatric Exam Psychiatric exam: Depressed, Normal Affect - Skin Skin Exam: Intact, Normal Color Assessment and Plan - Assessment and Plan (Free Text) Assessment: 72 yo female with low grade fevers of up to 100.4 F after suffering from a 4.4cm left occipital intracranial hemorrhage with intraventricular extension. The patient initially had fevers up to 101.7 F. Clinically, the patient has been improving. Supportive care. She was intubated on admission. She was extubated on 06/18/2017. She speaks georgian mostly. The family states that the patient is acting and speaking appropriately other than the slurring of speech due to her right sided residual weakness. Tolliver cultures sent. There was a mild initial leukocytosis on admission but this has slowly improved. Fever trend has shown improvement. The cultures done to date have been negative so far. No consolidation seen on Chest X-ray. Patient answering question during interview and examination. Supportive care. Currently on Unasyn for antibiotic coverage. Noted C. Diff and repeat urine culture sent. No adequate sample for C. diff testing. Would obtain urinalysis. Would continue Unasyn for now. The current temperature is more likely secondary to the recent intracranial hemorrhage. Leukocytosis of 14.0 today but with a normal differential. Multiple culture sets performed to date are negative. Fever up to 100.7 F in the past 24 hours which has downtrended from the past 24 hours. Cultures negative to date at greater than 48 hours. Cannot rule out central fever which is the most likely scenario. Last CT done on 06/23/2017 showing interval evolution of known subacute hematoma in left occipital love withou midline shift or herniation. Resolving intraventricular hemorrhage with residual mild intraventricular hemorrhage. If fevers spike again to over 102, repeat blood and urine cultures. She remains on Cefepime for antibiotic coverage.
--- NOTE | 2017-06-26 14:10 | PN ---
NEUROLOGY PROGRESS NOTE DATE: SUBJECTIVE: The patient is lying in the bed, in no acute distress. Denies any headache. PHYSICAL EXAMINATION VITAL SIGNS: Her blood pressure is 140/80, heart rate is 83 per minute, breathing at the rate of 16 per minute, temperature is 99.9 degrees Fahrenheit. HEENT: Head is normocephalic and atraumatic. NECK: Supple. There are no carotid bruits. LUNGS: Clear. CARDIOVASCULAR: S1 and S2 audible. No murmurs. ABDOMEN: Soft and nontender. Bowel sounds are present. NEUROLOGIC: Mental status: The patient is awake and alert. She follows simple commands. Cranial nerve examination: Pupils are 3 mm bilaterally reactive to light. Visual bonner are impaired and decreased on the right side. Extraocular movements are intact, however, she has left gaze preference. There is decreased nasolabial fold on the right side. Motor examination: Tone is normal. There is right-sided hemiparesis, power in the right upper extremity is 3/5, power in the right lower extremity is 2/5. Power in the left side is 5/5. Plantars upgoing on the right side and downgoing on the left side. LABORATORY DATA: Her labs reviewed shows WBC of 13.6, hemoglobin 10.9, hematocrit 34.5, platelets of 250. Sodium is 146, potassium is 3.9, chloride 111, carbon dioxide content of 25, BUN of 16, creatinine 0.8, and glucose of 142. IMPRESSION: 1. Cerebrovascular accident with left occipital hemorrhage with intraventricular extension. 2. Pneumonia. 3. Status post respiratory failure. RECOMMENDATIONS: 1. The patient's right hemiparesis is slowly improving. 2. The patient to have MRI of the brain without contrast to look for any underlying pathology. 3. The patient to have physical therapy and speech therapy. 4. The patient's mental status almost seems to be better. 5. Please continue on IV antibiotics. 6. Please continue other treatments and supportive care. Thank you for the opportunity to participate in the care of this patient. Evan Glover MD
--- NOTE | 2017-06-26 16:04 | PN ---
DATE: 06/26/2017 REASON FOR CONSULTATION: Followup cardiac evaluation, intracerebral bleed, spiking fever. SUBJECTIVE: The patient is lying flat in the bed, not in apparent distress. Daughter is at the bedside. PHYSICAL EXAMINATION: GENERAL: Lying on bed. Speaks in Sammarinese, but responds properly. Examination as follows: VITAL SIGNS: Temperature 100, heart rate 74, and blood pressure 145/87. HEENT: PERRLA intact. NECK: Supple. No carotid bruits or thyromegaly. CHEST: Clear to auscultation. HEART: S1 and S2 regular. ABDOMEN: Soft. EXTREMITIES: Clubbing and cyanosis negative. LABORATORY DATA: patient monitor reported as junctional, but EKG looks like ectopic atrial rhythm, regular, though inverted P waves noted in II, III, aVF, but looks like ectopic atrial rhythm. Blood workup as follows: WBC 13.6, hemoglobin 10.9, hematocrit 34.5, and platelet count 250. Chemistry shows sodium 140, potassium 3.9, chloride 101, carbon dioxide 25, anion gap of 14, BUN 16, and creatinine 0.8. Chest x-ray is clear, no evidence of pneumonia noted. Blood culture multiple times, no growth noted, negative. IMPRESSION: A 72-year-old female with past medical history significant for hypertension admitted with cerebrovascular accident, intracerebral bleed, having low-grade temperature of 100 with elevated WBC count, cannot rule out sepsis, could be the central cause of the fever, but cannot definitely rule out low grade of aspiration, though the patient is setup for aspiration. The patient's last echocardiogram shows ejection fraction 55% to 60%, trace aortic regurgitation, [id number] mitral regurgitation, [id number] tricuspid regurgitation, right ventricular systolic pressure 30, trace pericardial effusion, no vegetation or thrombus noted. Hypertension, now is well controlled relatively on clonidine patch, losartan and Cardizem 240 mg. RECOMMENDATIONS: Continue clonidine. Continue Cardizem and losartan 100 mg. Yesterday, was increased to [address] Jones. Continue metoprolol 50 mg b.i.d. Currently, the patient's rhythm is regular, ectopic atrial rhythm, but regular, not junctional. Monitor for source of infection, it could be low-grade aspiration pneumonia versus central fever. CVS status is stable. Once the patient is stable, possibly discharge to the half-way. Discussed with , who is at the bedside. I explained the patient's condition and workup done for the heart and the prognosis. Daughter is concerned about fever and headache. Livia Rendon MD
--- NOTE | 2017-06-26 19:55 | PN ---
DATE: 06/26/2017 PULMONARY PROGRESS NOTE REFERRING PHYSICIAN: Dr. Jones. SUBJECTIVE: She is lying in the bed at 45 degrees, sleepy, arousable. Not much cough, no sputum production. No nausea, no vomiting, no diarrhea. No leg pain or leg swelling. Daughter is at bedside. OBJECTIVE: GENERAL: In no acute distress. VITAL SIGNS: Temperature 99.9, heart rate is 83, respiratory rate is 20, blood pressure 140/80, and pulse oximetry 98% on nasal cannula. HEENT: Moist mucous membranes. Crowded airway. Mallampati score is IV. NECK: Supple. No JVD. LUNGS: Has a fair airflow with few rhonchi. HEART: S1 and S2. ABDOMEN: Soft, nontender. No organomegaly. EXTREMITIES: No edema. NEUROLOGIC: Sleepy, arousable, follows simple command, verbal. MEDICATIONS: She is on Aldactone 50 mg daily, hydralazine 25 mg q.i.d., Bengay affected areas, Cardizem CD 240 mg daily, clonidine 0.3 mg patch q. 7 days, Cozaar 100 mg daily, Dulcolax 5 mg daily, insulin coverage, metoprolol tartrate 50 mg twice a day, cefepime 2 g IV daily, Nuvigil 150 mg daily, Protonix 40 mg daily, Tylenol p.r.n. basis, Zofran p.r.n. basis. LABORATORY DATA: Shows hemoglobin 10.9, hematocrit 34.5, WBC 13.6 and platelet is 250. Sodium 146, potassium 3.9, chloride 111, bicarbonate 25, BUN 16, creatinine 0.8, glucose 143, calcium 9.0, phosphorus 3.5, and magnesium 1.9. AST 28, ALT 33 and alkaline phosphatase is 87. Albumin is 3.1. Chest x-ray done yesterday shows left retrocardiac opacity, may represent pneumonia. IMPRESSION AND PLAN: Intracranial hemorrhage with ventricular extension, mild hydrocephalus, hypertension, diabetes, respiratory failure, currently extubated on nasal cannula, may have component of sleep apnea syndrome, daytime hypersomnia, oropharyngeal dysphagia, unmodified diet. Spoke to patient's family at bedside, all the questions answered. Spoke to social media sr strategy manager discharge planing. Need better physical therapy note. The patient will benefit from acute inpatient neurologic rehab once cleared by neurology. Will start deep venous thrombosis prophylaxis. For now, continue sequential compression devices to lower extremities. Thank you and we will follow with you. Livia Francois MD
--- NOTE | 2017-06-26 20:18 | MRI ---
EXAM: MR Head Without Intravenous Contrast EXAM DATE/TIME: 06/26/2017 5:20 PM CLINICAL HISTORY: The patient age is 72 years old and is female; Signs and symptoms; Altered mental status/memory loss; Patient HX: ? CVA. Patient very confused, limited study patient moving Facility exam id and description: Mri br s brain without contrast TECHNIQUE: Magnetic resonance images of the head/brain without intravenous contrast in multiple planes. COMPARISON: CT - HEAD W/O CONTRAST 06/24/2017 7:59:47 AM FINDINGS: Brain: Within the left occipital and temporal lobes, there is a complex peripherally T1 hyperintense mass measuring 5.1 x 3.6 x 4.0 cm. This is consistent with a hematoma or hemorrhagic mass. There is restricted diffusion associated with this abnormality. There is a surrounding zone of cerebral edema. Restricted diffusion is visualized within the left occipital lobe inferiorly, consistent with acute or subacute ischemic change. Additional foci of restricted diffusion are also seen within the left posterior frontal lobe, similar in etiology. There is a focus of hyperintensity on the diffusion sequence within the left cerebellar pontine angle cistern, which may be due to hemorrhage, although additional pathology cannot be excluded. There is a small amount of intraventricular hemorrhage within the right occipital horn of the lateral ventricle. There is asymmetric narrowing of the left quadrigeminal plate cistern. There is restricted diffusion associated with the areas of hemorrhage. There is effacement of the sulci within the left occipital, left temporal, and posterior parietal lobes. Otherwise, sulcal atrophy is visualized. Midline shift: There is no significant midline shift. Ventricles: There is significant mass effect upon the left lateral ventricle. T1 hyperintense hemorrhage is also visualized within the left lateral ventricle. Bones/joints: No acute abnormality. Sinuses: There is minimal mucosal thickening of a few ethmoid air cells. No acute sinusitis. Mastoid air cells: No mucosal thickening is identified within the mastoid air cells bilaterally. Orbits: There is bilateral proptosis. IMPRESSION: 1. Within the left occipital and temporal lobes, there is a complex peripherally T1 hyperintense mass measuring 5.1 x 3.6 x 4.0 cm. This is consistent with a hematoma or hemorrhagic mass. There is a surrounding zone of cerebral edema. Post-contrast sequences and follow-up MRI are recommended. 2. There is significant mass effect upon the left lateral ventricle. 3. Intraventricular hemorrhage. 4. Restricted diffusion is visualized within the left occipital lobe inferiorly, consistent with acute or subacute ischemic change. Additional foci of restricted diffusion are also seen within the left posterior frontal lobe, similar in etiology. 5. There is a focus of hyperintensity on the diffusion sequence within the left cerebellar pontine angle cistern, which may be due to hemorrhage, although additional pathology cannot be excluded. 6. There is asymmetric narrowing of the left quadrigeminal plate cistern. There is effacement of the sulci within the left occipital, left temporal, and posterior parietal lobes. Otherwise, sulcal atrophy is visualized. 7. Additional findings described above.
--- NOTE | 2017-06-27 04:13 | PN ---
DATE: SUBJECTIVE: The patient was seen and examined on the bedside, looking comfortable. Not coughing too much. No nausea, vomiting, diarrhea. No headache. No dizziness. No swelling of the leg. Daughter, Amanda is on the bedside. Discussion done with the patient, nursing staff and Dr. Francois. PHYSICAL EXAMINATION: VITAL SIGNS: Temperature is 99.9, heart rate 83, respiratory rate 20, blood pressure 140/80 and pulse ox 98% on nasal cannula. HEENT: Head is normocephalic and atraumatic. Eyes; PERRLA. Extraocular muscles intact. Conjunctivae clear. Nose patent. Mucous membranes moist. NECK: Supple. No carotid bruits. No JVD or thyromegaly. LUNGS: Has a fair airflow with few rhonchi. HEART: S1 and S2 positive. ABDOMEN: Soft and nontender. No organomegaly. EXTREMITIES: No edema. No cyanosis. NEUROLOGIC: The patient is awake, moving all four extremities, and alert. MEDICATIONS: Aldactone, hydralazine, Cardizem, clonidine, Cozaar, Dulcolax, insulin coverage, metoprolol, cefepime, Nuvigil, Protonix, Tylenol, and Zofran. LABORATORY DATA: Hemoglobin 10.9, hematocrit 34.5, white blood cell 13.6 and platelet is 250. Sodium 146, potassium 3.9, BUN 16, and creatinine 0.8. AST 28 and ALT 33. ASSESSMENT AND PLAN: Ms. Noy Bryant is a 72-year-old lady came with intracranial hemorrhage with ventricular extension, mildly hydrocephalus, went for MRI of the head today. According to Dr. Chandler Forte, within the left occipital and temporal lobe there is a complex peripherally T1 hyperintense mass measuring 5.1 x 3.6 x 4. This is consistent with hematoma or hemorrhage mass. There is surrounding zone of cerebral edema. Post contrast sequences and followup MRI recommended. There is significant mass effect upon the left lateral ventricle, intraventricular hemorrhage. Restricted diffusion is visualized within the left occipital lobe inferiorly consistent with acute or subacute ischemic disease. Additional foci or restricted diffusions are also within the left posterior frontal lobe. Similar etiology, there is a focus of hyperdensity on the diffuse sequence within the left cerebellopontine angle cistern which may be due to the hemorrhage, although additional pathology cannot be excluded. There is asymmetry narrowing the left quadrigeminal plate cistern. There is effacement of the sulci within the left occipital, left temporal and posterior parietal lobe seen by Dr. Gordon; neurologist, Dr. Ho; ID. Dr. 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 Chest x-ray shows what looks like pneumonia. She is getting antibiotics, history of intubation and extubation on nasal cannula, sleep apnea syndrome, hypersomnia on vigilant oropharyngeal dysphagia, on modified diet. Discussion done with Dr. Francois and radiologist about MRI. Dr. Francois had discussion with Dr. Evan Glover, neurologist. The patient did not need prophylaxis for deep venous thrombosis. Awaiting for neurologist okay. using sequential compression devices. We will follow up. Gayle Jones MD MTDD
[2017-06-27] MEDS: Pantoprazole 40 mg Susp UD PO SCH (05:09)
[2017-06-27] MEDS: Insulin Reg-MEDIUM-Coverage SC SCH ×4 (08:20→21:17)
--- NOTE | 2017-06-27 11:06 | PN ---
NEUROLOGY PROGRESS NOTE SUBJECTIVE: The patient is lying on the bed, in no acute distress. Denies having any headaches. PHYSICAL EXAMINATION: VITAL SIGNS: Her blood pressure is 129/79, heart rate is 76 per minute, breathing at the rate of 16 per minute, and temperature is 98.4 degrees Fahrenheit. HEENT: Normocephalic and atraumatic. NECK: Supple. There are no carotid bruits. LUNGS: Clear. CARDIOVASCULAR SYSTEM: S1 and S2 audible. No murmurs. ABDOMEN: Soft and nontender. Bowel sounds are present. NEUROLOGIC: Mental status: The patient is awake, and alert. She looks at the examiner. She follows simple commands. She answers some questions. Cranial nerve examination: Pupils are 3 mm bilaterally reactive to light. Visual bonner impaired on the right side. Extraocular movements are intact; however, there is left gaze preference. There is decreased nasolabial fold on the right side. Motor examination: Tone is normal. Power in the right upper extremity is 3-4/5, power on the left side is 5/5. Power in the right lower extremity is 3/5. Power in the left lower extremity 4-5/5. Plantars downgoing bilaterally. Gait is deferred at the moment. LABORATORY DATA: Labs reviewed shows MRI of the brain. Within the left occipital and temporal lobe, there is complex peripheral edema and hyperintense mass surrounding, 5.1 x 3.6 x 4 cm. This is consistent with hematoma or hemorrhagic mass. There is surrounding zone of cerebral edema. There is significant mass effect upon the left lateral ventricle, intraventricular hemorrhage. There is a focus of hyperintensity on the diffusion sequence within the left cerebellopontine angle cistern, which may be due to hemorrhage. IMPRESSION: 1. Left occipital hemorrhage with intraventricular extension. 2. Pneumonia. RECOMMENDATIONS: 1. The patient's mental status as well as right-sided weakness continues to improve. 2. The patient's MRI of the brain does not reveal any underlying pathology except the hematoma at the moment. 3. Patient to be continued on IV antibiotics. 4. Patient to have physical therapy and speech therapy. 5. The patient will require a repeat MRI of the brain after 4 to 6 weeks, when the hematoma is absorbed, to look for any underlying pathology. 6. Please continue supportive care and other treatment. Thank you for the opportunity to participate in the care of this patient. Evan Glover MD
[2017-06-27] MEDS: diltiaZEM 240 mg/24 Hours CD Cap PO SCH (11:26)
[2017-06-27] MEDS: Bisacodyl 5mg EC Tab PO SCH (11:27)
[2017-06-27] MEDS: Menthol/Methyl Salicylate Ointment(1 oz) TOP SCH ×4 (11:29→21:18)
[2017-06-27] MEDS: Cefepime IV 2 gm in NS 2 GM/100 ML BAG IVPB SCH (11:32)
--- NOTE | 2017-06-27 11:51 | PN ---
DATE: REASON FOR CONSULTATION: Followup cardiac evaluation, intracerebral bleed, and spiking fever. SUBJECTIVE: The patient is much awake and alert. Daughter, Oanh is at the bedside. The patient respond to the verbal stimuli. Denied any chest pain, shortness of breath,or any palpitations. Does speaks Belarusian. OBJECTIVE: GENERAL: Lying in the bed, not in apparent distress and interacts now, mentation much significantly improved. VITAL SIGNS: Temperature afebrile, heart rate 76, and blood pressure 129/79. HEENT: PERRLA. Extraocular muscles intact. NECK: Supple. No carotid bruits. No thyromegaly. CHEST: Clear to auscultation. HEART: S1 and S2 regular. ABDOMEN: Soft. EXTREMITIES: Clubbing and cyanosis negative. LABORATORY DATA: WBC 13.3, hemoglobin 10.9, hematocrit 34.5, and platelet count 250. Chemistry show sodium 146, potassium 3.9, chloride 111, carbon dioxide 25, anion gap of 14, BUN 16, and creatinine 0.8. Blood culture remains negative for last multiple blood drawn, I ordered also and it remains negative since admission. On 06/14/2017 blood cultures remains negative. WBC is still 13.6 and the patient is afebrile last 24 hours. IMPRESSION: Fever, possibly central, so far blood cultures are negative, history of hypertension, history of cerebrovascular accident, intracerebral bleed, low-grade fever, but WBC count elevated but blood cultures negative, cannot rule out low-grade aspiration pneumonia. Most recent echo, ejection fraction is 55% to 60%, trace aortic regurgitation, [id number] mitral regurgitation, [id number] tricuspid regurgitation, right ventricular systolic pressure 30, trace pericardial effusion, no vegetation or thrombus noted. The EKG shows ectopic atrial rhythm. The patient did not get bradycardia. Currently on Cardizem 240 mg, losartan, metoprolol, and clonidine patch as well as hydralazine. Thank you Dr. Jones for providing me the opportunity in taking care of the patient, Noy Bryant. Discussed with the daughter, Oanh at the bedside and answered all questions. We will follow with you. If the patient remains afebrile, consider transferring to rehab facility. Livia Rendon MD [facility]
[2017-06-27 12:41] LABS: ALB/GLOB RATIO 0.9 (1.1-1.8); ALKALINE PHOSPHATASE 87 U/L (38-126); ALT/SGPT 27 U/L (7-56); AST/SGOT 21 U/L (14-36); BILIRUBIN,TOTAL 0.8 mg/dL (0.2-1.3); BLOOD UREA NITROGEN 15 mg/dL (7-21); CALCIUM 8.7 mg/dL (8.4-10.5); CARBON DIOXIDE 22 mmol/L (21-33); CHLORIDE 108 mmol/L (98-107); GFR AFRICAN-AMERICAN > 60; GLUCOSE,RANDOM 169 mg/dL (70-110); SODIUM 140 mmol/L (132-148); TOTAL PROTEIN 6.6 g/dL (5.8-8.3)
--- NOTE | 2017-06-28 00:14 | PN ---
DATE: SUBJECTIVE: The patient was examined on the bedside. Daughter was sitting on the bedside also. The patient is much awake and alert. No nausea, vomiting, or diarrhea. The patient is obeying the simple commands. No chest pain, shortness of breath, or palpitations. No fever. No chills. No swelling of the leg. PHYSICAL EXAMINATION: VITAL SIGNS: Temperature, the patient is afebrile, heart rate 75, blood pressure 129/79, and respiratory rate 18. HEENT: Head, normocephalic and atraumatic. Eyes, PERRLA. Extraocular muscles intact. Conjunctivae clear. Nose patent. Mucous membranes moist. NECK: Supple. No carotid bruits. No JVD or thyromegaly. CHEST: Bilaterally symmetrical. HEART: S1 and S2 positive. LUNGS: Clear to auscultation. ABDOMEN: Soft. Bowel sounds positive. No organomegaly. NEUROLOGICAL: The patient is awake and alert. Moving all 4 extremities. No focal deficits. EXTREMITIES: No edema. No clubbing. No cyanosis. LABORATORY DATA: White blood cells 13.3, hemoglobin 10.9, hematocrit 34.5, and platelets 250. Sodium 142, potassium 3.9, BUN 16, and creatinine 0.8. ASSESSMENT AND PLAN: Mrs. Noy Bryant is a 72-year-old lady with multiple medical problems, hypertension, cerebrovascular accident, intracerebral bleed, low-grade fever, white blood cell count elevated, but blood cultures are negative, rule out aspiration pneumonia, reviewed cardiology notes, reviewed Evan Glover MD, neurologist's note, left occipital hemorrhage with intraventricular extension, right-sided weakness improving, mental status improving, getting intravenous antibiotics, getting physical therapy and occupational therapy. According to neurologist, we have to repeat MRI of the head after 4 to 6 weeks to make sure that hematoma is taken care. Also sleep apnea, obesity, and hypertension. Continue Aldactone, hydralazine, Cardizem, clonidine, Cozaar, Dulcolax for constipation. The patient has insulin-dependent diabetes mellitus, continue insulin. Protonix for gastrointestinal prophylaxis. Deep venous thrombosis prophylaxis depend on neurologist. Waiting for neurologist's input to start some deep venous thrombosis prophylaxis. We will follow up. Gayle Jones MD [facility] # [id number] MTDDaphney
--- NOTE | 2017-06-28 00:27 | PN ---
REFERRING PHYSICIAN: Dr. Jones. SUBJECTIVE: The patient follow simple command, but confused. Had some physical therapy. Then today, there is not much cough, no sputum production. No nausea, no vomiting, no diarrhea. No leg pain or leg swelling. OBJECTIVE: GENERAL: In no acute distress. VITAL SIGNS: Temperature 98, heart rate is 80, respiratory rate is 16, blood pressure 154/78, and pulse oximetry 96% on room air. HEENT: Moist mucous membranes. Crowded airway. Mallampati score is IV. NECK: Supple. No JVD. LUNGS: Has a fair airflow with few rhonchi. HEART: S1 and S2. ABDOMEN: Soft, nontender. No organomegaly. EXTREMITIES: No edema. NEUROLOGIC: Sleepy, arousable, follows simple commend, but confused. MEDICATIONS: Reviewed and noted. Aldactone 50 mg daily, hydralazine 25 mg q.i.d., Bengay at affected areas, Cardizem CD 240 mg daily, clonidine 0.3 mg weekly, Cozaar 100 mg daily, Dulcolax 5 mg daily, insulin coverage, metoprolol tartrate 50 mg twice a day, cefepime 2 g IV daily, Nuvigil 150 mg daily, Protonix 40 mg daily, Tylenol p.r.n. basis, Zofran p.r.n. basis. LABORATORY DATA: Reviewed and noted. Sodium 140, potassium 4.0, chloride 108, bicarbonate 24, BUN 15, creatinine 0.7, glucose 169, calcium 8.7, AST 21, ALT 27, alkaline phosphatase is 87, albumin is 3.2. MRI of the brain done yesterday which shows left occipital and temporal lobe complex T1 hyperintense area which is 5.1 x 3.6 x 4 cm consistent with hematoma. There is still some edema. There is significant mass effect upon the left lateral ventricle, intraventricular hemorrhage is still present. There is restricted diffusion is visualized within the left occipital lobe inferiorly consistent with acute or subacute ischemic changes. There are additional foci of restricted diffusions are also seen within the left posterior frontal lobe similar as previous. There is also left cerebellopontine angle area possible hemorrhage. IMPRESSION AND PLAN: Intracranial hemorrhage with ventricular extension, hydronephrosis, may have been also ischemic component with restricted flow, hypertension, diabetes, respiratory failure, presently extubated, on nasal cannula, may have a component of sleep apnea syndrome, oropharyngeal dysphagia, on modified diet, daytime hypersomnia. Case discussed with family at bedside, all the questions answered. Also spoke to social contact worker. We will continue physical therapy. We will request occupational therapy. The patient is somewhat aphasic, confused, will benefit from acute inpatient neuro rehab. Neurology follow up. Thank you and we will follow with you. Livia Francois MD
[2017-06-28] MEDS: Pantoprazole 40 mg Susp UD PO SCH (05:14)
[2017-06-28] MEDS: Insulin Reg-MEDIUM-Coverage SC SCH ×4 (07:30→23:46)
[2017-06-28] MEDS: Cefepime IV 2 gm in NS 2 GM/100 ML BAG IVPB SCH (09:22)
[2017-06-28] MEDS: Bisacodyl 5mg EC Tab PO SCH (09:22)
[2017-06-28] MEDS: diltiaZEM 240 mg/24 Hours CD Cap PO SCH (09:22)
[2017-06-28] MEDS: Menthol/Methyl Salicylate Ointment(1 oz) TOP SCH ×4 (10:36→22:19)
--- NOTE | 2017-06-28 12:44 | PN ---
REASON FOR CONSULTATION: Followup cardiac evaluation, intracerebral bleed. SUBJECTIVE: The patient is much awake and alert. Daughter, Oanh, is at the bedside, responds to verbal stimuli. Denies any chest pain. Denies any shortness of breath. Headache earlier, got Tylenol suppository at 6:00 a.m. OBJECTIVE: GENERAL: Lying in the bed, not in apparent distress. VITAL SIGNS: Temperature afebrile, heart rate 78, and blood pressure 140/91. HEENT: PERRLA. Extraocular muscles intact. NECK: Supple. No carotid bruits. No thyromegaly. CHEST: Clear to auscultation. HEART: S1 and S2 regular. ABDOMEN: Soft. EXTREMITIES: Clubbing and cyanosis negative. LABORATORY DATA: Blood workup as follows: WBC 13.6, hemoglobin 10.9, hematocrit 34.5, and platelet count 250. Chemistry showed sodium 140, potassium 4, chloride of 108, carbon dioxide of 28, anion gap of 14, BUN 18, and creatinine 0.7. Total protein 6.6, albumin 3.2, albumin and globulin ratio 0.9. Blood culture remains negative. IMPRESSION: A 72-year-old female with a past medical history significant for hypertension, admitted with intracerebral bleed, running fever, low grade, over last 48 hours. No fever. Blood culture remains negative, possibly central fever. There was an IV antibiotic and being followed by infectious disease. Daughter is at the bedside, called in to discuss the patient, discussed at length the patient. Daughter is very much concerned against suppository every 4 hours with headache, every 4 hours orally and changed from suppository to p.o. I am also concerned about the blood pressure, explained that blood pressure is much stable than before. Yesterday, the patient had blood pressure of 249 and mentioned that probably secondary to headache also blood pressure spiked. RECOMMENDATION: We will change the Tylenol suppository to p.o. with after crushing, continue hydralazine, continue clonidine patch #3, continue Cardizem 240. We will follow with you. We will discontinue Tylenol suppository, change to p.o. for headache. Daughter thinks that p.o. works more effectively rather than suppository, does not want to be on suppository, so we will change to p.o. Tylenol. We will repeat the blood workup tomorrow. Thank you Dr. Jones for providing me the opportunity in taking care of the patient. Livia Rendon MD
--- NOTE | 2017-06-28 16:01 | CP.PCM.PN ---
Subjective - Date & Time of Evaluation Date of Evaluation: 06/27/17 Time of Evaluation: 16:00 - Subjective Subjective: Infectious Disease Follow Up June 27, 2017 72 yo female presented with fall and altered mental status. She was found at home on floor by family who heard her fall. The patient was brought into the ER and found to be in uncontrolled hypertension and requiring intubation on arrival in the ER. The patient was found to hae a 4.4 cm left occipital intracranial hemorrhage with intraventricular extension. Patient is recovering but still having episodes of low grade fevers. Patient herself is not making any new complaints. She still has residual right sided weakness. she continued to have low grade fevers yesterday and is still having fevers today up to 102.2 F in the past 24 hours. Repeat cultures sent. Cannot rule out central fever. Cultures negative to date from sets taken on 06/21/2017 and 06/22/2017. Objective - Vital Signs/Intake and Output Vital Signs (last 24 hours): Temp Pulse Resp BP Pulse Ox 99.1 F 69 19 176/111 H 98 06/28/17 12:00 06/28/17 12:00 06/28/17 12:00 06/28/17 12:00 06/28/17 06:00 Intake and Output: 06/28/17 06/28/17 06:59 18:59 Intake Total 120 Output Total 1100 Balance -980 - Medications Medications: Current Medications Acetaminophen (Tylenol 325mg Tab) 650 mg PO Q4H PRN PRN Reason: Pain, Mild (1-3) Last Admin: 06/28/17 09:22 Dose: 650 mg Armodafinil (Nuvigil 150 Mg Tab) 150 mg PO DAILY [facility] Last Admin: 06/28/17 09:23 Dose: 150 mg Bisacodyl (Dulcolax) 5 mg PO DAILY [facility] Last Admin: 06/28/17 09:22 Dose: 5 mg Camphor/Menthol (Bengay) 0 gm TOP QID [facility] Last Admin: 06/28/17 13:36 Dose: 1 oin Clonidine HCl (Catapres-Tts3 0.3 Mg/24 Hr) 1 patch TD Q7D@1000 [facility] Last Admin: 06/27/17 11:28 Dose: 1 patch Diltiazem HCl (Cardizem Cd) 240 mg PO DAILY [facility] Last Admin: 06/28/17 09:22 Dose: 240 mg Hydralazine HCl (Apresoline) 25 mg PO QID [facility] Last Admin: 06/28/17 14:50 Dose: 25 mg Cefepime HCl (Maxipime 2gm) 2 gm in 100 mls @ 100 mls/hr IVPB DAILY [facility] PRN Reason: Protocol Stop: 07/01/17 10:01 Last Admin: 06/28/17 09:22 Dose: 100 mls/hr Insulin Human Regular (Humulin R Med) 0 units SC ACHS [facility] PRN Reason: Protocol Last Admin: 06/28/17 13:38 Dose: 3 units Losartan Potassium (Cozaar) 100 mg PO DAILY [facility] Last Admin: 06/28/17 09:22 Dose: 100 mg Metoprolol Tartrate (Lopressor) 50 mg PO BID [facility] Last Admin: 06/28/17 09:22 Dose: 50 mg Ondansetron HCl (Zofran Inj) 4 mg IVP Q4H PRN PRN Reason: Nausea/Vomiting Last Admin: 06/28/17 05:46 Dose: 4 mg Pantoprazole Sodium (Protonix Susp) 40 mg PO 0600 [facility] Last Admin: 06/28/17 05:14 Dose: 40 mg Spironolactone (Aldactone) 50 mg PO DAILY [facility] Last Admin: 06/28/17 09:22 Dose: 50 mg - Labs Labs: 06/26/17 05:20 06/27/17 12:10 PT 10.6 Seconds (9.9-11.8) 06/19/17 05:10 INR 0.98 (0.93-1.08) 06/19/17 05:10 APTT 24.9 Seconds (23.7-30.8) 06/14/17 07:50 - Constitutional Appears: Non-toxic, No Acute Distress, Chronically Ill - Head Exam Head Exam: ATRAUMATIC, NORMOCEPHALIC - Eye Exam Eye Exam: EOMI, PERRL Pupil Exam: NORMAL ACCOMODATION, PERRL - ENT Exam ENT Exam: Mucous Membranes Moist, Normal External Ear Exam, TM's Normal Bilaterally - Neck Exam Neck Exam: Full ROM, Normal Inspection - Respiratory Exam Respiratory Exam: Clear to Ausculation Bilateral, NORMAL BREATHING PATTERN. absent: Rales, Rhonchi, Wheezes - Cardiovascular Exam Cardiovascular Exam: REGULAR RHYTHM, RRR, +S1, +S2 - GI/Abdominal Exam GI & Abdominal Exam: Soft, Normal Bowel Sounds. absent: Distended, Tenderness - Extremities Exam Extremities Exam: Pedal Edema Additional comments: right sided weakness - Neurological Exam Neurological Exam: Alert, Awake Additional comments: AAO x 2-3, right sided weakness. - Psychiatric Exam Psychiatric exam: Depressed, Normal Affect - Skin Skin Exam: Intact, Normal Color Assessment and Plan - Assessment and Plan (Free Text) Assessment: 72 yo female with low grade fevers of up to 100.4 F after suffering from a 4.4cm left occipital intracranial hemorrhage with intraventricular extension. The patient initially had fevers up to 101.7 F. Clinically, the patient has been improving. Supportive care. She was intubated on admission. She was extubated on 06/18/2017. She speaks greek mostly. The family states that the patient is acting and speaking appropriately other than the slurring of speech due to her right sided residual weakness. Tolliver cultures sent. There was a mild initial leukocytosis on admission but this has slowly improved. Fever trend has shown improvement. The cultures done to date have been negative so far. No consolidation seen on Chest X-ray. Patient answering question during interview and examination. Supportive care. Currently on Unasyn for antibiotic coverage. Noted C. Diff and repeat urine culture sent. No adequate sample for C. diff testing. Would obtain urinalysis. Would continue Unasyn for now. The current temperature is more likely secondary to the recent intracranial hemorrhage. Leukocytosis of 14.0 today but with a normal differential. Multiple culture sets performed to date are negative. Fever up to 100.7 F in the past 24 hours which has downtrended from the past 24 hours. Cultures negative to date at greater than 48 hours. Cannot rule out central fever which is the most likely scenario. Last CT done on 06/23/2017 showing interval evolution of known subacute hematoma in left occipital love without midline shift or herniation. Resolving intraventricular hemorrhage with residual mild intraventricular hemorrhage. If fevers spike again to over 102, repeat blood and urine cultures. She remains on Cefepime for antibiotic coverage. Thank you for allowing me to participate in the care of the patient, we will follow with you.
--- NOTE | 2017-06-28 16:08 | CP.PCM.PN ---
Subjective - Date & Time of Evaluation Date of Evaluation: 06/28/17 Time of Evaluation: 14:45 - Subjective Subjective: Infectious Disease Follow Up June 28, 2017 72 yo female presented with fall and altered mental status. She was found at home on floor by family who heard her fall. The patient was brought into the ER and found to be in uncontrolled hypertension and requiring intubation on arrival in the ER. The patient was found to hae a 4.4 cm left occipital intracranial hemorrhage with intraventricular extension. Patient is recovering but still having episodes of low grade fevers. Patient herself is not making any new complaints. She still has residual right sided weakness. Afebrile for the past two days. Repeat cultures sent. Cannot rule out central fever. Cultures negative to date from sets taken on 06/21/2017 and 06/22/2017. Objective - Vital Signs/Intake and Output Vital Signs (last 24 hours): Temp Pulse Resp BP Pulse Ox 99.1 F 69 19 176/111 H 98 06/28/17 12:00 06/28/17 12:00 06/28/17 12:00 06/28/17 12:00 06/28/17 06:00 Intake and Output: 06/28/17 06/28/17 06:59 18:59 Intake Total 120 Output Total 1100 Balance -980 - Medications Medications: Current Medications Acetaminophen (Tylenol 325mg Tab) 650 mg PO Q4H PRN PRN Reason: Pain, Mild (1-3) Last Admin: 06/28/17 09:22 Dose: 650 mg Armodafinil (Nuvigil 150 Mg Tab) 150 mg PO DAILY [facility] Last Admin: 06/28/17 09:23 Dose: 150 mg Bisacodyl (Dulcolax) 5 mg PO DAILY [facility] Last Admin: 06/28/17 09:22 Dose: 5 mg Camphor/Menthol (Bengay) 0 gm TOP QID [facility] Last Admin: 06/28/17 13:36 Dose: 1 oin Clonidine HCl (Catapres-Tts3 0.3 Mg/24 Hr) 1 patch TD Q7D@1000 [facility] Last Admin: 06/27/17 11:28 Dose: 1 patch Diltiazem HCl (Cardizem Cd) 240 mg PO DAILY [facility] Last Admin: 06/28/17 09:22 Dose: 240 mg Hydralazine HCl (Apresoline) 25 mg PO QID [facility] Last Admin: 06/28/17 14:50 Dose: 25 mg Cefepime HCl (Maxipime 2gm) 2 gm in 100 mls @ 100 mls/hr IVPB DAILY [facility] PRN Reason: Protocol Stop: 07/01/17 10:01 Last Admin: 06/28/17 09:22 Dose: 100 mls/hr Insulin Human Regular (Humulin R Med) 0 units SC ACHS [facility] PRN Reason: Protocol Last Admin: 06/28/17 13:38 Dose: 3 units Losartan Potassium (Cozaar) 100 mg PO DAILY [facility] Last Admin: 06/28/17 09:22 Dose: 100 mg Metoprolol Tartrate (Lopressor) 50 mg PO BID [facility] Last Admin: 06/28/17 09:22 Dose: 50 mg Ondansetron HCl (Zofran Inj) 4 mg IVP Q4H PRN PRN Reason: Nausea/Vomiting Last Admin: 06/28/17 05:46 Dose: 4 mg Pantoprazole Sodium (Protonix Susp) 40 mg PO 0600 [facility] Last Admin: 06/28/17 05:14 Dose: 40 mg Spironolactone (Aldactone) 50 mg PO DAILY [facility] Last Admin: 06/28/17 09:22 Dose: 50 mg - Labs Labs: 06/26/17 05:20 06/27/17 12:10 PT 10.6 Seconds (9.9-11.8) 06/19/17 05:10 INR 0.98 (0.93-1.08) 06/19/17 05:10 APTT 24.9 Seconds (23.7-30.8) 06/14/17 07:50 - Constitutional Appears: Non-toxic, No Acute Distress, Chronically Ill - Head Exam Head Exam: ATRAUMATIC, NORMOCEPHALIC - Eye Exam Eye Exam: EOMI, PERRL Pupil Exam: NORMAL ACCOMODATION, PERRL - ENT Exam ENT Exam: Mucous Membranes Moist, Normal External Ear Exam, TM's Normal Bilaterally - Neck Exam Neck Exam: Full ROM, Normal Inspection - Respiratory Exam Respiratory Exam: Clear to Ausculation Bilateral, NORMAL BREATHING PATTERN. absent: Rales, Rhonchi, Wheezes - Cardiovascular Exam Cardiovascular Exam: REGULAR RHYTHM, RRR, +S1, +S2 - GI/Abdominal Exam GI & Abdominal Exam: Soft, Normal Bowel Sounds. absent: Distended, Tenderness - Extremities Exam Extremities Exam: Pedal Edema Additional comments: right sided weakness - Neurological Exam Neurological Exam: Alert, Awake Additional comments: AAO x 2-3, right sided weakness - Psychiatric Exam Psychiatric exam: Depressed, Normal Affect - Skin Skin Exam: Intact, Normal Color Assessment and Plan - Assessment and Plan (Free Text) Assessment: 72 yo female with low grade fevers of up to 100.4 F after suffering from a 4.4cm left occipital intracranial hemorrhage with intraventricular extension. The patient initially had fevers up to 101.7 F. Clinically, the patient has been improving. Supportive care. She was intubated on admission. She was extubated on 06/18/2017. She speaks polish mostly. The family states that the patient is acting and speaking appropriately other than the slurring of speech due to her right sided residual weakness. Tolliver cultures sent. There was a mild initial leukocytosis on admission but this has slowly improved. Fever trend has shown improvement. The cultures done to date have been negative so far. No consolidation seen on Chest X-ray. Patient answering question during interview and examination. Supportive care. Currently on Unasyn for antibiotic coverage. Noted C. Diff and repeat urine culture sent. No adequate sample for C. diff testing. Would obtain urinalysis. Would continue Unasyn for now. The current temperature is more likely secondary to the recent intracranial hemorrhage. Leukocytosis of 14.0 today but with a normal differential. Multiple culture sets performed to date are negative. Fever up to 100.7 F in the past 24 hours which has downtrended from the past 24 hours. Cultures negative to date at greater than 48 hours. Cannot rule out central fever which is the most likely scenario. Last CT done on 06/23/2017 showing interval evolution of known subacute hematoma in left occipital love without midline shift or herniation. Resolving intraventricular hemorrhage with residual mild intraventricular hemorrhage. She remains on Cefepime for antibiotic coverage. Afebrile for the past three days. Thank you for allowing me to participate in the care of the patient, we will follow with you.
[2017-06-28] MEDS: Nitroglycerin 2% Ointment Foilpak UD TOP SCH ×2 (17:42→22:18)
[2017-06-28] MEDS ORDERED: Lactulose 10 gm/15 ml (Rectal Use) PR ONE (17:50)
--- NOTE | 2017-06-28 20:51 | PN ---
REFERRING PHYSICIAN: Dr. Jones. SUBJECTIVE: She is lying in the bed, sleepy, arousable. Daughter is at bedside. Has high blood pressure today. Also, constipated. No nausea, no vomiting. No leg pain or leg swelling. OBJECTIVE: GENERAL: No acute distress. VITAL SIGNS: Temperature is 98, heart rate is 69, respiratory rate is 20, blood pressure is 184/120, pulse ox is 98% on room air. HEENT: Moist mucous membranes. Crowded airway. Mallampati score is IV. NECK: Supple. No JVD. LUNGS: Has a fair airflow with few rhonchi. HEART: S1 and S2. ABDOMEN: Positive bowel sounds. EXTREMITIES: No edema. NEUROLOGIC: Sleepy, arousable, follows simple commands. MEDICATIONS: She is on Aldactone 50 mg daily, hydralazine 50 mg three times a day, Bengay at affected areas, Cardizem CD 240 mg daily, Catapres 0.3 mg weekly, Cozaar 100 mg daily, Dulcolax 5 mg daily, metoprolol tartrate 50 mg twice a day, cefepime 2 g IV daily, nitroglycerin paste 2%. Also Nuvigil 150 mg daily, Protonix 40 mg daily, Tylenol p.r.n., Zofran p.r.n. basis. LABORATORY DATA: Reviewed. Blood sugar this morning 196. IMPRESSION AND PLAN: Intracranial hemorrhage with ventricular extension and some hydronephrosis, also has some ischemic component according to HI with restricted flow, hypertension, diabetes, respiratory failure, been extubated, on nasal cannula, may have a component of sleep apnea syndrome, constipation. Case discussed with daughter at bedside, all the questions answered. Spoke to nursing staff, requested Dulcolax suppository. We will give her lactulose one dose today. Metoprolol increased to 50 mg q. 8 hour. We will increase hydralazine to 100 mg three times a day. The patient seen by physical therapy, awaiting for occupational therapy to see the patient. Will benefit from acute inpatient rehabilitation. Thank you and we will follow with you. Livia Francois MD [facility] # [id number]
--- NOTE | 2017-06-28 22:06 | PN ---
DATE: SUBJECTIVE: The patient 72 years old female. The patient was seen and examined on the bedside, daughter was sitting on the bedside also. No nausea, vomiting or diarrhea. No hematuria or hematochezia. The patient did not have bowel movement some couple of days, suggest Dulcolax suppositories, feeling better, no sweating, improving very slowly. PHYSICAL EXAMINATION: VITAL SIGNS: Temperature 99.1, pulse 65, blood pressure 184/120, and respiratory rate 19. HEENT: Head is normocephalic and atraumatic. Eyes; PERRLA. Extraocular muscles intact. Conjunctivae clear. Nose patent. Mucous membranes moist. NECK: Supple. No carotid bruits. No JVD or thyromegaly. CHEST: Bilaterally symmetrical. HEART: S1 and S2 positive. LUNGS: Clear to auscultation. ABDOMEN: Soft. Bowel sounds present. No organomegaly. EXTREMITIES: No edema. No cyanosis. NEUROLOGIC: The patient is awake and alert, communicating little bit in [place]ymra[place]. LABORATORY DATA: White blood cell 13.6, hemoglobin 10.9, hematocrit 34.5, and platelets 250. Sodium 140, potassium 4.0, BUN 15, creatinine 0.7, and glucose 249. MEDICATIONS: Aldactone, hydralazine, diltiazem, Catapres, Cozaar, bisacodyl, Dulcolax suppository once, insulin, Lopressor, cefepime, nitroglycerin paste, Protonix, acetaminophen, and Zofran. ASSESSMENT AND PLAN: Mrs. 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 The patient has history of insulin-dependent diabetes mellitus, not very well controlled; hypertension, not very well controlled; history of intracerebral bleed; and low-grade fever. Blood culture remaining negative. Getting IV antibiotics as per infectious disease. History of chronic obstructive pulmonary disease and history of intubation. Blood pressure is high and the patient is on couple of antibiotics. Now, the patient has constipation, Dulcolax suppository given. Intracerebral hemorrhage with ventricular extension; hydronephrosis; apnea syndrome; oropharyngeal dysphagia, on modified diet and daytime hypersomnia. Plan regard to rehab, social workers are working on that. The patient getting physical therapy and occupational therapy. Gastrointestinal and deep venous thrombosis prophylaxis. Waiting for neurology input for deep venous thrombosis prophylaxis. Discussion done with the patient's daughter on the bedside. We will followup. Gayle Jones MD
[2017-06-29] MEDS: Pantoprazole 40 mg Susp UD PO SCH (05:15)
[2017-06-29] MEDS: Nitroglycerin 2% Ointment Foilpak UD TOP SCH ×4 (05:15→22:28)
[2017-06-29 07:35] LABS: BASO # 0.02 K/mm3 (0.0-2.0); BASO % 0.2 % (0.0-3.0); EOS # 0.2 (0.0-0.7); GRAN # 6.91 (1.4-6.5); GRAN % 67.7 % (50.0-68.0); HEMATOCRIT 34.1 % (36.0-48.0); LYMPH # 2.5 (1.2-3.4); LYMPH % 24.2 % (22.0-35.0); MEAN CELL VOLUME 88.1 fl (80.0-105.0); MEAN CORPUSCULAR HEMOGLOBIN 28.7 pg (25.0-35.0); MEAN CORPUSCULAR HGB CONC 32.6 g/dl (31.0-37.0); MEAN PLATELET VOLUME 9.9 fl (7.0-11.0); MONO # 0.6 (0.1-0.6); MONO % 5.9 % (1.0-6.0); RED CELL DISTRIBUTION WIDTH 13.9 % (11.5-14.5); WHITE BLOOD COUNT 10.2 10^3/ul (4.5-11.0)
[2017-06-29 08:02] LABS: ALB/GLOB RATIO 0.9 (1.1-1.8); ALKALINE PHOSPHATASE 93 U/L (38-126); ALT/SGPT 20 U/L (7-56); AST/SGOT 27 U/L (14-36); BILIRUBIN,TOTAL 0.7 mg/dL (0.2-1.3); BLOOD UREA NITROGEN 16 mg/dL (7-21); CALCIUM 8.8 mg/dL (8.4-10.5); CARBON DIOXIDE 21 mmol/L (21-33); CHLORIDE 107 mmol/L (98-107); GFR AFRICAN-AMERICAN > 60; GLUCOSE,RANDOM 111 mg/dL (70-110); MAGNESIUM 1.9 mg/dL (1.7-2.2); PHOSPHOROUS 2.9 mg/dL (2.5-4.5); SODIUM 138 mmol/L (132-148); TOTAL PROTEIN 6.4 g/dL (5.8-8.3)
[2017-06-29] MEDS: Insulin Reg-MEDIUM-Coverage SC SCH ×4 (09:32→22:16)
[2017-06-29] MEDS: Cefepime IV 2 gm in NS 2 GM/100 ML BAG IVPB SCH (10:39)
[2017-06-29] MEDS: Bisacodyl 5mg EC Tab PO SCH (10:55)
[2017-06-29] MEDS: diltiaZEM 240 mg/24 Hours CD Cap PO SCH (10:55)
[2017-06-29] MEDS: Menthol/Methyl Salicylate Ointment(1 oz) TOP SCH ×4 (11:02→22:28)
--- NOTE | 2017-06-29 15:01 | PN ---
DATE: SUBJECTIVE: The patient is seen and examined at the bedside. Daughter was sitting on the bedside, also looking comfortable, and moving also 4 extremities. Speech is improving. Cough is better. No shortness of breath. No nausea, vomiting, or diarrhea. T-max 99.1. No big fever during this 24 hours. No headache. No dizziness. No swelling of the leg. PHYSICAL EXAMINATION: VITAL SIGNS: Temperature 98.5, pulse 79, blood pressure 144/90, respiratory rate 20, and oxygenation 97. HEENT: Head is normocephalic and atraumatic. Eyes; PERRLA. Extraocular muscles intact. Conjunctivae clear. Nose patent. Mucous membrane moist. NECK: Supple. No carotid bruits. No JVD or thyromegaly. CHEST: Bilaterally symmetrical. HEART: S1 and S2 positive. LUNGS: Clear to auscultation. ABDOMEN: Soft. Bowel sounds positive. No organomegaly. EXTREMITIES: No edema. No cyanosis. NEUROLOGICAL: The patient is awake and alert. Moving all 4 extremities. No focal deficit. MEDICATIONS: Aldactone, hydralazine, Bengay, Cardizem, clonidine, Cozaar, Dulcolax, insulin, Lopressor, Maxipime, Nitro-Bid, Protonix, Tylenol, and Zofran. LABORATORY DATA: White blood cells 10.2, yesterday 13.6, today is better, hemoglobin 11.1, and hematocrit 34.1. Sodium 138, potassium 4.0, BUN 16, creatinine 0.8, and glucose 118. ASSESSMENT AND PLAN: Ms. Noy Bryant is 72 years old lady with leukocytosis, anemia, uncontrolled diabetes mellitus, left occipital hemorrhage with intraventricular extension and pneumonia, and insulin dependent, uncontrolled diabetes mellitus. The patient's mental status and right-sided weakness continuously improving. MRI reviewed. Continue IV antibiotics. Physical therapy, speech therapy, now I just want to repeat MRI in 4 to 6 weeks to see the absorption of the hematoma or bleed, history of chronic obstructive pulmonary disease, obstructive sleep apnea, ischemic component with a residual flow in the brain, hydrocephalus, history of respiratory failure, intubated, status post extubated on nasal cannula off and on, getting modified diet, daytime hypersomnia, nighttime insomnia, gastrointestinal/deep venous thrombosis prophylaxis, repeat labs, and we will followup. Gayle Jones MD [facility] # [id number]
--- NOTE | 2017-06-29 16:53 | PN ---
DATE: 06/29/2017 LOCATION: The patient is in room 262, bed 2. REASON FOR CONSULTATION: Intracerebral bleeding and hypertension. SUBJECTIVE: The patient is more alert. No chest pain, shortness of breath, or palpitation. PHYSICAL EXAMINATION: VITAL SIGNS: Blood pressure 136/76, respiratory rate 20, pulse 69, and temperature 98.9. HEENT: Head is normocephalic. Eyes, pupils are normal. Conjunctivae normal. NECK: JVP low. Carotid equal. THORAX: AP diameter normal. LUNGS: Clear. CARDIOVASCULAR: S1 and S2. ABDOMEN: Soft and nontender. No organomegaly. Bowel sounds normal. EXTREMITIES: No clubbing or cyanosis. LABORATORY DATA: WBC 10.2, hemoglobin 11.1, hematocrit 34.1, and platelets 231. Sodium 138, potassium 4.0, BUN 16, creatinine 0.8, and random sugar 192. Calcium, phosphorous, and magnesium normal. Total protein and albumin normal. ASSESSMENT AND PLAN: Yesterday, I was called that blood pressure was 184/120. So I increased the hydralazine dose to 100 mg p.o. t.i.d. and also added nitroglycerin paste 1-inch q.6 hourly to the chest and today blood pressure is recorded 136/76, respirations 20, pulse 69, and temperature 98.9. Fever, the patient has no fever today. The patient is also started on Aldactone 50 mg daily, Cardizem CD 240 daily, losartan 100 daily, metoprolol 50 b.i.d., cefepime IV 2 g daily, and Protonix 40 daily. We will continue present therapy. Case discussed in detail at length with the daughter who is on bedside. Livia Corado MD
--- NOTE | 2017-06-29 17:53 | CP.PCM.PN ---
Subjective - Date & Time of Evaluation Date of Evaluation: 06/29/17 Time of Evaluation: 16:30 - Subjective Subjective: Infectious Disease Follow Up June 29, 2017 72 yo female presented with fall and altered mental status. She was found at home on floor by family who heard her fall. The patient was brought into the ER and found to be in uncontrolled hypertension and requiring intubation on arrival in the ER. The patient was found to hae a 4.4 cm left occipital intracranial hemorrhage with intraventricular extension. Patient is recovering but still having episodes of low grade fevers. Patient herself is not making any new complaints. She still has residual right sided weakness. Fevers have resolved for the last few days. Repeat cultures sent. Cannot rule out central fever. Cultures negative to date from sets taken on 06/21/2017 and 06/22/2017. Objective - Vital Signs/Intake and Output Vital Signs (last 24 hours): Temp Pulse Resp BP Pulse Ox 98.7 F 68 18 129/77 97 06/29/17 12:00 06/29/17 15:00 06/29/17 12:00 06/29/17 15:00 06/29/17 06:00 - Medications Medications: Current Medications Acetaminophen (Tylenol 325mg Tab) 650 mg PO Q4H PRN PRN Reason: Pain, Mild (1-3) Last Admin: 06/28/17 09:22 Dose: 650 mg Bisacodyl (Dulcolax) 5 mg PO DAILY [facility] Last Admin: 06/29/17 10:55 Dose: 5 mg Camphor/Menthol (Bengay) 0 gm TOP QID [facility] Last Admin: 06/29/17 11:02 Dose: 1 oin Clonidine HCl (Catapres-Tts3 0.3 Mg/24 Hr) 1 patch TD Q7D@1000 [facility] Last Admin: 06/27/17 11:28 Dose: 1 patch Diltiazem HCl (Cardizem Cd) 240 mg PO DAILY [facility] Last Admin: 06/29/17 10:55 Dose: 240 mg Hydralazine HCl (Apresoline) 100 mg PO TID [facility] Last Admin: 06/29/17 15:00 Dose: Not Given Cefepime HCl (Maxipime 2gm) 2 gm in 100 mls @ 100 mls/hr IVPB DAILY [facility] PRN Reason: Protocol Stop: 07/01/17 10:01 Last Admin: 06/29/17 10:39 Dose: 100 mls/hr Insulin Human Regular (Humulin R Med) 0 units SC ACHS [facility] PRN Reason: Protocol Last Admin: 06/29/17 12:21 Dose: 1 units Losartan Potassium (Cozaar) 100 mg PO DAILY [facility] Last Admin: 06/29/17 10:55 Dose: 100 mg Metoprolol Tartrate (Lopressor) 50 mg PO BID [facility] Last Admin: 06/29/17 10:55 Dose: 50 mg Nitroglycerin (Nitro-Bid 2% Oint) 1 ea TOP Q6H [facility] Last Admin: 06/29/17 11:05 Dose: 1 ea Ondansetron HCl (Zofran Inj) 4 mg IVP Q4H PRN PRN Reason: Nausea/Vomiting Last Admin: 06/28/17 17:56 Dose: 4 mg Pantoprazole Sodium (Protonix Susp) 40 mg PO 0600 [facility] Last Admin: 06/29/17 05:15 Dose: 40 mg Spironolactone (Aldactone) 50 mg PO DAILY [facility] Last Admin: 06/29/17 10:55 Dose: 50 mg - Labs Labs: 06/29/17 07:20 06/29/17 07:20 PT 10.6 Seconds (9.9-11.8) 06/19/17 05:10 INR 0.98 (0.93-1.08) 06/19/17 05:10 APTT 24.9 Seconds (23.7-30.8) 06/14/17 07:50 - Constitutional Appears: Non-toxic, No Acute Distress, Chronically Ill - Head Exam Head Exam: ATRAUMATIC, NORMOCEPHALIC - Eye Exam Eye Exam: EOMI, PERRL Pupil Exam: NORMAL ACCOMODATION, PERRL - ENT Exam ENT Exam: Mucous Membranes Moist, Normal External Ear Exam, TM's Normal Bilaterally - Neck Exam Neck Exam: Full ROM, Normal Inspection - Respiratory Exam Respiratory Exam: Clear to Ausculation Bilateral, NORMAL BREATHING PATTERN. absent: Rales, Rhonchi, Wheezes - Cardiovascular Exam Cardiovascular Exam: REGULAR RHYTHM, RRR, +S1, +S2 - GI/Abdominal Exam GI & Abdominal Exam: Soft, Normal Bowel Sounds. absent: Distended, Tenderness - Extremities Exam Extremities Exam: Pedal Edema Additional comments: right sided weakness - Neurological Exam Neurological Exam: Alert, Awake Additional comments: AAO x 2-3, right sided weakness - Psychiatric Exam Psychiatric exam: Depressed, Normal Affect - Skin Skin Exam: Intact, Normal Color Assessment and Plan - Assessment and Plan (Free Text) Assessment: 72 yo female with low grade fevers of up to 100.4 F after suffering from a 4.4cm left occipital intracranial hemorrhage with intraventricular extension. The patient initially had fevers up to 101.7 F. Clinically, the patient has been improving. Supportive care. She was intubated on admission. She was extubated on 06/18/2017. She speaks lithuanian mostly. The family states that the patient is acting and speaking appropriately other than the slurring of speech due to her right sided residual weakness. Tolliver cultures sent. There was a mild initial leukocytosis on admission but this has slowly improved. Fever trend has shown improvement. The cultures done to date have been negative so far. No consolidation seen on Chest X-ray. Patient answering question during interview and examination. Supportive care. Currently on Unasyn for antibiotic coverage. Noted C. Diff and repeat urine culture sent. No adequate sample for C. diff testing. Would obtain urinalysis. Would continue Unasyn for now. The current temperature is more likely secondary to the recent intracranial hemorrhage. Leukocytosis of 14.0 today but with a normal differential. Multiple culture sets performed to date are negative. Fever up to 100.7 F in the past 24 hours which has downtrended from the past 24 hours. Cultures negative to date at greater than 48 hours. Cannot rule out central fever which is the most likely scenario. Last CT done on 06/23/2017 showing interval evolution of known subacute hematoma in left occipital love without midline shift or herniation. Resolving intraventricular hemorrhage with residual mild intraventricular hemorrhage. She remains on Cefepime for antibiotic coverage. Afebrile for the past three plus days. No new issues so far. Thank you for allowing me to participate in the care of the patient, we will follow with you.
--- NOTE | 2017-06-30 02:35 | PN ---
DATE: 06/29/2017 PULMONARY PROGRESS NOTE REFERRING PHYSICIAN: Gayle Jones MD SUBJECTIVE: She is lying in the bed, sleepy, arousable. Daughter is at bedside. Had a physical therapy done today. No headache, no rhinitis. Not much cough, no sputum production. No hemoptysis, hematemesis, hematuria, or diarrhea reported. PHYSICAL EXAMINATION GENERAL: No acute distress. VITAL SIGNS: Temperature is 98, heart rate is 68, respiratory rate is 18, blood pressure 129/77, and pulse ox 98% on nasal cannula. HEENT: Moist mucous membranes. Crowded airway. Mallampati score is IV. NECK: Supple. No JVD. LUNGS: Has a fair airflow with rhonchi. HEART: S1 and S2. ABDOMEN: Soft, nontender, no organomegaly. EXTREMITIES: No edema. NEUROLOGIC: Sleepy, arousable, follows simple commands. MEDICATIONS: She is on Aldactone 50 mg daily, hydralazine 100 mg three times a day, Cardizem CD 240 mg daily, Catapres 0.3 mg q. 7 days, Cozaar 100 mg daily, Dulcolax 5 mg daily, insulin coverage, metoprolol tartrate 50 mg twice a day, cefepime 2 g IV daily, NitroBid 2% ointment q. 6 hours, Protonix 40 mg daily, Tylenol p.r.n. basis, and Zofran p.r.n. basis. LABORATORY DATA: Shows hemoglobin 11.1, hematocrit 34.1, WBC 10.2, and platelets are 231. Sodium 138, potassium 4.0, chloride 107, bicarbonate 21, BUN 16, creatinine 0.8, and glucose 192. Calcium is 8.8, phosphorus 2.9. AST 27, ALT 20, and alkaline phosphatase is 93. Albumin is 3.1. IMPRESSION AND PLAN: Intracranial hemorrhage with ventricular extension, hydrocephalus, also ischemic component of stroke with restrictive blood flow, hypertension, diabetes, respiratory failure, currently extubation on nasal cannula, may have a sleep apnea syndrome. Spoke to the patient at bedside, all the questions answered. Pulmonary point of view, doing well. Keep head 45 degree, sleep apnea precaution. Continue vasodilator, beta patel, afterload use of peripheral vasodilator. We will get venous Doppler before starting walking, SCD for a couple of days, high risk for thromboembolic disease. Thank you and we will follow with you. Livia Francois MD
[2017-06-30] MEDS: Nitroglycerin 2% Ointment Foilpak UD TOP SCH ×4 (06:11→23:18)
[2017-06-30] MEDS: Pantoprazole 40 mg Susp UD PO SCH (06:11)
--- NOTE | 2017-06-30 06:51 | CP.PCM.PN ---
Subjective - Date & Time of Evaluation Date of Evaluation: 06/30/17 Time of Evaluation: 06:51 - Subjective Subjective: S:Nurse Sloane calls and tells that patient has not passed urine , bladder scan shows that there is 700 cc urine in bladder.Patient isunable to void.When I came to see patient ,they had just passed Sierra cath and patient was moaning. Medical record was reviewed. O:VSS. LUNGS: Normal breathing pattern. ABD:No distension. A:Urinary retention. P:Sierra cath. Objective - Vital Signs/Intake and Output Vital Signs (last 24 hours): Temp Pulse Resp BP Pulse Ox 98.3 F 73 20 155/91 H 97 06/30/17 06:00 06/30/17 06:00 06/30/17 06:00 06/30/17 06:00 06/30/17 06:00 Intake and Output: 06/29/17 06/30/17 18:59 06:59 Intake Total 100 Output Total 200 Balance -100 - Medications Medications: Current Medications Acetaminophen (Tylenol 325mg Tab) 650 mg PO Q4H PRN PRN Reason: Pain, Mild (1-3) Last Admin: 06/28/17 09:22 Dose: 650 mg Bisacodyl (Dulcolax) 5 mg PO DAILY [facility] Last Admin: 06/29/17 10:55 Dose: 5 mg Camphor/Menthol (Bengay) 0 gm TOP QID [facility] Last Admin: 06/29/17 22:28 Dose: 1 oin Clonidine HCl (Catapres-Tts3 0.3 Mg/24 Hr) 1 patch TD Q7D@1000 [facility] Last Admin: 06/27/17 11:28 Dose: 1 patch Diltiazem HCl (Cardizem Cd) 240 mg PO DAILY [facility] Last Admin: 06/29/17 10:55 Dose: 240 mg Hydralazine HCl (Apresoline) 100 mg PO TID [facility] Last Admin: 06/29/17 17:58 Dose: 100 mg Cefepime HCl (Maxipime 2gm) 2 gm in 100 mls @ 100 mls/hr IVPB DAILY [facility] PRN Reason: Protocol Stop: 07/01/17 10:01 Last Admin: 06/29/17 10:39 Dose: 100 mls/hr Insulin Human Regular (Humulin R Med) 0 units SC ACHS [facility] PRN Reason: Protocol Last Admin: 06/29/17 22:16 Dose: Not Given Losartan Potassium (Cozaar) 100 mg PO DAILY [facility] Last Admin: 06/29/17 10:55 Dose: 100 mg Metoprolol Tartrate (Lopressor) 50 mg PO BID [facility] Last Admin: 06/29/17 17:57 Dose: 50 mg Nitroglycerin (Nitro-Bid 2% Oint) 1 ea TOP Q6H [facility] Last Admin: 06/30/17 06:11 Dose: 1 ea Ondansetron HCl (Zofran Inj) 4 mg IVP Q4H PRN PRN Reason: Nausea/Vomiting Last Admin: 06/28/17 17:56 Dose: 4 mg Pantoprazole Sodium (Protonix Susp) 40 mg PO 0600 [facility] Last Admin: 06/30/17 06:11 Dose: 40 mg Spironolactone (Aldactone) 50 mg PO DAILY [facility] Last Admin: 06/29/17 10:55 Dose: 50 mg - Labs Labs: 06/29/17 07:20 06/29/17 07:20 PT 10.6 Seconds (9.9-11.8) 06/19/17 05:10 INR 0.98 (0.93-1.08) 06/19/17 05:10 APTT 24.9 Seconds (23.7-30.8) 06/14/17 07:50
[2017-06-30 07:36] LABS: PH,URINE 6.5 (4.7-8.0); URINE BILIRUBIN NEGATIVE (NEGATIVE); URINE BLOOD NEGATIVE (NEGATIVE); URINE GLUCOSE (UA) 100 mg/dL (NEGATIVE); URINE KETONE NEGATIVE (NEGATIVE); URINE LEUKOCYTE ESTERASE NEGATIVE Leu/uL (NEGATIVE); URINE PROTEIN 100 mg/dL (<30 mg/dL); URINE UROBILINOGEN 0.2 E.U./dL (<1 E.U./dL)
[2017-06-30 07:39] LABS: URINE APPEARANCE CLEAR (CLEAR); URINE COLOR YELLOW (YELLOW)
[2017-06-30 08:17] LABS: URINE BACTERIA FEW (NEG); URINE RBC NEGATIVE /hpf (0-2); URINE WBC 0 - 2 /hpf (0-6)
[2017-06-30] MEDS: Insulin Reg-MEDIUM-Coverage SC SCH ×4 (09:27→21:58)
[2017-06-30] MEDS: Cefepime IV 2 gm in NS 2 GM/100 ML BAG IVPB SCH (09:32)
[2017-06-30] MEDS: diltiaZEM 240 mg/24 Hours CD Cap PO SCH (09:32)
[2017-06-30] MEDS: Menthol/Methyl Salicylate Ointment(1 oz) TOP SCH ×3 (09:32→17:22)
[2017-06-30] MEDS: Bisacodyl 5mg EC Tab PO SCH (09:33)
--- NOTE | 2017-06-30 12:35 | PN ---
REASON FOR CONSULTATION: Followup cardiac evaluation, intracerebral bleed, uncontrolled hypertension. SUBJECTIVE: The patient is much awake and alert; daughter Beto, is at the bedside; responds to verbal stimuli. Denies any chest pain. Denies any shortness of breath. Had headache, but no more headache now. Per family request, suppository was discontinued and changed to p.o. Tylenol p.r.n. for headache. OBJECTIVE: GENERAL: Lying flat on the bed, having the breakfast, being fed by the daughter, not in apparent distress. VITAL SIGNS: Temperature afebrile, heart rate 70 and blood pressure 130/86. HEENT: PERRLA, intact. NECK: Supple. No carotid bruits. No thyromegaly. CHEST: Clear to auscultation. HEART: S1 and S2 regular. ABDOMEN: Soft. EXTREMITIES: Clubbing and cyanosis negative. LABORATORY DATA: Blood workup as follows: WBC 10.2, hemoglobin 11.9, hematocrit 34.1 and platelet count 231. Chemistry showed sodium yesterday 130, potassium 4, chloride 107, carbon dioxide of 21, anion gap of 14, BUN 16 and creatinine 0.8. IMPRESSION: Uncontrolled hypertension, intracerebral bleed, now stable; obesity; fever, the patient was having fever possibly of central, but the blood cultures are negative. Last 72 hours, the patient has no fever. All the blood cultures remained negative. Hypertension, uncontrolled, is stable now. Bradycardia, no bradycardia, stable. Repeat brain MRI on 06/26, hematoma or hemorrhagic mass noted in occipital and temporal lobes. Obesity, body mass index 30.6 kg/sq m. Diabetes is also improving. Headache, possibly secondary to intracerebral bleed, fever subsided. RECOMMENDATIONS: Continue aggressive control of blood pressure now. Consider discontinue telemetry. Consider discharge if the patient's CVS status is stable. If neurologically the patient is stable possibly discharge. Continue for now spironolactone. Continue Cardizem. Continue clonidine. Continue losartan. Continue metoprolol, the patient on pretty high dose. When the headache improves consider titrating the antihypertensive medication. Possibly, there is a lot of hypertensive response and spike of the blood pressure secondary to headache as well, monitor closely. We will follow with you. Thank you Dr. Beck for providing us an opportunity in taking care of the patient. Livia Rendon MD [facility] # [id number]
--- NOTE | 2017-06-30 18:09 | CP.PCM.PN ---
Subjective - Date & Time of Evaluation Date of Evaluation: 06/30/17 Time of Evaluation: 15:00 - Subjective Subjective: Infectious Disease Follow Up June 30, 2017 72 yo female presented with fall and altered mental status. She was found at home on floor by family who heard her fall. The patient was brought into the ER and found to be in uncontrolled hypertension and requiring intubation on arrival in the ER. The patient was found to hae a 4.4 cm left occipital intracranial hemorrhage with intraventricular extension. Patient is recovering but still having episodes of low grade fevers. Patient herself is not making any new complaints. She still has residual right sided weakness. Fevers have resolved for the last few days. Repeat cultures sent. Cannot rule out central fever. Cultures negative to date from sets taken on 06/21/2017 and 06/22/2017. She is still having problems voiding. Objective - Vital Signs/Intake and Output Vital Signs (last 24 hours): Temp Pulse Resp BP Pulse Ox 98.7 F 73 19 123/72 97 06/30/17 12:00 06/30/17 13:51 06/30/17 12:00 06/30/17 17:27 06/30/17 06:00 Intake and Output: 06/30/17 06/30/17 06:59 18:59 Intake Total 100 Output Total 200 Balance -100 - Medications Medications: Current Medications Acetaminophen (Tylenol 325mg Tab) 650 mg PO Q4H PRN PRN Reason: Pain, Mild (1-3) Last Admin: 06/28/17 09:22 Dose: 650 mg Bisacodyl (Dulcolax) 5 mg PO DAILY [facility] Last Admin: 06/30/17 09:33 Dose: 5 mg Camphor/Menthol (Bengay) 0 gm TOP QID [facility] Last Admin: 06/30/17 17:22 Dose: 1 oin Clonidine HCl (Catapres-Tts3 0.3 Mg/24 Hr) 1 patch TD Q7D@1000 [facility] Last Admin: 06/27/17 11:28 Dose: 1 patch Diltiazem HCl (Cardizem Cd) 240 mg PO DAILY [facility] Last Admin: 06/30/17 09:32 Dose: 240 mg Hydralazine HCl (Apresoline) 100 mg PO TID [facility] Last Admin: 06/30/17 17:26 Dose: 100 mg Cefepime HCl (Maxipime 2gm) 2 gm in 100 mls @ 100 mls/hr IVPB DAILY [facility] PRN Reason: Protocol Stop: 07/01/17 10:01 Last Admin: 06/30/17 09:32 Dose: 100 mls/hr Insulin Human Regular (Humulin R Med) 0 units SC ACHS [facility] PRN Reason: Protocol Last Admin: 06/30/17 17:22 Dose: 3 units Losartan Potassium (Cozaar) 100 mg PO DAILY [facility] Last Admin: 06/30/17 09:33 Dose: 100 mg Metoprolol Tartrate (Lopressor) 50 mg PO BID [facility] Last Admin: 06/30/17 17:27 Dose: 50 mg Nitroglycerin (Nitro-Bid 2% Oint) 1 ea TOP Q6H [facility] Last Admin: 06/30/17 17:33 Dose: Not Given Ondansetron HCl (Zofran Inj) 4 mg IVP Q4H PRN PRN Reason: Nausea/Vomiting Last Admin: 06/30/17 09:30 Dose: 4 mg Pantoprazole Sodium (Protonix Susp) 40 mg PO 0600 [facility] Last Admin: 06/30/17 06:11 Dose: 40 mg Spironolactone (Aldactone) 50 mg PO DAILY [facility] Last Admin: 06/30/17 09:32 Dose: 50 mg - Labs Labs: 06/29/17 07:20 06/29/17 07:20 PT 10.6 Seconds (9.9-11.8) 06/19/17 05:10 INR 0.98 (0.93-1.08) 06/19/17 05:10 APTT 24.9 Seconds (23.7-30.8) 06/14/17 07:50 - Constitutional Appears: Non-toxic, No Acute Distress, Chronically Ill - Head Exam Head Exam: ATRAUMATIC, NORMOCEPHALIC - Eye Exam Eye Exam: EOMI, PERRL Pupil Exam: NORMAL ACCOMODATION, PERRL - ENT Exam ENT Exam: Mucous Membranes Moist, Normal External Ear Exam, TM's Normal Bilaterally - Neck Exam Neck Exam: Full ROM, Normal Inspection - Respiratory Exam Respiratory Exam: Clear to Ausculation Bilateral, NORMAL BREATHING PATTERN. absent: Rales, Rhonchi, Wheezes - Cardiovascular Exam Cardiovascular Exam: REGULAR RHYTHM, RRR, +S1, +S2 - GI/Abdominal Exam GI & Abdominal Exam: Soft, Normal Bowel Sounds. absent: Distended, Tenderness - Extremities Exam Extremities Exam: Pedal Edema Additional comments: right sided weakness - Neurological Exam Neurological Exam: Alert, Awake Additional comments: AAO x 2-3, right sided weakness - Psychiatric Exam Psychiatric exam: Depressed, Normal Affect - Skin Skin Exam: Intact, Normal Color Assessment and Plan - Assessment and Plan (Free Text) Assessment: 72 yo female with low grade fevers of up to 100.4 F after suffering from a 4.4cm left occipital intracranial hemorrhage with intraventricular extension. The patient initially had fevers up to 101.7 F. Clinically, the patient has been improving. Supportive care. She was intubated on admission. She was extubated on 06/18/2017. She speaks indonesian mostly. The family states that the patient is acting and speaking appropriately other than the slurring of speech due to her right sided residual weakness. Tolliver cultures sent. There was a mild initial leukocytosis on admission but this has slowly improved. Fever trend has shown improvement. The cultures done to date have been negative so far. No consolidation seen on Chest X-ray. Patient answering question during interview and examination. Supportive care. Currently on Unasyn for antibiotic coverage. Noted C. Diff and repeat urine culture sent. No adequate sample for C. diff testing. Would obtain urinalysis. Would continue Unasyn for now. The current temperature is more likely secondary to the recent intracranial hemorrhage. Leukocytosis of 14.0 today but with a normal differential. Multiple culture sets performed to date are negative. Cultures negative to date at greater than 48 hours. Cannot rule out central fever which is the most likely scenario. Last CT done on 06/23/2017 showing interval evolution of known subacute hematoma in left occipital love without midline shift or herniation. Resolving intraventricular hemorrhage with residual mild intraventricular hemorrhage. She remains on Cefepime for antibiotic coverage. Afebrile for the past three plus days. No new issues so far. Still issues with urination. Thank you for allowing me to participate in the care of the patient, we will follow with you.
--- NOTE | 2017-06-30 18:38 | US ---
HISTORY: Leg pain and swelling. Evaluate for DVT PHYSICIAN(S): Dennis Michael MD. TECHNIQUE: Duplex sonography and color-flow Doppler with graded compression were used to evaluate the deep venous systems of both lower extremities. FINDINGS: The visualized deep venous systems of both lower extremities are sonographically normal and compressible. Normal wave forms and augmentation are seen. There is no sonographic evidence for deep venous thrombosis in the visualized segments of both lower extremities. IMPRESSION: No sonographic evidence for deep venous thrombosis in the visualized segments of both lower extremities.
--- NOTE | 2017-07-01 02:11 | PN ---
PULMONARY PROGRESS NOTE REFERRING PHYSICIAN: Gayle Jones MD SUBJECTIVE: She is lying in the bed, sleepy, arousable, daughter is at bedside, night was unremarkable. No therapy today. No nausea, no vomiting, no diarrhea. Abdominal pain is better. No leg pain or leg swelling. OBJECTIVE: GENERAL: In no acute distress. VITAL SIGNS: Temperature is 100.5, heart rate 65, respiratory rate is 20, blood pressure 123/72, pulse ox 97% on room air. HEENT: Moist mucous membrane. Crowded airway. NECK: Supple. No JVD. LUNGS: Fair air flow with few rhonchi. HEART: S1, S2. ABDOMEN: Soft, nontender, nondistended. EXTREMITIES: There is no edema. NEUROLOGIC: Sleepy, arousable. Follows simple commands. MEDICATIONS: She is on Aldactone 50 mg daily, hydralazine 100 mg three times a day, Bengay affected area q.i.d., Cardizem CD 240 mg daily, Catapres patch 0.3 mg weekly, Cozaar 100 mg daily, Dulcolax 5 mg daily, insulin coverage, metoprolol tartrate 50 mg twice a day, cefepime 2 g IV daily, Protonix 40 mg daily, Tylenol p.r.n. basis, and Zofran p.r.n. basis. LABORATORY DATA: Shows blood sugar this morning 165. Venous Doppler of lower extremity done yesterday, no evidence of DVT in both lower extremities. IMPRESSION AND PLAN: Intracranial hemorrhage with ventricular extension, hydrocephalus, ischemic component of stroke was also present with some restrictive blood flow with MRI, hypertension, diabetes, respiratory failure, extubated on room air, constipation, may have sleep apnea syndrome. Spoke to the patient's daughter at bedside, all the questions answered. Need aggressive therapy, occupational and then physical therapy. May need to get her out of bed to chair. Continue vasodilator, beta patel, gastric prophylaxis, SCD to lower extremities. We will start deep venous thrombosis chemical prophylaxis once cleared by the therapy by neurology. The patient will benefit from acute neuro rehab. Thank you and we will follow with you. Livia Francois MD [facility] # [id number]
[2017-07-01] MEDS: Pantoprazole 40 mg Susp UD PO SCH (06:09)
[2017-07-01] MEDS: Nitroglycerin 2% Ointment Foilpak UD TOP SCH ×4 (06:09→23:05)
[2017-07-01] MEDS: Insulin Reg-MEDIUM-Coverage SC SCH ×4 (08:23→22:18)
--- NOTE | 2017-07-01 09:41 | PN ---
SUBJECTIVE: The patient seen and examined at bedside, looking comfortable. Two daughters are on the bedside. No nausea, vomiting, diarrhea, hematuria, or hematochezia. No swelling of the leg. No chest pain. No palpitation. The patient has urinary retention, seen by Dr. Ramirez. Bladder scan shows 500 mL urine. The patient was unable to void, Sierra catheter was put. No headache or dizziness. No fever, no chills. The patient is not a good historian. REVIEW OF SYSTEMS: as above PHYSICAL EXAMINATION VITAL SIGNS: Temperature 98.3, pulse 73, respirations 20, blood pressure 155/91, pulse oximetry 97. HEENT: Head is normocephalic and atraumatic. Eyes: PERRLA. Extraocular muscles intact. Conjunctivae clear. Nose patent. Mucous membranes moist. NECK: Supple. No carotid bruits, JVD, or thyromegaly. CHEST: Bilateral symmetrical. HEART: S1 and S2 positive. LUNGS: Clear to auscultation. ABDOMEN: Soft. Bowel sounds are present. No organomegaly. EXTREMITIES: No edema. No cyanosis. NEUROLOGIC: The patient is awake and alert. Moving all 4 extremities. No focal deficits. MEDICATIONS: Tylenol, Dulcolax, Bengay, Catapres, Cardizem, hydralazine, Maxipime, insulin, Cozaar, Lopressor, Nitro-Bid, Zofran, Protonix, Aldactone. LABORATORY DATA: White blood cell is 7.2, hemoglobin 11.1, hematocrit 34.1, platelets 231. Sodium 138, potassium 4.0, BUN 16, creatinine 0.8, glucose of 111. ASSESSMENT AND PLAN: Mrs. Noy Bryant is a 72-year-old lady with multiple medical problems, uncontrolled hypertension; intracranial bleed, obesity, fever, blood cultures are negative, last 72 hours are fever-free, bradycardia, diabetes mellitus, insulin requiring, mild urinary retention, Sierra catheter passed, continue drastic control of blood pressure. as per cardiology , considering discontinuing telemetry. The patient need good rehab , list of rehab given to the patient's daughter by social media developer . They are working on that. Getting physical therapy. History of schizophrenia, bipolar. We will follow. Gayle Jones MD [facility]
[2017-07-01] MEDS: diltiaZEM 240 mg/24 Hours CD Cap PO SCH (10:06)
[2017-07-01] MEDS: Bisacodyl 5mg EC Tab PO SCH (10:06)
[2017-07-01] MEDS: Menthol/Methyl Salicylate Ointment(1 oz) TOP SCH ×3 (10:07→22:00)
[2017-07-01] MEDS: Cefepime IV 2 gm in NS 2 GM/100 ML BAG IVPB SCH (10:08)
--- NOTE | 2017-07-01 22:53 | CP.PCM.PN ---
Subjective - Date & Time of Evaluation Date of Evaluation: 07/01/17 Time of Evaluation: 21:00 - Subjective Subjective: Infectious Disease Follow Up July 01, 2017 72 yo female presented with fall and altered mental status. She was found at home on floor by family who heard her fall. The patient was brought into the ER and found to be in uncontrolled hypertension and requiring intubation on arrival in the ER. The patient was found to hae a 4.4 cm left occipital intracranial hemorrhage with intraventricular extension. Patient is recovering but still having episodes of low grade fevers. Patient herself is not making any new complaints. She still has residual right sided weakness. Fevers have resolved for the last few days. Repeat cultures sent. Cannot rule out central fever. Cultures negative to date from sets taken on 06/21/2017 and 06/22/2017. She is still having problems voiding. Awaiting placement. Objective - Vital Signs/Intake and Output Vital Signs (last 24 hours): Temp Pulse Resp BP Pulse Ox 99 F 68 19 140/88 95 07/01/17 17:38 07/01/17 18:00 07/01/17 17:38 07/01/17 17:38 07/01/17 06:00 Intake and Output: 07/01/17 07/02/17 18:59 06:59 Intake Total 300 Output Total 300 Balance 0 - Medications Medications: Current Medications Acetaminophen (Tylenol 325mg Tab) 650 mg PO Q4H PRN PRN Reason: Pain, Mild (1-3) Last Admin: 06/30/17 18:40 Dose: 650 mg Bisacodyl (Dulcolax) 5 mg PO DAILY [facility] Last Admin: 07/01/17 10:06 Dose: 5 mg Camphor/Menthol (Bengay) 0 gm TOP QID [facility] Last Admin: 07/01/17 15:43 Dose: 1 oin Clonidine HCl (Catapres-Tts3 0.3 Mg/24 Hr) 1 patch TD Q7D@1000 [facility] Last Admin: 06/27/17 11:28 Dose: 1 patch Diltiazem HCl (Cardizem Cd) 240 mg PO DAILY [facility] Last Admin: 07/01/17 10:06 Dose: 240 mg Hydralazine HCl (Apresoline) 100 mg PO TID [facility] Last Admin: 07/01/17 17:28 Dose: 100 mg Insulin Human Regular (Humulin R Med) 0 units SC ACHS [facility] PRN Reason: Protocol Last Admin: 07/01/17 22:18 Dose: Not Given Losartan Potassium (Cozaar) 100 mg PO DAILY [facility] Last Admin: 07/01/17 10:07 Dose: 100 mg Metoprolol Tartrate (Lopressor) 50 mg PO BID [facility] Last Admin: 07/01/17 17:27 Dose: 50 mg Nitroglycerin (Nitro-Bid 2% Oint) 1 ea TOP Q6H [facility] Last Admin: 07/01/17 17:29 Dose: 1 ea Ondansetron HCl (Zofran Inj) 4 mg IVP Q4H PRN PRN Reason: Nausea/Vomiting Last Admin: 06/30/17 09:30 Dose: 4 mg Pantoprazole Sodium (Protonix Susp) 40 mg PO 0600 [facility] Last Admin: 07/01/17 06:09 Dose: 40 mg Spironolactone (Aldactone) 50 mg PO DAILY [facility] Last Admin: 07/01/17 10:07 Dose: 50 mg - Labs Labs: 06/29/17 07:20 06/29/17 07:20 PT 10.6 Seconds (9.9-11.8) 06/19/17 05:10 INR 0.98 (0.93-1.08) 06/19/17 05:10 APTT 24.9 Seconds (23.7-30.8) 06/14/17 07:50 - Constitutional Appears: Non-toxic, No Acute Distress, Chronically Ill - Head Exam Head Exam: ATRAUMATIC, NORMOCEPHALIC - Eye Exam Eye Exam: EOMI, PERRL Pupil Exam: NORMAL ACCOMODATION, PERRL - ENT Exam ENT Exam: Mucous Membranes Moist - Neck Exam Neck Exam: Full ROM, Normal Inspection - Respiratory Exam Respiratory Exam: Clear to Ausculation Bilateral, NORMAL BREATHING PATTERN. absent: Rales, Rhonchi, Wheezes - Cardiovascular Exam Cardiovascular Exam: REGULAR RHYTHM, RRR, +S1, +S2 - GI/Abdominal Exam GI & Abdominal Exam: Soft, Normal Bowel Sounds. absent: Distended, Tenderness - Extremities Exam Extremities Exam: Pedal Edema Additional comments: right sided weakness. - Neurological Exam Neurological Exam: Alert, Awake Additional comments: AAO x 2-3. right sided weakness. - Psychiatric Exam Psychiatric exam: Depressed, Normal Affect - Skin Skin Exam: Intact, Normal Color Assessment and Plan - Assessment and Plan (Free Text) Assessment: 72 yo female with low grade fevers of up to 100.4 F after suffering from a 4.4cm left occipital intracranial hemorrhage with intraventricular extension. The patient initially had fevers up to 101.7 F. Clinically, the patient has been improving. Supportive care. She was intubated on admission. She was extubated on 06/18/2017. She speaks ghanaian mostly. The family states that the patient is acting and speaking appropriately other than the slurring of speech due to her right sided residual weakness. Tolliver cultures sent. There was a mild initial leukocytosis on admission but this has slowly improved. Fever trend has shown improvement. The cultures done to date have been negative so far. No consolidation seen on Chest X-ray. Patient answering question during interview and examination. Supportive care. Currently on Unasyn for antibiotic coverage. Noted C. Diff and repeat urine culture sent. No adequate sample for C. diff testing. Would obtain urinalysis. Would continue Unasyn for now. The current temperature is more likely secondary to the recent intracranial hemorrhage. Leukocytosis of 14.0 today but with a normal differential. Multiple culture sets performed to date are negative. Cultures negative to date at greater than 48 hours. Cannot rule out central fever which is the most likely scenario. Last CT done on 06/23/2017 showing interval evolution of known subacute hematoma in left occipital love without midline shift or herniation. Resolving intraventricular hemorrhage with residual mild intraventricular hemorrhage. She remains on Cefepime for antibiotic coverage. Afebrile for the past three plus days. No new issues so far. Still issues with urination. Thank you for allowing me to participate in the care of the patient, we will follow with you.
--- NOTE | 2017-07-01 23:11 | PN ---
NEUROLOGY PROGRESS NOTE DATE: SUBJECTIVE: The patient is lying on the bed in no acute distress, does complaining of mild headache. Denies any dizziness. PHYSICAL EXAMINATION: VITAL SIGNS: Her blood pressure is 130/88, heart rate is 71 per minute, breathing at a rate 16 per minute and temperature is 99 degrees Fahrenheit. HEENT: Normocephalic and atraumatic. NECK: Supple. There are no carotid bruits. LUNGS: Clear. CARDIOVASCULAR SYSTEM: S1 and S2 audible. No murmurs. ABDOMEN: Soft and nontender. Bowel sounds are present. NEUROLOGIC: Mental status: The patient is awake and alert. She knows she is in hospital. She follows all simple commands. Cranial nerve examination: Pupils 3 mm bilaterally reactive to light. Visual bonner slightly decreased on the right side. Extraocular movements are intact. There is decreased nasolabial fold on the right side. Her tongue is midline. Motor examination: Tone is normal. Power in the left side is 5/5, power in the right upper extremity is 3-4/5 and power in the right lower extremity is about 2-3/5. Plantars upgoing on the right and downgoing on the left side. IMPRESSION: 1. Left occipital hemorrhage with intraventricular extension. 2. Pneumonia. RECOMMENDATIONS: 1. The patient's mental status seems to be a lot better. 2. The patient can have p.r.n. Tylenol for headaches. 3. The patient will require MRI of the brain with contrast after 4 to 6 weeks once the blood is absorbed. 4. The patient to be continued on physical therapy and is a very good candidate for rehabilitation. 5. I have discussed the patient's findings with the patient's daughter in detail. 6. Please continue supportive care as her treatment. Thank you for the opportunity to participate in the care of this patient. Evan Glover MD
--- NOTE | 2017-07-01 23:47 | PN ---
PULMONARY PROGRESS NOTE DATE: 07/01/2017 REFERRING PHYSICIAN: Gayle Jones MD SUBJECTIVE: She is sitting at the side of the bed. Able to stand up with the help of the therapist. Did not take much steps. No headache. No rhinitis. No nausea. No vomiting. No diarrhea reported. OBJECTIVE: VITAL SIGNS: Temperature is 99, heart rate is 68, respiratory rate is 18, blood pressure 145/53, pulse ox 95% on room air. HEENT: Moist mucous membranes. Crowded airway. NECK: Supple. No JVD. LUNGS: Fair airflow with few rhonchi. HEART: S1, S2. ABDOMEN: Soft, nontender. No organomegaly. EXTREMITIES: There is no edema. NEUROLOGIC: Awake and alert. Follows simple command. MEDICATIONS: She is on Aldactone 50 mg daily, hydralazine 100 mg 3 times a day, Bengay at affected area q.i.d., Cardizem CD 240 mg daily, Catapres 0.3 mg weekly, Cozaar 100 mg daily, Dulcolax 5 mg daily, insulin coverage, metoprolol tartrate 50 mg twice a day, Protonix as mentioned 40 mg daily, Tylenol p.r.n., Zofran p.r.n. basis. LABORATORY DATA: Reviewed. Blood sugar today is 201. IMPRESSION AND PLAN: Intracranial hemorrhage with ventricular extension, hydrocephalous, also ischemic component of stroke, hypertension, diabetes, respiratory failure, extubated on room air, constipation, sleep apnea syndrome, severe activities daily living dysfunction, cognitive deficits. Pulmonary point of view, doing okay. Continue bronchodilator. Keep head 45 degrees. Continue CPAP use. I spoke to therapist. Continue to be aggressive. She will benefit from neuro inpatient acute rehab, gastric prophylaxis. Once cleared from neurology, we will start deep venous prophylaxis though have LAUREN stockings to the lower extremities. Thank you and we will follow with you. Livia Francois MD
--- NOTE | 2017-07-02 02:08 | PN ---
DATE: 07/01/2017 REASON FOR CONSULTATION: Followup cardiac evaluation, intracerebral bleed and uncontrolled hypertension. SUBJECTIVE: Lying flat on the bed, not in apparent distress. No chest pain. No shortness of breath. PHYSICAL EXAMINATION: GENERAL: Lying flat on the bed, not in apparent distress. VITAL SIGNS: Temperature afebrile, heart rate , and blood pressure 125/82. HEENT: PERRLA, intact. NECK: Supple. No carotid bruits. No thyromegaly. CHEST: Clear to auscultation. HEART: S1 and S2, regular. ABDOMEN: Soft. EXTREMITIES: Clubbing and cyanosis negative. LABORATORY DATA: Blood workup as follows: WBC 10.8, hemoglobin 11.9, hematocrit 34.1 and platelet count 231. Chemistry shows sodium 130, potassium 4, chloride 107, carbon dioxide 21, anion gap of 14, BUN 16 and creatinine 0.8. IMPRESSION: Intracerebral bleed, hypertension. Last 4 days, no fever, possibly central. Uncontrolled hypertension, bradycardia improved. Repeat MRI on 06/26/2017, shows stable hematoma. Diabetes, hypertension, hyperlipidemia, obesity. RECOMMENDATION: Continue aggressive control of blood pressure. Now consider discontinue telemetry. Continue current medication. Consider discharge to the rehab facility. We will follow with you Thank you Dr. Jones for providing me the opportunity in taking care of the patientAnnette. Livia Rendon MD
--- NOTE | 2017-07-02 03:09 | PN ---
SUBJECTIVE: This is a 72-year-old female. The patient was seen and examined on the bedside, looking comfortable. No nausea, vomiting or diarrhea. No hematuria or hematochezia. No abdominal pain. No headache. No dizziness. No fever. No chills. PHYSICAL EXAMINATION: VITAL SIGNS: Temperature is 100.5, heart rate 65, respiratory rate 20, blood pressure 123/72 and pulse oximetry 97% on room air. HEENT: Head is normocephalic and atraumatic. Eyes: PERRLA. Extraocular muscles intact. Conjunctivae clear. Nose patent. Mucous membranes moist. NECK: Supple. No carotid bruits. No JVD or thyromegaly. CHEST: Bilaterally symmetrical. HEART: S1 and S2 positive. LUNGS: Clear to auscultation. ABDOMEN: Soft. Bowel sounds present. No organomegaly. EXTREMITIES: No edema. No cyanosis. NEUROLOGICALLY: The patient is awake, follows simple commands. MEDICATIONS: Aldactone, hydralazine, Cardizem, Catapres patch, Cozaar, Dulcolax, cefepime, Protonix, Tylenol, and Zofran. LABORATORY DATA: We do not have recent laboratory data, but I reviewed old labs. ASSESSMENT AND PLAN: The patient is a 72-year-old lady with intracranial hemorrhage with ventricular extension, hydrocephalus, ischemia, component of the stroke; hypertension; diabetes mellitus; respiratory failure, was intubated and extubated, now is on room air; constipation; sleep apnea syndrome; insulin-dependent diabetes mellitus. Needs active physical therapy and occupational therapy. Continue with dilators, beta blockers and gastric prophylaxis, sequential compression device to lower extremities. The patient will need deep venous thrombosis prophylaxis. Waiting words from neurology. Gastrointestinal and deep venous thrombosis prophylaxis. Repeat labs. Gayle Jones MD
[2017-07-02] MEDS: Pantoprazole 40 mg Susp UD PO SCH (05:21)
[2017-07-02] MEDS: Nitroglycerin 2% Ointment Foilpak UD TOP SCH ×3 (05:22→17:54)
[2017-07-02] MEDS: Bisacodyl 5mg EC Tab PO SCH (09:38)
[2017-07-02] MEDS: Menthol/Methyl Salicylate Ointment(1 oz) TOP SCH ×5 (09:40→21:33)
[2017-07-02] MEDS: Insulin Reg-MEDIUM-Coverage SC SCH ×3 (09:40→19:32)
[2017-07-02] MEDS: diltiaZEM 240 mg/24 Hours CD Cap PO SCH (09:40)
--- NOTE | 2017-07-02 13:11 | PN ---
DATE: REASON FOR CONSULTATION: Followup cardiac evaluation, intracerebral bleed, uncontrolled hypertension. SUBJECTIVE: Denies any chest pain, shortness of breath, any palpitations. Daughter Beto is at the bedside. PHYSICAL EXAMINATION GENERAL: Not in apparent distress, lying flat. VITAL SIGNS: As follows: Temperature afebrile, heart rate 65, blood pressure 132/80. HEENT: PERRLA. Extraocular muscles intact. NECK: Supple. No carotid bruit or thyromegaly. CHEST: Clear to auscultation. HEART: S1 and S2, regular. ABDOMEN: Soft. EXTREMITIES: Clubbing and cyanosis negative. LABORATORY DATA: Blood workup as follows; WBC is 10.2, hemoglobin 11.1, hematocrit 34.1 as of , platelet count 231. Chemistry showed as of sodium 130, potassium 4, chloride 107, carbon dioxide 21, anion gap 14, BUN 16, creatinine 0.80. IMPRESSION: Intracerebral bleed, uncontrolled hypertension, now with a stable fever. Blood culture are negative, possibly secondary to cerebrovascular accident, last 5 days no fever. Repeat MRI stable; hematoma, diabetes, hypertension, hyperlipidemia. RECOMMENDATIONS: Continue aggressive control of blood pressure, rehab, okay to discharge. Discharge planning, fairly stable from cardiology point of review. Thank you Dr. Jones for providing me the opportunity in taking care of Noy Bryant. Livia Rendon MD cc: Gayle Jones MD
--- NOTE | 2017-07-02 19:51 | PN ---
DATE: NEUROLOGY PROGRESS NOTE SUBJECTIVE: The patient is lying on the bed in no acute distress. Denies having any headaches. PHYSICAL EXAMINATION: VITAL SIGNS: Her blood pressure is 118/71, heart rate is 62 per minute, breathing at the rate of 16 per minute, temperature 98.7 degrees Fahrenheit. HEENT: Normocephalic and atraumatic. NECK: Supple. There are no carotid bruits. LUNGS: Clear. CVS: S1 and S2 audible. No murmurs. ABDOMEN: Soft and nontender. Bowel sounds present. NEUROLOGIC: Mental status: The patient is awake, alert, and oriented to self, place. She follows most of the commands. Cranial nerve examination: Pupils 3 mm bilaterally reactive to light. Visual bonner slightly impaired on the right side. Extraocular movements are intact. There is decreased nasolabial fold on the right side. Motor examination: Tone is normal. There is right-sided hemiparesis with power in the right upper extremity about 3-4/5, power in the right lower extremity is about 2/5. Plantars upgoing on the right and downgoing on the left side. IMPRESSION: 1. Left occipital hemorrhage with intraventricular extension. 2. Status post pneumonia. 3. Hypertension. RECOMMENDATIONS: 1. The patient's neurologic status has significantly improved with mental status, much better with the patient more awake and alert. 2. The patient can have Tylenol p.r.n. for headaches. 3. It has been more than two weeks this patient has this intracerebral hemorrhage. She may be started on DVT prophylaxis with Lovenox. 4. The patient will have physical therapy. The patient is a very good candidate for rehabilitation placement. 5. Please continue supportive care as her treatment. Thank you for the opportunity to participate in the care of this patient. Evan Glover MD
--- NOTE | 2017-07-02 20:10 | CP.PCM.PN ---
Subjective - Date & Time of Evaluation Date of Evaluation: 07/02/17 Time of Evaluation: 20:00 - Subjective Subjective: Infectious Disease Follow Up July 02, 2017 72 yo female presented with fall and altered mental status. She was found at home on floor by family who heard her fall. The patient was brought into the ER and found to be in uncontrolled hypertension and requiring intubation on arrival in the ER. The patient was found to hae a 4.4 cm left occipital intracranial hemorrhage with intraventricular extension. Patient is recovering but still having episodes of low grade fevers. Patient herself is not making any new complaints. She still has residual right sided weakness. Fevers have resolved for the last few days. Repeat cultures sent. Cannot rule out central fever. Cultures negative to date from sets taken on 06/21/2017 and 06/22/2017. She is still having problems voiding. Awaiting placement. Mentally, she has improved. No new Infectious Disease issues. Objective - Vital Signs/Intake and Output Vital Signs (last 24 hours): Temp Pulse Resp BP Pulse Ox 98.7 F 62 20 118/71 97 07/02/17 16:30 07/02/17 16:30 07/02/17 16:30 07/02/17 16:30 07/02/17 16:30 - Medications Medications: Current Medications Acetaminophen (Tylenol 325mg Tab) 650 mg PO Q4H PRN PRN Reason: Pain, Mild (1-3) Last Admin: 07/02/17 03:05 Dose: 650 mg Bisacodyl (Dulcolax) 5 mg PO DAILY [facility] Last Admin: 07/02/17 09:38 Dose: 5 mg Camphor/Menthol (Bengay) 0 gm TOP QID [facility] Last Admin: 07/02/17 17:53 Dose: 1 oin Clonidine HCl (Catapres-Tts3 0.3 Mg/24 Hr) 1 patch TD Q7D@1000 [facility] Last Admin: 06/27/17 11:28 Dose: 1 patch Diltiazem HCl (Cardizem Cd) 240 mg PO DAILY [facility] Last Admin: 07/02/17 09:40 Dose: 240 mg Enoxaparin Sodium (Lovenox) 40 mg SC DAILY [facility] PRN Reason: Protocol Hydralazine HCl (Apresoline) 100 mg PO TID [facility] Last Admin: 07/02/17 18:09 Dose: 100 mg Insulin Human Regular (Humulin R Med) 0 units SC ACHS [facility] PRN Reason: Protocol Last Admin: 07/02/17 19:32 Dose: 5 units Losartan Potassium (Cozaar) 100 mg PO DAILY [facility] Last Admin: 07/02/17 09:39 Dose: 100 mg Metoprolol Tartrate (Lopressor) 50 mg PO BID [facility] Last Admin: 07/02/17 17:54 Dose: 50 mg Nitroglycerin (Nitro-Bid 2% Oint) 1 ea TOP Q6H [facility] Last Admin: 07/02/17 17:54 Dose: 1 ea Ondansetron HCl (Zofran Inj) 4 mg IVP Q4H PRN PRN Reason: Nausea/Vomiting Last Admin: 06/30/17 09:30 Dose: 4 mg Pantoprazole Sodium (Protonix Susp) 40 mg PO 0600 [facility] Last Admin: 07/02/17 05:21 Dose: 40 mg Spironolactone (Aldactone) 50 mg PO DAILY [facility] Last Admin: 07/02/17 09:40 Dose: 50 mg - Labs Labs: 06/29/17 07:20 06/29/17 07:20 PT 10.6 Seconds (9.9-11.8) 06/19/17 05:10 INR 0.98 (0.93-1.08) 06/19/17 05:10 APTT 24.9 Seconds (23.7-30.8) 06/14/17 07:50 - Constitutional Appears: Non-toxic, No Acute Distress, Chronically Ill - Head Exam Head Exam: ATRAUMATIC, NORMOCEPHALIC - Eye Exam Eye Exam: EOMI, PERRL Pupil Exam: NORMAL ACCOMODATION, PERRL - ENT Exam ENT Exam: Mucous Membranes Moist, Normal External Ear Exam, TM's Normal Bilaterally - Neck Exam Neck Exam: Full ROM, Normal Inspection - Respiratory Exam Respiratory Exam: Clear to Ausculation Bilateral, NORMAL BREATHING PATTERN. absent: Rales, Rhonchi, Wheezes - Cardiovascular Exam Cardiovascular Exam: REGULAR RHYTHM, RRR, +S1, +S2 - GI/Abdominal Exam GI & Abdominal Exam: Soft, Normal Bowel Sounds. absent: Distended, Tenderness - Extremities Exam Extremities Exam: Pedal Edema Additional comments: right sided weakness. - Neurological Exam Neurological Exam: Alert, Awake Additional comments: AAO x 2-3. right sided weakness. - Psychiatric Exam Psychiatric exam: Depressed, Normal Affect - Skin Skin Exam: Intact, Normal Color Assessment and Plan - Assessment and Plan (Free Text) Assessment: 72 yo female with low grade fevers of up to 100.4 F after suffering from a 4.4cm left occipital intracranial hemorrhage with intraventricular extension. The patient initially had fevers up to 101.7 F. Clinically, the patient has been improving. Supportive care. She was intubated on admission. She was extubated on 06/18/2017. She speaks german mostly. The family states that the patient is acting and speaking appropriately other than the slurring of speech due to her right sided residual weakness. Tolliver cultures sent. There was a mild initial leukocytosis on admission but this has slowly improved. Fever trend has shown improvement. The cultures done to date have been negative so far. No consolidation seen on Chest X-ray. Patient answering question during interview and examination. Supportive care. Currently on Unasyn for antibiotic coverage. Noted C. Diff and repeat urine culture sent. No adequate sample for C. diff testing. Would obtain urinalysis. Would continue Unasyn for now. The current temperature is more likely secondary to the recent intracranial hemorrhage. Leukocytosis of 14.0 today but with a normal differential. Multiple culture sets performed to date are negative. Cultures negative to date at greater than 48 hours. Cannot rule out central fever which is the most likely scenario. Last CT done on 06/23/2017 showing interval evolution of known subacute hematoma in left occipital love without midline shift or herniation. Resolving intraventricular hemorrhage with residual mild intraventricular hemorrhage. She remains on Cefepime for antibiotic coverage. Afebrile for the past three plus days. No new issues so far. Still issues with urination. Thank you for allowing me to participate in the care of the patient, we will follow with you.
[2017-07-02] MEDS: Enoxaparin 40 mg Syringe SC SCH (21:33)
[2017-07-03] MEDS: Insulin Reg-MEDIUM-Coverage SC SCH ×5 (00:08→21:51)
[2017-07-03] MEDS: Nitroglycerin 2% Ointment Foilpak UD TOP SCH ×5 (00:08→22:01)
--- NOTE | 2017-07-03 01:23 | PN ---
PULMONARY PROGRESS NOTE DATE: 07/02/2017 REFERRING PHYSICIAN: Dr. Jones. SUBJECTIVE: The patient is lying in the bed, sleepy. Daughter is at bedside. Vitals unremarkable. Done well in therapy. Was sitting up in a chair more than 3 hours today. No cough. No sputum production. No hemoptysis or hematemesis. No hematuria. No diarrhea. PHYSICAL EXAMINATION: GENERAL: In no acute distress. VITAL SIGNS: Temperature is 98, heart rate 62, respiratory rate 20, blood pressure 118/71 and pulse oximetry 97% on room air. HEENT: Moist mucous membranes. Crowded airway. Mallampati score is IV. NECK: Supple. No JVD. LUNGS: Fair airflow with rhonchi. HEART: S1 and S2. ABDOMEN: Soft and nontender. No organomegaly. EXTREMITIES: There is no edema. NEUROLOGIC: Sleepy, arousable. Follow simple commands. MEDICATIONS: She is on Aldactone 50 mg daily, hydralazine 100 mg 3 times a day, BenGay to affected area q.i.d., Cardizem CD 240 mg daily, clonidine patch 0.3 mg q. 7 days, Cozaar 100 mg daily, Dulcolax 5 mg daily, metoprolol tartrate 50 mg twice a day, Lovenox 40 mg daily, Nitro-Bid ointment to affected area q. 6 hours, Protonix 40 mg daily, Tylenol p.r.n. basis and Zofran p.r.n. basis. LABORATORY DATA: Reviewed. Blood sugar this morning 228. IMPRESSION AND PLAN: Intracranial hemorrhage with ventricular extension, hydrocephalous, there is also ischemic component of stroke, hypertension, diabetes, respiratory failure extubated on room air, sleep apnea syndrome, severe activities of daily living dysfunction, cognitive deficits. Spoke to patient's daughter at bedside. All the questions answered, awaiting to be transferred to the for acute inpatient neuro rehab. Keep head elevated at 45 degrees. Aspiration precaution. Sequential compression devices to lower extremities. Gastric prophylaxis. Start deep venous thrombosis prophylaxis when cleared by neurology. Thank you and we will follow with you. Livia Francois MD
--- NOTE | 2017-07-03 01:37 | PN ---
SUBJECTIVE: The patient is a 72-year-old female. The patient is seen and examined on the bedside. The patient is awake, alert, but sometimes getting episodes of confusion. Daughter, is on the bedside. A length of discussion done, all the questions answered. Tomorrow, the patient is going to [facility] for rehab. No swelling of the leg. No fever, no chills. Bowel movement is off and on. PHYSICAL EXAMINATION: VITAL SIGNS: Temperature 98.7, pulse 62, blood pressure 118/71, respiratory rate 20. HEENT: Head is normocephalic and atraumatic. Eyes: PERRLA. Extraocular muscles intact. Conjunctivae clear. Nose patent. Mucous membranes moist. NECK: Supple. No carotid bruits, JVD, or thyromegaly. CHEST: Bilaterally symmetrical. HEART: S1 and S2 positive. LUNGS: Clear to auscultation. ABDOMEN: Soft. Bowel sounds positive. No organomegaly. EXTREMITIES: No edema. No cyanosis. NEUROLOGICAL: The patient is awake, alert. Doing followup of simple commands. MEDICATIONS: Aldactone, hydralazine, Cardizem, Catapres, Cozaar, bisacodyl, insulin, Lopressor, Lovenox, Nitro-Bid, Protonix, Tylenol, and Zofran. LABORATORY DATA: White blood cells 10.2, hemoglobin 11.1, hematocrit 34.1, and platelets 231. Glucose 205, 164, 281. ASSESSMENT AND PLAN: The patient is with proteinuria; glycosuria; hematuria; history of leukocytosis, improved; anemia; uncontrolled diabetes mellitus. Seen by Dr. Ho, infectious disease, history of fever 100.4 after suffering from a 4.4 left occipital intracranial hemorrhage with intraventricular extension. The patient improved from fever; history of intubation and was extubated on 06/18/2017. Panculture was sent. According to ID, fever was secondary to intracranial hemorrhage. Multiple blood cultures performed and up-to-date, is negative. The patient was on cefepime for antibiotic coverage, but for the past 3 days. No new infectious disease process now. The patient is seen by neurologist, Dr. Evan Glover. The patient has a history of pneumonia, hypertension. The patient's neurologic status has significantly improved with mental status, much better with the patient more awake and alert. Tylenol prescribed by the neurologist for headache. It has been more than 2 weeks that the patient has this intracranial hemorrhage, so we may start on deep venous thrombosis prophylaxis with Lovenox as per neurologist. The patient needs good physical therapy and occupational therapy, supportive care. Maybe the patient will get transferred tomorrow to [facility] for physical therapy. Repeat labs. We will follow. Gayle Jones MD
--- NOTE | 2017-07-03 03:02 | CON ---
ATTENDING PHYSICIAN: Gayle Jones MD CHIEF COMPLAINT: Neurological deficit. HISTORY OF PRESENTING ILLNESS: The patient is a 72-year-old female with past medical history of diabetes mellitus and high blood pressure. She was supposed to go for a stress test on the day of admission; however, she was found on the floor with vomiting and blood in it. She was brought into the hospital by ambulance. On workup, she was found to have a left-sided paralysis with facial droop. She had a CAT scan done which showed large intraparenchymal hemorrhage in left occipital lobe with intraventricular extension. No mass effect. The CAT scan was repeated on 06/23/2017, which showed interval evolution of subacute hematoma. Surgical team was consulted; however, there was no mass effect and there was no need noted for surgical excision or removal. PAST MEDICAL HISTORY: Past medical history is significant for high blood pressure, diabetes, cataract surgery, arthritis, status post right TKR two years ago, GERD, dyspepsia, and schizophrenia. FAMILY HISTORY: Positive for high blood pressure as per the daughter. ALLERGIES: THE PATIENT IS ALLERGIC TO SHRIMP. SOCIAL HISTORY: The patient denies smoking or drinking alcohol. The patient lives with family and was previously independent in household level and also to some extent in the community using a cane. MEDICATIONS: Reviewed as per chart. REVIEW OF SYMPTOMS: The patient denies any pain. Feeling tired. No shortness of breath, nausea, or vomiting. Appetite is fair. She did eat some breakfast and lunch as per the daughter. All other systems are negative. LABORATORY DATA: The patient's WBC is 10.2, hemoglobin 11.1, hematocrit 34.1, and platelets 231. Sodium 138, potassium 4, BUN 16, and creatinine 0.8. PHYSICAL EXAMINATION: GENERAL: The patient is alert and awake, lying in the bed, no acute distress, communicating with the patient with the help of the daughter. VITAL SIGNS: Temperature 97.8, pulse 65, and blood pressure 136/80. HEENT: Moist mucosa. Beulah conjunctivae. Anicteric sclerae. Head looks normocephalic and atraumatic. NECK: Supple. No thyromegaly or lymphadenopathy and no carotid bruits. LUNGS: Clear to auscultate. Good air entry. Negative for rales or rhonchi. HEART: S1 and S2. Regular rate. No murmur noted. ABDOMEN: Soft, nontender. Bowel sounds positive. EXTREMITIES: Mild edema. No calf tenderness. No cyanosis. NEUROLOGIC: Motor: On inspection, the motor system seems to be normal. Range of motion is within functional limits for both upper and lower extremities. Muscle strength for the left upper extremity is 3+/5, for the left lower extremity is 3/5. Muscle strength for the right upper extremity is 2+ to 3-/5 and for the right lower extremity 2/5. The patient is alert, awake, and oriented x2. No depression or anxiety. Sensory intact. ASSESSMENT AND PLAN: The patient is a 72-year-old lady who came in after falling and being unresponsive, was found to have cerebrovascular accident with right hemiparesis, was initially intubated, who is now extubated and alert and oriented. At this time, she needs maximum assist for bed mobility and transfers after the acute episode of the cerebrovascular accident and she would benefit from physical therapy and occupational therapy, and for discharge planning, we will discharge to neurological care acute rehab program and goal is eventually to return home to the maximum level. The plan is discussed with the daughter and the patient. Melissa Fulton MD
[2017-07-03] MEDS: Pantoprazole 40 mg Susp UD PO SCH (06:00)
[2017-07-03 07:47] LABS: HEMATOCRIT 32.7 % (36.0-48.0); MEAN CELL VOLUME 86.3 fl (80.0-105.0); MEAN CORPUSCULAR HEMOGLOBIN 28.2 pg (25.0-35.0); MEAN CORPUSCULAR HGB CONC 32.7 g/dl (31.0-37.0); MEAN PLATELET VOLUME 9.4 fl (7.0-11.0); RED CELL DISTRIBUTION WIDTH 14.1 % (11.5-14.5); WHITE BLOOD COUNT 9.7 10^3/ul (4.5-11.0)
[2017-07-03 07:58] LABS: BLOOD UREA NITROGEN 26 mg/dL (7-21); CALCIUM 9.6 mg/dL (8.4-10.5); CARBON DIOXIDE 20 mmol/L (21-33); CHLORIDE 105 mmol/L (95-110); GFR AFRICAN-AMERICAN > 60; GLUCOSE,RANDOM 142 mg/dL (70-110); POTASSIUM 4.5 mmol/L (3.6-5.0); SODIUM 137 mmol/L (132-148)
[2017-07-03] MEDS: diltiaZEM 240 mg/24 Hours CD Cap PO SCH (10:16)
[2017-07-03] MEDS: Bisacodyl 5mg EC Tab PO SCH (10:17)
[2017-07-03] MEDS: Enoxaparin 40 mg Syringe SC SCH (10:17)
[2017-07-03] MEDS: Menthol/Methyl Salicylate Ointment(1 oz) TOP SCH ×4 (10:26→21:51)
--- NOTE | 2017-07-03 12:42 | PN ---
DATE: 07/03/2017 LOCATION: The patient is in room 362, bed 2. REASON FOR CONSULTATION: Followup intracerebral hemorrhage and uncontrolled hypertension. SUBJECTIVE: The patient is lying flat in bed without any chest pain, shortness of breath or palpation. PHYSICAL EXAMINATION: VITAL SIGNS: Blood pressure 125/71, respiratory rate 20, pulse 68, and temperature 98.1. HEENT: Head is normocephalic. Eyes, pupils are normal. Conjunctivae slightly pale. NECK: JVP low. Carotid equal. THORAX: AP diameter normal. LUNGS: Clear. CARDIOVASCULAR: S1 and S2. ABDOMEN: Soft and nontender. No organomegaly. EXTREMITIES: No clubbing. No cyanosis. LABORATORY DATA: WBC 9.7, hemoglobin 10.7, hematocrit 32.7, and platelets 286. Sodium 137, potassium 4.5, BUN 26, creatinine 0.9, and random glucose 160. DIAGNOSES: Intracerebral bleed, uncontrolled hypertension, fever with negative blood culture, possible source might be cerebral vascular accident, repeat MRI, stable hematoma, diabetes, hypertension, hyperlipidemia. PLAN: Continue diltiazem CD 240 p.o. daily, hydralazine 100 mg t.i.d., spironolactone 50 mg daily, losartan 100 mg daily, metoprolol 50 b.i.d., Lovenox 40 mg subcu daily, nitropaste 1 inch to the chest q. 6 hourly. Blood pressure stable with this present therapy we will continue same. We will follow with you. Livia Corado MD
--- NOTE | 2017-07-03 14:25 | CP.PCM.PN ---
Subjective - Date & Time of Evaluation Date of Evaluation: 07/03/17 Time of Evaluation: 13:30 - Subjective Subjective: Infectious Disease Follow Up July 03, 2017 72 yo female presented with fall and altered mental status. She was found at home on floor by family who heard her fall. The patient was brought into the ER and found to be in uncontrolled hypertension and requiring intubation on arrival in the ER. The patient was found to hae a 4.4 cm left occipital intracranial hemorrhage with intraventricular extension. Patient is recovering but still having episodes of low grade fevers. Patient herself is not making any new complaints. She still has residual right sided weakness. Fevers have resolved for the last few days. Repeat cultures sent. Cannot rule out central fever. Cultures negative to date from sets taken on 06/21/2017 and 06/22/2017. She is still having problems voiding. Awaiting placement. Mentally, she has improved. No new Infectious Disease issues. Completed antibiotics. No leukocytosis currently or fevers. Objective - Vital Signs/Intake and Output Vital Signs (last 24 hours): Temp Pulse Resp BP Pulse Ox 98.1 F 68 20 125/71 100 07/03/17 06:00 07/03/17 10:16 07/03/17 06:00 07/03/17 10:16 07/03/17 06:00 Intake and Output: 07/03/17 07/03/17 06:59 18:59 Intake Total 120 Output Total 1250 Balance -1130 - Medications Medications: Current Medications Acetaminophen (Tylenol 325mg Tab) 650 mg PO Q4H PRN PRN Reason: Pain, Mild (1-3) Last Admin: 07/02/17 03:05 Dose: 650 mg Bisacodyl (Dulcolax) 5 mg PO DAILY [facility] Last Admin: 07/03/17 10:17 Dose: 5 mg Camphor/Menthol (Bengay) 0 gm TOP QID [facility] Last Admin: 07/03/17 10:26 Dose: 1 applic Clonidine HCl (Catapres-Tts3 0.3 Mg/24 Hr) 1 patch TD Q7D@1000 [facility] Last Admin: 06/27/17 11:28 Dose: 1 patch Diltiazem HCl (Cardizem Cd) 240 mg PO DAILY [facility] Last Admin: 07/03/17 10:16 Dose: 240 mg Enoxaparin Sodium (Lovenox) 40 mg SC DAILY [facility] PRN Reason: Protocol Last Admin: 07/03/17 10:17 Dose: 40 mg Hydralazine HCl (Apresoline) 100 mg PO TID [facility] Last Admin: 07/03/17 10:16 Dose: 100 mg Insulin Human Regular (Humulin R Med) 0 units SC ACHS [facility] PRN Reason: Protocol Last Admin: 07/03/17 11:25 Dose: 1 units Losartan Potassium (Cozaar) 100 mg PO DAILY [facility] Last Admin: 07/03/17 10:16 Dose: 100 mg Metoprolol Tartrate (Lopressor) 50 mg PO BID [facility] Last Admin: 07/03/17 10:16 Dose: 50 mg Nitroglycerin (Nitro-Bid 2% Oint) 1 ea TOP Q6H [facility] Last Admin: 07/03/17 11:26 Dose: 1 ea Ondansetron HCl (Zofran Inj) 4 mg IVP Q4H PRN PRN Reason: Nausea/Vomiting Last Admin: 06/30/17 09:30 Dose: 4 mg Pantoprazole Sodium (Protonix Susp) 40 mg PO 0600 [facility] Last Admin: 07/03/17 06:00 Dose: 40 mg Spironolactone (Aldactone) 50 mg PO DAILY [facility] Last Admin: 07/03/17 10:17 Dose: 50 mg - Labs Labs: 07/03/17 07:30 07/03/17 07:30 PT 10.6 Seconds (9.9-11.8) 06/19/17 05:10 INR 0.98 (0.93-1.08) 06/19/17 05:10 APTT 24.9 Seconds (23.7-30.8) 06/14/17 07:50
--- NOTE | 2017-07-03 15:06 | PN ---
NEUROLOGY PROGRESS NOTE SUBJECTIVE: The patient is lying on the bed in no acute distress. Denies having any headache or dizziness. PHYSICAL EXAMINATION: VITAL SIGNS: Her blood pressure is 125/71, heart rate is 68 per minute, breathing at the rate of 16 per minute, temperature is 98.1 degree Fahrenheit. HEENT: Normocephalic and atraumatic. NECK: Supple. There are no carotid bruits. LUNGS: Clear. CARDIOVASCULAR: S1 and S2 audible. No murmurs. ABDOMEN: Soft and nontender. Bowel sounds present. NEUROLOGIC: Mental status: The patient is awake and alert. She follows all simple commands. Cranial nerve examination: Pupils 3-mm bilaterally reactive to light. Visual bonner decreased to third on the right side. Extraocular movements are intact. There is decreased nasolabial fold on the right side. She has right-sided hemiparesis. Power in the right upper extremity is 3/5 to 4/5. Power in the right lower extremity is 2/5 to 3/5. Power on the left side is 4/5. Plantars are upgoing on the right and downgoing on the left side. LABORATORY DATA: Labs reviewed shows WBC of 9.7, hemoglobin 10.7, hematocrit 32.7, and platelets of 286. Her sodium is 137, potassium 4.5, chloride 105, carbon dioxide content of 20, BUN of 26, creatinine 0.9 and her glucose is 142. IMPRESSION: 1. Left occipital hemorrhage with intraventricular extension. 2. Status post pneumonia. 3. Right hemiparesis and aphasia secondary to left occipital hemorrhage with intraventricular extension. RECOMMENDATIONS: 1. The patient is showing improvement in her neurologic status. 2. The patient continues to be awake and alert. Her pneumonia seems to be getting better. 3. The patient may have Tylenol p.r.n. for headaches. 4. The patient was started on Lovenox for DVT prophylaxis. 5. The patient will require a repeat MRI of the brain with contrast in about 5 to 6 weeks of what is completely reabsorbed. 6. The patient to have physical therapy and speech therapy. 7. The patient is a very good candidate for rehabilitation, and hopefully, will be transferred to rehabilitation center soon. Thank you for the opportunity to participate in the care of this patient. Evan Glover MD
--- NOTE | 2017-07-03 17:46 | PN ---
DATE: 07/03/2017 PULMONARY PROGRESS NOTE REFERRING PHYSICIAN: Dr. Jones. SUBJECTIVE: The patient is lying in the bed, head at 45 degree. Fully awake and alert. Follows simple command. No cough. No sputum production. No nausea, no vomiting, no diarrhea, leg pain or leg swelling. OBJECTIVE: GENERAL: In no acute distress. VITAL SIGNS: Temperature is 98, heart rate 68, respiratory rate 20, blood pressure 125/71 and pulse ox 100% on room air. HEENT: Moist mucous membranes. Crowded airway. NECK: Supple. No JVD. LUNGS: Fair airflow with few rhonchi. HEART: S1 and S2. ABDOMEN: Soft and nontender. No organomegaly. EXTREMITIES: No edema. NEUROLOGIC: Awake and alert. Follows simple command, but forgetful and confused. MEDICATIONS: She is on Aldactone 50 mg daily, hydralazine 100 mg 3 times a day, BenGay affected area, Cardizem CD 240 mg daily, Catapres patch weekly, Cozaar 100 mg daily, Dulcolax 5 mg daily, insulin coverage, metoprolol tartrate 50 mg twice a day, Lovenox 40 mg daily, Nitro-Bid 2% q. 6 hours, Protonix 40 mg daily, Tylenol p.r.n. basis and Zofran p.r.n. basis. LABORATORY DATA: Shows hemoglobin 10.7, hematocrit 32.7, WBC 9.7, and platelets are 286. Sodium 137, potassium 4.5, chloride 105, bicarbonate 20, BUN 26, creatinine 0.9, and glucose 142. Calcium is 9.6. IMPRESSION AND PLAN: Intracranial hemorrhage with ventricular extension, hydrocephalous, also there is ischemic component of stroke, hypertension, diabetes, respiratory failure presently extubated on nasal cannula, may have sleep apnea syndrome, activities of daily living dysfunction, cognitive deficits. Spoke to social media community manager. Awaiting for insurance approval for transfer to acute inpatient neuro rehab. Continue physical therapy, occupational therapy, fall precaution, gastric and deep vein thrombosis prophylaxis, avoid sedation. Thank you and we will follow with you. Livia Francois MD
[2017-07-04] MEDS: Nitroglycerin 2% Ointment Foilpak UD TOP SCH ×2 (05:59→13:26)
[2017-07-04] MEDS: Pantoprazole 40 mg Susp UD PO SCH (05:59)
[2017-07-04] MEDS: Insulin Reg-MEDIUM-Coverage SC SCH ×2 (08:08→13:24)
[2017-07-04 08:33] VITALS: O2SAT 99
--- NOTE | 2017-07-04 08:34 | PN ---
DATE: 07/03/2017 SUBJECTIVE: The patient is a 72 years old female. The patient is seen and examined at the bedside, looking comfortable. No nausea, vomiting, or diarrhea. No hematuria or hematochezia. No swelling of the leg. No chest pain. No palpitation. No headache. No dizziness. No fever. No chills. No hematuria or hematochezia. Today midline is removed and Sierra catheter removed, getting ready to go to rehab for physical therapy and occupational therapy. PHYSICAL EXAMINATION: VITAL SIGNS: Temperature 98, heart rate 68, respiratory rate 20, blood pressure 125/70, and pulse oximetry 100% on room air. HEENT: Head is normocephalic and atraumatic. Eyes: PERRLA. Extraocular muscles intact. Conjunctivae clear. Nose patent. Mucous membrane moist. NECK: Supple. No carotid bruits, JVD, or thyromegaly. CHEST: Bilaterally symmetrical. HEART: S1 and S2 positive. LUNGS: Clear to auscultation. ABDOMEN: Soft. Bowel sounds present. No organomegaly. EXTREMITIES: No edema. No cyanosis. NEUROLOGIC: The patient is awake and alert. Moving all four extremities. No focal deficit. MEDICATIONS: Aldactone, hydralazine, Cardizem, Catapres, Cozaar, Dulcolax, metoprolol, Lovenox, Nitro-Bid, Protonix, Tylenol, and Zofran. LABORATORY DATA: Hemoglobin 10.7, hematocrit 32.7, white blood cell 9.7, and platelets 286. Sodium 137, potassium 4.5, BUN 26, creatinine 0.9, and glucose 142. ASSESSMENT AND PLAN: Ms. Ching Villafuerte is a 72 years old lady with multiple medical problems, intracranial hemorrhage with intraventricular extension, hydrocephalus, ischemic components of stroke, hypertension, insulin-dependent diabetes mellitus not controlled, respiratory failure, history of intubation and extubation, now is on nasal cannula, sleep apnea syndrome, history of constipation, is not able to do her ADL, need PT/OT for ADL, history of schizophrenia, waiting for insurance approval for transfer to acute inpatient in neuro rehab. The patient is getting ready for rehab. Fall precautions. Gastric and deep venous thrombosis prophylaxis. The patient is getting Lovenox. Appreciated Neurology, Cardiology, and Pulmonary input. We will follow. Gayle Jones MD [facility] # [id number]
[2017-07-04] MEDS: diltiaZEM 240 mg/24 Hours CD Cap PO SCH (09:57)
[2017-07-04] MEDS: Enoxaparin 40 mg Syringe SC SCH (09:57)
[2017-07-04] MEDS: Bisacodyl 5mg EC Tab PO SCH (09:57)
[2017-07-04] MEDS: Menthol/Methyl Salicylate Ointment(1 oz) TOP SCH (16:05)
[2017-07-04 16:57] VITALS: BP 127/85; PULSE 61; RESP 19; TEMP 98.5
--- NOTE | 2017-07-04 18:09 | CP.PCM.PN ---
Subjective - Date & Time of Evaluation Date of Evaluation: 07/04/17 Time of Evaluation: 15:00 - Subjective Subjective: Infectious Disease Follow Up July 04, 2017 72 yo female presented with fall and altered mental status. She was found at home on floor by family who heard her fall. The patient was brought into the ER and found to be in uncontrolled hypertension and requiring intubation on arrival in the ER. The patient was found to hae a 4.4 cm left occipital intracranial hemorrhage with intraventricular extension. Patient is recovering but still having episodes of low grade fevers. Patient herself is not making any new complaints. She still has residual right sided weakness. Fevers have resolved for the last few days. Repeat cultures sent. Cannot rule out central fever. Cultures negative to date from sets taken on 06/21/2017 and 06/22/2017. She is still having problems voiding. Awaiting placement. Mentally, she has improved. No new Infectious Disease issues. Completed antibiotics. No leukocytosis currently or fevers. Last fever was 06/30/2017 (100.5 F) Objective - Vital Signs/Intake and Output Vital Signs (last 24 hours): Temp Pulse Resp BP Pulse Ox 98.5 F 61 19 127/85 99 07/04/17 16:55 07/04/17 16:55 07/04/17 16:55 07/04/17 16:55 07/04/17 16:55 Intake and Output: 07/04/17 07/04/17 06:59 18:59 Intake Total 180 480 Output Total 125 550 Balance 55 -70 - Labs Labs: 07/03/17 07:30 07/03/17 07:30 PT 10.6 Seconds (9.9-11.8) 06/19/17 05:10 INR 0.98 (0.93-1.08) 06/19/17 05:10 APTT 24.9 Seconds (23.7-30.8) 06/14/17 07:50 - Constitutional Appears: Non-toxic, No Acute Distress, Chronically Ill - Head Exam Head Exam: ATRAUMATIC, NORMOCEPHALIC - Eye Exam Eye Exam: EOMI, PERRL Pupil Exam: NORMAL ACCOMODATION, PERRL - ENT Exam ENT Exam: Mucous Membranes Moist, Normal External Ear Exam, TM's Normal Bilaterally - Neck Exam Neck Exam: Full ROM, Normal Inspection - Respiratory Exam Respiratory Exam: Clear to Ausculation Bilateral, NORMAL BREATHING PATTERN. absent: Rales, Rhonchi, Wheezes - Cardiovascular Exam Cardiovascular Exam: REGULAR RHYTHM, RRR, +S1, +S2 - GI/Abdominal Exam GI & Abdominal Exam: Soft, Normal Bowel Sounds. absent: Distended, Tenderness - Extremities Exam Extremities Exam: Pedal Edema Additional comments: right sided weakness. - Neurological Exam Neurological Exam: Alert, Awake Additional comments: AAO x 2-3. right sided weakness. - Psychiatric Exam Psychiatric exam: Depressed, Normal Affect - Skin Skin Exam: Intact, Normal Color Assessment and Plan - Assessment and Plan (Free Text) Assessment: 72 yo female with low grade fevers of up to 100.4 F after suffering from a 4.4cm left occipital intracranial hemorrhage with intraventricular extension. The patient initially had fevers up to 101.7 F. Clinically, the patient has been improving. Supportive care. She was intubated on admission. She was extubated on 06/18/2017. She speaks syrian mostly. The family states that the patient is acting and speaking appropriately other than the slurring of speech due to her right sided residual weakness. Tolliver cultures sent. There was a mild initial leukocytosis on admission but this has slowly improved. Fever trend has shown improvement. The cultures done to date have been negative so far. No consolidation seen on Chest X-ray. Patient answering question during interview and examination. Supportive care. Currently on Unasyn for antibiotic coverage. Noted C. Diff and repeat urine culture sent. No adequate sample for C. diff testing. Would obtain urinalysis. Would continue Unasyn for now. The current temperature is more likely secondary to the recent intracranial hemorrhage. Leukocytosis of 14.0 today but with a normal differential. Multiple culture sets performed to date are negative. Cultures negative to date at greater than 48 hours. Cannot rule out central fever which is the most likely scenario. Last CT done on 06/23/2017 showing interval evolution of known subacute hematoma in left occipital love without midline shift or herniation. Resolving intraventricular hemorrhage with residual mild intraventricular hemorrhage. She completed Cefepime for antibiotic coverage. Afebrile for the past three plus days. Last fever was 100.5 F on 07/01/2017. No new issues so far. Still issues with urination. Thank you for allowing me to participate in the care of the patient, we will follow with you.
--- NOTE | 2017-07-05 08:51 | PN ---
DATE: 07/04/2017 REASON FOR CONSULTATION AND FOLLOWUP: Intracerebral bleed and uncontrolled hypertension. SUBJECTIVE: Denies any chest pain, shortness of breath or any palpitation. Complaining of abdominal pain and urinary retention. Abdomen appears distended. Nurses are trying to put a Sierra catheter. OBJECTIVE: VITAL SIGNS: Temperature afebrile, heart rate 61 and blood pressure 139/89. HEENT: PERRLA. Extraocular muscles are intact. NECK: Supple. No carotid bruits or thyromegaly. CHEST: Clear to auscultation. HEART: S1 and S2, regular. ABDOMEN: Soft. EXTREMITIES: Clubbing and cyanosis negative. LABORATORY DATA: Blood workup as follows: WBC 9.7, hemoglobin 10.7, hematocrit 32.7 and platelet count 286. Chemistry shows sodium of 132, potassium 4.5, chloride of 105, carbon dioxide 20, anion gap of 17, BUN 26, creatinine 0.9. IMPRESSION: Intracerebral bleed, uncontrolled hypertension, fever, negative blood culture, possible central fever, repeat MRI with stable hematoma, hypertension and hyperlipidemia. RECOMMENDATIONS: Continue spironolactone 100 mg t.i.d., continue Cardizem, continue clonidine patch, continue losartan. The patient is stable. We will sign off. We would like to follow p.r.n. Thank you Dr. Jones for providing us the opportunity in taking care of the patient, Ching . Livia Rendon MD
== END 2017-07-04 17:44 | DRG 64 ==
LOC: ED 07:40 → ERH 09:25 → CCU 10:39 → 2RNO 06-22 14:50 → 3RNO 07-01 20:52
PROVIDERS: ADMIT Internal Medicine; ATTEND Internal Medicine
PROC: 5A1945Z Respiratory Ventilation, 24-96 Consecutive Hours (ICD-10-PCS; principal; 2017-06-14)
PROC: 0BH17EZ Insertion of Endotracheal Airway into Trachea, Via Natural or Artificial Opening (ICD-10-PCS; 2017-06-14)
PROC: 02HV33Z Insertion of Infusion Device into Superior Vena Cava, Percutaneous Approach (ICD-10-PCS; 2017-06-26)
PROC: 0T9B70Z Drainage of Bladder with Drainage Device, Via Natural or Artificial Opening (ICD-10-PCS; 2017-06-30)
DX: I61.5 Nontraumatic intracerebral hemorrhage, intraventricular (principal); J96.90 Respiratory failure, unspecified, unspecified whether with hypoxia or hypercapnia; J18.9 Pneumonia, unspecified organism; G93.6 Cerebral edema; Z99.11 Dependence on respirator [ventilator] status; G91.9 Hydrocephalus, unspecified; I11.0 Hypertensive heart disease with heart failure; J44.0 Chronic obstructive pulmonary disease with (acute) lower respiratory infection; E87.0 Hyperosmolality and hypernatremia; I50.9 Heart failure, unspecified; G81.91 Hemiplegia, unspecified affecting right dominant side; N13.30 Unspecified hydronephrosis; R47.01 Aphasia; I15.8 Other secondary hypertension; R13.12 Dysphagia, oropharyngeal phase; E11.65 Type 2 diabetes mellitus with hyperglycemia; R29.724 NIHSS score 24; K21.9 Gastro-esophageal reflux disease without esophagitis; F20.9 Schizophrenia, unspecified; G47.30 Sleep apnea, unspecified; E78.5 Hyperlipidemia, unspecified; F31.9 Bipolar disorder, unspecified; R29.810 Facial weakness; E78.00 Pure hypercholesterolemia, unspecified; M19.90 Unspecified osteoarthritis, unspecified site; E66.9 Obesity, unspecified; R40.2432 Glasgow coma scale score 3-8, at arrival to emergency department; I25.10 Atherosclerotic heart disease of native coronary artery without angina pectoris; E87.6 Hypokalemia; G47.10 Hypersomnia, unspecified; R47.81 Slurred speech; I08.3 Combined rheumatic disorders of mitral, aortic and tricuspid valves; K59.00 Constipation, unspecified; D64.9 Anemia, unspecified; R33.9 Retention of urine, unspecified; Z79.4 Long term (current) use of insulin; Z78.1 Physical restraint status; Z91.14 Patient's other noncompliance with medication regimen; Z68.30 Body mass index [BMI] 30.0-30.9, adult

== ENCOUNTER 2018-03-03 20:40 | Emergency (ER) | payer MEDICARE, OTHER ==
[2018-03-03 20:45] VITALS: BMI 27.3
[2018-03-03 20:48] VITALS: TEMP 98.6
--- NOTE | 2018-03-03 21:20 | ED PDOC ---
Arrival/HPI - General Chief Complaint: Medical Clearance Time Seen by Provider: 03/03/18 20:52 Historian: Patient, Family (Daughter) - History of Present Illness Narrative History of Present Illness (Text): 03/03/18 21:17 Noy Bryant is a 73 year old female, whose past medical history includes hypertension, diabetes, GERD, schizophrenia, and intracranial hemorrhage, who presents to the Emergency department accompanied by daughter complaining of low blood pressure for the past few days. Daughter states patient was recently switched from Cardizem to Amlodipine for her hypertension by her PMD last week and has been monitoring her blood pressure throughout the day for the last few days. Daughter noted change in patient's blood pressure, states it has been low in the mid 90s systolic. Patient's blood pressure in the Emergency department currently is normal and patient has remained asymptomatic. Patient also regularly takes Metoprolol for her blood pressure. Patient denies any headache, dizziness, vision changes, fever, chills, chest pain, shortness of breath, nausea, vomiting, neck pain, or any other complaints. PMD: Dr. Jones Symptom Onset: Gradual Symptom Course: Unchanged Activities at Onset: Light Context: Home Past Medical History - Provider Review Nursing Documentation Reviewed: Yes - Infectious Disease Hx of Infectious Diseases: None - Tetanus Immunization Tetanus Immunization: Unknown - Cardiac Hx Cardiac Disorders: Yes Hx Hypertension: Yes Other/Comment: pt was scheduled for stress test today as per family rx'd by dr baugh - Pulmonary Hx Respiratory Disorders: Yes Hx Tuberculosis: No Other/Comment: 06/04/2014. 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 - Neurological Hx Neurological Disorder: Yes HX Cerebrovascular Accident: Yes (6 or 8 yrs ago no deficits as per family) Hx Dementia: Yes (memory loss/ forgetful as per family) Other/Comment: 2008 - HEENT Hx HEENT Disorder: Yes Hx Cataracts: Yes - Renal Hx Renal Disorder: No - Endocrine/Metabolic Hx Endocrine Disorders: Yes Hx Diabetes Mellitus Type 2: Yes - Hematological/Oncological Hx Blood Disorders: Yes Hx Anemia: Yes - Integumentary Hx Dermatological Disorder: No - Musculoskeletal/Rheumatological Hx Musculoskeletal Disorders: Yes Hx Arthritis: Yes Hx 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 - Anesthesia Hx Anesthesia Reactions: No Hx Malignant Hyperthermia: No - Suicidal Assessment Feels Threatened In Home Enviroment: No Family/Social History - Physician Review Nursing Documentation Reviewed: Yes Family/Social History: Unknown Family HX Smoking Status: Never Smoked Hx Alcohol Use: No Hx Substance Use: No Hx Substance Use Treatment: No Allergies/Home Meds Allergies/Adverse Reactions: Allergies shrimp Allergy (Verified 03/03/18 20:45) SWELLING Home Medications: Home Meds Medication Instructions Recorded Confirmed Atorvastatin [Lipitor] 20 mg PO DAILY 03/04/18 03/04/18 Metoprolol Tartrate [Lopressor] 50 mg PO DAILY 03/04/18 03/04/18 Pantoprazole [Protonix EC Tab] 40 mg PO DAILY 03/04/18 03/04/18 Risperidone [Risperdal] 0.5 mg PO BID 03/04/18 03/04/18 Spironolactone [Aldactone] 50 mg PO DAILY 03/04/18 03/04/18 amLODIPine [Norvasc] 10 mg PO DAILY 03/04/18 03/04/18 Review of Systems - Physician Review All systems were reviewed & negative as marked: Yes - Review of Systems Constitutional: Normal. absent: Fevers Eyes: Normal. absent: Vision Changes ENT: Normal Respiratory: Normal. absent: SOB, Cough Cardiovascular: Other (+low blood pressure). absent: Chest Pain Gastrointestinal: Normal. absent: Abdominal Pain, Diarrhea, Nausea, Vomiting Genitourinary Female: Normal. absent: Dysuria, Frequency, Hematuria, Urine Output Changes Musculoskeletal: Normal. absent: Back Pain, Neck Pain Skin: Normal. absent: Rash Neurological: Normal. absent: Headache, Dizziness Endocrine: Normal Hemo/Lymphatic: Normal Psychiatric: Normal Physical Exam Vital Signs Reviewed: Yes Vital Signs Temp Pulse Resp BP Pulse Ox 03/04/18 01:08 159/98 H 03/04/18 00:45 68 137/99 H 99 03/03/18 22:38 70 16 122/73 99 03/03/18 20:45 98.6 F 64 18 126/85 98 Temperature: Afebrile Blood Pressure: Normal Pulse: Regular Respiratory Rate: Normal Appearance: Positive for: Well-Appearing, Non-Toxic, Comfortable Pain Distress: None Mental Status: Positive for: Alert and Oriented X 3 - Systems Exam Head: Present: Atraumatic, Normocephalic Pupils: Present: PERRL Extroacular Muscles: Present: EOMI Conjunctiva: Present: Normal Mouth: Present: Moist Mucous Membranes Neck: Present: Normal Range of Motion. No: Meningeal Signs, MIDLINE TENDERNESS , Paraspinal Tenderness Respiratory/Chest: Present: Clear to Auscultation, Good Air Exchange. No: Respiratory Distress, Accessory Muscle Use Cardiovascular: Present: Regular Rate and Rhythm, Normal S1, S2. No: Murmurs Abdomen: No: Tenderness, Distention, Peritoneal Signs Back: Present: Normal Inspection. No: CVA Tenderness, Midline Tenderness, Paraspinal Tenderness Upper Extremity: Present: Normal Inspection. No: Cyanosis, Edema Lower Extremity: Present: Normal Inspection. No: Edema Neurological: Present: GCS=15, CN II-XII Intact, Speech Normal, Motor Func Grossly Intact, Normal Sensory Function, Normal Cerebellar Funct, Memory Normal Skin: Present: Warm, Dry, Normal Color. No: Rashes Psychiatric: Present: Alert, Oriented x 3, Normal Insight, Normal Concentration Medical Decision Making ED Course and Treatment: 03/03/18 21:17 Impression: 73 year old female brought in for low blood pressure for the past few days. Plan: -- Lab -- Reassess and disposition Progress Notes: 03/04/18 01:[address] Jones, who is aware and agrees with plan. States pt is stable for d/c home with outpt follow-up in her office. On re-evaluation, patient remains asymptomatic and is in no acute distress. I have discussed the results and plan with the patient, who expresses understanding. Patient in agreement with plan to be discharged home. Patient is stable for discharge. Patient was instructed to follow up with physician or return if symptoms worsen or new concerning symptoms arise. - Lab Interpretations Lab Results: 03/03/18 21:43 03/04/18 00:07 Lab Results 03/04/18 00:07: Potassium 5.3 H 03/03/18 21:43: WBC 7.6 D, RBC 3.77, Hgb 11.5 L, Hct 33.4 L, MCV 88.6, MCH 30.5 , MCHC 34.4, RDW 12.7, Plt Count 225, MPV 9.8 03/03/18 21:43: Sodium 138, Potassium 5.5 H, Chloride 103, Carbon Dioxide 24, Anion Gap 16, BUN 35 H, Creatinine 1.6 H, Est GFR ( Amer) 38, Est GFR ( Non-Af Amer) 32, Random Glucose 192 H, Calcium 9.4, Total Bilirubin 0.4, AST 16 , ALT 39, Alkaline Phosphatase 97, Total Protein 7.6, Albumin 4.1, Globulin 3.6 , Albumin/Globulin Ratio 1.2 I have reviewed the lab results: Yes - Medication Orders Current Medication Orders: Discontinued Medications Sodium Polystyrene Sulfonate (Kayexalate Susp) 15 gm PO STAT STA Stop: 03/04/18 00:57 Last Admin: 03/04/18 01:08 Dose: 15 gm - Scribe Statement The provider has reviewed the documentation as recorded by the Kunal Larson Provider Scribe Attestation: All medical record entries made by the Inoibpedro were at my direction and personally dictated by me. I have reviewed the chart and agree that the record accurately reflects my personal performance of the history, physical exam, medical decision making, and the department course for this patient. I have also personally directed, reviewed, and agree with the discharge instructions and disposition. Disposition/Present on Arrival - Present on Arrival Any Indicators Present on Arrival: No History of DVT/PE: No History of Uncontrolled Diabetes: Yes Urinary Catheter: No History of Decub. Ulcer: No History Surgical Site Infection Following: None - Disposition Have Diagnosis and Disposition been Completed?: Yes Diagnosis: Chronic hypertension Disposition: HOME/ ROUTINE Disposition Time: 01:50 Patient Plan: Discharge Condition: GOOD Discharge Instructions (ExitCare): High Blood Pressure (DC) Additional Instructions: Continue Metoprolol antihyprtensive meds only for now/follow up with Dr.Akhtar jaimes for further follow up care Referrals: Gayle Jones MD [Primary Care Provider] - Follow up with primary Forms: [employer] (Sri [place]ankan)
[2018-03-03 21:55] LABS: HEMOGLOBIN 11.5 g/dL (12.0-16.0); MEAN CELL VOLUME 88.6 fl (80.0-105.0); MEAN CORPUSCULAR HEMOGLOBIN 30.5 pg (25.0-35.0); MEAN CORPUSCULAR HGB CONC 34.4 g/dl (31.0-37.0); MEAN PLATELET VOLUME 9.8 fl (7.0-11.0); RBC 3.77 10^6/uL (3.5-6.1); RED CELL DISTRIBUTION WIDTH 12.7 % (11.5-14.5); WHITE BLOOD COUNT 7.6 10^3/ul (4.5-11.0)
[2018-03-03 22:09] LABS: ALB/GLOB RATIO 1.2 (1.1-1.8); ALBUMIN 4.1 g/dL (3.0-4.8); CALCIUM 9.4 mg/dL (8.4-10.5)
[2018-03-04 00:39] VITALS: RESP 16
[2018-03-04] MEDS ORDERED: Sod Polystyrene Sulf 15 gm/60 ml Susp PO STA (00:56)
[2018-03-04 01:08] VITALS: BP 159/98
[2018-03-04 02:58] VITALS: PULSE 70; O2SAT 98
== END 2018-03-04 01:56 | disposition home or self-care (01) ==
LOC: ED 20:40
DX: I10 Essential (primary) hypertension (principal); F20.9 Schizophrenia, unspecified; E11.9 Type 2 diabetes mellitus without complications

== ENCOUNTER 2018-03-30 16:30 | Emergency (ER) | payer OTHER ==
[2018-03-30 17:09] VITALS: BMI 28.2
[2018-03-30 17:14] VITALS: TEMP 97.9
--- NOTE | 2018-03-30 17:58 | ED PDOC ---
Arrival/HPI - General Chief Complaint: High Blood Sugar Time Seen by Provider: 03/30/18 16:35 Historian: Patient, Family - History of Present Illness Narrative History of Present Illness (Text): 03/30/18 17:50 73yo female with past medical history of hypertension and Diabetes bib the daughters for evaluation of elevation BS. The daughter states the BS was greater that 400 and she gave her Novolog as she was instructed to do by the lithographic proofer and the sugar dropped to 56. She states the BS went up to 354 again after patient ate lunch and she brought patient to emergency department . states patient recently started taking Levemir 4mg at night. The patient have appointment with her lithographic proofer on Saturday. She however denies polyuria/ dipsia/phagia, chest pain, SOB, abdominal pain, urinary symptoms, dizziness, headache, focal weakness, fever, chills, any other complaint. Past Medical History - Provider Review Nursing Documentation Reviewed: Yes - Infectious Disease Hx of Infectious Diseases: None - Tetanus Immunization Tetanus Immunization: Unknown - Cardiac Hx Cardiac Disorders: Yes Hx Hypertension: Yes Other/Comment: pt was scheduled for stress test today as per family rx'd by dr baugh - Pulmonary Hx Respiratory Disorders: Yes Hx Tuberculosis: No Other/Comment: 06/04/2014. 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 - Neurological Hx Neurological Disorder: Yes HX Cerebrovascular Accident: Yes (6 or 8 yrs ago no deficits as per family) Hx Dementia: Yes (memory loss/ forgetful as per family) Other/Comment: 2008 - HEENT Hx HEENT Disorder: Yes Hx Cataracts: Yes - Renal Hx Renal Disorder: No - Endocrine/Metabolic Hx Endocrine Disorders: Yes Hx Diabetes Mellitus Type 2: Yes - Hematological/Oncological Hx Blood Disorders: Yes Hx Anemia: Yes - Integumentary Hx Dermatological Disorder: No - Musculoskeletal/Rheumatological Hx Musculoskeletal Disorders: Yes Hx Arthritis: Yes Hx 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 - Anesthesia Hx Anesthesia Reactions: No Hx Malignant Hyperthermia: No - Suicidal Assessment Feels Threatened In Home Enviroment: No Family/Social History - Physician Review Nursing Documentation Reviewed: Yes Family/Social History: Unknown Family HX Smoking Status: Never Smoked Hx Alcohol Use: No Hx Substance Use: No Hx Substance Use Treatment: No Allergies/Home Meds Allergies/Adverse Reactions: Allergies shrimp Allergy (Verified 03/30/18 17:09) SWELLING Home Medications: Home Meds Medication Instructions Recorded Confirmed Atorvastatin [Lipitor] 20 mg PO DAILY 03/04/18 03/30/18 Metoprolol Tartrate [Lopressor] 50 mg PO DAILY 03/04/18 03/30/18 Pantoprazole [Protonix EC Tab] 40 mg PO DAILY 03/04/18 03/30/18 Risperidone [Risperdal] 0.5 mg PO BID 03/04/18 03/30/18 Spironolactone [Aldactone] 50 mg PO DAILY 03/04/18 03/30/18 amLODIPine [Norvasc] 10 mg PO DAILY 03/04/18 03/30/18 Review of Systems - Physician Review All systems were reviewed & negative as marked: Yes - Review of Systems Constitutional: Normal Eyes: Normal ENT: Normal Respiratory: Normal Cardiovascular: Normal Gastrointestinal: Normal Genitourinary Female: Normal Musculoskeletal: Normal Skin: Normal Neurological: Normal Endocrine: Other (Elevated BS) Hemo/Lymphatic: Normal Psychiatric: Normal Physical Exam Vital Signs Reviewed: Yes Vital Signs Temp Pulse Resp BP Pulse Ox 03/30/18 20:44 72 18 138/84 99 03/30/18 17:12 97.9 F 74 15 118/80 98 Temperature: Afebrile Blood Pressure: Normal Pulse: Regular Respiratory Rate: Normal Appearance: Positive for: Well-Appearing, Non-Toxic, Comfortable Pain Distress: None Mental Status: Positive for: Alert and Oriented X 3 - Systems Exam Head: Present: Atraumatic, Normocephalic Pupils: Present: PERRL Extroacular Muscles: Present: EOMI Conjunctiva: Present: Normal Mouth: Present: Moist Mucous Membranes Neck: Present: Normal Range of Motion Respiratory/Chest: Present: Clear to Auscultation, Good Air Exchange. No: Respiratory Distress, Accessory Muscle Use Cardiovascular: Present: Regular Rate and Rhythm, Normal S1, S2. No: Murmurs Abdomen: No: Tenderness, Distention, Peritoneal Signs Back: Present: Normal Inspection Upper Extremity: Present: Normal Inspection. No: Cyanosis, Edema Lower Extremity: Present: Normal Inspection. No: Edema Neurological: Present: GCS=15, CN II-XII Intact, Speech Normal Skin: Present: Warm, Dry, Normal Color. No: Rashes Psychiatric: Present: Alert, Oriented x 3, Normal Insight, Normal Concentration Medical Decision Making ED Course and Treatment: 03/31/18 01:35 Pt remained hemodyanmically stable in emergency department . Comfortable and in no distress. Her lab was unremarkable. BS of 191 was noted. No AG. PT takes Levemir at night. Result was DW both the pt and the daughter. She was advised to continue with her medication. She have appointment with her lithographic proofer ion Saturday and was advised to follow up. [facility]RT emergency department for any new or worsening symptoms. - Lab Interpretations Lab Results: 03/30/18 19:50 03/30/18 19:50 Lab Results 03/30/18 19:50: Sodium 142, Potassium 4.4, Chloride 103, Carbon Dioxide 26, Anion Gap 16, BUN 22 H, Creatinine 1.1, Est GFR ( Amer) 59, Est GFR (Non- Af Amer) 49, Random Glucose 191 H, Calcium 9.6, Magnesium 1.9, Total Bilirubin 0.4, AST 24, ALT 26, Alkaline Phosphatase 116, Lactate Dehydrogenase 472, Total Creatine Kinase 67, Troponin I < 0.01 D, Total Protein 7.9, Albumin 4.2, Globulin 3.7, Albumin/Globulin Ratio 1.1 03/30/18 19:50: PT 10.8, INR 0.95, APTT 28.9 03/30/18 19:50: WBC 8.0, RBC 3.98, Hgb 12.1, Hct 34.9 L, MCV 87.7, MCH 30.4, MCHC 34.7, RDW 12.9, Plt Count 259, MPV 9.0, Gran % 65.5, Lymph % (Auto) 27.5, [place] % (Auto) 5.3, Eos % (Auto) 1.5, Baso % (Auto) 0.2, Gran # 5.26, Lymph # ( Auto) 2.2, [place] # (Auto) 0.4, Eos # (Auto) 0.1, Baso # (Auto) 0.02 03/30/18 18:08: Urine Color Yellow, Urine Appearance Clear, Urine pH 6.0, Ur Specific [place] 1.010, Urine Protein Negative, Urine Glucose (UA) >=1000, Urine Ketones Negative, Urine Blood Trace-intact H, Urine Nitrate Negative, Urine Bilirubin Negative, Urine Urobilinogen 0.2, Ur Leukocyte Esterase Negative , Urine RBC 2 - 5, Urine WBC 10 - 15, Ur Epithelial Cells 10 - 12, Urine Bacteria Mod 03/30/18 17:21: POC Glucose (mg/dL) 234 H Disposition/Present on Arrival - Present on Arrival Any Indicators Present on Arrival: No History of DVT/PE: No History of Uncontrolled Diabetes: Yes Urinary Catheter: No History of Decub. Ulcer: No History Surgical Site Infection Following: None - Disposition Have Diagnosis and Disposition been Completed?: Yes Diagnosis: Hyperglycemia Disposition: HOME/ ROUTINE Disposition Time: 20:40 Patient Plan: Discharge Condition: STABLE Discharge Instructions (ExitCare): Hyperglycemia, Adult (DC) Additional Instructions: Follow up with your doctor Return to emergency department for any new symptoms Referrals: Gayle Jones MD [Primary Care Provider] - Follow up with primary Forms: [employer] (Persian)
[2018-03-30 18:18] LABS: URINE BILIRUBIN NEGATIVE (NEGATIVE); URINE BLOOD TRACE-INTACT (NEGATIVE); URINE GLUCOSE (UA) >=1000 mg/dL (NEGATIVE); URINE LEUKOCYTE ESTERASE NEGATIVE Leu/uL (NEGATIVE); URINE PROTEIN NEGATIVE mg/dL (<30 mg/dL); URINE UROBILINOGEN 0.2 E.U./dL (<1 E.U./dL)
[2018-03-30 18:19] LABS: URINE APPEARANCE CLEAR (CLEAR); URINE COLOR YELLOW (YELLOW)
[2018-03-30 18:32] LABS: URINE BACTERIA MOD (NEG)
[2018-03-30 20:07] LABS: BASO # 0.02 K/mm3 (0.0-2.0); BASO % 0.2 % (0.0-3.0); EOS # 0.1 (0.0-0.7); EOS % 1.5 % (1.5-5.0); GRAN # 5.26 (1.4-6.5); GRAN % 65.5 % (50.0-68.0); HEMOGLOBIN 12.1 g/dL (12.0-16.0); LYMPH # 2.2 (1.2-3.4); LYMPH % 27.5 % (22.0-35.0); MEAN CELL VOLUME 87.7 fl (80.0-105.0); MEAN CORPUSCULAR HEMOGLOBIN 30.4 pg (25.0-35.0); MEAN CORPUSCULAR HGB CONC 34.7 g/dl (31.0-37.0); MONO # 0.4 (0.1-0.6); MONO % 5.3 % (1.0-6.0); RBC 3.98 10^6/uL (3.5-6.1); RED CELL DISTRIBUTION WIDTH 12.9 % (11.5-14.5)
[2018-03-30 20:13] LABS: INR 0.95 (0.93-1.08); PARTIAL THROMBOPLASTIN TIME 28.9 Seconds (25.1-36.5); PROTHROMBIN TIME 10.8 SECONDS (9.4-12.5)
[2018-03-30 20:29] LABS: ALB/GLOB RATIO 1.1 (1.1-1.8); ALBUMIN 4.2 g/dL (3.0-4.8); ALT/SGPT 26 U/L (7-56); AST/SGOT 24 U/L (14-36); BLOOD UREA NITROGEN 22 mg/dL (7-21); CALCIUM 9.6 mg/dL (8.4-10.5); GFR AFRICAN-AMERICAN 59; GFR NON-AFRICAN AMERICAN 49
[2018-03-30 20:36] LABS: TROPONIN I < 0.01 ng/mL
[2018-03-30 20:45] VITALS: BP 138/84; PULSE 72; RESP 18; O2SAT 99
--- NOTE | 2018-03-31 09:18 | CARD ---
APPROVED REPORT EKG Measurement Heart [id number] <Conclusion> Normal sinus rhythm Nonspecific T wave abnormality Abnormal ECG
== END 2018-03-30 20:44 | disposition home or self-care (01) ==
LOC: ED 16:30
DX: E11.65 Type 2 diabetes mellitus with hyperglycemia (principal); I10 Essential (primary) hypertension

== ENCOUNTER 2018-05-06 17:22 | Emergency (ER) | payer OTHER ==
[2018-05-06 17:26] VITALS: BMI 34.3
[2018-05-06 19:17] LABS: BASO # 0.01 K/mm3 (0.0-2.0); BASO % 0.1 % (0.0-3.0); EOS # 0.2 (0.0-0.7); EOS % 2.3 % (1.5-5.0); GRAN # 5.92 (1.4-6.5); GRAN % 65.1 % (50.0-68.0); HEMOGLOBIN 11.7 g/dL (12.0-16.0); LYMPH # 2.5 (1.2-3.4); LYMPH % 27.2 % (22.0-35.0); MEAN CELL VOLUME 86.1 fl (80.0-105.0); MEAN CORPUSCULAR HEMOGLOBIN 29.6 pg (25.0-35.0); MEAN CORPUSCULAR HGB CONC 34.4 g/dl (31.0-37.0); MEAN PLATELET VOLUME 8.8 fl (7.0-11.0); MONO # 0.5 (0.1-0.6); MONO % 5.3 % (1.0-6.0); RBC 3.95 10^6/uL (3.5-6.1); RED CELL DISTRIBUTION WIDTH 12.3 % (11.5-14.5); WHITE BLOOD COUNT 9.1 10^3/ul (4.5-11.0)
[2018-05-06 19:25] LABS: ALT/SGPT 24 U/L (7-56); AST/SGOT 23 U/L (14-36); BLOOD UREA NITROGEN 19 mg/dL (7-21); CALCIUM 9.5 mg/dL (8.4-10.5); GFR AFRICAN-AMERICAN > 60; GFR NON-AFRICAN AMERICAN 55
[2018-05-06 19:37] LABS: B-TYPE NATRIURETIC PEPTIDE 76.8 pg/mL (0-450); TROPONIN I < 0.01 ng/mL
--- NOTE | 2018-05-06 19:49 | ED PDOC ---
Arrival/HPI - General Chief Complaint: Lower Extremity Problem/Injury Time Seen by Provider: 05/06/18 17:43 Historian: Patient - History of Present Illness Narrative History of Present Illness (Text): 05/06/18 19:46 A 73 year old female, whose past medical history includes diabetes and hypertension, presents to the emergency department complaining of painless bilateral lower extremity edema present for the past few days. Patient reports also experiencing dry cough. States he saw his PMD for symptoms and was given antibiotics (Levaquin and Amoxicillin) for cough. Patient denies fever, chills, abdominal pain, nausea, vomiting, chest pain, shortness of breath or any other complaints at this time. Denies any recent travels, sick contacts, or any recent surgeries. Past Medical History - Provider Review Nursing Documentation Reviewed: Yes - Infectious Disease Hx of Infectious Diseases: None - Tetanus Immunization Tetanus Immunization: Unknown - Cardiac Hx Cardiac Disorders: Yes Hx Hypertension: Yes Other/Comment: pt was scheduled for stress test today as per family rx'd by dr - Pulmonary Hx Respiratory Disorders: Yes Hx Tuberculosis: No Other/Comment: 06/04/2014. 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 - Neurological Hx Neurological Disorder: Yes HX Cerebrovascular Accident: Yes (6 or 8 yrs ago no deficits as per family) Hx Dementia: Yes (memory loss/ forgetful as per family) Other/Comment: 2008 - HEENT Hx HEENT Disorder: Yes Hx Cataracts: Yes - Renal Hx Renal Disorder: No - Endocrine/Metabolic Hx Endocrine Disorders: Yes Hx Diabetes Mellitus Type 2: Yes - Hematological/Oncological Hx Blood Disorders: Yes Hx Anemia: Yes - Integumentary Hx Dermatological Disorder: No - Musculoskeletal/Rheumatological Hx Musculoskeletal Disorders: Yes Hx Arthritis: Yes Hx 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 - Anesthesia Hx Anesthesia Reactions: No Hx Malignant Hyperthermia: No - Suicidal Assessment Feels Threatened In Home Enviroment: No Family/Social History - Physician Review Nursing Documentation Reviewed: Yes Family/Social History: No Known Family HX Smoking Status: Never Smoked Hx Alcohol Use: No Hx Substance Use: No Hx Substance Use Treatment: No Allergies/Home Meds Allergies/Adverse Reactions: Allergies shrimp Allergy (Verified 03/30/18 17:09) SWELLING Home Medications: Home Meds Medication Instructions Recorded Confirmed Atorvastatin [Lipitor] 20 mg PO DAILY 03/04/18 05/06/18 Metoprolol Tartrate [Lopressor] 50 mg PO DAILY 03/04/18 05/06/18 Pantoprazole [Protonix EC Tab] 40 mg PO DAILY 03/04/18 05/06/18 Risperidone [Risperdal] 0.5 mg PO BID 03/04/18 05/06/18 Insulin Aspart, Recombinant See Protocol SC QID 05/06/18 05/06/18 [Novolog] Insulin Detemir [Levemir] 10 unit SC HS 05/06/18 05/06/18 amLODIPine [Norvasc] 1 tab PO DAILY 05/06/18 05/06/18 Review of Systems - Physician Review All systems were reviewed & negative as marked: Yes - Review of Systems Constitutional: absent: Fevers, Night Sweats Respiratory: Cough (dry). absent: SOB Cardiovascular: absent: Chest Pain Gastrointestinal: absent: Abdominal Pain, Nausea, Vomiting Musculoskeletal: Other (lower extremity bilateral painless edema) Physical Exam Vital Signs Reviewed: Yes Vital Signs Temp Pulse Resp BP Pulse Ox 05/06/18 19:53 98.1 F 81 19 136/81 98 05/06/18 17:31 98.6 F 83 18 133/88 96 Temperature: Afebrile Blood Pressure: Normal Pulse: Regular Respiratory Rate: Normal Appearance: Positive for: Well-Appearing, Non-Toxic, Comfortable Pain Distress: None Mental Status: Positive for: Alert and Oriented X 3 - Systems Exam Head: Present: Atraumatic, Normocephalic Pupils: Present: PERRL Extroacular Muscles: Present: EOMI Conjunctiva: Present: Normal Mouth: Present: Moist Mucous Membranes Neck: Present: Normal Range of Motion Respiratory/Chest: Present: Clear to Auscultation, Good Air Exchange. No: Respiratory Distress, Accessory Muscle Use Cardiovascular: Present: Regular Rate and Rhythm, Normal S1, S2. No: Murmurs Abdomen: No: Tenderness, Distention, Peritoneal Signs Back: Present: Normal Inspection Upper Extremity: Present: Normal Inspection. No: Cyanosis, Edema Lower Extremity: Present: Edema (pitting edema +1), NORMAL PULSES Neurological: Present: GCS=15, CN II-XII Intact, Speech Normal Skin: Present: Warm, Dry, Normal Color. No: Rashes Psychiatric: Present: Alert, Oriented x 3, Normal Insight, Normal Concentration Medical Decision Making ED Course and Treatment: 05/06/18 19:51 Impression: 73 year old female with painless bilateral lower extremity edema. Plan: -- EKG -- Chest X-ray -- Lower Extremity Ultrasound -- Urinalysis -- Reassess and disposition Progress Notes: 05/06/18 19:30 EKG : NSR at 65 bpm, no acute ST changes, as read by CAROLINE CXR : NAD, as read by CAROLINE US doppler b/l LE : (-) DVT, as per US tech Labs reviewed : wbc wnl, glucose 214, trop (-), bnp (-), UA +UTI Urine cx sent. Rocephin 1 g IV ordered. On re-evaluation, patient is laying in bedin no acute distress, denies any dizziness, CP, SOB, and has no other complaints. On exam, patient remains AAOx3 , in no acute distress. Diagnostic results d/w the patient in great detail. Patient notified of UTI. Case d/w Dr. Telles, agrees with plan, will see patient in her office tomorrow and review the antibiotics she is currently taking and will change if necessary , she will also f/u on the urine cx. Based on history, exam and diagnostic results, plan will be for outpatient follow up. Patient instructed to follow-up with pmd tomorrow without fail. Return to the emergency room at any time for any new or worsening symptoms. Patient states she fully agrees with and understands discharge instructions. States that she agrees with the plan and disposition. Verbalized and repeated discharge instructions and plan. I have given the patient opportunity to ask any additional questions. - Lab Interpretations Lab Results: 05/06/18 19:05 05/06/18 19:05 Lab Results 05/06/18 19:59: Urine Color Yellow, Urine Appearance Clear, Urine pH 6.5, Ur Specific [place] 1.020, Urine Protein 100 H, Urine Glucose (UA) 500 H, Urine Ketones Negative, Urine Blood Trace-intact H, Urine Nitrate Positive H, Urine Bilirubin Negative, Urine Urobilinogen 0.2, Ur Leukocyte Esterase Moderate H, Urine RBC Pending, Urine WBC Pending 05/06/18 19:05: Sodium 141, Potassium 4.3, Chloride 103, Carbon Dioxide 26, Anion Gap 16, BUN 19, Creatinine 1.0, Est GFR ( Amer) > 60, Est GFR (Non- Af Amer) 55, Random Glucose 214 H, Calcium 9.5, Total Bilirubin 0.5, AST 23, ALT 24, Alkaline Phosphatase 123, Lactate Dehydrogenase 545, Total Creatine Kinase 86, Troponin I < 0.01, NT-Pro-B Natriuret Pep 76.8, Total Protein 7.9, Albumin 4.0, Globulin 3.9, Albumin/Globulin Ratio 1.0 L 05/06/18 19:05: WBC 9.1, RBC 3.95, Hgb 11.7 L, Hct 34.0 L, MCV 86.1, MCH 29.6, MCHC 34.4, RDW 12.3, Plt Count 261, MPV 8.8, Gran % 65.1, Lymph % (Auto) 27.2, [place] % (Auto) 5.3, Eos % (Auto) 2.3, Baso % (Auto) 0.1, Gran # 5.92, Lymph # ( Auto) 2.5, [place] # (Auto) 0.5, Eos # (Auto) 0.2, Baso # (Auto) 0.01 - RAD Interpretation Radiology Orders: 05/06/18 18:07 CHEST PORTABLE [RAD] Stat DUPLEX LOWER EXTRM VEIN BILAT [US] Stat - PA / CHIEF NURSING EXECUTIVE / Resident Statement MD/DO has reviewed & agrees with the documentation as recorded. - Scribe Statement The provider has reviewed the documentation as recorded by the Inoibpedro Ramires Provider Scribe Provider Scribe Attestation: All medical record entries made by the Scribe were at my direction and personally dictated by me. I have reviewed the chart and agree that the record accurately reflects my personal performance of the history, physical exam, medical decision making, and the department course for this patient. I have also personally directed, reviewed, and agree with the discharge instructions and disposition. Disposition/Present on Arrival - Present on Arrival Any Indicators Present on Arrival: Yes History of DVT/PE: No History of Uncontrolled Diabetes: Yes Urinary Catheter: No History of Decub. Ulcer: No History Surgical Site Infection Following: None - Disposition Have Diagnosis and Disposition been Completed?: Yes Diagnosis: UTI (urinary tract infection), Leg edema Disposition: HOME/ ROUTINE Disposition Time: 20:00 Patient Plan: Discharge Patient Problems: Current Active Problems Problem Status Onset Leg edema Acute UTI (urinary tract infection) Acute Condition: STABLE Discharge Instructions (ExitCare): Urinary Tract Infections in Adults, Dependent Edema (DC) Print Language: WALLISIAN Additional Instructions: Thank you for letting us take care of you today. You were treated for UTI. The emergency medical care you received today was directed at your acute symptoms. Return to the Emergency Department if your symptoms worsen, do not improve, or if you have any other problems. Please see Dr. Telles tomorrow for re-evaluation and follow up. Bring any paperwork and all of your medications with you. Our treatment cannot replace ongoing medical care by a primary care provider (PCP) outside of the emergency department. Thank you for allowing the [facility] team to be part of your care today. If you had a urine culture test done : We will call you regarding any positive results Forms: [employer] (J[place]ican)
[2018-05-06 19:54] VITALS: TEMP 98.1
[2018-05-06 20:03] LABS: PH,URINE 6.5 (4.7-8.0); URINE BILIRUBIN NEGATIVE (NEGATIVE); URINE BLOOD TRACE-INTACT (NEGATIVE); URINE GLUCOSE (UA) 500 mg/dL (NEGATIVE); URINE LEUKOCYTE ESTERASE MODERATE Leu/uL (NEGATIVE); URINE PROTEIN 100 mg/dL (<30 mg/dL); URINE UROBILINOGEN 0.2 E.U./dL (<1 E.U./dL)
[2018-05-06 20:08] LABS: URINE APPEARANCE CLEAR (CLEAR); URINE COLOR YELLOW (YELLOW)
[2018-05-06] MEDS ORDERED: cefTRIAXone 1,000 MG in PED IV SYRINGE 1 SYR IVPB STA (20:14)
[2018-05-06 20:18] LABS: URINE BACTERIA LARGE (NEG); URINE WBC 20 - 25 /hpf (0-6)
[2018-05-06] MEDS ORDERED: cefTRIAXone 1 GM/100 ML BAG IVPB STA (20:23)
[2018-05-06 21:08] VITALS: BP 128/80; RESP 18
[2018-05-06 21:22] VITALS: PULSE 80; O2SAT 98
--- NOTE | 2018-05-07 06:56 | CARD ---
APPROVED REPORT Date of service: 05/06/2018 EKG Measurement Heart [id number] <Conclusion> Poor data quality, interpretation may be adversely affected Sinus rhythm with premature atrial complexes Nonspecific T wave abnormality Abnormal ECG
--- NOTE | 2018-05-07 08:51 | RAD ---
Date of service: 05/06/2018 HISTORY: LE edema COMPARISON: 06/25/2017 FINDINGS: LUNGS: No active pulmonary disease. PLEURA: No significant pleural effusion identified, no pneumothorax apparent. CARDIOVASCULAR: Normal. OSSEOUS STRUCTURES: No significant abnormalities. VISUALIZED UPPER ABDOMEN: Normal. OTHER FINDINGS: None. IMPRESSION: No active disease.
--- NOTE | 2018-05-07 11:48 | US ---
HISTORY: Leg pain and swelling. Evaluate for DVT PHYSICIAN(S): Dennis Michael MD. TECHNIQUE: Duplex sonography and color-flow Doppler with graded compression were used to evaluate the deep venous systems of both lower extremities. The exam is somewhat limited by body habitus and edema. FINDINGS: The visualized deep venous systems of both lower extremities are sonographically normal and compressible. Normal wave forms and augmentation are seen. There is no sonographic evidence for deep venous thrombosis in the visualized segments of both lower extremities. IMPRESSION: No sonographic evidence for deep venous thrombosis in the visualized segments of both lower extremities.
== END 2018-05-06 21:20 | disposition home or self-care (01) ==
LOC: ED 17:22
DX: N39.0 Urinary tract infection, site not specified (principal); R60.0 Localized edema; I10 Essential (primary) hypertension; E11.9 Type 2 diabetes mellitus without complications; F03.90 Unspecified dementia, unspecified severity, without behavioral disturbance, psychotic disturbance, mood disturbance, and anxiety; Z86.73 Personal history of transient ischemic attack (TIA), and cerebral infarction without residual deficits; Z96.653 Presence of artificial knee joint, bilateral
CPT/HCPCS: 71045; 80053; 81001; 82550; 83615; 83880; 84484; 85025; 87086; 93005; 93970; 96365; 99285; J0696

== ENCOUNTER 2018-05-19 15:12 | Emergency (ER) | payer MEDICARE, OTHER ==
[2018-05-19 15:13] VITALS: BMI 34.3
[2018-05-19 16:10] VITALS: RESP 18
--- NOTE | 2018-05-19 16:14 | ED PDOC ---
Arrival/HPI - General Historian: Patient - General Chief Complaint: High Blood Pressure Time Seen by Provider: 05/19/18 16:01 - History of Present Illness Narrative History of Present Illness (Text): 05/19/18 16:02 73 y/o female, pmh including htn (metoprolo 50mg/clonidine 0.2mg patch qd/ furosemide 20mg po qd)/hld/dm, nkda, c/o elevated blood pressure on and off for the past 2 days. Pt. is here with the daughter, stated that her blood pressure been fluctuating on and off for the past 2 days, systolic max to 200s with unknown diastolic, last episode about 2 hours ago which the patient received additional dose of metolprolol 50mg po at home, currently bp remaining at 150s/ 90s, no medical or psychological complaints. Pt. stated that she was seen here about 2 weeks, treated with UTI, never had a follow up, would like to be evaluated as well. pt. has no numbness/tingling, no headache, no dizziness, no palpitation, no change in vision, no neck pain, no tearing pain, no chest pain, no other medical or psychological complaints. (Jose Null) Past Medical History - Provider Review Nursing Documentation Reviewed: Yes - Infectious Disease Hx of Infectious Diseases: None - Tetanus Immunization Tetanus Immunization: Unknown - Cardiac Other/Comment: pt was scheduled for stress test today as per family rx'd by dr baugh - Pulmonary Hx Respiratory Disorders: Yes Hx Tuberculosis: No Other/Comment: 06/04/2014. 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 - Neurological Hx Neurological Disorder: Yes HX Cerebrovascular Accident: Yes (6 or 8 yrs ago no deficits as per family) Hx Dementia: Yes (memory loss/ forgetful as per family) Other/Comment: 2008 - HEENT Hx HEENT Disorder: Yes Hx Cataracts: Yes - Renal Hx Renal Disorder: No - Endocrine/Metabolic Hx Endocrine Disorders: Yes Hx Diabetes Mellitus Type 2: Yes - Hematological/Oncological Hx Blood Disorders: Yes Hx Anemia: Yes - Integumentary Hx Dermatological Disorder: No - Musculoskeletal/Rheumatological Hx Musculoskeletal Disorders: Yes Hx Arthritis: Yes Hx 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 - Anesthesia Hx Anesthesia: Yes Hx Anesthesia Reactions: No Hx Malignant Hyperthermia: No - Suicidal Assessment Feels Threatened In Home Enviroment: No Family/Social History - Physician Review Nursing Documentation Reviewed: Yes Family/Social History: Unknown Family HX Smoking Status: Never Smoked Hx Alcohol Use: No Hx Substance Use: No Hx Substance Use Treatment: No Allergies/Home Meds Allergies/Adverse Reactions: Allergies shrimp Allergy (Verified 03/30/18 17:09) SWELLING Home Medications: Home Meds Medication Instructions Recorded Confirmed Atorvastatin [Lipitor] 20 mg PO DAILY 03/04/18 05/06/18 Metoprolol Tartrate [Lopressor] 50 mg PO DAILY 03/04/18 05/06/18 Pantoprazole [Protonix EC Tab] 40 mg PO DAILY 03/04/18 05/06/18 Risperidone [Risperdal] 0.5 mg PO BID 03/04/18 05/06/18 Insulin Aspart, Recombinant See Protocol SC QID 05/06/18 05/06/18 [Novolog] Insulin Detemir [Levemir] 10 unit SC HS 05/06/18 05/06/18 amLODIPine [Norvasc] 1 tab PO DAILY 05/06/18 05/06/18 Review of Systems - Review of Systems Constitutional: absent: Fatigue, Fevers Eyes: absent: Vision Changes ENT: absent: Hearing Changes Respiratory: absent: SOB, Cough Cardiovascular: absent: Chest Pain Gastrointestinal: absent: Abdominal Pain, Nausea, Vomiting Musculoskeletal: absent: Arthralgias, Back Pain, Neck Pain Skin: absent: Rash, Pruritis Neurological: absent: Headache, Dizziness Psychiatric: absent: Anxiety, Depression, Suicidal Ideation Physical Exam Vital Signs Reviewed: Yes Temperature: Afebrile Blood Pressure: Hypertensive Pulse: Regular Respiratory Rate: Normal Appearance: Positive for: Well-Appearing, Non-Toxic, Comfortable Pain Distress: None Mental Status: Positive for: Alert and Oriented X 3 - Systems Exam Head: Present: Atraumatic, Normocephalic Pupils: Present: PERRL Extroacular Muscles: Present: EOMI Conjunctiva: Present: Normal Mouth: Present: Moist Mucous Membranes Neck: Present: Normal Range of Motion Respiratory/Chest: Present: Clear to Auscultation, Good Air Exchange. No: Respiratory Distress, Accessory Muscle Use Cardiovascular: Present: Regular Rate and Rhythm, Normal S1, S2. No: Murmurs Abdomen: No: Tenderness, Distention, Peritoneal Signs Back: Present: Normal Inspection Upper Extremity: Present: Normal Inspection. No: Cyanosis, Edema Lower Extremity: Present: Normal Inspection. No: Edema Neurological: Present: GCS=15, CN II-XII Intact, Speech Normal, Motor Func Grossly Intact, Gait Normal, Memory Normal, Other (no drift, no focal neurological deficits, walking with normal gait and posture) Skin: Present: Warm, Dry, Normal Color. No: Rashes Psychiatric: Present: Alert, Oriented x 3, Normal Insight, Normal Concentration Vital Signs Temp Pulse Resp BP Pulse Ox 05/19/18 18:17 98.5 F 60 18 163/85 H 100 05/19/18 15:13 98.5 F 57 L 18 155/94 H 98 Medical Decision Making ED Course and Treatment: 05/19/18 16:20 Differential: Htn vs. UTI vs. electrolyte imbalance -Labs/ua -mobile tester -Observe and reassess 05/19/18 18:20 -Labs are non-significant -UA show +UTI, urine culture reviewed, sensitive to the bactrim ds -Pt.'s bp is stable, asymptomatic, stated the BP here in the ER is much better than at home, no focal neurological deficits. -All labs and results discussed with the patient and the daughter, understand that she would need to follow up with DR. Jones about her BP medication. -Discharge home with bactrim ds, continue all your blood pressure medications at home, follow up with your own pmd within 2 days, return to the ER for any new or worsening signs or symptoms. (Jose Null) - Lab Interpretations Lab Results: 05/19/18 16:15 05/19/18 16:15 Lab Results 05/19/18 17:17: Urine Color Yellow, Urine Appearance Clear, Urine pH 7.5, Ur Specific [place] 1.020, Urine Protein 100 H, Urine Glucose (UA) 500 H, Urine Ketones Negative, Urine Blood Trace-intact H, Urine Nitrate Negative, Urine Bilirubin Negative, Urine Urobilinogen 0.2, Ur Leukocyte Esterase Trace H, Urine RBC 2 - 5, Urine WBC 5 - 10, Ur Epithelial Cells 4 - 5, Urine Bacteria Many, Urine Other [place] 05/19/18 16:15: WBC 9.7, RBC 4.12, Hgb 12.2, Hct 35.3 L, MCV 85.7, MCH 29.6, MCHC 34.6, RDW 12.4, Plt Count 280, MPV 9.7, Gran % 66.6, Lymph % (Auto) 26.5, Day % (Auto) 5.4, Eos % (Auto) 1.4 L, Baso % (Auto) 0.1, Gran # 6.47, Lymph # ( Auto) 2.6, Day # (Auto) 0.5, Eos # (Auto) 0.1, Baso # (Auto) 0.01 05/19/18 16:15: Sodium 141, Potassium 4.1, Chloride 102, Carbon Dioxide 28, Anion Gap 15, BUN 19, Creatinine 0.7, Est GFR ( Amer) > 60, Est GFR (Non- Af Amer) > 60, Random Glucose 190 H, Calcium 9.7, Total Bilirubin 0.5, AST 22, ALT 20, Alkaline Phosphatase 128 H, NT-Pro-B Natriuret Pep 223, Total Protein 7.3, Albumin 3.7, Globulin 3.7, Albumin/Globulin Ratio 1.0 L - PA / CIVIL ENGINEERING PROJECT MANAGER / Resident Statement MD/DO has reviewed & agrees with the documentation as recorded. Disposition/Present on Arrival - Present on Arrival Any Indicators Present on Arrival: No History of DVT/PE: No History of Uncontrolled Diabetes: Yes Urinary Catheter: No History of Decub. Ulcer: No History Surgical Site Infection Following: None - Disposition Have Diagnosis and Disposition been Completed?: Yes Disposition Time: 17:17 Patient Plan: Discharge - Disposition Diagnosis: UTI (urinary tract infection), Asymptomatic hypertension Disposition: HOME/ ROUTINE Condition: GOOD Additional Instructions: -Discharge home with bactrim ds, continue all your blood pressure medications at home, follow up with your own pmd within 2 days, return to the ER for any new or worsening signs or symptoms. Prescriptions: Sulfamethoxazole/Trimethoprim [Bactrim Ds Tablet] 1 each PO BID #14 tablet Referrals: Gayle Jones MD [Family Provider] - Follow up with primary Forms: [employer] (Maltese), WORK NOTE
[2018-05-19 16:43] LABS: BASO # 0.01 K/mm3 (0.0-2.0); BASO % 0.1 % (0.0-3.0); EOS # 0.1 (0.0-0.7); EOS % 1.4 % (1.5-5.0); GRAN # 6.47 (1.4-6.5); GRAN % 66.6 % (50.0-68.0); HEMOGLOBIN 12.2 g/dL (12.0-16.0); LYMPH # 2.6 (1.2-3.4); LYMPH % 26.5 % (22.0-35.0); MEAN CELL VOLUME 85.7 fl (80.0-105.0); MEAN CORPUSCULAR HEMOGLOBIN 29.6 pg (25.0-35.0); MEAN CORPUSCULAR HGB CONC 34.6 g/dl (31.0-37.0); MEAN PLATELET VOLUME 9.7 fl (7.0-11.0); MONO # 0.5 (0.1-0.6); MONO % 5.4 % (1.0-6.0); RBC 4.12 10^6/uL (3.5-6.1); RED CELL DISTRIBUTION WIDTH 12.4 % (11.5-14.5); WHITE BLOOD COUNT 9.7 10^3/ul (4.5-11.0)
[2018-05-19 16:56] LABS: ALBUMIN 3.7 g/dL (3.0-4.8); ALT/SGPT 20 U/L (7-56); AST/SGOT 22 U/L (14-36); BLOOD UREA NITROGEN 19 mg/dL (7-21); CALCIUM 9.7 mg/dL (8.4-10.5); GFR AFRICAN-AMERICAN > 60; GFR NON-AFRICAN AMERICAN > 60
[2018-05-19 17:06] LABS: B-TYPE NATRIURETIC PEPTIDE 223 pg/mL (0-450)
[2018-05-19 18:07] LABS: PH,URINE 7.5 (4.7-8.0); URINE BILIRUBIN NEGATIVE (NEGATIVE); URINE BLOOD TRACE-INTACT (NEGATIVE); URINE GLUCOSE (UA) 500 mg/dL (NEGATIVE); URINE LEUKOCYTE ESTERASE TRACE Leu/uL (NEGATIVE); URINE PROTEIN 100 mg/dL (<30 mg/dL); URINE UROBILINOGEN 0.2 E.U./dL (<1 E.U./dL)
[2018-05-19 18:08] LABS: URINE APPEARANCE CLEAR (CLEAR); URINE COLOR YELLOW (YELLOW)
[2018-05-19 18:11] LABS: URINE BACTERIA MANY (NEG)
[2018-05-19 18:17] VITALS: O2SAT 100
[2018-05-19 18:55] VITALS: BP 150/85; PULSE 59; TEMP 98.2
== END 2018-05-19 19:05 | disposition home or self-care (01) ==
LOC: ED 15:12
DX: I10 Essential (primary) hypertension (principal); N39.0 Urinary tract infection, site not specified; E11.9 Type 2 diabetes mellitus without complications; Z86.73 Personal history of transient ischemic attack (TIA), and cerebral infarction without residual deficits; Z98.61 Coronary angioplasty status

== ENCOUNTER 2018-07-17 17:05 | Inpatient (IN) | payer OTHER, MEDICAID ==
--- NOTE | 2018-07-17 18:25 | ED PDOC ---
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 Daughter is at bedside translating Kyrgyz. As per daughter, patient has been expressing generalized weakness since past 5 days, falling 3 times without any head injury or any loss of consciousness. Daughter states patient has been "slow" for past three days with decreased appetite, refusing to get out of bed and not talking to her. As per daughter, patient began complaining of chest pain today with increasing confusion prompting her to present to the Emergency Department for medical evaluation. Daughter worries patient's increased confusion may be secondary to new onset of dementia. Patient is unable to verbalize any complaints secondary to medical history. HPI and ROS limited secondary to patient's non-verbal state. Time/Duration: < week Symptom Onset: Gradual Symptom Course: Unchanged Quality: Aching Activities at Onset: Light Context: Home Past Medical History - Provider Review Nursing Documentation Reviewed: Yes - Infectious Disease Hx of Infectious Diseases: None - Tetanus Immunization Tetanus Immunization: Unknown - Cardiac Other/Comment: pt was scheduled for stress test today as per family rx'd by dr royce shearer - Pulmonary Hx Respiratory Disorders: Yes Hx Tuberculosis: No Other/Comment: 06/04/2014. 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 - Neurological Hx Neurological Disorder: Yes HX Cerebrovascular Accident: Yes (6 or 8 yrs ago no deficits as per family) Hx Dementia: Yes (memory loss/ forgetful as per family) Other/Comment: 2008 - HEENT Hx HEENT Disorder: Yes Hx Cataracts: Yes - Renal Hx Renal Disorder: No - Endocrine/Metabolic Hx Endocrine Disorders: Yes Hx Diabetes Mellitus Type 2: Yes - Hematological/Oncological Hx Blood Disorders: Yes Hx Anemia: Yes - Integumentary Hx Dermatological Disorder: No - Musculoskeletal/Rheumatological Hx Musculoskeletal Disorders: Yes Hx Arthritis: Yes Hx 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 - Anesthesia Hx Anesthesia: Yes Hx Anesthesia Reactions: No Hx Malignant Hyperthermia: No - Suicidal Assessment Feels Threatened In Home Enviroment: No Family/Social History - Physician Review Nursing Documentation Reviewed: Yes Family/Social History: No Known Family HX Smoking Status: Never Smoked Hx Alcohol Use: No Hx Substance Use: No Hx Substance Use Treatment: No Allergies/Home Meds Allergies/Adverse Reactions: Allergies shrimp Allergy (Verified 07/17/18 17:24) SWELLING Home Medications: Home Meds Medication Instructions Recorded Confirmed Atorvastatin [Lipitor] 20 mg PO DAILY 03/04/18 05/06/18 Metoprolol Tartrate [Lopressor] 50 mg PO DAILY 03/04/18 05/06/18 Pantoprazole [Protonix EC Tab] 40 mg PO DAILY 03/04/18 05/06/18 Risperidone [Risperdal] 0.5 mg PO BID 03/04/18 05/06/18 Insulin Aspart, Recombinant See Protocol SC QID 05/06/18 05/06/18 [Novolog] Insulin Detemir [Levemir] 10 unit SC HS 05/06/18 05/06/18 amLODIPine [Norvasc] 1 tab PO DAILY 05/06/18 05/06/18 Review of Systems - Review of Systems Systems not reviewed;Unavailable: Other (Non-verbal state) Cardiovascular: Chest Pain Physical Exam Appearance: Positive for: Other (Obese ) Mental Status: Positive for: Confused - Systems Exam Head: Present: Atraumatic, Normocephalic Pupils: Present: PERRL Extroacular Muscles: Present: EOMI Conjunctiva: Present: Normal Mouth: Present: Moist Mucous Membranes Neck: Present: Normal Range of Motion Respiratory/Chest: Present: Clear to Auscultation, Decreased Breath Sounds. No: Respiratory Distress, Accessory Muscle Use Cardiovascular: Present: Regular Rate and Rhythm, Normal S1, S2. No: Murmurs Abdomen: No: Tenderness, Distention, Peritoneal Signs Back: Present: Normal Inspection Upper Extremity: Present: Other (right upper extremity 4/5 in strength. Attempting to squeeze on command, with similar strength bilaterally. ). No: Cyanosis, Edema Lower Extremity: Present: Other (right lower extremity 4/5 in strength). No: Edema Neurological: Present: Other (No facial asymmetry; appears confused when attempting to answer questions, neuro exam limited by patient's mental status. ). No: Speech Normal (No slurred speech) Skin: Present: Warm, Dry, Normal Color. No: Rashes Psychiatric: Present: Alert Medical Decision Making ED Course and Treatment: 07/17/18 18:25 Impression: 73 year old female presents to the Emergency Department complaining of chest pain. Plan: -- CT of Head -- EKG -- Labs -- Chest X-ray -- Blood Culture -- Urine Culture -- Urinalysis -- Reassess and disposition Prior Visits: Notes and results from previous visits were reviewed. Progress Notes: 07/17/18 18:25 EKG: Ordered, reviewed, and independently interpreted the EKG. Rate : 65 BPM Rhythm : NSR Interpretation : Normal interval, left axis deviation. No ST elevation, nonspecific T wave changes. 07/17/18 21:00 Patient with focal seizure-like activity of R side of face, duration approximately 60 seconds, resolved spontaneously, seizure precautions and Ativan 2mg iv ordered. Daughter at bedside states patient does not have a h/o seizures. This daughter also states patient was talking at night over the past few days contradicting her sister's account of patient's patient's course. 07/17/18 21:47 CXR interpreted by me as poor inspiration. Labs unremarkable except glucose of 228. Name: MARTY COOMBS Exam Date: Jul 17, 2018 9:28:12 PM EDT Modality Type: CT\\SD Description: CT - BRAIN Gender: F Laterality: Not applicable : 47 Referring Physician: LALY DECKER EXAM: CT Head Without IV contrast. CLINICAL HISTORY: AMS TECHNIQUE: Axial computed tomography images of the head/brain without intravenous contrast. COMPARISON: None provided. FINDINGS: BRAIN Large area of edema in the left occipital and left posterior parietal lobes, involving white matter and cortex, suspicious for acute infarction. No acute intraparenchymal hemorrhage. No mass lesion. No midline shift or extra-axial collections. VENTRICLES: No hydrocephalus. ORBITS: The orbits are unremarkable. SINUSES AND MASTOIDS: The paranasal sinuses and mastoid air cells are clear. BONES: No fracture. IMPRESSION: Large area of edema in the left occipital and posterior parietal lobes, suspicious for acute infarct. Recommend MRI. Findings verbally reported to Dr. Decker at 10:17 pm. Electronically signed on Jul 17, 2018 10:21:30 PM EDT by: Sho Sanchez M.D., Certified by [facility], Diagnostic Radiology 07/17/18 22:[address] returned as above. Patient's pcp is Dr. Rick Alvarez per lucía at bedside. PCP does not admit to [place]. I discussed case w/Dr. Jones who accepted pt to her service and asked for ICU consult. Results of w/u and POC d/w daughters at bedside. 07/17/18 22:25 Case d/w Dr. Ramirez. Neuro consult. 07/17/18 22:33 Case d/w Dr. Banks. CT results d/w him. Dr. 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 He agrees w/assessment of focal seizure. He states patient is not a candidate for thrombolysis. He recommends CTA, Keppra load, keep BP <200/100 and NO ASA. 07/17/18 22:45 Dr. Ramirez, ICU, in ED to evaluate patient, accepts pt to the ICU. I informed Dr. Ramirez about Dr. Banks's recommendations. - Lab Interpretations Lab Results: Lab Results 07/17/18 17:22: POC Glucose (mg/dL) 239 H - EKG Interpretation Interpreted by ED Physician: Yes Type: 12 lead EKG NIHSS Scale ([place]) Time Performed: 20:00 (Blind Right eye, patient confused and unable to ) - How Severe is the Stoke Baseline Level of Consciousness: 0=Alert LOC to Questions: 0=Both comments correct (patient is blind in R eye) LOC to commands: 0=Obeys both correctly Best Gaze: 0=Normal Visual: 0=No visual loss Facial: 0=Normal Motor Arm - Left: 0=No drift Motor Arm - Right: 2=Falls before 10 sec Motor Leg - Left: 0=No drift Motor Leg - Right: 2=Falls before 5 sec Limb Ataxia: 0=Absent Sensory: 0=Normal Best Language: 0=No aphasia Dysarthia: 0=Normal articulation Extinction & Inattention (Neglect): 0=Normal, no object Score: 4 Risk Level: Minor Stroke Risk rTPA Inclusion/Exclusion - Refusal of Treatment Patient Refused Treatment: No - Inclusion Criteria for Altepase Patient is 18 years or Older: Yes The Clinical Diagnosis of Ischemic Stroke That is Causing a Potentially Disabling Neurological Deficit: Yes Time of Onset is Well Established to be Less Than 270 Minute Before Treatment Would Begin: No Risk/Benefit Discussed With Patient/Family Member Present: Yes - Scribe Statement The provider has reviewed the documentation as recorded by the Scribe Zoe Reyes. All medical record entries made by the Scribe were at my direction and personally dictated by me. I have reviewed the chart and agree that the record accurately reflects my personal performance of the history, physical exam, medical decision making, and the department course for this patient. I have also personally directed, reviewed, and agree with the discharge instructions and disposition. Disposition/Present on Arrival - Present on Arrival Any Indicators Present on Arrival: Yes History of DVT/PE: No History of Uncontrolled Diabetes: Yes Urinary Catheter: No History of Decub. Ulcer: No History Surgical Site Infection Following: None - Disposition Have Diagnosis and Disposition been Completed?: Yes Diagnosis: Stroke, Hyperglycemia Disposition: HOSPITALIZED Disposition Time: 22:00 Patient Plan: Admission, ICU Patient Problems: Current Active Problems Problem Status Onset Hyperglycemia Acute Stroke Acute Condition: FAIR
[2018-07-17 20:19] LABS: INR 0.92; PARTIAL THROMBOPLASTIN TIME 29.8 Seconds (25.1-36.5); PROTHROMBIN TIME 10.5 SECONDS (9.4-12.5)
[2018-07-17 21:18] LABS: BASO # 0.02 K/mm3 (0.0-2.0); BASO % 0.2 % (0.0-3.0); EOS # 0.2 (0.0-0.7); EOS % 1.5 % (1.5-5.0); GRAN # 8.57 (1.4-6.5); GRAN % 77.7 % (50.0-68.0); LYMPH # 1.9 (1.2-3.4); LYMPH % 17.1 % (22.0-35.0); MEAN CELL VOLUME 84.1 fl (80.0-105.0); MEAN CORPUSCULAR HEMOGLOBIN 28.7 pg (25.0-35.0); MEAN CORPUSCULAR HGB CONC 34.1 g/dl (31.0-37.0); MEAN PLATELET VOLUME 10.3 fl (7.0-11.0); MONO # 0.4 (0.1-0.6); MONO % 3.5 % (1.0-6.0); RBC 4.53 10^6/uL (3.5-6.1)
[2018-07-17 21:25] LABS: ALB/GLOB RATIO 1.1 (1.1-1.8); ALBUMIN 3.8 g/dL (3.0-4.8); ALT/SGPT 33 U/L (7-56); AST/SGOT 23 U/L (14-36); BLOOD UREA NITROGEN 18 mg/dL (7-21); CALCIUM 9.6 mg/dL (8.4-10.5); GFR NON-AFRICAN AMERICAN > 60
[2018-07-17 21:36] LABS: TROPONIN I 0.02 ng/mL
[2018-07-17] MEDS ORDERED: levETIRAcetam 1000mg/100ml NS 100 ML IV ONE (22:39)
[2018-07-17] MEDS ORDERED: Insulin Reg-LOW-Coverage SC SCH (23:45)
--- NOTE | 2018-07-18 00:39 | CP.PCM.CON ---
<Suhail Martinez - Last Filed: 07/18/18 00:12> History of Present Illness - History of Present Illness History of Present Illness: ICU Consultation (Dr. Ramirez): Sandra, PGY2 CC: AMS/Seizure activity HPI: Ms. Flower is a 73 year old female with a past medical history significant for HTN, DM2, GERD, Schizophrenia, Cataracts, OA, and ICH w/ residual side weakness and right eye blindness who was brought in by her daughters for three days of AMS with associated generalized weakness. Patient is sinhala speaking only and translation was provided by family at bedside. Patient is disoriented to person, place, time and event. Patients daughters report that the patient has been acting strangely including refusing to get out of bed and not speaking to them. They also describe a subjective generalized weakness over this same time frame. Of note, patient was complaining of chest pain at some point today, which prompted family to come to the ED, but denies any chest pain at this time. They also describe seizure like movements localized to the right side of the patients face that were self limited after several seconds. Patient is unable to verbalize any complaints secondary to medical history. HPI and ROS limited secondary to patient's medical state. PMH: HTN, DM2, GERD, Schizophrenia, Cataracts, OA, and ICH w/ residual side weakness and right eye blindness PSH: Bilateral knee replacement, PTCA with stent Family History: Non-Contributory Social History: Denies any tobacco, alcohol or illicit drug use; Allergies: Shrimp Home Medications: As per MAR Review of Systems - Review of Systems Systems not reviewed;Unavailable: Uncooperative, Other (Disoriented) Past Patient History - Infectious Disease Hx of Infectious Diseases: None - Tetanus Immunizations Tetanus Immunization: Unknown - Past Medical History & Family History Past Medical History?: Yes - Past Social History Smoking Status: Never Smoked - CARDIAC Other/Comment: pt was scheduled for stress test today as per family rx'd by dr baugh - PULMONARY Hx Respiratory Disorders: Yes Hx Tuberculosis: No Other/Comment: 06/04/2014. 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 - NEUROLOGICAL Hx Neurological Disorder: Yes HX Cerebrovascular Accident: Yes (6 or 8 yrs ago no deficits as per family) Hx Dementia: Yes (memory loss/ forgetful as per family) Other/Comment: 2008 - HEENT Hx HEENT Problems: Yes Hx Cataracts: Yes - RENAL Hx Chronic Kidney Disease: No - ENDOCRINE/METABOLIC Hx Endocrine Disorders: Yes Hx Diabetes Mellitus Type 2: Yes - HEMATOLOGICAL/ONCOLOGICAL Hx Blood Disorders: Yes Hx Anemia: Yes - INTEGUMENTARY Hx Dermatological Problems: No - MUSCULOSKELETAL/RHEUMATOLOGICAL Hx Musculoskeletal Disorders: Yes Hx Arthritis: Yes Hx Unsteady Gait: Yes (cane/walker since b/l knee replacement) - GASTROINTESTINAL Hx Gastrointestinal Disorders: Yes Hx Gastroesophageal Reflux: Yes - GENITOURINARY/GYNECOLOGICAL Hx Genitourinary Disorders: No - PSYCHIATRIC Hx Psychophysiologic Disorder: Yes Hx Anxiety: Yes Hx Bipolar Disorder: Yes Hx Substance Use: No - SURGICAL HISTORY Hx Cardiac Catheterization: Yes Hx Coronary Stent: Yes (ptca with stent) Hx Hysterectomy: Yes Hx Joint Replacement: Yes (r and left knee) Other/Comment: Cardiac Catheterization. 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 - ANESTHESIA Hx Anesthesia: Yes Hx Anesthesia Reactions: No Hx Malignant Hyperthermia: No Meds Allergies/Adverse Reactions: Allergies Allergy/AdvReac Type Severity Reaction Status Date / Time shrimp Allergy SWELLING Verified 07/17/18 17:24 - Medications Medications: Current Medications Enalaprilat (Vasotec Iv) 1.25 mg IVP Q6H PRN PRN Reason: Systolic Blood Pressure Sodium Chloride (Sodium Chloride 0.9%) 1,000 mls @ 75 mls/hr IV .[id number] [facility] Insulin Human Regular (Humulin R Low) 0 units SC Q6H [facility]; Protocol Lorazepam (Ativan) 1 mg IVP Q6H PRN; Protocol PRN Reason: Seizure activity Physical Exam - Constitutional Appears: Non-toxic, No Acute Distress, Confused - Head Exam Head Exam: ATRAUMATIC, NORMOCEPHALIC - Eye Exam Eye Exam: EOMI, Normal appearance, PERRL - ENT Exam ENT Exam: Mucous Membranes Moist - Neck Exam Neck exam: Positive for: Full Rom. Negative for: Meningismus, Tenderness - Respiratory Exam Respiratory Exam: Clear to Auscultation Bilateral, NORMAL BREATHING PATTERN. absent: Accessory Muscle Use, Rales, Rhonchi, Wheezes, Respiratory Distress - Cardiovascular Exam Cardiovascular Exam: REGULAR RHYTHM, RRR, +S1, +S2 - GI/Abdominal Exam GI & Abdominal Exam: Normal Bowel Sounds, Soft. absent: Tenderness - Extremities Exam Extremities exam: Positive for: normal capillary refill, pedal edema (Trace pitting edema bilaterally extending to ankles), pedal pulses present. Negative for: calf tenderness, joint swelling, tenderness - Neurological Exam Neurological exam: Altered - Skin Skin Exam: Dry, Intact, Normal Color, Warm Results - Vital Signs Recent Vital Signs: Last Vital Signs Temp 98.7 F 07/17/18 20:59 Pulse 72 07/17/18 20:59 Resp 18 07/17/18 20:59 BP 157/107 H 07/17/18 20:59 Pulse Ox 97 07/17/18 20:59 - Labs Result Diagrams: 07/17/18 21:08 07/17/18 21:08 Labs: Laboratory Results - last 24 hr 07/17/18 07/17/18 07/17/18 17:22 20:07 21:08 WBC 11.0 RBC 4.53 Hgb 13.0 Hct 38.1 MCV 84.1 MCH 28.7 MCHC 34.1 RDW 13.0 Plt Count 233 MPV 10.3 Gran % 77.7 H Lymph % (Auto) 17.1 L Bennett % (Auto) 3.5 Eos % (Auto) 1.5 Baso % (Auto) 0.2 Gran # 8.57 H Lymph # (Auto) 1.9 Bennett # (Auto) 0.4 Eos # (Auto) 0.2 Baso # (Auto) 0.02 PT 10.5 INR 0.92 APTT 29.8 Sodium Potassium Chloride Carbon Dioxide Anion Gap BUN Creatinine Est GFR ( Amer) Est GFR (Non-Af Amer) POC Glucose (mg/dL) 239 H Random Glucose Calcium Phosphorus Magnesium Total Bilirubin AST ALT Alkaline Phosphatase Lactate Dehydrogenase Total Creatine Kinase Troponin I Total Protein Albumin Globulin Albumin/Globulin Ratio Alcohol, Quantitative 07/17/18 07/17/18 21:08 21:08 WBC RBC Hgb Hct MCV MCH MCHC RDW Plt Count MPV Gran % Lymph % (Auto) Bennett % (Auto) Eos % (Auto) Baso % (Auto) Gran # Lymph # (Auto) Bennett # (Auto) Eos # (Auto) Baso # (Auto) PT INR APTT Sodium 136 Potassium 4.1 Chloride 100 Carbon Dioxide 26 Anion Gap 14 BUN 18 Creatinine 0.8 Est GFR ( Amer) > 60 Est GFR (Non-Af Amer) > 60 POC Glucose (mg/dL) Random Glucose 228 H Calcium 9.6 Phosphorus 3.5 Magnesium 1.7 Total Bilirubin 0.7 AST 23 ALT 33 Alkaline Phosphatase 140 H Lactate Dehydrogenase 526 Total Creatine Kinase 215 Troponin I 0.02 D Total Protein 7.4 Albumin 3.8 Globulin 3.6 Albumin/Globulin Ratio 1.1 Alcohol, Quantitative < 10 Assessment & Plan - Assessment and Plan (Free Text) Assessment: 73 year old female with a past medical history significant for HTN, DM2, GERD, Schizophrenia, Cataracts, OA, and ICH w/ residual side weakness and right eye blindness who was brought in by her daughters for three days of AMS with associated generalized weakness. Plan: 1. Cerebral Edema -CT Head without contrast showed large area of edema in the left occipital and p osterior parietal lobes without midline shift, suspicious for acute infarct versus encephalomalacia of previous hemorrhagic stroke -MRI Brain with and without contrast and CTA Head/Neck pending -Started Keppra 500mg IV Q12 (loading dose given in ED) -Ativan 1mg Q6 IVP PRN for seizure activity -Maintain BP below 200/100mmHg -NPO Diet -Speech and Swallow Evaluation pending -Aspiration, Seizure, and Fall precautions -HOB above 30 degrees -NIHSS Stroke Scale -Neurochecks Q4H -Neurology consulted, all recommendations 2. History of DM2 -SSI-Low and Accuchecks Q6H GI Prophylaxis: Protonix DVT Prophylaxis: SCD's Patient seen and case discussed with attending, Dr. Ramirez. - Date & Time Date: 07/18/18 Time: 00:12 <Ailyn Ramirez - Last Filed: 07/20/18 06:21> Meds - Medications Medications: Current Medications Amlodipine Besylate (Norvasc) 5 mg PO DAILY [facility] Last Admin: 07/19/18 09:59 Dose: Not Given Aspirin (Aspirin Chewable) 81 mg PO DAILY [facility] Last Admin: 07/19/18 09:54 Dose: Not Given Atorvastatin Calcium (Lipitor) 20 mg PO DAILY [facility] Last Admin: 07/19/18 09:59 Dose: Not Given Enalaprilat (Vasotec Iv) 1.25 mg IVP Q6H PRN PRN Reason: Systolic Blood Pressure Last Admin: 07/19/18 06:59 Dose: 1.25 mg Sodium Chloride (Sodium Chloride 0.9%) 1,000 mls @ 75 mls/hr IV .[id number] [facility] Last Admin: 07/19/18 17:05 Dose: 75 mls/hr Levetiracetam (Keppra 500mg Ivpb) 500 mg in 100 mls @ 400 mls/hr IV Q12 [facility] Last Admin: 07/19/18 21:35 Dose: 400 mls/hr Insulin Detemir (Levemir) 10 unit SC HS [facility] Last Admin: 07/19/18 21:42 Dose: 10 units Insulin Human Regular (Humulin R Low) 0 units SC ACHS [facility]; Protocol Last Admin: 07/19/18 21:42 Dose: Not Given Lorazepam (Ativan) 1 mg IVP Q6H PRN; Protocol PRN Reason: Seizure activity Last Admin: 07/19/18 01:08 Dose: 1 mg Metoprolol Tartrate (Lopressor) 50 mg PO DAILY [facility] Last Admin: 07/19/18 09:59 Dose: Not Given Pantoprazole Sodium (Protonix Ec Tab) 40 mg PO 0600 [facility] Risperidone (Risperdal Tab) 0.5 mg PO BID [facility]; Protocol Last Admin: 07/19/18 17:04 Dose: 0.5 mg Results - Vital Signs Recent Vital Signs: Last Vital Signs Temp 98.1 F 07/20/18 00:01 Pulse 80 07/20/18 00:01 Resp 17 07/20/18 00:01 BP 119/81 07/20/18 00:01 Pulse Ox 100 07/20/18 00:01 - Labs Result Diagrams: 07/19/18 08:00 07/19/18 08:00 Labs: Laboratory Results - last 24 hr 07/19/18 07/19/18 07/19/18 07:53 08:00 08:00 WBC 10.4 RBC 4.52 Hgb 12.8 Hct 38.5 MCV 85.2 MCH 28.3 MCHC 33.2 RDW 13.4 Plt Count 253 MPV 9.7 Gran % 71.7 H Lymph % (Auto) 20.3 L Bennett % (Auto) 6.9 H Eos % (Auto) 1.0 L Baso % (Auto) 0.1 Gran # 7.47 H Lymph # (Auto) 2.1 Bennett # (Auto) 0.7 H Eos # (Auto) 0.1 Baso # (Auto) 0.01 Sodium 139 Potassium 3.6 Chloride 104 Carbon Dioxide 27 Anion Gap 12 BUN 14 Creatinine 0.8 Est GFR ( Amer) > 60 Est GFR (Non-Af Amer) > 60 POC Glucose (mg/dL) 149 H Random Glucose 153 H Calcium 9.2 Phosphorus 3.5 Magnesium 1.8 Iron Total Bilirubin 0.9 AST 29 ALT 24 Alkaline Phosphatase 139 H Total Protein 7.6 Albumin 3.7 Globulin 3.9 Albumin/Globulin Ratio 1.0 L Triglycerides 112 Cholesterol 165 LDL Cholesterol Direct 67 HDL Cholesterol 51 Vitamin B12 Folate 07/19/18 07/19/18 07/19/18 08:00 08:00 11:22 WBC RBC Hgb Hct MCV MCH MCHC RDW Plt Count MPV Gran % Lymph % (Auto) Bennett % (Auto) Eos % (Auto) Baso % (Auto) Gran # Lymph # (Auto) Bennett # (Auto) Eos # (Auto) Baso # (Auto) Sodium Potassium Chloride Carbon Dioxide Anion Gap BUN Creatinine Est GFR ( Amer) Est GFR (Non-Af Amer) POC Glucose (mg/dL) 148 H Random Glucose Calcium Phosphorus Magnesium Iron 55 Total Bilirubin AST ALT Alkaline Phosphatase Total Protein Albumin Globulin Albumin/Globulin Ratio Triglycerides Cholesterol LDL Cholesterol Direct HDL Cholesterol Vitamin B12 318 Folate > 20.0 07/19/18 07/19/18 16:06 21:42 WBC RBC Hgb Hct MCV MCH MCHC RDW Plt Count MPV Gran % Lymph % (Auto) Bennett % (Auto) Eos % (Auto) Baso % (Auto) Gran # Lymph # (Auto) Bennett # (Auto) Eos # (Auto) Baso # (Auto) Sodium Potassium Chloride Carbon Dioxide Anion Gap BUN Creatinine Est GFR ( Amer) Est GFR (Non-Af Amer) POC Glucose (mg/dL) 233 H 219 H Random Glucose Calcium Phosphorus Magnesium Iron Total Bilirubin AST ALT Alkaline Phosphatase Total Protein Albumin Globulin Albumin/Globulin Ratio Triglycerides Cholesterol LDL Cholesterol Direct HDL Cholesterol Vitamin B12 Folate Attending/Attestation - Attestation I have personally seen and examined this patient.: Yes I have fully participated in the care of the patient.: Yes I have reviewed all pertinent clinical information: Yes
[2018-07-18] MEDS: Sodium Chloride 0.9% 1,000 ML IV SCH ×2 (01:10→15:52)
[2018-07-18 01:35] LABS: PH,URINE 7.5 (4.7-8.0); URINE BILIRUBIN NEGATIVE (NEGATIVE); URINE BLOOD TRACE-INTACT (NEGATIVE); URINE GLUCOSE (UA) >=1000 mg/dL (NEGATIVE); URINE LEUKOCYTE ESTERASE NEGATIVE Leu/uL (NEGATIVE); URINE PROTEIN 30 mg/dL (<30 mg/dL); URINE UROBILINOGEN 0.2 E.U./dL (<1 E.U./dL)
[2018-07-18 01:44] LABS: URINE APPEARANCE CLEAR (CLEAR); URINE COLOR YELLOW (YELLOW)
[2018-07-18 01:46] LABS: URINE BACTERIA OCC (NEG); URINE RBC 0 - 2 /hpf (0-2)
[2018-07-18 01:50] LABS: ARTERIAL BLOOD GAS HCO3 27.1 mmol/L (21-28); ARTERIAL BLOOD GAS HEMOGLOBIN 12.6 g/dL (11.7-17.4); ARTERIAL BLOOD GAS O2 CAPACITY 17.3 mL/dl (16-24); ARTERIAL BLOOD GAS O2 CONTENT 16.9 ML/dl (15-23); ARTERIAL BLOOD GAS O2 SAT 97.8 % (95-98); ARTERIAL BLOOD GAS PCO2 39 mm/Hg (35-45); ARTERIAL BLOOD GAS PH 7.45 (7.35-7.45); ARTERIAL BLOOD GAS TCO2 28.3 mmol.L (22-28)
[2018-07-18 03:28] VITALS: BMI 32.5
[2018-07-18 03:45] LABS: BASO # 0.01 K/mm3 (0.0-2.0); BASO % 0.1 % (0.0-3.0); EOS # 0.1 (0.0-0.7); EOS % 0.7 % (1.5-5.0); GRAN # 7.15 (1.4-6.5); HEMOGLOBIN 14.1 g/dL (12.0-16.0); LYMPH # 2.1 (1.2-3.4); LYMPH % 20.8 % (22.0-35.0); MEAN CELL VOLUME 84.2 fl (80.0-105.0); MEAN CORPUSCULAR HEMOGLOBIN 28.5 pg (25.0-35.0); MEAN CORPUSCULAR HGB CONC 33.8 g/dl (31.0-37.0); MEAN PLATELET VOLUME 9.6 fl (7.0-11.0); MONO # 0.6 (0.1-0.6); MONO % 6.4 % (1.0-6.0); RBC 4.95 10^6/uL (3.5-6.1); RED CELL DISTRIBUTION WIDTH 13.1 % (11.5-14.5); WHITE BLOOD COUNT 9.9 10^3/ul (4.5-11.0)
[2018-07-18 04:00] LABS: TROPONIN I < 0.01 ng/mL
[2018-07-18 04:29] LABS: HDL CHOLESTEROL 61 mg/dL (29-60)
[2018-07-18 04:39] LABS: LDL CHOLESTEROL 94 mg/dL (0-129)
[2018-07-18 04:54] LABS: BARBITURATES, UR NEGATIVE (NEGATIVE); BENZODIAZEPINES, UR NEGATIVE (NEGATIVE); OPIATES, UR NEGATIVE (NEGATIVE); PHENCYCLIDINE, UR NEGATIVE (NEGATIVE)
[2018-07-18 04:54] LABS: ALBUMIN 4.2 g/dL (3.0-4.8); ALT/SGPT 21 U/L (7-56); AST/SGOT 28 U/L (14-36); BLOOD UREA NITROGEN 15 mg/dL (7-21); CALCIUM 9.6 mg/dL (8.4-10.5); GFR NON-AFRICAN AMERICAN > 60
[2018-07-18] MEDS: EnalaprilAT 1.25 mg/ml Inj IVP PRN ×2 (05:45→23:30)
[2018-07-18] MEDS ORDERED: Pantoprazole 40 mg EC Tab PO SCH (06:00)
[2018-07-18] MEDS: Insulin Reg-LOW-Coverage SC SCH ×4 (07:30→22:02)
[2018-07-18] MEDS: levETIRAcetam 500mg IVPB 500 MG/100 ML BAG IV SCH ×2 (09:29→22:01)
--- NOTE | 2018-07-18 09:36 | CT ---
Date of service: 07/17/2018 PROCEDURE: CT HEAD WITHOUT CONTRAST. HISTORY: ams COMPARISON: CT 06/24/2017 TECHNIQUE: Axial computed tomography images were obtained through the head/brain without intravenous contrast. Radiation dose: Total exam DLP = 891 mGy-cm. This CT exam was performed using one or more of the following dose reduction techniques: Automated exposure control, adjustment of the mA and/or kV according to patient size, and/or use of iterative reconstruction technique. FINDINGS: HEMORRHAGE: No intracranial hemorrhage. BRAIN: No mass effect or edema. There is cystic encephalomalacia in the left parietal lobe at the site of a previous hemorrhage. VENTRICLES: Mild hydronephrosis CALVARIUM: Unremarkable. PARANASAL SINUSES: Unremarkable as visualized. No significant inflammatory changes. MASTOID AIR CELLS: Unremarkable as visualized. No inflammatory changes. OTHER FINDINGS: The preliminary [facility] report indicated a suspicion for acute infarct. However they did not have access to the previous study which showed hemorrhage in this distribution. The findings are consistent with a chronic event, not acute IMPRESSION: No acute intracranial findings There is cystic encephalomalacia in the left parietal lobe and occipital lobe at the site of previous hemorrhage.
--- NOTE | 2018-07-18 09:53 | CP.PCM.CON ---
<Winter Lo - Last Filed: 07/18/18 17:05> History of Present Illness - History of Present Illness History of Present Illness: Winter Lo, PGY2, Neurology Consult Note for Dr. Banks: Reason for consult: encephalomalacia vs. 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 Patient awake, moving all extremities, however, speaking nonsensical words. Most HPI obtained from staff, prior records, daughter. As per daughter, patient has been drowsy, speaking nonsensical words, refusing to get out of bed. Initially, she thought that it was part of dementia. However, patient then started complaining of chest pain, that made the daughter bring her to ED. In ED, code stroke called, NIHSS 4, not a candidate for tPA due to history of ICH. Head CT showed large area of edema in left occipital and posterior parietal lobes. Patient then had an episode of focal seizure (on the right side of her face), that lasted 1 minute. Patient received Keppra 1000 mg IV, then Ativan 2 mg. No urinary/bowel incontinence, fevers, tongue biting. Neurology consulted for further management. ROS limited due to patients mental state. PMHx: HTN, DM2, GERD, schizophrenia, cataracts, OA, ICH w/ residual right side weakness and right eye blindness PSHx: bilateral knee replacement, PTCA with stent All: shrimp Meds: Lidocaine/aloe gel, Losartan 50, Lasix 20, Colace 100 bid, Baclofen 10, Norvasc, Bactrim, Risperdal 0.5 bid, Protonix 40, Lopressor 50, Levemir 10 hs, Novolog, Lipitor 20 SocHx: denies tobacco, alcohol, drug use FHx: non-contributory Review of Systems - Review of Systems Systems not reviewed;Unavailable: Altered Mental Status Past Patient History - Infectious Disease Hx of Infectious Diseases: None - Tetanus Immunizations Tetanus Immunization: Unknown - Past Medical History & Family History Past Medical History?: Yes - Past Social History Smoking Status: Never Smoked - CARDIAC Other/Comment: pt was scheduled for stress test today as per family rx'd by dr baugh - PULMONARY Hx Respiratory Disorders: Yes Hx Tuberculosis: No Other/Comment: 06/04/2014. 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 - NEUROLOGICAL Hx Neurological Disorder: Yes HX Cerebrovascular Accident: Yes (6 or 8 yrs ago no deficits as per family) Hx Dementia: Yes (memory loss/ forgetful as per family) Other/Comment: 2008 - HEENT Hx HEENT Problems: Yes Hx Cataracts: Yes - RENAL Hx Chronic Kidney Disease: No - ENDOCRINE/METABOLIC Hx Endocrine Disorders: Yes Hx Diabetes Mellitus Type 2: Yes - HEMATOLOGICAL/ONCOLOGICAL Hx Blood Disorders: Yes Hx Anemia: Yes - INTEGUMENTARY Hx Dermatological Problems: No - MUSCULOSKELETAL/RHEUMATOLOGICAL Hx Falls: Yes - GASTROINTESTINAL Hx Gastrointestinal Disorders: Yes Hx Gastroesophageal Reflux: Yes - GENITOURINARY/GYNECOLOGICAL Hx Genitourinary Disorders: No - PSYCHIATRIC Hx Psychophysiologic Disorder: Yes Hx Anxiety: Yes Hx Bipolar Disorder: Yes - SURGICAL HISTORY Hx Cardiac Catheterization: Yes Hx Coronary Stent: Yes (ptca with stent) Hx Hysterectomy: Yes Hx Joint Replacement: Yes (r and left knee) Other/Comment: Cardiac Catheterization. 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 - ANESTHESIA Hx Anesthesia: Yes Hx Anesthesia Reactions: No Hx Malignant Hyperthermia: No Meds Allergies/Adverse Reactions: Allergies Allergy/AdvReac Type Severity Reaction Status Date / Time shrimp Allergy SWELLING Verified 07/17/18 17:24 - Medications Medications: Current Medications Amlodipine Besylate (Norvasc) 5 mg PO DAILY [facility] Atorvastatin Calcium (Lipitor) 20 mg PO DAILY [facility] Enalaprilat (Vasotec Iv) 1.25 mg IVP Q6H PRN PRN Reason: Systolic Blood Pressure Last Admin: 07/18/18 05:45 Dose: 1.25 mg Sodium Chloride (Sodium Chloride 0.9%) 1,000 mls @ 75 mls/hr IV .[id number] [facility] Last Admin: 07/18/18 01:10 Dose: 75 mls/hr Levetiracetam (Keppra 500mg Ivpb) 500 mg in 100 mls @ 400 mls/hr IV Q12 [facility] Potassium Chloride (Potassium Chloride 10 Meq/100 Ml) 10 meq in 100 mls @ 50 mls/hr IVPB Q2H [facility] Stop: 07/18/18 15:59 Last Admin: 07/18/18 08:19 Dose: 50 mls/hr Insulin Detemir (Levemir) 10 unit SC HS [facility] Insulin Human Regular (Humulin R Low) 0 units SC [facility]; Protocol Last Admin: 07/18/18 07:30 Dose: Not Given Lorazepam (Ativan) 1 mg IVP Q6H PRN; Protocol PRN Reason: Seizure activity Last Admin: 07/18/18 06:59 Dose: 1 mg Metoprolol Tartrate (Lopressor) 50 mg PO DAILY [facility] Pantoprazole Sodium (Protonix Inj) 40 mg IVP DAILY [facility] Risperidone (Risperdal Tab) 0.5 mg PO BID [facility]; Protocol Physical Exam - Constitutional Appears: Non-toxic - Head Exam Head Exam: ATRAUMATIC, NORMOCEPHALIC - Eye Exam Eye Exam: EOMI, PERRL. absent: Nystagmus, Scleral icterus Pupil Exam: NORMAL ACCOMODATION, PERRL. absent: Irregular, Miosis, Unequal - ENT Exam ENT Exam: Mucous Membranes Moist - Respiratory Exam Respiratory Exam: Clear to Auscultation Bilateral, NORMAL BREATHING PATTERN. absent: Rhonchi, Wheezes - Cardiovascular Exam Cardiovascular Exam: RRR, +S1, +S2. absent: Systolic Murmur - GI/Abdominal Exam GI & Abdominal Exam: Normal Bowel Sounds, Soft. absent: Firm, Guarding, Rebound, Tenderness - Rectal Exam Rectal Exam: Deferred - Extremities Exam Extremities exam: Positive for: normal inspection. Negative for: calf tenderness, pedal edema - Back Exam Back exam: NORMAL INSPECTION - Neurological Exam Additional comments: Awake, alert, altered, word salad. Moving all extremities - Skin Skin Exam: Normal Color, Warm Results - Vital Signs Recent Vital Signs: Last Vital Signs Temp 98.9 F 07/18/18 08:00 Pulse 80 07/18/18 08:00 Resp 20 07/18/18 08:00 BP 157/93 H 07/18/18 08:00 Pulse Ox 99 07/18/18 08:00 - Labs Result Diagrams: 07/18/18 03:24 07/18/18 03:24 Labs: Laboratory Results - last 24 hr 07/17/18 07/17/18 07/17/18 17:22 20:07 21:08 WBC 11.0 RBC 4.53 Hgb 13.0 Hct 38.1 MCV 84.1 MCH 28.7 MCHC 34.1 RDW 13.0 Plt Count 233 MPV 10.3 Gran % 77.7 H Lymph % (Auto) 17.1 L [place] % (Auto) 3.5 Eos % (Auto) 1.5 Baso % (Auto) 0.2 Gran # 8.57 H Lymph # (Auto) 1.9 [place] # (Auto) 0.4 Eos # (Auto) 0.2 Baso # (Auto) 0.02 PT 10.5 INR 0.92 APTT 29.8 pCO2 pO2 HCO3 ABG pH ABG Total CO2 ABG O2 Saturation ABG O2 Content ABG Base Excess ABG Hemoglobin ABG Carboxyhemoglobin POC ABG HHb (Measured) ABG Methemoglobin ABG O2 Capacity Hgb O2 Saturation FiO2 Sodium Potassium Chloride Carbon Dioxide Anion Gap BUN Creatinine Est GFR ( Amer) Est GFR (Non-Af Amer) POC Glucose (mg/dL) 239 H Random Glucose Calcium Phosphorus Magnesium Total Bilirubin AST ALT Alkaline Phosphatase Lactate Dehydrogenase Total Creatine Kinase Troponin I Total Protein Albumin Globulin Albumin/Globulin Ratio Triglycerides Cholesterol LDL Cholesterol Direct HDL Cholesterol Urine Color Urine Appearance Urine pH Ur Specific [place] Urine Protein Urine Glucose (UA) Urine Ketones Urine Blood Urine Nitrate Urine Bilirubin Urine Urobilinogen Ur Leukocyte Esterase Urine RBC Urine WBC Ur Epithelial Cells Urine Bacteria Urine Opiates Screen Urine Methadone Screen Ur Barbiturates Screen Ur Phencyclidine Scrn Ur Amphetamines Screen U Benzodiazepines Scrn U Oth Cocaine Metabols U Cannabinoids Screen Alcohol, Quantitative 07/17/18 07/17/18 07/18/18 21:08 21:08 00:43 WBC RBC Hgb Hct MCV MCH MCHC RDW Plt Count MPV Gran % Lymph % (Auto) [place] % (Auto) Eos % (Auto) Baso % (Auto) Gran # Lymph # (Auto) [place] # (Auto) Eos # (Auto) Baso # (Auto) PT INR APTT pCO2 pO2 HCO3 ABG pH ABG Total CO2 ABG O2 Saturation ABG O2 Content ABG Base Excess ABG Hemoglobin ABG Carboxyhemoglobin POC ABG HHb (Measured) ABG Methemoglobin ABG O2 Capacity Hgb O2 Saturation FiO2 Sodium 136 Potassium 4.1 Chloride 100 Carbon Dioxide 26 Anion Gap 14 BUN 18 Creatinine 0.8 Est GFR ( Amer) > 60 Est GFR (Non-Af Amer) > 60 POC Glucose (mg/dL) Random Glucose 228 H Calcium 9.6 Phosphorus 3.5 Magnesium 1.7 Total Bilirubin 0.7 AST 23 ALT 33 Alkaline Phosphatase 140 H Lactate Dehydrogenase 526 Total Creatine Kinase 215 Troponin I 0.02 D Total Protein 7.4 Albumin 3.8 Globulin 3.6 Albumin/Globulin Ratio 1.1 Triglycerides Cholesterol LDL Cholesterol Direct HDL Cholesterol Urine Color Yellow Urine Appearance Clear Urine pH 7.5 Ur Specific [place] 1.010 Urine Protein 30 H Urine Glucose (UA) >=1000 Urine Ketones Negative Urine Blood Trace-intact H Urine Nitrate Negative Urine Bilirubin Negative Urine Urobilinogen 0.2 Ur Leukocyte Esterase Negative Urine RBC 0 - 2 Urine WBC 1 - 3 Ur Epithelial Cells 3 - 4 Urine Bacteria Occ Urine Opiates Screen Urine Methadone Screen Ur Barbiturates Screen Ur Phencyclidine Scrn Ur Amphetamines Screen U Benzodiazepines Scrn U Oth Cocaine Metabols U Cannabinoids Screen Alcohol, Quantitative < 10 07/18/18 07/18/18 07/18/18 01:30 01:44 03:24 WBC 9.9 RBC 4.95 Hgb 14.1 Hct 41.7 MCV 84.2 MCH 28.5 MCHC 33.8 RDW 13.1 Plt Count 244 MPV 9.6 Gran % 72.0 H Lymph % (Auto) 20.8 L [place] % (Auto) 6.4 H Eos % (Auto) 0.7 L Baso % (Auto) 0.1 Gran # 7.15 H Lymph # (Auto) 2.1 [place] # (Auto) 0.6 Eos # (Auto) 0.1 Baso # (Auto) 0.01 PT INR APTT pCO2 39 pO2 72.0 L HCO3 27.1 ABG pH 7.45 ABG Total CO2 28.3 H ABG O2 Saturation 97.8 ABG O2 Content 16.9 ABG Base Excess 3.0 ABG Hemoglobin 12.6 ABG Carboxyhemoglobin 1.8 H POC ABG HHb (Measured) 2.1 ABG Methemoglobin 0.6 ABG O2 Capacity 17.3 Hgb O2 Saturation 95.4 FiO2 21.0 Sodium Potassium Chloride Carbon Dioxide Anion Gap BUN Creatinine Est GFR ( Amer) Est GFR (Non-Af Amer) POC Glucose (mg/dL) Random Glucose Calcium Phosphorus Magnesium Total Bilirubin AST ALT Alkaline Phosphatase Lactate Dehydrogenase Total Creatine Kinase Troponin I Total Protein Albumin Globulin Albumin/Globulin Ratio Triglycerides Cholesterol LDL Cholesterol Direct HDL Cholesterol Urine Color Urine Appearance Urine pH Ur Specific [place] Urine Protein Urine Glucose (UA) Urine Ketones Urine Blood Urine Nitrate Urine Bilirubin Urine Urobilinogen Ur Leukocyte Esterase Urine RBC Urine WBC Ur Epithelial Cells Urine Bacteria Urine Opiates Screen Negative Urine Methadone Screen Negative Ur Barbiturates Screen Negative Ur Phencyclidine Scrn Negative Ur Amphetamines Screen Negative U Benzodiazepines Scrn Negative U Oth Cocaine Metabols Negative U Cannabinoids Screen Negative Alcohol, Quantitative 07/18/18 07/18/18 07/18/18 03:24 03:24 08:50 WBC RBC Hgb Hct MCV MCH MCHC RDW Plt Count MPV Gran % Lymph % (Auto) [place] % (Auto) Eos % (Auto) Baso % (Auto) Gran # Lymph # (Auto) [place] # (Auto) Eos # (Auto) Baso # (Auto) PT INR APTT pCO2 pO2 HCO3 ABG pH ABG Total CO2 ABG O2 Saturation ABG O2 Content ABG Base Excess ABG Hemoglobin ABG Carboxyhemoglobin POC ABG HHb (Measured) ABG Methemoglobin ABG O2 Capacity Hgb O2 Saturation FiO2 Sodium 136 Potassium 3.5 L Chloride 99 Carbon Dioxide 27 Anion Gap 14 BUN 15 Creatinine 0.7 Est GFR ( Amer) > 60 Est GFR (Non-Af Amer) > 60 POC Glucose (mg/dL) Random Glucose 202 H Calcium 9.6 Phosphorus 3.4 Magnesium 1.7 Total Bilirubin 0.8 AST 28 ALT 21 Alkaline Phosphatase 158 H Lactate Dehydrogenase Total Creatine Kinase Troponin I < 0.01 D < 0.01 Total Protein 8.4 H Albumin 4.2 Globulin 4.2 Albumin/Globulin Ratio 1.0 L Triglycerides 100 Cholesterol 185 LDL Cholesterol Direct 94 HDL Cholesterol 61 H Urine Color Urine Appearance Urine pH Ur Specific [place] Urine Protein Urine Glucose (UA) Urine Ketones Urine Blood Urine Nitrate Urine Bilirubin Urine Urobilinogen Ur Leukocyte Esterase Urine RBC Urine WBC Ur Epithelial Cells Urine Bacteria Urine Opiates Screen Urine Methadone Screen Ur Barbiturates Screen Ur Phencyclidine Scrn Ur Amphetamines Screen U Benzodiazepines Scrn U Oth Cocaine Metabols U Cannabinoids Screen Alcohol, Quantitative Assessment & Plan - Assessment and Plan (Free Text) Assessment: 73F with PMHx of HTN, DM2, GERD, schizophrenia, cataracts, OA, ICH w/ residual right side weakness and right eye blindness, presents for altered mental status and generalized weakness for past 5 days. Patient also found to have a focal seizure in ED: - Head CT 07/17 shows large area of edema in left occipital and posterior parietal lobes, suspicious for acute infarct vs. encephalomalacia of previous hemorrhagic stroke - Brain MRI with and without contrast pending - Head/neck CTA 07/17 shows minimal focal intimal dissection of the proximal aspect of the left internal carotid artery without associated hemodynamic effect or luminal narrowing; scattered atheromatous plaques without high-grade stenosis - EEG ordered. - c/w Keppra 500mg IV Q12 (loading dose given in ED) - Ativan 1mg IVP Q6 PRN for seizure activity - Will start ASA 81 mg - Keep BP <200/100 - Neuro checks - Monitor Discussed case with Dr. Banks. <Josue Banks - Last Filed: 07/20/18 12:50> Meds - Medications Medications: Current Medications Amlodipine Besylate (Norvasc) 5 mg PO DAILY [facility] Last Admin: 07/20/18 11:09 Dose: 5 mg Aspirin (Aspirin Chewable) 81 mg PO DAILY [facility] Last Admin: 07/20/18 11:09 Dose: 81 mg Atorvastatin Calcium (Lipitor) 20 mg PO DAILY [facility] Last Admin: 07/20/18 11:08 Dose: 20 mg Enalaprilat (Vasotec Iv) 1.25 mg IVP Q6H PRN PRN Reason: Systolic Blood Pressure Last Admin: 07/19/18 06:59 Dose: 1.25 mg Sodium Chloride (Sodium Chloride 0.9%) 1,000 mls @ 75 mls/hr IV .[id number] [facility] Last Admin: 07/20/18 11:03 Dose: 75 mls/hr Levetiracetam (Keppra 500mg Ivpb) 500 mg in 100 mls @ 400 mls/hr IV Q12 [facility] Last Admin: 07/20/18 11:10 Dose: 400 mls/hr Insulin Detemir (Levemir) 10 unit SC HS [facility] Last Admin: 07/19/18 21:42 Dose: 10 units Insulin Human Regular (Humulin R Low) 0 units SC [facility]S [facility]; Protocol Last Admin: 07/20/18 10:59 Dose: Not Given Lorazepam (Ativan) 1 mg IVP Q6H PRN; Protocol PRN Reason: Seizure activity Last Admin: 07/19/18 01:08 Dose: 1 mg Metoprolol Tartrate (Lopressor) 50 mg PO DAILY [facility] Last Admin: 07/20/18 11:08 Dose: 50 mg Pantoprazole Sodium (Protonix Ec Tab) 40 mg PO 0600 [facility] Last Admin: 07/20/18 06:23 Dose: 40 mg Risperidone (Risperdal Tab) 0.5 mg PO BID [facility]; Protocol Last Admin: 07/20/18 11:08 Dose: 0.5 mg Results - Vital Signs Recent Vital Signs: Last Vital Signs Temp 99.2 F 07/20/18 06:00 Pulse 65 07/20/18 11:09 Resp 17 07/20/18 06:00 BP 132/85 07/20/18 11:09 Pulse Ox 100 07/20/18 06:00 - Labs Result Diagrams: 07/20/18 07:00 07/20/18 07:00 Labs: Laboratory Results - last 24 hr 07/19/18 07/19/18 07/19/18 08:00 08:00 11:22 WBC RBC Hgb Hct MCV MCH MCHC RDW Plt Count MPV Gran % Lymph % (Auto) [place] % (Auto) Eos % (Auto) Baso % (Auto) Gran # Lymph # (Auto) [place] # (Auto) Eos # (Auto) Baso # (Auto) Sodium Potassium Chloride Carbon Dioxide Anion Gap BUN Creatinine Est GFR ( Amer) Est GFR (Non-Af Amer) POC Glucose (mg/dL) 148 H Random Glucose Hemoglobin A1c 10.1 H Calcium Phosphorus Magnesium Total Bilirubin AST ALT Alkaline Phosphatase Total Protein Albumin Globulin Albumin/Globulin Ratio Vitamin B12 318 Folate > 20.0 TSH 3rd Generation 07/19/18 07/19/18 07/20/18 16:06 21:42 07:00 WBC 7.4 D RBC 4.13 Hgb 11.6 L Hct 35.1 L MCV 85.0 MCH 28.1 MCHC 33.0 RDW 13.4 Plt Count 236 MPV 9.7 Gran % 57.8 Lymph % (Auto) 33.3 [place] % (Auto) 7.0 H Eos % (Auto) 1.6 Baso % (Auto) 0.3 Gran # 4.27 Lymph # (Auto) 2.5 [place] # (Auto) 0.5 Eos # (Auto) 0.1 Baso # (Auto) 0.02 Sodium Potassium Chloride Carbon Dioxide Anion Gap BUN Creatinine Est GFR ( Amer) Est GFR (Non-Af Amer) POC Glucose (mg/dL) 233 H 219 H Random Glucose Hemoglobin A1c Calcium Phosphorus Magnesium Total Bilirubin AST ALT Alkaline Phosphatase Total Protein Albumin Globulin Albumin/Globulin Ratio Vitamin B12 Folate TSH 3rd Generation 07/20/18 07/20/18 07/20/18 07:00 07:00 07:29 WBC RBC Hgb Hct MCV MCH MCHC RDW Plt Count MPV Gran % Lymph % (Auto) [place] % (Auto) Eos % (Auto) Baso % (Auto) Gran # Lymph # (Auto) [place] # (Auto) Eos # (Auto) Baso # (Auto) Sodium 139 Potassium 3.5 L Chloride 107 Carbon Dioxide 26 Anion Gap 9 L BUN 15 Creatinine 0.9 Est GFR ( Amer) > 60 Est GFR (Non-Af Amer) > 60 POC Glucose (mg/dL) 134 H Random Glucose 143 H Hemoglobin A1c Calcium 8.9 Phosphorus 3.5 Magnesium 1.9 Total Bilirubin 0.8 AST 26 ALT 21 Alkaline Phosphatase 110 Total Protein 6.6 Albumin 3.2 Globulin 3.4 Albumin/Globulin Ratio 0.9 L Vitamin B12 Folate TSH 3rd Generation 0.46 Attending/Attestation - Attestation I have personally seen and examined this patient.: Yes I have fully participated in the care of the patient.: Yes I have reviewed all pertinent clinical information: Yes Notes (Text): 07/20/18 12:50 I agree with the assessment and plan. The patient likely had seizure due to previous area of encephalomalacia. Will continue AED as planned and follow results. Thank you for this consultation.
--- NOTE | 2018-07-18 09:55 | CP.CCUPN ---
<Dmitry Keys - Last Filed: 07/18/18 11:49> CCU Subjective - Physician Review Subjective (Free Text): Dmitry Keys, PGY-1, CCU Progress Note for Dr. Glover Patient seen and evaluated at bedside. Patient is AAOx1 and is speaking incoherently at bedside. Patient is unable to answer any questions at this time. 12-point ROS was unattainable due to patient's mental status. CCU Objective - Vital Signs / Intake & Output Vital Signs (Last 4 hours): Vital Signs Temp Pulse Resp BP Pulse Ox 07/18/18 09:28 70 152/85 H 07/18/18 08:00 98.9 F 80 20 157/93 H 99 07/18/18 07:59 99 H 19 98 07/18/18 07:50 95 H 21 99 07/18/18 07:40 83 14 97 07/18/18 07:30 95 H 17 98 07/18/18 07:29 92 H 22 07/18/18 07:28 92 H 14 07/18/18 07:27 91 H 20 07/18/18 07:26 91 H 18 07/18/18 07:25 90 18 07/18/18 07:24 87 14 07/18/18 07:23 86 26 H 07/18/18 07:22 88 20 07/18/18 07:21 86 22 07/18/18 07:20 85 16 07/18/18 07:19 83 22 07/18/18 07:18 88 23 07/18/18 07:17 81 07/18/18 07:16 91 H 21 07/18/18 07:15 81 07/18/18 07:14 86 19 07/18/18 07:13 81 25 H 07/18/18 07:12 81 68 H 07/18/18 07:11 80 14 07/18/18 07:10 80 16 07/18/18 07:09 86 24 07/18/18 07:08 81 23 07/18/18 07:07 79 20 07/18/18 07:06 80 18 07/18/18 07:05 86 19 07/18/18 07:04 72 20 07/18/18 07:03 80 15 07/18/18 07:02 155/88 H 07/18/18 07:01 82 21 10/12/18 07:00 82 15 07/18/18 06:59 88 19 07/18/18 06:58 84 18 07/18/18 06:57 84 19 07/18/18 06:56 84 16 07/18/18 06:55 84 19 07/18/18 06:54 84 07/18/18 06:53 85 30 H 07/18/18 06:52 85 28 H 07/18/18 06:51 85 23 07/18/18 06:50 87 16 07/18/18 06:49 86 19 07/18/18 06:00 81 Intake and Output (Last 8hrs): Intake & Output 07/17/18 07/18/18 07/18/18 22:59 06:59 14:59 Intake Total 700 Output Total 1000 Balance -300 Weight 200 lb 202 lb Intake: IV 700 Right Antecubital 700 Oral 0 Output: Urine 1000 Urethral ([place]) 1000 Other: Voiding Method Indwelling Catheter # Bowel Movements 0 - Physical Exam Physical Exam Limitations: Positive for: Altered Mental Status Head: Positive for: Atraumatic, Normocephalic Pupils: Positive for: PERRL Conjunctiva: Positive for: Normal Mouth: Positive for: Moist Mucous Membranes Neck: Positive for: Other (thyromegaly) Respiratory/Chest: Positive for: Clear to Auscultation, Wheezes (mild diffuse wheezes), Decreased Breath Sounds. Negative for: Respiratory Distress, Accessory Muscle Use Cardiovascular: Positive for: Regular Rate and Rhythm, Normal S1, S2. Negative for: Murmurs Abdomen: Negative for: Tenderness, Distention, Peritoneal Signs Back: Positive for: Normal Inspection Upper Extremity: Positive for: Other (unable to comprehend). Negative for: Cyanosis, Edema Lower Extremity: Positive for: Other (unable to comprehend). Negative for: Edema Neurological: Positive for: Other (No facial asymmetry; appears confused when attempting to answer questions, neuro exam limited by patient's mental status. ). Negative for: GCS=15 (GCS=9), Speech Normal (No slurred speech) Skin: Positive for: Warm, Dry, Normal Color. Negative for: Rashes Psychiatric: Negative for: Alert, Oriented x 3, Normal Insight, Normal Concentration - Medications Active Medications: Active Medications Generic Name Dose Route Start Last Admin Trade Name Freq PRN Reason Stop Dose Admin Amlodipine Besylate 5 mg 07/18/18 10:00 07/18/18 09:28 Norvasc PO Not Given DAILY [facility] Atorvastatin Calcium 20 mg 07/18/18 10:00 07/18/18 09:27 Lipitor PO Not Given DAILY [facility] Enalaprilat 1.25 mg 07/17/18 23:48 07/18/18 05:45 Vasotec Iv IVP 1.25 mg Q6H PRN Administration Systolic Blood Pressure Sodium Chloride 1,000 mls @ 75 mls/hr 07/17/18 23:45 07/18/18 01:10 Sodium Chloride 0.9% IV 75 mls/hr .[id number] CHUY Administration Levetiracetam 500 mg in 100 mls @ 400 mls/hr 07/18/18 10:00 07/18/18 09:29 Keppra 500mg Ivpb IV 400 mls/hr Q12 CHUY Administration Potassium Chloride 10 meq in 100 mls @ 50 mls/hr 07/18/18 08:00 07/18/18 09:30 Potassium Chloride 10 Meq/100 Ml IVPB 07/18/18 15:59 50 mls/hr Q2H CHUY Administration Insulin Detemir 10 unit 07/18/18 22:00 Levemir SC HS [facility] Insulin Human Regular 0 units 07/18/18 07:30 07/18/18 07:30 Humulin R Low SC Not Given ACHS [facility] Protocol Lorazepam 1 mg 07/17/18 23:48 07/18/18 06:59 Ativan IVP 1 mg Q6H PRN Administration Seizure activity Protocol Metoprolol Tartrate 50 mg 07/18/18 10:00 07/18/18 09:28 Lopressor PO Not Given DAILY [facility] Pantoprazole Sodium 40 mg 07/18/18 10:00 Protonix Inj IVP DAILY [facility] Risperidone 0.5 mg 07/18/18 10:00 Risperdal Tab PO BID [facility] Protocol - Patient Studies Lab Studies: Lab Studies 07/18/18 07/18/18 07/18/18 Range/Units 08:50 03:24 03:24 WBC (4.5-11.0) 10^3/ul RBC (3.5-6.1) 10^6/uL Hgb (12.0-16.0) g/dL Hct (36.0-48.0) % MCV (80.0-105.0) fl MCH (25.0-35.0) pg MCHC (31.0-37.0) g/dl RDW (11.5-14.5) % Plt Count (120.0-450.0) 10^3/uL MPV (7.0-11.0) fl Gran % (50.0-68.0) % Lymph % (Auto) (22.0-35.0) % [place] % (Auto) (1.0-6.0) % Eos % (Auto) (1.5-5.0) % Baso % (Auto) (0.0-3.0) % Gran # (1.4-6.5) Lymph # (Auto) (1.2-3.4) [place] # (Auto) (0.1-0.6) Eos # (Auto) (0.0-0.7) Baso # (Auto) (0.0-2.0) K/mm3 PT (9.4-12.5) SECONDS INR APTT (25.1-36.5) Seconds pCO2 (35-45) mm/Hg pO2 (80-100) mm/Hg HCO3 (21-28) mmol/L ABG pH (7.35-7.45) ABG Total CO2 (22-28) mmol.L ABG O2 Saturation (95-98) % ABG O2 Content (15-23) ML/dl ABG Base Excess (-2.0-3.0) mmol/L ABG Hemoglobin (11.7-17.4) g/dL ABG Carboxyhemoglobin (0.5-1.5) % POC ABG HHb (Measured) (0-5) % ABG Methemoglobin (0.0-3.0) % ABG O2 Capacity (16-24) mL/dl Hgb O2 Saturation (95.0-98.0) % FiO2 % Sodium 136 (132-148) mmol/L Potassium 3.5 L (3.6-5.0) mmol/L Chloride 99 (98-107) mmol/L Carbon Dioxide 27 (21-33) mmol/L Anion Gap 14 (10-20) BUN 15 (7-21) mg/dL Creatinine 0.7 (0.7-1.2) mg/dl Est GFR ( Amer) > 60 Est GFR (Non-Af Amer) > 60 POC Glucose (mg/dL) (65-110) mg/dL Random Glucose 202 H (70-110) mg/dL Calcium 9.6 (8.4-10.5) mg/dL Phosphorus 3.4 (2.5-4.5) mg/dL Magnesium 1.7 (1.7-2.2) mg/dL Total Bilirubin 0.8 (0.2-1.3) mg/dL AST 28 (14-36) U/L ALT 21 (7-56) U/L Alkaline Phosphatase 158 H (38-126) U/L Lactate Dehydrogenase (333-699) U/L Total Creatine Kinase (35-230) U/L Troponin I < 0.01 < 0.01 D ng/mL Total Protein 8.4 H (5.8-8.3) g/dL Albumin 4.2 (3.0-4.8) g/dL Globulin 4.2 gm/dL Albumin/Globulin Ratio 1.0 L (1.1-1.8) Triglycerides 100 (35-160) mg/dL Cholesterol 185 (130-200) mg/dL LDL Cholesterol Direct 94 (0-129) mg/dL HDL Cholesterol 61 H (29-60) mg/dL Urine Color (YELLOW) Urine Appearance (CLEAR) Urine pH (4.7-8.0) Ur Specific [place] (1.005-1.035) Urine Protein (<30 mg/dL) mg/dL Urine Glucose (UA) (NEGATIVE) mg/dL Urine Ketones (NEGATIVE) mg/dL Urine Blood (NEGATIVE) Urine Nitrate (NEGATIVE) Urine Bilirubin (NEGATIVE) Urine Urobilinogen (<1 E.U./dL) E.U./dL Ur Leukocyte Esterase (NEGATIVE) Harjit/uL Urine RBC (0-2) /hpf Urine WBC (0-6) /hpf Ur Epithelial Cells (0-5) /hpf Urine Bacteria (NEG) Urine Opiates Screen (NEGATIVE) Urine Methadone Screen (NEGATIVE) Ur Barbiturates Screen (NEGATIVE) Ur Phencyclidine Scrn (NEGATIVE) Ur Amphetamines Screen (NEGATIVE) U Benzodiazepines Scrn (NEGATIVE) U Oth Cocaine Metabols (NEGATIVE) U Cannabinoids Screen (NEGATIVE) Alcohol, Quantitative (0-10) mg/dL 07/18/18 07/18/18 07/18/18 Range/Units 03:24 01:44 01:30 WBC 9.9 (4.5-11.0) 10^3/ul RBC 4.95 (3.5-6.1) 10^6/uL Hgb 14.1 (12.0-16.0) g/dL Hct 41.7 (36.0-48.0) % MCV 84.2 (80.0-105.0) fl MCH 28.5 (25.0-35.0) pg MCHC 33.8 (31.0-37.0) g/dl RDW 13.1 (11.5-14.5) % Plt Count 244 (120.0-450.0) 10^3/uL MPV 9.6 (7.0-11.0) fl Gran % 72.0 H (50.0-68.0) % Lymph % (Auto) 20.8 L (22.0-35.0) % [place] % (Auto) 6.4 H (1.0-6.0) % Eos % (Auto) 0.7 L (1.5-5.0) % Baso % (Auto) 0.1 (0.0-3.0) % Gran # 7.15 H (1.4-6.5) Lymph # (Auto) 2.1 (1.2-3.4) [place] # (Auto) 0.6 (0.1-0.6) Eos # (Auto) 0.1 (0.0-0.7) Baso # (Auto) 0.01 (0.0-2.0) K/mm3 PT (9.4-12.5) SECONDS INR APTT (25.1-36.5) Seconds pCO2 39 (35-45) mm/Hg pO2 72.0 L (80-100) mm/Hg HCO3 27.1 (21-28) mmol/L ABG pH 7.45 (7.35-7.45) ABG Total CO2 28.3 H (22-28) mmol.L ABG O2 Saturation 97.8 (95-98) % ABG O2 Content 16.9 (15-23) ML/dl ABG Base Excess 3.0 (-2.0-3.0) mmol/L ABG Hemoglobin 12.6 (11.7-17.4) g/dL ABG Carboxyhemoglobin 1.8 H (0.5-1.5) % POC ABG HHb (Measured) 2.1 (0-5) % ABG Methemoglobin 0.6 (0.0-3.0) % ABG O2 Capacity 17.3 (16-24) mL/dl Hgb O2 Saturation 95.4 (95.0-98.0) % FiO2 21.0 % Sodium (132-148) mmol/L Potassium (3.6-5.0) mmol/L Chloride (98-107) mmol/L Carbon Dioxide (21-33) mmol/L Anion Gap (10-20) BUN (7-21) mg/dL Creatinine (0.7-1.2) mg/dl Est GFR ( Amer) Est GFR (Non-Af Amer) POC Glucose (mg/dL) (65-110) mg/dL Random Glucose (70-110) mg/dL Calcium (8.4-10.5) mg/dL Phosphorus (2.5-4.5) mg/dL Magnesium (1.7-2.2) mg/dL Total Bilirubin (0.2-1.3) mg/dL AST (14-36) U/L ALT (7-56) U/L Alkaline Phosphatase (38-126) U/L Lactate Dehydrogenase (333-699) U/L Total Creatine Kinase (35-230) U/L Troponin I ng/mL Total Protein (5.8-8.3) g/dL Albumin (3.0-4.8) g/dL Globulin gm/dL Albumin/Globulin Ratio (1.1-1.8) Triglycerides (35-160) mg/dL Cholesterol (130-200) mg/dL LDL Cholesterol Direct (0-129) mg/dL HDL Cholesterol (29-60) mg/dL Urine Color (YELLOW) Urine Appearance (CLEAR) Urine pH (4.7-8.0) Ur Specific [place] (1.005-1.035) Urine Protein (<30 mg/dL) mg/dL Urine Glucose (UA) (NEGATIVE) mg/dL Urine Ketones (NEGATIVE) mg/dL Urine Blood (NEGATIVE) Urine Nitrate (NEGATIVE) Urine Bilirubin (NEGATIVE) Urine Urobilinogen (<1 E.U./dL) E.U./dL Ur Leukocyte Esterase (NEGATIVE) Harjit/uL Urine RBC (0-2) /hpf Urine WBC (0-6) /hpf Ur Epithelial Cells (0-5) /hpf Urine Bacteria (NEG) Urine Opiates Screen Negative (NEGATIVE) Urine Methadone Screen Negative (NEGATIVE) Ur Barbiturates Screen Negative (NEGATIVE) Ur Phencyclidine Scrn Negative (NEGATIVE) Ur Amphetamines Screen Negative (NEGATIVE) U Benzodiazepines Scrn Negative (NEGATIVE) U Oth Cocaine Metabols Negative (NEGATIVE) U Cannabinoids Screen Negative (NEGATIVE) Alcohol, Quantitative (0-10) mg/dL 07/18/18 07/17/18 07/17/18 Range/Units 00:43 21:08 21:08 WBC (4.5-11.0) 10^3/ul RBC (3.5-6.1) 10^6/uL Hgb (12.0-16.0) g/dL Hct (36.0-48.0) % MCV (80.0-105.0) fl MCH (25.0-35.0) pg MCHC (31.0-37.0) g/dl RDW (11.5-14.5) % Plt Count (120.0-450.0) 10^3/uL MPV (7.0-11.0) fl Gran % (50.0-68.0) % Lymph % (Auto) (22.0-35.0) % [place] % (Auto) (1.0-6.0) % Eos % (Auto) (1.5-5.0) % Baso % (Auto) (0.0-3.0) % Gran # (1.4-6.5) Lymph # (Auto) (1.2-3.4) [place] # (Auto) (0.1-0.6) Eos # (Auto) (0.0-0.7) Baso # (Auto) (0.0-2.0) K/mm3 PT (9.4-12.5) SECONDS INR APTT (25.1-36.5) Seconds pCO2 (35-45) mm/Hg pO2 (80-100) mm/Hg HCO3 (21-28) mmol/L ABG pH (7.35-7.45) ABG Total CO2 (22-28) mmol.L ABG O2 Saturation (95-98) % ABG O2 Content (15-23) ML/dl ABG Base Excess (-2.0-3.0) mmol/L ABG Hemoglobin (11.7-17.4) g/dL ABG Carboxyhemoglobin (0.5-1.5) % POC ABG HHb (Measured) (0-5) % ABG Methemoglobin (0.0-3.0) % ABG O2 Capacity (16-24) mL/dl Hgb O2 Saturation (95.0-98.0) % FiO2 % Sodium 136 (132-148) mmol/L Potassium 4.1 (3.6-5.0) mmol/L Chloride 100 (98-107) mmol/L Carbon Dioxide 26 (21-33) mmol/L Anion Gap 14 (10-20) BUN 18 (7-21) mg/dL Creatinine 0.8 (0.7-1.2) mg/dl Est GFR ( Amer) > 60 Est GFR (Non-Af Amer) > 60 POC Glucose (mg/dL) (65-110) mg/dL Random Glucose 228 H (70-110) mg/dL Calcium 9.6 (8.4-10.5) mg/dL Phosphorus 3.5 (2.5-4.5) mg/dL Magnesium 1.7 (1.7-2.2) mg/dL Total Bilirubin 0.7 (0.2-1.3) mg/dL AST 23 (14-36) U/L ALT 33 (7-56) U/L Alkaline Phosphatase 140 H (38-126) U/L Lactate Dehydrogenase 526 (333-699) U/L Total Creatine Kinase 215 (35-230) U/L Troponin I 0.02 D ng/mL Total Protein 7.4 (5.8-8.3) g/dL Albumin 3.8 (3.0-4.8) g/dL Globulin 3.6 gm/dL Albumin/Globulin Ratio 1.1 (1.1-1.8) Triglycerides (35-160) mg/dL Cholesterol (130-200) mg/dL LDL Cholesterol Direct (0-129) mg/dL HDL Cholesterol (29-60) mg/dL Urine Color Yellow (YELLOW) Urine Appearance Clear (CLEAR) Urine pH 7.5 (4.7-8.0) Ur Specific [place] 1.010 (1.005-1.035) Urine Protein 30 H (<30 mg/dL) mg/dL Urine Glucose (UA) >=1000 (NEGATIVE) mg/dL Urine Ketones Negative (NEGATIVE) mg/dL Urine Blood Trace-intact H (NEGATIVE) Urine Nitrate Negative (NEGATIVE) Urine Bilirubin Negative (NEGATIVE) Urine Urobilinogen 0.2 (<1 E.U./dL) E.U./dL Ur Leukocyte Esterase Negative (NEGATIVE) Harjit/uL Urine RBC 0 - 2 (0-2) /hpf Urine WBC 1 - 3 (0-6) /hpf Ur Epithelial Cells 3 - 4 (0-5) /hpf Urine Bacteria Occ (NEG) Urine Opiates Screen (NEGATIVE) Urine Methadone Screen (NEGATIVE) Ur Barbiturates Screen (NEGATIVE) Ur Phencyclidine Scrn (NEGATIVE) Ur Amphetamines Screen (NEGATIVE) U Benzodiazepines Scrn (NEGATIVE) U Oth Cocaine Metabols (NEGATIVE) U Cannabinoids Screen (NEGATIVE) Alcohol, Quantitative < 10 (0-10) mg/dL 07/17/18 07/17/18 07/17/18 Range/Units 21:08 20:07 17:22 WBC 11.0 (4.5-11.0) 10^3/ul RBC 4.53 (3.5-6.1) 10^6/uL Hgb 13.0 (12.0-16.0) g/dL Hct 38.1 (36.0-48.0) % MCV 84.1 (80.0-105.0) fl MCH 28.7 (25.0-35.0) pg MCHC 34.1 (31.0-37.0) g/dl RDW 13.0 (11.5-14.5) % Plt Count 233 (120.0-450.0) 10^3/uL MPV 10.3 (7.0-11.0) fl Gran % 77.7 H (50.0-68.0) % Lymph % (Auto) 17.1 L (22.0-35.0) % [place] % (Auto) 3.5 (1.0-6.0) % Eos % (Auto) 1.5 (1.5-5.0) % Baso % (Auto) 0.2 (0.0-3.0) % Gran # 8.57 H (1.4-6.5) Lymph # (Auto) 1.9 (1.2-3.4) [place] # (Auto) 0.4 (0.1-0.6) Eos # (Auto) 0.2 (0.0-0.7) Baso # (Auto) 0.02 (0.0-2.0) K/mm3 PT 10.5 (9.4-12.5) SECONDS INR 0.92 APTT 29.8 (25.1-36.5) Seconds pCO2 (35-45) mm/Hg pO2 (80-100) mm/Hg HCO3 (21-28) mmol/L ABG pH (7.35-7.45) ABG Total CO2 (22-28) mmol.L ABG O2 Saturation (95-98) % ABG O2 Content (15-23) ML/dl ABG Base Excess (-2.0-3.0) mmol/L ABG Hemoglobin (11.7-17.4) g/dL ABG Carboxyhemoglobin (0.5-1.5) % POC ABG HHb (Measured) (0-5) % ABG Methemoglobin (0.0-3.0) % ABG O2 Capacity (16-24) mL/dl Hgb O2 Saturation (95.0-98.0) % FiO2 % Sodium (132-148) mmol/L Potassium (3.6-5.0) mmol/L Chloride (98-107) mmol/L Carbon Dioxide (21-33) mmol/L Anion Gap (10-20) BUN (7-21) mg/dL Creatinine (0.7-1.2) mg/dl Est GFR ( Amer) Est GFR (Non-Af Amer) POC Glucose (mg/dL) 239 H (65-110) mg/dL Random Glucose (70-110) mg/dL Calcium (8.4-10.5) mg/dL Phosphorus (2.5-4.5) mg/dL Magnesium (1.7-2.2) mg/dL Total Bilirubin (0.2-1.3) mg/dL AST (14-36) U/L ALT (7-56) U/L Alkaline Phosphatase (38-126) U/L Lactate Dehydrogenase (333-699) U/L Total Creatine Kinase (35-230) U/L Troponin I ng/mL Total Protein (5.8-8.3) g/dL Albumin (3.0-4.8) g/dL Globulin gm/dL Albumin/Globulin Ratio (1.1-1.8) Triglycerides (35-160) mg/dL Cholesterol (130-200) mg/dL LDL Cholesterol Direct (0-129) mg/dL HDL Cholesterol (29-60) mg/dL Urine Color (YELLOW) Urine Appearance (CLEAR) Urine pH (4.7-8.0) Ur Specific [place] (1.005-1.035) Urine Protein (<30 mg/dL) mg/dL Urine Glucose (UA) (NEGATIVE) mg/dL Urine Ketones (NEGATIVE) mg/dL Urine Blood (NEGATIVE) Urine Nitrate (NEGATIVE) Urine Bilirubin (NEGATIVE) Urine Urobilinogen (<1 E.U./dL) E.U./dL Ur Leukocyte Esterase (NEGATIVE) Harjit/uL Urine RBC (0-2) /hpf Urine WBC (0-6) /hpf Ur Epithelial Cells (0-5) /hpf Urine Bacteria (NEG) Urine Opiates Screen (NEGATIVE) Urine Methadone Screen (NEGATIVE) Ur Barbiturates Screen (NEGATIVE) Ur Phencyclidine Scrn (NEGATIVE) Ur Amphetamines Screen (NEGATIVE) U Benzodiazepines Scrn (NEGATIVE) U Oth Cocaine Metabols (NEGATIVE) U Cannabinoids Screen (NEGATIVE) Alcohol, Quantitative (0-10) mg/dL Laboratory Results - last 24 hr 07/17/18 07/17/18 07/17/18 17:22 20:07 21:08 WBC 11.0 RBC 4.53 Hgb 13.0 Hct 38.1 MCV 84.1 MCH 28.7 MCHC 34.1 RDW 13.0 Plt Count 233 MPV 10.3 Gran % 77.7 H Lymph % (Auto) 17.1 L [place] % (Auto) 3.5 Eos % (Auto) 1.5 Baso % (Auto) 0.2 Gran # 8.57 H Lymph # (Auto) 1.9 [place] # (Auto) 0.4 Eos # (Auto) 0.2 Baso # (Auto) 0.02 PT 10.5 INR 0.92 APTT 29.8 pCO2 pO2 HCO3 ABG pH ABG Total CO2 ABG O2 Saturation ABG O2 Content ABG Base Excess ABG Hemoglobin ABG Carboxyhemoglobin POC ABG HHb (Measured) ABG Methemoglobin ABG O2 Capacity Hgb O2 Saturation FiO2 Sodium Potassium Chloride Carbon Dioxide Anion Gap BUN Creatinine Est GFR ( Amer) Est GFR (Non-Af Amer) POC Glucose (mg/dL) 239 H Random Glucose Calcium Phosphorus Magnesium Total Bilirubin AST ALT Alkaline Phosphatase Lactate Dehydrogenase Total Creatine Kinase Troponin I Total Protein Albumin Globulin Albumin/Globulin Ratio Triglycerides Cholesterol LDL Cholesterol Direct HDL Cholesterol Urine Color Urine Appearance Urine pH Ur Specific [place] Urine Protein Urine Glucose (UA) Urine Ketones Urine Blood Urine Nitrate Urine Bilirubin Urine Urobilinogen Ur Leukocyte Esterase Urine RBC Urine WBC Ur Epithelial Cells Urine Bacteria Urine Opiates Screen Urine Methadone Screen Ur Barbiturates Screen Ur Phencyclidine Scrn Ur Amphetamines Screen U Benzodiazepines Scrn U Oth Cocaine Metabols U Cannabinoids Screen Alcohol, Quantitative 07/17/18 07/17/18 07/18/18 21:08 21:08 00:43 WBC RBC Hgb Hct MCV MCH MCHC RDW Plt Count MPV Gran % Lymph % (Auto) [place] % (Auto) Eos % (Auto) Baso % (Auto) Gran # Lymph # (Auto) [place] # (Auto) Eos # (Auto) Baso # (Auto) PT INR APTT pCO2 pO2 HCO3 ABG pH ABG Total CO2 ABG O2 Saturation ABG O2 Content ABG Base Excess ABG Hemoglobin ABG Carboxyhemoglobin POC ABG HHb (Measured) ABG Methemoglobin ABG O2 Capacity Hgb O2 Saturation FiO2 Sodium 136 Potassium 4.1 Chloride 100 Carbon Dioxide 26 Anion Gap 14 BUN 18 Creatinine 0.8 Est GFR ( Amer) > 60 Est GFR (Non-Af Amer) > 60 POC Glucose (mg/dL) Random Glucose 228 H Calcium 9.6 Phosphorus 3.5 Magnesium 1.7 Total Bilirubin 0.7 AST 23 ALT 33 Alkaline Phosphatase 140 H Lactate Dehydrogenase 526 Total Creatine Kinase 215 Troponin I 0.02 D Total Protein 7.4 Albumin 3.8 Globulin 3.6 Albumin/Globulin Ratio 1.1 Triglycerides Cholesterol LDL Cholesterol Direct HDL Cholesterol Urine Color Yellow Urine Appearance Clear Urine pH 7.5 Ur Specific [place] 1.010 Urine Protein 30 H Urine Glucose (UA) >=1000 Urine Ketones Negative Urine Blood Trace-intact H Urine Nitrate Negative Urine Bilirubin Negative Urine Urobilinogen 0.2 Ur Leukocyte Esterase Negative Urine RBC 0 - 2 Urine WBC 1 - 3 Ur Epithelial Cells 3 - 4 Urine Bacteria Occ Urine Opiates Screen Urine Methadone Screen Ur Barbiturates Screen Ur Phencyclidine Scrn Ur Amphetamines Screen U Benzodiazepines Scrn U Oth Cocaine Metabols U Cannabinoids Screen Alcohol, Quantitative < 10 07/18/18 07/18/18 07/18/18 01:30 01:44 03:24 WBC 9.9 RBC 4.95 Hgb 14.1 Hct 41.7 MCV 84.2 MCH 28.5 MCHC 33.8 RDW 13.1 Plt Count 244 MPV 9.6 Gran % 72.0 H Lymph % (Auto) 20.8 L [place] % (Auto) 6.4 H Eos % (Auto) 0.7 L Baso % (Auto) 0.1 Gran # 7.15 H Lymph # (Auto) 2.1 [place] # (Auto) 0.6 Eos # (Auto) 0.1 Baso # (Auto) 0.01 PT INR APTT pCO2 39 pO2 72.0 L HCO3 27.1 ABG pH 7.45 ABG Total CO2 28.3 H ABG O2 Saturation 97.8 ABG O2 Content 16.9 ABG Base Excess 3.0 ABG Hemoglobin 12.6 ABG Carboxyhemoglobin 1.8 H POC ABG HHb (Measured) 2.1 ABG Methemoglobin 0.6 ABG O2 Capacity 17.3 Hgb O2 Saturation 95.4 FiO2 21.0 Sodium Potassium Chloride Carbon Dioxide Anion Gap BUN Creatinine Est GFR ( Amer) Est GFR (Non-Af Amer) POC Glucose (mg/dL) Random Glucose Calcium Phosphorus Magnesium Total Bilirubin AST ALT Alkaline Phosphatase Lactate Dehydrogenase Total Creatine Kinase Troponin I Total Protein Albumin Globulin Albumin/Globulin Ratio Triglycerides Cholesterol LDL Cholesterol Direct HDL Cholesterol Urine Color Urine Appearance Urine pH Ur Specific [place] Urine Protein Urine Glucose (UA) Urine Ketones Urine Blood Urine Nitrate Urine Bilirubin Urine Urobilinogen Ur Leukocyte Esterase Urine RBC Urine WBC Ur Epithelial Cells Urine Bacteria Urine Opiates Screen Negative Urine Methadone Screen Negative Ur Barbiturates Screen Negative Ur Phencyclidine Scrn Negative Ur Amphetamines Screen Negative U Benzodiazepines Scrn Negative U Oth Cocaine Metabols Negative U Cannabinoids Screen Negative Alcohol, Quantitative 07/18/18 07/18/1807/18/18 03:24 03:24 08:50 WBC RBC Hgb Hct MCV MCH MCHC RDW Plt Count MPV Gran % Lymph % (Auto) [place] % (Auto) Eos % (Auto) Baso % (Auto) Gran # Lymph # (Auto) [place] # (Auto) Eos # (Auto) Baso # (Auto) PT INR APTT pCO2 pO2 HCO3 ABG pH ABG Total CO2 ABG O2 Saturation ABG O2 Content ABG Base Excess ABG Hemoglobin ABG Carboxyhemoglobin POC ABG HHb (Measured) ABG Methemoglobin ABG O2 Capacity Hgb O2 Saturation FiO2 Sodium 136 Potassium 3.5 L Chloride 99 Carbon Dioxide 27 Anion Gap 14 BUN 15 Creatinine 0.7 Est GFR ( Amer) > 60 Est GFR (Non-Af Amer) > 60 POC Glucose (mg/dL) Random Glucose 202 H Calcium 9.6 Phosphorus 3.4 Magnesium 1.7 Total Bilirubin 0.8 AST 28 ALT 21 Alkaline Phosphatase 158 H Lactate Dehydrogenase Total Creatine Kinase Troponin I < 0.01 D < 0.01 Total Protein 8.4 H Albumin 4.2 Globulin 4.2 Albumin/Globulin Ratio 1.0 L Triglycerides 100 Cholesterol 185 LDL Cholesterol Direct 94 HDL Cholesterol 61 H Urine Color Urine Appearance Urine pH Ur Specific [place] Urine Protein Urine Glucose (UA) Urine Ketones Urine Blood Urine Nitrate Urine Bilirubin Urine Urobilinogen Ur Leukocyte Esterase Urine RBC Urine WBC Ur Epithelial Cells Urine Bacteria Urine Opiates Screen Urine Methadone Screen Ur Barbiturates Screen Ur Phencyclidine Scrn Ur Amphetamines Screen U Benzodiazepines Scrn U Oth Cocaine Metabols U Cannabinoids Screen Alcohol, Quantitative EKG/Cardiology Studies: Cardiology / EKG Studies 07/17/18 18:25 ELECTROCARDIOGRAM Stat Comment: Reason For Exam: chest pain Fingerstick Blood Sugar Results: 203 Review of Systems - Review of Systems Systems not reviewed;Unavailable: Altered Mental Status Critical Care Progress Note - Ventilator Checklist Head of Bed 30 Degrees: Yes PUD Prophalyxis: Yes DVT Prophylaxis: Yes - Extremities/Vascular Does the Patient have a Central Venous Catheter?: No - Nutrition Nutrition: Nutrition Category Date Time Status NPO Diet [DIET] Diets 07/18/18 Breakfast Ordered Assessment/Plan - Assessment and Plan (Free Text) Assessment: 73 year old female with past medical history of HTN, diabetes mellitus 2, GERD, schizophrenia, cataracts, osteoarthritis, intracranial hemorrhage with residual side weakness, right eye blindness presents with 3 days of altered mental status and generalized weakness. Patient is disoriented to person, place, time, event. Patient has seizure like momvent of the right side of patient's face. Plan: Neuro: -AAOx1, no FND, patient fatigued but responsive. Patient is incoherent. Baseline will be obtained from daughter. -GCS: 9, but patient shuts her eyes when attempted to manually lift eyelids -CT Head: large area of edema in left occipital and posterior parietal lobes without midline shift, suspicious for acute infarct vs. encephalomalacia of previous hemorrhagic stroke -CTA Head and Neck: heavily calcified intracavernous carotids -Altered mental status is likely due to stroke vs. metastatic lesion. -EEG ordered to evaluate for seizure activity. -MRI Brain results pending to rule out metastatic lesion. -Dr. Banks consulted for recommendations. Follow recommendations. -Monitor neuro status. -Reorient patient as necessary. Cardio: -RRR, hypertensive at 157/93 though improved from systolic blood pressure in 190s earlier in the night, no signs of HD compromise -EKG: NSR at HR: 65 -Negative troponinx1 -Lopressor 50 mg BID -Maintain MAP>65. -Monitor for S/S, HD compromise. Pulm: -No signs of respiratory distress. CTA B/L -Patient is stating well on room air. -Maintain O2 saturation>95%. -O2 NC PRN -Elevate bed to 30 degrees GI: -NPO -Nursing swallow evaluation, aspiration precautions -Protonix or pepcid /Nephro: -BUN/Cr stable at 15/0.7 -UA: 30 protein, more than 1000 glucose, negative ketones, trace intact blood, negative nitrites, negative leukocyte esterase, 0-2 RBC, 1-3 WBC, 3-4 epithelail cells, occassional bacteria. Doubt UTI -Good urine output: 1000 -Continue monitoring. -Replete electrolytes as needed. -Maintain euvolemia. Endocrinology: -Random glucose: 202 -Obtain and maintain euglycemia. Heme/Onc: -H/H stable at 14.1/41.7 -No signs of HD compromise. -Continue monitoring H/H ID: -Afebrile, no leukocytosis -Follow up BCx, UCx, MRSA -Monitor for signs and symptoms of infection. DVT prophylaxis: SCD GI prophylaxis: protonix 40 mg daily Patient seen and examined with Dr. Glover - Date & Time Date: 07/18/18 Time: 10:02 <Devan Glover - Last Filed: 07/18/18 15:18> CCU Objective - Vital Signs / Intake & Output Vital Signs (Last 4 hours): Vital Signs Temp Pulse Resp BP Pulse Ox 07/18/18 14:30 77 14 99 07/18/18 14:20 71 17 94 L 07/18/18 14:10 73 17 100 07/18/18 14:01 74 18 142/63 99 07/18/18 14:00 73 17 99 07/18/18 13:50 81 16 99 07/18/18 13:40 79 16 99 07/18/18 13:30 78 20 100 07/18/18 13:20 62 13 99 07/18/18 13:10 66 13 99 07/18/18 13:00 65 13 120/71 98 07/18/18 12:50 64 13 99 07/18/18 12:40 63 14 99 07/18/18 12:30 65 15 99 07/18/18 12:20 68 14 99 07/18/18 12:10 77 21 97 07/18/18 12:01 76 20 137/101 H 97 07/18/18 12:00 98.2 F 77 16 137/101 H 98 07/18/18 11:50 78 20 99 07/18/18 11:40 77 21 98 07/18/18 11:30 76 21 100 07/18/18 11:20 78 18 99 Intake and Output (Last 8hrs): Intake & Output 07/18/18 07/18/18 07/18/18 06:59 14:59 22:59 Intake Total 700 Output Total 1000 Balance -300 Weight 91.626 kg Intake: IV 700 Right Antecubital 700 Oral 0 Output: Urine 1000 Urethral ([place]) 1000 Other: Voiding Method Indwelling Catheter # Bowel Movements 0 - Medications Active Medications: Active Medications Generic Name Dose Route Start Last Admin Trade Name Freq PRN Reason Stop Dose Admin Amlodipine Besylate 5 mg 07/18/18 10:00 07/18/18 09:28 Norvasc PO Not Given DAILY CHUY Aspirin 81 mg 07/18/18 12:15 07/18/18 13:39 Aspirin Chewable PO 81 mg DAILY CHUY Administration Atorvastatin Calcium 20 mg 07/18/18 10:00 07/18/18 09:27 Lipitor PO Not Given DAILY [facility] Enalaprilat 1.25 mg 07/17/18 23:48 07/18/18 05:45 Vasotec Iv IVP 1.25 mg Q6H PRN Administration Systolic Blood Pressure Sodium Chloride 1,000 mls @ 75 mls/hr 07/17/18 23:45 07/18/18 01:10 Sodium Chloride 0.9% IV 75 mls/hr .[id number] CHUY Administration Levetiracetam 500 mg in 100 mls @ 400 mls/hr 07/18/18 10:00 07/18/18 09:29 Keppra 500mg Ivpb IV 400 mls/hr Q12 CHUY Administration Potassium Chloride 10 meq in 100 mls @ 50 mls/hr 07/18/18 08:00 07/18/18 13:40 Potassium Chloride 10 Meq/100 Ml IVPB 07/18/18 15:59 50 mls/hr Q2H CHUY Administration Insulin Detemir 10 unit 07/18/18 22:00 Levemir SC HS [facility] Insulin Human Regular 0 units 07/18/18 07:30 07/18/18 11:36 Humulin R Low SC Not Given ACHS [facility] Protocol Lorazepam 1 mg 07/17/18 23:48 07/18/18 06:59 Ativan IVP 1 mg Q6H PRN Administration Seizure activity Protocol Metoprolol Tartrate 50 mg 07/18/18 10:00 07/18/18 09:28 Lopressor PO Not Given DAILY [facility] Pantoprazole Sodium 40 mg 07/18/18 10:00 07/18/18 13:39 Protonix Inj IVP 40 mg DAILY [facility] Administration Risperidone 0.5 mg 07/18/18 10:00 07/18/18 10:00 Risperdal Tab PO Not Given BID [facility] Protocol - Patient Studies Lab Studies: Lab Studies 07/18/18 07/18/18 07/18/18 Range/Units 08:50 07:28 03:24 WBC (4.5-11.0) 10^3/ul RBC (3.5-6.1) 10^6/uL Hgb (12.0-16.0) g/dL Hct (36.0-48.0) % MCV (80.0-105.0) fl MCH (25.0-35.0) pg MCHC (31.0-37.0) g/dl RDW (11.5-14.5) % Plt Count (120.0-450.0) 10^3/uL MPV (7.0-11.0) fl Gran % (50.0-68.0) % Lymph % (Auto) (22.0-35.0) % [place] % (Auto) (1.0-6.0) % Eos % (Auto) (1.5-5.0) % Baso % (Auto) (0.0-3.0) % Gran # (1.4-6.5) Lymph # (Auto) (1.2-3.4) [place] # (Auto) (0.1-0.6) Eos # (Auto) (0.0-0.7) Baso # (Auto) (0.0-2.0) K/mm3 PT (9.4-12.5) SECONDS INR APTT (25.1-36.5) Seconds pCO2 (35-45) mm/Hg pO2 (80-100) mm/Hg HCO3 (21-28) mmol/L ABG pH (7.35-7.45) ABG Total CO2 (22-28) mmol.L ABG O2 Saturation (95-98) % ABG O2 Content (15-23) ML/dl ABG Base Excess (-2.0-3.0) mmol/L ABG Hemoglobin (11.7-17.4) g/dL ABG Carboxyhemoglobin (0.5-1.5) % POC ABG HHb (Measured) (0-5) % ABG Methemoglobin (0.0-3.0) % ABG O2 Capacity (16-24) mL/dl Hgb O2 Saturation (95.0-98.0) % FiO2 % Sodium (132-148) mmol/L Potassium (3.6-5.0) mmol/L Chloride (98-107) mmol/L Carbon Dioxide (21-33) mmol/L Anion Gap (10-20) BUN (7-21) mg/dL Creatinine (0.7-1.2) mg/dl Est GFR ( Amer) Est GFR (Non-Af Amer) POC Glucose (mg/dL) 203 H (65-110) mg/dL Random Glucose (70-110) mg/dL Calcium (8.4-10.5) mg/dL Phosphorus (2.5-4.5) mg/dL Magnesium (1.7-2.2) mg/dL Total Bilirubin (0.2-1.3) mg/dL AST (14-36) U/L ALT (7-56) U/L Alkaline Phosphatase (38-126) U/L Lactate Dehydrogenase (333-699) U/L Total Creatine Kinase (35-230) U/L Troponin I < 0.01 ng/mL Total Protein (5.8-8.3) g/dL Albumin (3.0-4.8) g/dL Globulin gm/dL Albumin/Globulin Ratio (1.1-1.8) Triglycerides 100 (35-160) mg/dL Cholesterol 185 (130-200) mg/dL LDL Cholesterol Direct 94 (0-129) mg/dL HDL Cholesterol 61 H (29-60) mg/dL Urine Color (YELLOW) Urine Appearance (CLEAR) Urine pH (4.7-8.0) Ur Specific [place] (1.005-1.035) Urine Protein (<30 mg/dL) mg/dL Urine Glucose (UA) (NEGATIVE) mg/dL Urine Ketones (NEGATIVE) mg/dL Urine Blood (NEGATIVE) Urine Nitrate (NEGATIVE) Urine Bilirubin (NEGATIVE) Urine Urobilinogen (<1 E.U./dL) E.U./dL Ur Leukocyte Esterase (NEGATIVE) Harjit/uL Urine RBC (0-2) /hpf Urine WBC (0-6) /hpf Ur Epithelial Cells (0-5) /hpf Urine Bacteria (NEG) Urine Opiates Screen (NEGATIVE) Urine Methadone Screen (NEGATIVE) Ur Barbiturates Screen (NEGATIVE) Ur Phencyclidine Scrn (NEGATIVE) Ur Amphetamines Screen (NEGATIVE) U Benzodiazepines Scrn (NEGATIVE) U Oth Cocaine Metabols (NEGATIVE) U Cannabinoids Screen (NEGATIVE) Alcohol, Quantitative (0-10) mg/dL 07/18/18 07/18/18 07/18/18 Range/Units 03:24 03:24 01:44 WBC 9.9 (4.5-11.0) 10^3/ul RBC 4.95 (3.5-6.1) 10^6/uL Hgb 14.1 (12.0-16.0) g/dL Hct 41.7 (36.0-48.0) % MCV 84.2 (80.0-105.0) fl MCH 28.5 (25.0-35.0) pg MCHC 33.8 (31.0-37.0) g/dl RDW 13.1 (11.5-14.5) % Plt Count 244 (120.0-450.0) 10^3/uL MPV 9.6 (7.0-11.0) fl Gran % 72.0 H (50.0-68.0) % Lymph % (Auto) 20.8 L (22.0-35.0) % [place] % (Auto) 6.4 H (1.0-6.0) % Eos % (Auto) 0.7 L (1.5-5.0) % Baso % (Auto) 0.1 (0.0-3.0) % Gran # 7.15 H (1.4-6.5) Lymph # (Auto) 2.1 (1.2-3.4) [place] # (Auto) 0.6 (0.1-0.6) Eos # (Auto) 0.1 (0.0-0.7) Baso # (Auto) 0.01 (0.0-2.0) K/mm3 PT (9.4-12.5) SECONDS INR APTT (25.1-36.5) Seconds pCO2 (35-45) mm/Hg pO2 (80-100) mm/Hg HCO3 (21-28) mmol/L ABG pH (7.35-7.45) ABG Total CO2 (22-28) mmol.L ABG O2 Saturation (95-98) % ABG O2 Content (15-23) ML/dl ABG Base Excess (-2.0-3.0) mmol/L ABG Hemoglobin (11.7-17.4) g/dL ABG Carboxyhemoglobin (0.5-1.5) % POC ABG HHb (Measured) (0-5) % ABG Methemoglobin (0.0-3.0) % ABG O2 Capacity (16-24) mL/dl Hgb O2 Saturation (95.0-98.0) % FiO2 % Sodium 136 (132-148) mmol/L Potassium 3.5 L (3.6-5.0) mmol/L Chloride 99 (98-107) mmol/L Carbon Dioxide 27 (21-33) mmol/L Anion Gap 14 (10-20) BUN 15 (7-21) mg/dL Creatinine 0.7 (0.7-1.2) mg/dl Est GFR ( Amer) > 60 Est GFR (Non-Af Amer) > 60 POC Glucose (mg/dL) (65-110) mg/dL Random Glucose 202 H (70-110) mg/dL Calcium 9.6 (8.4-10.5) mg/dL Phosphorus 3.4 (2.5-4.5) mg/dL Magnesium 1.7 (1.7-2.2) mg/dL Total Bilirubin 0.8 (0.2-1.3) mg/dL AST 28 (14-36) U/L ALT 21 (7-56) U/L Alkaline Phosphatase 158 H (38-126) U/L Lactate Dehydrogenase (333-699) U/L Total Creatine Kinase (35-230) U/L Troponin I < 0.01 D ng/mL Total Protein 8.4 H (5.8-8.3) g/dL Albumin 4.2 (3.0-4.8) g/dL Globulin 4.2 gm/dL Albumin/Globulin Ratio 1.0 L (1.1-1.8) Triglycerides (35-160) mg/dL Cholesterol (130-200) mg/dL LDL Cholesterol Direct (0-129) mg/dL HDL Cholesterol (29-60) mg/dL Urine Color (YELLOW) Urine Appearance (CLEAR) Urine pH (4.7-8.0) Ur Specific [place] (1.005-1.035) Urine Protein (<30 mg/dL) mg/dL Urine Glucose (UA) (NEGATIVE) mg/dL Urine Ketones (NEGATIVE) mg/dL Urine Blood (NEGATIVE) Urine Nitrate (NEGATIVE) Urine Bilirubin (NEGATIVE) Urine Urobilinogen (<1 E.U./dL) E.U./dL Ur Leukocyte Esterase (NEGATIVE) Harijt/uL Urine RBC (0-2) /hpf Urine WBC (0-6) /hpf Ur Epithelial Cells (0-5) /hpf Urine Bacteria (NEG) Urine Opiates Screen Negative (NEGATIVE) Urine Methadone Screen Negative (NEGATIVE) Ur Barbiturates Screen Negative (NEGATIVE) Ur Phencyclidine Scrn Negative (NEGATIVE) Ur Amphetamines Screen Negative (NEGATIVE) U Benzodiazepines Scrn Negative (NEGATIVE) U Oth Cocaine Metabols Negative (NEGATIVE) U Cannabinoids Screen Negative (NEGATIVE) Alcohol, Quantitative (0-10) mg/dL 07/18/18 07/18/18 07/17/18 Range/Units 01:30 00:43 21:08 WBC (4.5-11.0) 10^3/ul RBC (3.5-6.1) 10^6/uL Hgb (12.0-16.0) g/dL Hct (36.0-48.0) % MCV (80.0-105.0) fl MCH (25.0-35.0) pg MCHC (31.0-37.0) g/dl RDW (11.5-14.5) % Plt Count (120.0-450.0) 10^3/uL MPV (7.0-11.0) fl Gran % (50.0-68.0) % Lymph % (Auto) (22.0-35.0) % [place] % (Auto) (1.0-6.0) % Eos % (Auto) (1.5-5.0) % Baso % (Auto) (0.0-3.0) % Gran # (1.4-6.5) Lymph # (Auto) (1.2-3.4) [place] # (Auto) (0.1-0.6) Eos # (Auto) (0.0-0.7) Baso # (Auto) (0.0-2.0) K/mm3 PT (9.4-12.5) SECONDS INR APTT (25.1-36.5) Seconds pCO2 39 (35-45) mm/Hg pO2 72.0 L (80-100) mm/Hg HCO3 27.1 (21-28) mmol/L ABG pH 7.45 (7.35-7.45) ABG Total CO2 28.3 H (22-28) mmol.L ABG O2 Saturation 97.8 (95-98) % ABG O2 Content 16.9 (15-23) ML/dl ABG Base Excess 3.0 (-2.0-3.0) mmol/L ABG Hemoglobin 12.6 (11.7-17.4) g/dL ABG Carboxyhemoglobin 1.8 H (0.5-1.5) % POC ABG HHb (Measured) 2.1 (0-5) % ABG Methemoglobin 0.6 (0.0-3.0) % ABG O2 Capacity 17.3 (16-24) mL/dl Hgb O2 Saturation 95.4 (95.0-98.0) % FiO2 21.0 % Sodium (132-148) mmol/L Potassium (3.6-5.0) mmol/L Chloride (98-107) mmol/L Carbon Dioxide (21-33) mmol/L Anion Gap (10-20) BUN (7-21) mg/dL Creatinine (0.7-1.2) mg/dl Est GFR ( Amer) Est GFR (Non-Af Amer) POC Glucose (mg/dL) (65-110) mg/dL Random Glucose (70-110) mg/dL Calcium (8.4-10.5) mg/dL Phosphorus (2.5-4.5) mg/dL Magnesium (1.7-2.2) mg/dL Total Bilirubin (0.2-1.3) mg/dL AST (14-36) U/L ALT (7-56) U/L Alkaline Phosphatase (38-126) U/L Lactate Dehydrogenase (333-699) U/L Total Creatine Kinase (35-230) U/L Troponin I ng/mL Total Protein (5.8-8.3) g/dL Albumin (3.0-4.8) g/dL Globulin gm/dL Albumin/Globulin Ratio (1.1-1.8) Triglycerides (35-160) mg/dL Cholesterol (130-200) mg/dL LDL Cholesterol Direct (0-129) mg/dL HDL Cholesterol (29-60) mg/dL Urine Color Yellow (YELLOW) Urine Appearance Clear (CLEAR) Urine pH 7.5 (4.7-8.0) Ur Specific [place] 1.010 (1.005-1.035) Urine Protein 30 H (<30 mg/dL) mg/dL Urine Glucose (UA) >=1000 (NEGATIVE) mg/dL Urine Ketones Negative (NEGATIVE) mg/dL Urine Blood Trace-intact H (NEGATIVE) Urine Nitrate Negative (NEGATIVE) Urine Bilirubin Negative (NEGATIVE) Urine Urobilinogen 0.2 (<1 E.U./dL) E.U./dL Ur Leukocyte Esterase Negative (NEGATIVE) Harjit/uL Urine RBC 0 - 2 (0-2) /hpf Urine WBC 1 - 3 (0-6) /hpf Ur Epithelial Cells 3 - 4 (0-5) /hpf Urine Bacteria Occ (NEG) Urine Opiates Screen (NEGATIVE) Urine Methadone Screen (NEGATIVE) Ur Barbiturates Screen (NEGATIVE) Ur Phencyclidine Scrn (NEGATIVE) Ur Amphetamines Screen (NEGATIVE) U Benzodiazepines Scrn (NEGATIVE) U Oth Cocaine Metabols (NEGATIVE) U Cannabinoids Screen (NEGATIVE) Alcohol, Quantitative < 10 (0-10) mg/dL 07/17/18 07/17/18 07/17/18 Range/Units 21:08 21:08 20:07 WBC 11.0 (4.5-11.0) 10^3/ul RBC 4.53 (3.5-6.1) 10^6/uL Hgb 13.0 (12.0-16.0) g/dL Hct 38.1 (36.0-48.0) % MCV 84.1 (80.0-105.0) fl MCH 28.7 (25.0-35.0) pg MCHC 34.1 (31.0-37.0) g/dl RDW 13.0 (11.5-14.5) % Plt Count 233 (120.0-450.0) 10^3/uL MPV 10.3 (7.0-11.0) fl Gran % 77.7 H (50.0-68.0) % Lymph % (Auto) 17.1 L (22.0-35.0) % [place] % (Auto) 3.5 (1.0-6.0) % Eos % (Auto) 1.5 (1.5-5.0) % Baso % (Auto) 0.2 (0.0-3.0) % Gran # 8.57 H (1.4-6.5) Lymph # (Auto) 1.9 (1.2-3.4) [place] # (Auto) 0.4 (0.1-0.6) Eos # (Auto) 0.2 (0.0-0.7) Baso # (Auto) 0.02 (0.0-2.0) K/mm3 PT 10.5 (9.4-12.5) SECONDS INR 0.92 APTT 29.8 (25.1-36.5) Seconds pCO2 (35-45) mm/Hg pO2 (80-100) mm/Hg HCO3 (21-28) mmol/L ABG pH (7.35-7.45) ABG Total CO2 (22-28) mmol.L ABG O2 Saturation (95-98) % ABG O2 Content (15-23) ML/dl ABG Base Excess (-2.0-3.0) mmol/L ABG Hemoglobin (11.7-17.4) g/dL ABG Carboxyhemoglobin (0.5-1.5) % POC ABG HHb (Measured) (0-5) % ABG Methemoglobin (0.0-3.0) % ABG O2 Capacity (16-24) mL/dl Hgb O2 Saturation (95.0-98.0) % FiO2 % Sodium 136 (132-148) mmol/L Potassium 4.1 (3.6-5.0) mmol/L Chloride 100 (98-107) mmol/L Carbon Dioxide 26 (21-33) mmol/L Anion Gap 14 (10-20) BUN 18 (7-21) mg/dL Creatinine 0.8 (0.7-1.2) mg/dl Est GFR ( Amer) > 60 Est GFR (Non-Af Amer) > 60 POC Glucose (mg/dL) (65-110) mg/dL Random Glucose 228 H (70-110) mg/dL Calcium 9.6 (8.4-10.5) mg/dL Phosphorus 3.5 (2.5-4.5) mg/dL Magnesium 1.7 (1.7-2.2) mg/dL Total Bilirubin 0.7 (0.2-1.3) mg/dL AST 23 (14-36) U/L ALT 33 (7-56) U/L Alkaline Phosphatase 140 H (38-126) U/L Lactate Dehydrogenase 526 (333-699) U/L Total Creatine Kinase 215 (35-230) U/L Troponin I 0.02 D ng/mL Total Protein 7.4 (5.8-8.3) g/dL Albumin 3.8 (3.0-4.8) g/dL Globulin 3.6 gm/dL Albumin/Globulin Ratio 1.1 (1.1-1.8) Triglycerides (35-160) mg/dL Cholesterol (130-200) mg/dL LDL Cholesterol Direct (0-129) mg/dL HDL Cholesterol (29-60) mg/dL Urine Color (YELLOW) Urine Appearance (CLEAR) Urine pH (4.7-8.0) Ur Specific [place] (1.005-1.035) Urine Protein (<30 mg/dL) mg/dL Urine Glucose (UA) (NEGATIVE) mg/dL Urine Ketones (NEGATIVE) mg/dL Urine Blood (NEGATIVE) Urine Nitrate (NEGATIVE) Urine Bilirubin (NEGATIVE) Urine Urobilinogen (<1 E.U./dL) E.U./dL Ur Leukocyte Esterase (NEGATIVE) Harjit/uL Urine RBC (0-2) /hpf Urine WBC (0-6) /hpf Ur Epithelial Cells (0-5) /hpf Urine Bacteria (NEG) Urine Opiates Screen (NEGATIVE) Urine Methadone Screen (NEGATIVE) Ur Barbiturates Screen (NEGATIVE) Ur Phencyclidine Scrn (NEGATIVE) Ur Amphetamines Screen (NEGATIVE) U Benzodiazepines Scrn (NEGATIVE) U Oth Cocaine Metabols (NEGATIVE) U Cannabinoids Screen (NEGATIVE) Alcohol, Quantitative (0-10) mg/dL 07/17/18 Range/Units 17:22 WBC (4.5-11.0) 10^3/ul RBC (3.5-6.1) 10^6/uL Hgb (12.0-16.0) g/dL Hct (36.0-48.0) % MCV (80.0-105.0) fl MCH (25.0-35.0) pg MCHC (31.0-37.0) g/dl RDW (11.5-14.5) % Plt Count (120.0-450.0) 10^3/uL MPV (7.0-11.0) fl Gran % (50.0-68.0) % Lymph % (Auto) (22.0-35.0) % [place] % (Auto) (1.0-6.0) % Eos % (Auto) (1.5-5.0) % Baso % (Auto) (0.0-3.0) % Gran # (1.4-6.5) Lymph # (Auto) (1.2-3.4) [place] # (Auto) (0.1-0.6) Eos # (Auto) (0.0-0.7) Baso # (Auto) (0.0-2.0) K/mm3 PT (9.4-12.5) SECONDS INR APTT (25.1-36.5) Seconds pCO2 (35-45) mm/Hg pO2 (80-100) mm/Hg HCO3 (21-28) mmol/L ABG pH (7.35-7.45) ABG Total CO2 (22-28) mmol.L ABG O2 Saturation (95-98) % ABG O2 Content (15-23) ML/dl ABG Base Excess (-2.0-3.0) mmol/L ABG Hemoglobin (11.7-17.4) g/dL ABG Carboxyhemoglobin (0.5-1.5) % POC ABG HHb (Measured) (0-5) % ABG Methemoglobin (0.0-3.0) % ABG O2 Capacity (16-24) mL/dl Hgb O2 Saturation (95.0-98.0) % FiO2 % Sodium (132-148) mmol/L Potassium (3.6-5.0) mmol/L Chloride (98-107) mmol/L Carbon Dioxide (21-33) mmol/L Anion Gap (10-20) BUN (7-21) mg/dL Creatinine (0.7-1.2) mg/dl Est GFR ( Amer) Est GFR (Non-Af Amer) POC Glucose (mg/dL) 239 H (65-110) mg/dL Random Glucose (70-110) mg/dL Calcium (8.4-10.5) mg/dL Phosphorus (2.5-4.5) mg/dL Magnesium (1.7-2.2) mg/dL Total Bilirubin (0.2-1.3) mg/dL AST (14-36) U/L ALT (7-56) U/L Alkaline Phosphatase (38-126) U/L Lactate Dehydrogenase (333-699) U/L Total Creatine Kinase (35-230) U/L Troponin I ng/mL Total Protein (5.8-8.3) g/dL Albumin (3.0-4.8) g/dL Globulin gm/dL Albumin/Globulin Ratio (1.1-1.8) Triglycerides (35-160) mg/dL Cholesterol (130-200) mg/dL LDL Cholesterol Direct (0-129) mg/dL HDL Cholesterol (29-60) mg/dL Urine Color (YELLOW) Urine Appearance (CLEAR) Urine pH (4.7-8.0) Ur Specific [place] (1.005-1.035) Urine Protein (<30 mg/dL) mg/dL Urine Glucose (UA) (NEGATIVE) mg/dL Urine Ketones (NEGATIVE) mg/dL Urine Blood (NEGATIVE) Urine Nitrate (NEGATIVE) Urine Bilirubin (NEGATIVE) Urine Urobilinogen (<1 E.U./dL) E.U./dL Ur Leukocyte Esterase (NEGATIVE) Harjit/uL Urine RBC (0-2) /hpf Urine WBC (0-6) /hpf Ur Epithelial Cells (0-5) /hpf Urine Bacteria (NEG) Urine Opiates Screen (NEGATIVE) Urine Methadone Screen (NEGATIVE) Ur Barbiturates Screen (NEGATIVE) Ur Phencyclidine Scrn (NEGATIVE) Ur Amphetamines Screen (NEGATIVE) U Benzodiazepines Scrn (NEGATIVE) U Oth Cocaine Metabols (NEGATIVE) U Cannabinoids Screen (NEGATIVE) Alcohol, Quantitative (0-10) mg/dL Laboratory Results - last 24 hr 07/17/18 07/17/18 07/17/18 17:22 20:07 21:08 WBC 11.0 RBC 4.53 Hgb 13.0 Hct 38.1 MCV 84.1 MCH 28.7 MCHC 34.1 RDW 13.0 Plt Count 233 MPV 10.3 Gran % 77.7 H Lymph % (Auto) 17.1 L [place] % (Auto) 3.5 Eos % (Auto) 1.5 Baso % (Auto) 0.2 Gran # 8.57 H Lymph # (Auto) 1.9 [place] # (Auto) 0.4 Eos # (Auto) 0.2 Baso # (Auto) 0.02 PT 10.5 INR 0.92 APTT 29.8 pCO2 pO2 HCO3 ABG pH ABG Total CO2 ABG O2 Saturation ABG O2 Content ABG Base Excess ABG Hemoglobin ABG Carboxyhemoglobin POC ABG HHb (Measured) ABG Methemoglobin ABG O2 Capacity Hgb O2 Saturation FiO2 Sodium Potassium Chloride Carbon Dioxide Anion Gap BUN Creatinine Est GFR ( Amer) Est GFR (Non-Af Amer) POC Glucose (mg/dL) 239 H Random Glucose Calcium Phosphorus Magnesium Total Bilirubin AST ALT Alkaline Phosphatase Lactate Dehydrogenase Total Creatine Kinase Troponin I Total Protein Albumin Globulin Albumin/Globulin Ratio Triglycerides Cholesterol LDL Cholesterol Direct HDL Cholesterol Urine Color Urine Appearance Urine pH Ur Specific [place] Urine Protein Urine Glucose (UA) Urine Ketones Urine Blood Urine Nitrate Urine Bilirubin Urine Urobilinogen Ur Leukocyte Esterase Urine RBC Urine WBC Ur Epithelial Cells Urine Bacteria Urine Opiates Screen Urine Methadone Screen Ur Barbiturates Screen Ur Phencyclidine Scrn Ur Amphetamines Screen U Benzodiazepines Scrn U Oth Cocaine Metabols U Cannabinoids Screen Alcohol, Quantitative 07/17/18 07/17/18 07/18/18 21:08 21:08 00:43 WBC RBC Hgb Hct MCV MCH MCHC RDW Plt Count MPV Gran % Lymph % (Auto) [place] % (Auto) Eos % (Auto) Baso % (Auto) Gran # Lymph # (Auto) [place] # (Auto) Eos # (Auto) Baso # (Auto) PT INR APTT pCO2 pO2 HCO3 ABG pH ABG Total CO2 ABG O2 Saturation ABG O2 Content ABG Base Excess ABG Hemoglobin ABG Carboxyhemoglobin POC ABG HHb (Measured) ABG Methemoglobin ABG O2 Capacity Hgb O2 Saturation FiO2 Sodium 136 Potassium 4.1 Chloride 100 Carbon Dioxide 26 Anion Gap 14 BUN 18 Creatinine 0.8 Est GFR ( Amer) > 60 Est GFR (Non-Af Amer) > 60 POC Glucose (mg/dL) Random Glucose 228 H Calcium 9.6 Phosphorus 3.5 Magnesium 1.7 Total Bilirubin 0.7 AST 23 ALT 33 Alkaline Phosphatase 140 H Lactate Dehydrogenase 526 Total Creatine Kinase 215 Troponin I 0.02 D Total Protein 7.4 Albumin 3.8 Globulin 3.6 Albumin/Globulin Ratio 1.1 Triglycerides Cholesterol LDL Cholesterol Direct HDL Cholesterol Urine Color Yellow Urine Appearance Clear Urine pH 7.5 Ur Specific [place] 1.010 Urine Protein 30 H Urine Glucose (UA) >=1000 Urine Ketones Negative Urine Blood Trace-intact H Urine Nitrate Negative Urine Bilirubin Negative Urine Urobilinogen 0.2 Ur Leukocyte Esterase Negative Urine RBC 0 - 2 Urine WBC 1 - 3 Ur Epithelial Cells 3 - 4 Urine Bacteria Occ Urine Opiates Screen Urine Methadone Screen Ur Barbiturates Screen Ur Phencyclidine Scrn Ur Amphetamines Screen U Benzodiazepines Scrn U Oth Cocaine Metabols U Cannabinoids Screen Alcohol, Quantitative < 10 07/18/18 07/18/18 07/18/18 01:30 01:44 03:24 WBC 9.9 RBC 4.95 Hgb 14.1 Hct 41.7 MCV 84.2 MCH 28.5 MCHC 33.8 RDW 13.1 Plt Count 244 MPV 9.6 Gran % 72.0 H Lymph % (Auto) 20.8 L [place] % (Auto) 6.4 H Eos % (Auto) 0.7 L Baso % (Auto) 0.1 Gran # 7.15 H Lymph # (Auto) 2.1 [place] # (Auto) 0.6 Eos # (Auto) 0.1 Baso # (Auto) 0.01 PT INR APTT pCO2 39 pO2 72.0 L HCO3 27.1 ABG pH 7.45 ABG Total CO2 28.3 H ABG O2 Saturation 97.8 ABG O2 Content 16.9 ABG Base Excess 3.0 ABG Hemoglobin 12.6 ABG Carboxyhemoglobin 1.8 H POC ABG HHb (Measured) 2.1 ABG Methemoglobin 0.6 ABG O2 Capacity 17.3 Hgb O2 Saturation 95.4 FiO2 21.0 Sodium Potassium Chloride Carbon Dioxide Anion Gap BUN Creatinine Est GFR ( Amer) Est GFR (Non-Af Amer) POC Glucose (mg/dL) Random Glucose Calcium Phosphorus Magnesium Total Bilirubin AST ALT Alkaline Phosphatase Lactate Dehydrogenase Total Creatine Kinase Troponin I Total Protein Albumin Globulin Albumin/Globulin Ratio Triglycerides Cholesterol LDL Cholesterol Direct HDL Cholesterol Urine Color Urine Appearance Urine pH Ur Specific [place] Urine Protein Urine Glucose (UA) Urine Ketones Urine Blood Urine Nitrate Urine Bilirubin Urine Urobilinogen Ur Leukocyte Esterase Urine RBC Urine WBC Ur Epithelial Cells Urine Bacteria Urine Opiates Screen Negative Urine Methadone Screen Negative Ur Barbiturates Screen Negative Ur Phencyclidine Scrn Negative Ur Amphetamines Screen Negative U Benzodiazepines Scrn Negative U Oth Cocaine Metabols Negative U Cannabinoids Screen Negative Alcohol, Quantitative 07/18/18 07/18/18 07/18/18 03:24 03:24 07:28 WBC RBC Hgb Hct MCV MCH MCHC RDW Plt Count MPV Gran % Lymph % (Auto) [place] % (Auto) Eos % (Auto) Baso % (Auto) Gran # Lymph # (Auto) [place] # (Auto) Eos # (Auto) Baso # (Auto) PT INR APTT pCO2 pO2 HCO3 ABG pH ABG Total CO2 ABG O2 Saturation ABG O2 Content ABG Base Excess ABG Hemoglobin ABG Carboxyhemoglobin POC ABG HHb (Measured) ABG Methemoglobin ABG O2 Capacity Hgb O2 Saturation FiO2 Sodium 136 Potassium 3.5 L Chloride 99 Carbon Dioxide 27 Anion Gap 14 BUN 15 Creatinine 0.7 Est GFR ( Amer) > 60 Est GFR (Non-Af Amer) > 60 POC Glucose (mg/dL) 203 H Random Glucose 202 H Calcium 9.6 Phosphorus 3.4 Magnesium 1.7 Total Bilirubin 0.8 AST 28 ALT 21 Alkaline Phosphatase 158 H Lactate Dehydrogenase Total Creatine Kinase Troponin I < 0.01 D Total Protein 8.4 H Albumin 4.2 Globulin 4.2 Albumin/Globulin Ratio 1.0 L Triglycerides 100 Cholesterol 185 LDL Cholesterol Direct 94 HDL Cholesterol 61 H Urine Color Urine Appearance Urine pH Ur Specific [place] Urine Protein Urine Glucose (UA) Urine Ketones Urine Blood Urine Nitrate Urine Bilirubin Urine Urobilinogen Ur Leukocyte Esterase Urine RBC Urine WBC Ur Epithelial Cells Urine Bacteria Urine Opiates Screen Urine Methadone Screen Ur Barbiturates Screen Ur Phencyclidine Scrn Ur Amphetamines Screen U Benzodiazepines Scrn U Oth Cocaine Metabols U Cannabinoids Screen Alcohol, Quantitative 07/18/18 08:50 WBC RBC Hgb Hct MCV MCH MCHC RDW Plt Count MPV Gran % Lymph % (Auto) [place] % (Auto) Eos % (Auto) Baso % (Auto) Gran # Lymph # (Auto) [place] # (Auto) Eos # (Auto) Baso # (Auto) PT INR APTT pCO2 pO2 HCO3 ABG pH ABG Total CO2 ABG O2 Saturation ABG O2 Content ABG Base Excess ABG Hemoglobin ABG Carboxyhemoglobin POC ABG HHb (Measured) ABG Methemoglobin ABG O2 Capacity Hgb O2 Saturation FiO2 Sodium Potassium Chloride Carbon Dioxide Anion Gap BUN Creatinine Est GFR ( Amer) Est GFR (Non-Af Amer) POC Glucose (mg/dL) Random Glucose Calcium Phosphorus Magnesium Total Bilirubin AST ALT Alkaline Phosphatase Lactate Dehydrogenase Total Creatine Kinase Troponin I < 0.01 Total Protein Albumin Globulin Albumin/Globulin Ratio Triglycerides Cholesterol LDL Cholesterol Direct HDL Cholesterol Urine Color Urine Appearance Urine pH Ur Specific [place] Urine Protein Urine Glucose (UA) Urine Ketones Urine Blood Urine Nitrate Urine Bilirubin Urine Urobilinogen Ur Leukocyte Esterase Urine RBC Urine WBC Ur Epithelial Cells Urine Bacteria Urine Opiates Screen Urine Methadone Screen Ur Barbiturates Screen Ur Phencyclidine Scrn Ur Amphetamines Screen U Benzodiazepines Scrn U Oth Cocaine Metabols U Cannabinoids Screen Alcohol, Quantitative EKG/Cardiology Studies: Cardiology / EKG Studies 07/17/18 18:25 ELECTROCARDIOGRAM Stat Comment: Reason For Exam: chest pain Critical Care Progress Note - Nutrition Nutrition: Nutrition Category Date Time Status NPO Diet [DIET] Diets 07/18/18 Breakfast Ordered Addendum Addendum: 07/18/18 15:18 ICU Attending Addendum: Patient seen and examined. Case reviewed on round with housestaff. Agree with resident note above with the following additions/exceptions: 73 F with hx of HTN, diabetes mellitus 2, schizophrenia, hx of intracranial hemorrhage with residual weakness, right eye blindness p/w AMS and generalized weakness. Etiology unclear, CT w.o contrast shows left occ/par edema CTA does not show acute infarct awaiting MRI and EEG neuro following, will f/u their recs otherwise, she is not hypercapnic and I do not see metabolic causes for her AMS. No signs of infection. Cont neuro checks q4 hours HOB > 30 degrees NPO for now speech and swallow eval BP under control with home meds (give via NGT) She is hemodynamically stable, not septic and she is able to maintain her airway. She is arousable to sternal rub and is responding but not making much sense. She needs further workup however does not need ICU level care at this ti al. Transfer after EEG is completed rest of care above Devan Glover MD [facility] TIme: 35 mins
--- NOTE | 2018-07-18 09:56 | CT ---
Date of service: 07/18/2018 PROCEDURE: CT Angiography of the neck with contrast HISTORY: stroke COMPARISON: None. TECHNIQUE: Contiguous axial images of the neck were obtained from the level of the skull-base to the superior mediastinum in the arteriographic phase of enhancement. Coronal and sagittal reformats or also generated. IV contrast dose: 150 cc of Omni 350 Radiation Dose - DLP: 623 mGy-cm This CT exam was performed using one or more of the following dose reduction techniques: Automated exposure control, adjustment of the mA and/or kV according to patient size, and/or use of iterative reconstruction technique. FINDINGS: RIGHT CAROTID ARTERIES: Common Carotid Artery: Normal. Carotid Bifurcation: Normal. Internal Carotid Artery:Normal. External Carotid Artery (proximal branches): Normal. LEFT CAROTID ARTERIES: Common Carotid Artery: Normal. Carotid Bifurcation: Normal. Internal Carotid Artery:There is a focal dissection at the origin of the left internal carotid without evidence of hemodynamically significant stenosis. The finding is best visualized on axial image 256 series 4. And sagittal image 57 series 605. External Carotid Artery (proximal branches): Normal. VERTEBRAL ARTERIES: Right Vertebral Artery: Normal. Left Vertebral Artery: Normal. OTHER FINDINGS: None. IMPRESSION: Focal dissection at the origin of the left internal carotid with no extension into the distal internal carotid. CT Angiography of the Brain. HISTORY: stroke COMPARISON: None available. TECHNIQUE: CT angiography of the intracranial arteries was performed. Coronal and sagittal maximum intensity projection reformated images were generated. This CT exam was performed using one or more of the following dose reduction techniques: Automated exposure control, adjustment of the mA and/or kV according to patient size, and/or use of iterative reconstruction technique. FINDINGS: INTERNAL CEREBRAL ARTERIES: Unremarkable. The skull base, petrous, cavernous and supraclinoid segments are bilaterally widely patent. There is heavy calcification of the intra cavernous portions of both internal carotid arteries ANTERIOR CEREBRAL ARTERIES: Unremarkable. A1 and A2 segments are widely patent. Smaller distal branches unremarkable, as visualized. MIDDLE CEREBRAL ARTERIES: Unremarkable. M1 and M2 segments are widely patent. Perisylvian branches grossly symmetric. POSTERIOR CIRCULATION: Basilar Artery: Unremarkable. Distal Vertebral Arteries: Unremarkable. Posterior Cerebral Arteries: Unremarkable. Posterior Inferior Cerebellar Arteries: Unremarkable. ANEURYSM/ VASCULAR MALFORMATIONS: None. OTHER FINDINGS: The report concurs with the preliminary [facility] report IMPRESSION: Heavily calcified intra cavernous carotids. The study is otherwise unremarkable
--- NOTE | 2018-07-18 10:04 | CARD ---
APPROVED REPORT Date of service: 07/17/2018 EKG Measurement Heart [id number] <Conclusion> Normal sinus rhythm Minimal voltage criteria for LVH, may be normal variant Clockwise Rotation.
--- NOTE | 2018-07-18 10:43 | RAD ---
HISTORY: chest pain COMPARISON: Chest x-ray performed 05/06/18 TECHNIQUE: Chest, one view. FINDINGS: Examination limited by habitus and hypoinflation. LUNGS: Mild medial right upper lobe infiltrate. Please note that chest x-ray has limited sensitivity for the detection of pulmonary masses. PLEURA: No significant pleural effusion identified. No definite pneumothorax . CARDIOVASCULAR: Cardiomegaly. OSSEOUS STRUCTURES: Degenerative changes. VISUALIZED UPPER ABDOMEN: Unremarkable. OTHER FINDINGS: None. IMPRESSION: Cardiomegaly. Ectatic aorta. Atherosclerotic calcifications. Mild medial right upper lobe infiltrate. Hypoinflation. Study marked for PA review.
[2018-07-18] MEDS: Insulin Detemir 100 units/ml Vial (Levemir) SC SCH (22:01)
[2018-07-19] MEDS: EnalaprilAT 1.25 mg/ml Inj IVP PRN (06:59)
[2018-07-19 08:35] LABS: BASO # 0.01 K/mm3 (0.0-2.0); BASO % 0.1 % (0.0-3.0); EOS # 0.1 (0.0-0.7); GRAN # 7.47 (1.4-6.5); GRAN % 71.7 % (50.0-68.0); HEMOGLOBIN 12.8 g/dL (12.0-16.0); LYMPH # 2.1 (1.2-3.4); LYMPH % 20.3 % (22.0-35.0); MEAN CELL VOLUME 85.2 fl (80.0-105.0); MEAN CORPUSCULAR HEMOGLOBIN 28.3 pg (25.0-35.0); MEAN CORPUSCULAR HGB CONC 33.2 g/dl (31.0-37.0); MEAN PLATELET VOLUME 9.7 fl (7.0-11.0); MONO # 0.7 (0.1-0.6); MONO % 6.9 % (1.0-6.0); RBC 4.52 10^6/uL (3.5-6.1); RED CELL DISTRIBUTION WIDTH 13.4 % (11.5-14.5); WHITE BLOOD COUNT 10.4 10^3/ul (4.5-11.0)
[2018-07-19 08:45] LABS: ALBUMIN 3.7 g/dL (3.0-4.8); ALT/SGPT 24 U/L (7-56); AST/SGOT 29 U/L (14-36); BLOOD UREA NITROGEN 14 mg/dL (7-21); CALCIUM 9.2 mg/dL (8.4-10.5); GFR NON-AFRICAN AMERICAN > 60; HDL CHOLESTEROL 51 mg/dL (29-60)
[2018-07-19 08:56] LABS: LDL CHOLESTEROL 67 mg/dL (0-129)
--- NOTE | 2018-07-19 09:09 | CON ---
DATE: 07/18/2018 REFERRING PHYSICIAN: Dr. Jones. REASON FOR CONSULTATION: History of stroke, sleep apnea syndrome. HISTORY OF PRESENT ILLNESS: This is a 73 years old female well known to me from previous admission, has multiple medical issues including submacular hemorrhage, hypertension, diabetes, GERD, schizophrenia, sleep apnea syndrome, brought in by the family to ER. The patient had change of mental status. She has a generalized weakness, apparently had a witnessed seizure in the ER, admitted to Intensive Care Unit. CT of the head was done which was unremarkable for any new changes, though it is showing old hemorrhagic stroke sign, presently lying in the bed, sleepy and tired. No chest pain or nausea, vomiting, diarrhea, leg pain, or leg swelling. PAST MEDICAL HISTORY: Intracranial hemorrhage, schizophrenia, GERD, diabetes, hypertension, obesity, sleep apnea syndrome, also diabetes, anemia, arthritis, coronary artery disease, history of coronary stent, history of knee replacement. SOCIAL HISTORY: Never smoked. No history of alcohol abuse. ALLERGIES: SHRIMPS. FAMILY HISTORY: No significant cardiopulmonary disease reported. MEDICATIONS: She is on aspirin 81 mg daily, lorazepam 1 mg q.6 h. p.r.n., insulin coverage, Keppra 500 mg q.12 h., Levemir 10 units subcu h.s., Lipitor 20 mg daily, Metoprolol Tartrate 50 mg daily, Norvasc 5 mg daily, Protonix 40 mg daily, Risperdal 0.5 mg twice a day, IV fluid normal saline 75 mL/hour, Vasotec 1.25 mg q.6 h. p.r.n. REVIEW OF SYSTEMS: Has some headache. No rhinitis, no cough, no chest pain. No nausea, vomiting, no diarrhea, leg pain, or leg swelling. PHYSICAL EXAMINATION: GENERAL: No acute distress. VITAL SIGNS: Temp is 98, heart rate 64, respiratory rate is 14, blood pressure 147/95, pulse ox 99% on nasal cannulation. HEENT: Moist mucous membrane. Crowded airway. Mallampati score is IV. NECK: Supple. No JVD. LUNGS: Have a fair airflow with rhonchi. HEART: S1, S2. ABDOMEN: Soft, nontender. No organomegaly. EXTREMITIES: No edema. NEUROLOGIC: Awake, alert, and follows simple commands, lethargic. LABORATORY DATA: Hemoglobin 14.1, hematocrit 41.7, WBC 9.9, platelet is 244. INR 0.92, PTT is 30. ABG shows pH 7.45, pCO2 of 39, O2 of 72, that is on room air. Sodium 136, potassium 3.5, chloride 99, bicarbonate 27, BUN 15, creatinine 0.7, glucose 203, hemoglobin A1c 10, calcium 9.6, phosphorus 3.4, magnesium 1.7, total bili 0.8, AST 28, ALT 21, alk phos is 158. Troponin less than 0.01. Albumin 4.2. Cholesterol 185. Has a CT of the head and neck which was unremarkable for any new finding. There is a heavily calcified intracavernous carotid, otherwise unremarkable CTA of the head and neck. Chest x-ray done in ER shows cardiomegaly, ectatic aorta, mild medial right upper lobe infiltrate. Had a head CAT scan done, which shows cystic encephalomalacia in the left parietal lobe and occipital lobe at the site of previous hemorrhage. IMPRESSION AND PLAN: History of hemorrhagic stroke, probably had a new onset of seizure, hypertension, diabetes, gastroesophageal reflux disease, schizophrenia, may have sleep apnea syndrome, morbid obesity. Case discussed with nursing staff. The patient already seen by Neurology, started on antiseizure, keep head elevated [address] her on CPAP 7 cm, 35% oxygen while sleeping with a nasal mask. She is claustrophobic, does not tolerate full-face mask. Gastric prophylaxis, DVT prophylaxis. Neurology followup. Thank you and we will follow with you. Livia Francois MD
[2018-07-19] MEDS: Insulin Reg-LOW-Coverage SC SCH ×4 (09:55→21:42)
[2018-07-19] MEDS: levETIRAcetam 500mg IVPB 500 MG/100 ML BAG IV SCH ×2 (09:58→21:35)
--- NOTE | 2018-07-19 12:39 | HP ---
date 08/18/18 CHIEF COMPLAINT: Chest pain radiating to her right arm and shortness of breath. HISTORY OF PRESENT ILLNESS: Ms. Noy Bryant is a 73 years old patient with history of multiple medical problems, hypertension, diabetes, GERD, dyspepsia, schizophrenia, intracranial hemorrhage one year ago with residual right-sided weakness, right eye blindness, who came to the emergency department via EMS accompanied with the daughter, complaining of the chest pain radiating to her right arm. Daughter is at bedside, doing translation in the ER, but as per daughter, the patient has experienced generalized weakness since past couple of days, falling three times without any head injury or any loss of consciousness. Daughter says the patient has been slow for the past three days with decreased appetite, refusing to get out of the bed and not talking to her. The patient is complaining of chest pain with increasing confusion, prompting her to bring her to the emergency department. Daughter worries that the patient's increasing confusion may be secondary to new onset of dementia. The patient is unable to verbalize any complaints secondary to medical history. I saw the patient in the unit PAST MEDICAL HISTORY: As above. History of CVA, hemorrhagic; dementia; cataracts; diabetes mellitus, not very well controlled; anemia; arthritis; walks with a walker; GERD; dyspepsia; anxiety; schizophrenia; bipolar; history of cardiac catheterization. FAMILY HISTORY: Father and mother, noncontributory. HABITS: Never smoked. No drugs. No ethanol. ALLERGIES: THE PATIENT IS ALLERGIC WITH NO MEDICATIONS. HOME MEDICATIONS: Lipitor, Lopressor, Protonix, Risperdal, NovoLog, Levemir, Norvasc. REVIEW OF SYSTEMS: The patient is seen and examined by bedside, looking comfortable. No fever. No chills. No nausea, vomiting, or diarrhea. The patient is confused, unable to answer any question. PHYSICAL EXAMINATION VITAL SIGNS: Temperature 98.9, pulse 80, respiratory rate 20, blood pressure 157/93. HEENT: Head is normocephalic and atraumatic. Eyes, PERRLA. Extraocular movements intact. Conjunctivae clear. Nose patent. Mucous membranes moist. NECK: Supple. No carotid bruit or thyromegaly. CHEST: Bilateral symmetrical. HEART: S1 and S2 positive. LUNGS: Clear to auscultation. ABDOMEN: Soft. Bowel sounds present. No organomegaly. EXTREMITIES: No edema. No cyanosis. NEUROLOGIC: The patient is sleepy, arousable, looks confused. She is not obeying simple orders. MEDICATIONS: Norvasc, Lipitor, Keppra, Levemir, Ativan, Lopressor, Protonix, and Risperdal. LABORATORY DATA: Sodium 136, potassium 3.5, BUN 15, creatinine 0.7, glucose 202, AST 28, ALT 21, triglycerides 100, cholesterol 185, LDL 94, HDL 51. ASSESSMENT AND PLAN: Ms. Noy Bryant is a 73 years old lady, with history of hemorrhagic stroke, hypertension, diabetes mellitus type 2, gastroesophageal reflux disease, schizophrenia, cataracts, osteoarthritis, right eye blindness, who came with altered mental status, chest pain, benign seizure like movements to the right side of the patient's face. The patient is incoherent. CT of her abdomen was reviewed by me. EEG ordered. MRI of the brain done, results are pending, seen by Dr. Banks, consulted for recommendation. The patient's rate and rhythm are okay. Blood pressure is high. EKG, nonspecific repolarization abnormality, heart rate 55. Continue the Lopressor. Pulmonary and nursing for respiratory distress at this moment. History of asthma and chronic obstructive pulmonary disease. The patient is n.p.o. Protonix or Pepcid for gastrointestinal prophylaxis. Afebrile. No leukocytosis. Positive by blood culture and urine culture for methicillin-resistant Staphylococcus aureus. History of prophylaxis with sequential compression devices. Gastrointestinal and deep vein thrombosis prophylaxes. Repeat labs. We will follow up. Gayle Jones MD [facility]
[2018-07-19 13:22] LABS: FOLATE > 20.0 ng/mL
[2018-07-19] MEDS: Sodium Chloride 0.9% 1,000 ML IV SCH (17:05)
[2018-07-19] MEDS: Insulin Detemir 100 units/ml Vial (Levemir) SC SCH (21:42)
--- NOTE | 2018-07-19 23:20 | PN ---
DATE: 07/19/2018 SUBJECTIVE: The patient was seen and examined on the bedside on 07/19/2018. Looking comfortable. I am doing progress notes for 07/19/2018. No fever. No chills. No nausea or vomiting. No diarrhea. No headache or dizziness. No chest pain. No palpitation. Is a little bit fatigued and tired. Otherwise, awake and alert, getting episodes of confusion. PHYSICAL EXAMINATION: VITAL SIGNS: Temperature 98.6, pulse 78, blood pressure 158/108, respiratory rate 18. HEENT: Head normocephalic, atraumatic. Eyes PERRLA. Extraocular muscles intact. Conjunctivae clear. Nose patent. Mucous membrane moist. NECK: Supple. No carotid bruit. No JVD or thyromegaly. CHEST: Bilaterally symmetrical. HEART: S1 and S2 positive. LUNGS: Clear to auscultation. ABDOMEN: Soft. Bowel sounds positive. No organomegaly. EXTREMITIES: No edema. No cyanosis. NEUROLOGICAL: The patient is awake and alert. Moving all 4 extremities. No focal deficits. MEDICATIONS: Aspirin, Ativan, insulin, Keppra, Levemir, Lipitor, Lopressor, Norvasc, Protonix, Risperdal, NS, Enalapril. LABORATORY DATA: White blood cells 7.4, hemoglobin 12.8, hematocrit 38.5, platelets 263. Sodium 139, potassium 3.6, BUN 14, creatinine 0.8, glucose 233. ASSESSMENT AND PLAN: Ms. Noy Bryant, 73-year-old female with uncontrolled diabetes mellitus, history of schizophrenia, hypertension, intracranial hemorrhage, gastroesophageal reflux disease, obesity, sleep apnea syndrome, arthritis, coronary artery disease, history of coronary artery stent, history of knee replacement. Neurologist is on the case. Started on antiseizure medication. Dr. Francois put her on continuous positive airway pressure 7 cm, 35% oxygen while sleeping with a nasal mask. She is claustrophobic and does not tolerate a full face mask. Gastric and deep venous thrombosis prophylaxis given. I appreciated Pulmonary and Neurology input. Gastrointestinal and deep venous thrombosis prophylaxis. Repeat labs. We will follow up. Gayle Jones MD [facility] # [id number]
--- NOTE | 2018-07-20 01:43 | PN ---
DATE: 07/19/2018 PULMONARY PROGRESS NOTE REFERRING PHYSICIAN: Gayle Jones MD SUBJECTIVE: She is lying in the bed, head at 45 degrees. Daughter and speech therapist at bedside. Much more awake and alert. Follows simple command, almost to the baseline. No hemoptysis. No hematemesis. No hematuria, diarrhea, leg pain, or leg swelling. OBJECTIVE: GENERAL: In no acute distress. VITAL SIGNS: Temp is 98, heart rate 78, respiratory rate is 20, blood pressure 158/108, pulse ox is 98% on nasal cannula. HEENT: Moist mucous membranes. Crowded airway. Mallampati score is 4. NECK: Supple. No JVD. LUNGS: Have fair airflow with rhonchi. HEART: S1 and S2. ABDOMEN: Soft and nontender. No organomegaly. EXTREMITIES: No edema. NEUROLOGIC: Awake, alert. Follows simple command. MEDICATIONS: She is on aspirin 81 mg daily, lorazepam 1 mg every 6 hours p.r.n., insulin coverage, Keppra 500 mg every 12 hours, Levemir 10 units subcu at bedtime, Lipitor 20 mg daily, metoprolol tartrate 50 mg daily, Norvasc 5 mg daily, Protonix 40 mg daily, Risperdal 0.5 mg twice a day, IV fluid normal saline 75 mL/hour, Vasotec mg every 6 hours. LABORATORY DATA: Shows hemoglobin 12.8, hematocrit 38.5, WBC is 10.4, platelet count is 343. Sodium 139, potassium 2.6, chloride 104, bicarbonate is 27, BUN 14, creatinine 0.8, glucose 233, calcium 9.2, phosphorus 3.5, magnesium 1.8, iron is 55. AST 29, ALT 24, alk phos is 139, albumin is 3.9. Cholesterol 165, vitamin B12 318, folate greater than 20. Microbiology: Blood culture, urine culture, there is no growth. IMPRESSION AND PLAN: History of hemorrhagic stroke, has new onset of seizure, hypertension, diabetes, gastroesophageal reflux disease, schizophrenia, probably of sleep apnea syndrome, morbid obesity, change in mental status probably was postictal. Much more awake and alert. Speech therapy, she has done well. We will start on diet and p.o. medication. Continue CPAP while sleeping at night. Gastric prophylaxis. Deep venous thrombosis prophylaxis. Fall precaution. We will get physical therapy involved. I spoke to patient's daughter in detail. Recommended outpatient sleep study. Thank you and we will follow with you. Livia Francois MD
[2018-07-20] MEDS: Pantoprazole 40 mg EC Tab PO SCH (06:23)
[2018-07-20 08:35] LABS: BASO # 0.02 K/mm3 (0.0-2.0); BASO % 0.3 % (0.0-3.0); EOS # 0.1 (0.0-0.7); EOS % 1.6 % (1.5-5.0); GRAN # 4.27 (1.4-6.5); GRAN % 57.8 % (50.0-68.0); HEMOGLOBIN 11.6 g/dL (12.0-16.0); LYMPH # 2.5 (1.2-3.4); LYMPH % 33.3 % (22.0-35.0); MEAN CORPUSCULAR HEMOGLOBIN 28.1 pg (25.0-35.0); MEAN PLATELET VOLUME 9.7 fl (7.0-11.0); MONO # 0.5 (0.1-0.6); RBC 4.13 10^6/uL (3.5-6.1); RED CELL DISTRIBUTION WIDTH 13.4 % (11.5-14.5); WHITE BLOOD COUNT 7.4 10^3/ul (4.5-11.0)
[2018-07-20 09:03] LABS: ALB/GLOB RATIO 0.9 (1.1-1.8); ALBUMIN 3.2 g/dL (3.0-4.8); ALT/SGPT 21 U/L (7-56); AST/SGOT 26 U/L (14-36); BLOOD UREA NITROGEN 15 mg/dL (7-21); CALCIUM 8.9 mg/dL (8.4-10.5); GFR NON-AFRICAN AMERICAN > 60
[2018-07-20] MEDS: Insulin Reg-LOW-Coverage SC SCH ×4 (10:59→21:34)
[2018-07-20] MEDS: Sodium Chloride 0.9% 1,000 ML IV SCH (11:03)
[2018-07-20] MEDS: levETIRAcetam 500mg IVPB 500 MG/100 ML BAG IV SCH ×2 (11:10→21:52)
[2018-07-20] MEDS ORDERED: Potassium Chloride 40 mEq/30 ml LIQ UD PO ONE ×2 (13:04→16:00)
--- NOTE | 2018-07-20 15:20 | CP.PCM.PN ---
Subjective - Date & Time of Evaluation Date of Evaluation: 07/20/18 Time of Evaluation: 09:30 - Subjective Subjective: resting comfortably, NAD Objective - Vital Signs/Intake and Output Vital Signs (last 24 hours): Temp Pulse Resp BP Pulse Ox 99.2 F 65 17 132/85 100 07/20/18 06:00 07/20/18 11:09 07/20/18 06:00 07/20/18 11:09 07/20/18 06:00 - Medications Medications: Current Medications Amlodipine Besylate (Norvasc) 5 mg PO DAILY [facility] Last Admin: 07/20/18 11:09 Dose: 5 mg Aspirin (Aspirin Chewable) 81 mg PO DAILY [facility] Last Admin: 07/20/18 11:09 Dose: 81 mg Atorvastatin Calcium (Lipitor) 20 mg PO DAILY [facility] Last Admin: 07/20/18 11:08 Dose: 20 mg Enalaprilat (Vasotec Iv) 1.25 mg IVP Q6H PRN PRN Reason: Systolic Blood Pressure Last Admin: 07/19/18 06:59 Dose: 1.25 mg Sodium Chloride (Sodium Chloride 0.9%) 1,000 mls @ 75 mls/hr IV .[id number] [facility] Last Admin: 07/20/18 11:03 Dose: 75 mls/hr Levetiracetam (Keppra 500mg Ivpb) 500 mg in 100 mls @ 400 mls/hr IV Q12 [facility] Last Admin: 07/20/18 11:10 Dose: 400 mls/hr Insulin Detemir (Levemir) 10 unit SC HS [facility] Last Admin: 07/19/18 21:42 Dose: 10 units Insulin Human Regular (Humulin R Low) 0 units SC ACHS [facility]; Protocol Last Admin: 07/20/18 14:17 Dose: 3 units Lorazepam (Ativan) 1 mg IVP Q6H PRN; Protocol PRN Reason: Seizure activity Last Admin: 07/19/18 01:08 Dose: 1 mg Metoprolol Tartrate (Lopressor) 50 mg PO DAILY [facility] Last Admin: 07/20/18 11:08 Dose: 50 mg Pantoprazole Sodium (Protonix Ec Tab) 40 mg PO 0600 [facility] Last Admin: 07/20/18 06:23 Dose: 40 mg Risperidone (Risperdal Tab) 0.5 mg PO BID [facility]; Protocol Last Admin: 07/20/18 11:08 Dose: 0.5 mg - Labs Labs: 07/20/18 07:00 07/20/18 07:00 PT 10.5 SECONDS (9.4-12.5) 07/17/18 20:07 INR 0.92 07/17/18 20:07 APTT 29.8 Seconds (25.1-36.5) 07/17/18 20:07 - Respiratory Exam Respiratory Exam: Clear to Ausculation Bilateral, NORMAL BREATHING PATTERN - Cardiovascular Exam Cardiovascular Exam: REGULAR RHYTHM - GI/Abdominal Exam GI & Abdominal Exam: Soft, Normal Bowel Sounds - Neurological Exam Neurological Exam: Altered, Awake Neuro motor strength exam: Left Upper Extremity: 4, Right Upper Extremity: 2/1, Left Lower Extremity: 4, Right Lower Extremity: 3 - Skin Skin Exam: Dry, Warm Assessment and Plan (1) Stroke Status: Acute (2) Diabetes mellitus Status: Chronic - Assessment and Plan (Free Text) Plan: PT/neuro follow-up, Dr. Jones to resume care of patient in am
[2018-07-20] MEDS: Insulin Detemir 100 units/ml Vial (Levemir) SC SCH (21:52)
--- NOTE | 2018-07-21 01:23 | PN ---
DATE: 07/20/2018 PULMONARY PROGRESS NOTE REFERRING PHYSICIAN: Gayle Jones MD SUBJECTIVE: She is lying in the bed, head at 45 degrees. Tolerated CPAP okay. No headache. No rhinitis. No nausea, vomiting, or diarrhea. No leg pain or leg swelling. OBJECTIVE: GENERAL: In no acute distress. VITAL SIGNS: Temp is 99, heart rate 65, respiratory rate is 16, blood pressure 132/85, pulse ox 100% on nasal cannula. HEENT: Moist mucous membranes. Crowded airway. Mallampati score is 4. NECK: Supple. No JVD. LUNGS: Have fair airflow with rhonchi. HEART: S1, S2. ABDOMEN: Soft and nontender. No organomegaly. EXTREMITIES: No edema. NEUROLOGIC: Asleep, arousable. Follows simple command. MEDICATIONS: She is on aspirin 81 mg daily, lorazepam 1 mg every 6 hours p.r.n., insulin coverage, Keppra 500 mg q.12 h., Levemir 10 units subcu at bedtime, Lipitor 20 mg daily, metoprolol tartrate 50 mg daily, Norvasc 5 mg daily, Protonix 40 mg daily, Risperdal 0.5 mg twice a day, IV fluid normal saline 75 mL/hour, Vasotec 1.25 mg every 6 hours. LABORATORY DATA: Shows hemoglobin 11.6, hematocrit 35.1, WBC is 7.4, platelet is 236. Sodium 139, potassium 3.5, chloride 107, bicarbonate 26, BUN 15, creatinine 0.9, glucose 143, calcium 8.9, phosphorus 3.5, magnesium 1.9, AST 26, ALT 21, alk phos is 110. Albumin is 3.2. TSH 0.46. Microbiology; blood culture, urine culture, and nasal cultures are unremarkable. IMPRESSION AND PLAN: Hemorrhagic stroke in the remote past, ended up with seizures, hypertension, diabetes, gastroesophageal reflux disease, schizophrenia, may have sleep apnea syndrome, morbid obesity. The mental status is probably related to postictal status. Spoke to nursing staff. Keep head elevated at 45 degrees. Encourage CPAP use. Aspiration precaution. Gastric prophylaxis. DVT prophylaxis. Neurology followup. Out of bed to chair if possible. Physical therapy. We recommend attended sleep study upon discharge as outpatient. Thank you, and we will follow with you. Livia Franocis MD [facility] # [id number]
[2018-07-21] MEDS: Pantoprazole 40 mg EC Tab PO SCH (06:04)
[2018-07-21] MEDS: Insulin Reg-LOW-Coverage SC SCH ×4 (08:06→21:51)
[2018-07-21] MEDS: levETIRAcetam 500mg IVPB 500 MG/100 ML BAG IV SCH ×2 (09:02→21:51)
[2018-07-21] MEDS: Sodium Chloride 0.9% 1,000 ML IV SCH ×2 (09:04→21:52)
--- NOTE | 2018-07-21 12:30 | RAD ---
Date of service: 07/21/2018 HISTORY: h/o ab. chest xrays COMPARISON: 07/17/2018 TECHNIQUE: Chest PA and lateral FINDINGS: LUNGS: No active pulmonary disease. PLEURA: No significant pleural effusion identified. No pneumothorax apparent. CARDIOVASCULAR: Moderate cardiomegaly OSSEOUS STRUCTURES: No significant abnormalities. VISUALIZED UPPER ABDOMEN: Normal. OTHER FINDINGS: None. IMPRESSION: No active disease.
--- NOTE | 2018-07-21 12:36 | MRI ---
Date of service: 07/21/2018 PROCEDURE: MRI BRAIN WITHOUT CONTRAST HISTORY: left occipital and paietal edema,AMS, focal seizur COMPARISON: 06/26/2017 MRI TECHNIQUE: Multiplanar, multisequence MR images of the brain were obtained without intravenous contrast enhancement. The patient could not cooperate with any further scanning. Contrast was not administered. FINDINGS: HEMORRHAGE: There is a chronic hemorrhage with hemosiderin deposition in the left parietal and occipital lobes. The previous study showed the hematoma in an acute phase. There is associated atrophy and encephalomalacia. There are no acute findings DWI: No evidence of an acute or early subacute infarction. BRAIN PARENCHYMA: No mass effect or edema. No atrophy or chronic microvascular ischemic changes. VENTRICLES: Unremarkable. No hydrocephalus. CRANIUM: Unremarkable. ORBITS: Grossly unremarkable. PARANASAL SINUSES/MASTOIDS: Clear VASCULAR SYSTEM: Skull base flow voids intact. OTHER FINDINGS: None. IMPRESSION: There is a chronic hemorrhage with hemosiderin deposition in the left parietal and occipital lobes. The previous study showed the hematoma in an acute phase. There is associated atrophy and encephalomalacia. There are no acute findings
--- NOTE | 2018-07-21 12:55 | CP.PCM.PN ---
<Winter Lo - Last Filed: 07/21/18 12:51> Subjective - Date & Time of Evaluation Date of Evaluation: 07/21/18 Time of Evaluation: 10:00 - Subjective Subjective: Winter Lo, PGY2, Neurology Progress Note for Dr. Banks: Patient seen and examined at bedside. No acute events overnight. Patients mental status is improving; she is talking in Bolivian and responds appropriately to commands. She is moving all extremities, denies focal weakness or sensory deficits. She is scheduled for brain MRI today. Denies headache, dizziness, paresthesia, fever, chills. Objective - Vital Signs/Intake and Output Vital Signs (last 24 hours): Temp Pulse Resp BP Pulse Ox 98.1 F 63 20 124/79 97 07/21/18 08:50 07/21/18 10:00 07/21/18 08:50 07/21/18 09:03 07/21/18 08:50 - Medications Medications: Current Medications Amlodipine Besylate (Norvasc) 5 mg PO DAILY [facility] Last Admin: 07/21/18 09:03 Dose: 5 mg Aspirin (Aspirin Chewable) 81 mg PO DAILY [facility] Last Admin: 07/21/18 09:02 Dose: 81 mg Atorvastatin Calcium (Lipitor) 20 mg PO DAILY [facility] Last Admin: 07/21/18 09:03 Dose: 20 mg Enalaprilat (Vasotec Iv) 1.25 mg IVP Q6H PRN PRN Reason: Systolic Blood Pressure Last Admin: 07/19/18 06:59 Dose: 1.25 mg Sodium Chloride (Sodium Chloride 0.9%) 1,000 mls @ 75 mls/hr IV .[id number] [facility] Last Admin: 07/21/18 09:04 Dose: 75 mls/hr Levetiracetam (Keppra 500mg Ivpb) 500 mg in 100 mls @ 400 mls/hr IV Q12 [facility] Last Admin: 07/21/18 09:02 Dose: 400 mls/hr Insulin Detemir (Levemir) 10 unit SC HS [facility] Last Admin: 07/20/18 21:52 Dose: 10 units Insulin Human Regular (Humulin R Low) 0 units SC ACHS [facility]; Protocol Last Admin: 07/21/18 12:42 Dose: 2 units Lorazepam (Ativan) 1 mg IVP Q6H PRN; Protocol PRN Reason: Seizure activity Last Admin: 07/19/18 01:08 Dose: 1 mg Metoprolol Tartrate (Lopressor) 50 mg PO DAILY [facility] Last Admin: 07/20/18 11:08 Dose: 50 mg Pantoprazole Sodium (Protonix Ec Tab) 40 mg PO 0600 [facility]UY Last Admin: 07/21/18 06:04 Dose: 40 mg Risperidone (Risperdal Tab) 0.5 mg PO BID [facility]; Protocol Last Admin: 07/21/18 09:04 Dose: 0.5 mg - Labs Labs: 07/20/18 07:00 07/20/18 07:00 PT 10.5 SECONDS (9.4-12.5) 07/17/18 20:07 INR 0.92 07/17/18 20:07 APTT 29.8 Seconds (25.1-36.5) 07/17/18 20:07 - Additional Findings Additional findings: - Constitutional Appears: Non-toxic - Head Exam Head Exam: ATRAUMATIC, NORMOCEPHALIC - Eye Exam Eye Exam: EOMI, PERRL. absent: Nystagmus, Scleral icterus Pupil Exam: NORMAL ACCOMODATION, PERRL. absent: Irregular, Miosis, Unequal - ENT Exam ENT Exam: Mucous Membranes Moist - Respiratory Exam Respiratory Exam: Clear to Auscultation Bilateral, NORMAL BREATHING PATTERN. absent: Rhonchi, Wheezes - Cardiovascular Exam Cardiovascular Exam: RRR, +S1, +S2. absent: Systolic Murmur - GI/Abdominal Exam GI & Abdominal Exam: Normal Bowel Sounds, Soft. absent: Firm, Guarding, Rebound, Tenderness - Extremities Exam Extremities exam: Positive for: normal inspection. Negative for: calf tenderness, pedal edema - Back Exam Back exam: NORMAL INSPECTION - Neurological Exam Additional comments: AAOx4, Conversing appropriately. CN II-XII intact. 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 Patient also found to have a focal seizure in ED. Patient's mental status is improving: - Head CT 07/17 shows large area of edema in left occipital and posterior parietal lobes, suspicious for acute infarct vs. encephalomalacia of previous hemorrhagic stroke - Brain MRI with and without contrast pending results - Head/neck CTA 07/17 shows minimal focal intimal dissection of the proximal aspect of the left internal carotid artery without associated hemodynamic effect or luminal narrowing; scattered atheromatous plaques without high-grade stenosis - EEG showed slowing, no epilleptiform activity - c/w Keppra 500mg IV Q12 (loading dose given in ED) - Ativan 1mg IVP Q6 PRN for seizure activity - Keep BP <200/100 - Neuro checks - Monitor Discussed case with Dr. Banks. <Josue Banks - Last Filed: 07/27/18 22:03> Objective - Vital Signs/Intake and Output Vital Signs (last 24 hours): Temp Pulse Resp BP Pulse Ox 97.5 F L 60 20 147/84 97 07/25/18 06:00 07/25/18 18:00 07/25/18 06:00 07/25/18 09:20 07/25/18 06:00 - Labs Labs: 07/20/18 07:00 07/20/18 07:00 PT 10.5 SECONDS (9.4-12.5) 07/17/18 20:07 INR 0.92 07/17/18 20:07 APTT 29.8 Seconds (25.1-36.5) 07/17/18 20:07 Attending/Attestation - Attestation I have personally seen and examined this patient.: Yes I have fully participated in the care of the patient.: Yes I have reviewed all pertinent clinical information, including history, physical exam and plan: Yes Notes (Text): 07/27/18 22:01 I agree with the assessment and plan. Differential includes seizure, and possible new stroke. Will follow results of work-up. Thank you.
[2018-07-21] MEDS: Insulin Detemir 100 units/ml Vial (Levemir) SC SCH (21:51)
--- NOTE | 2018-07-21 23:48 | PN ---
DATE: 07/21/2018 PULMONARY PROGRESS NOTE REFERRING PHYSICIAN: Gayle Jones MD SUBJECTIVE: The patient is lying in the bed, head at 45 degrees, sleepy, arousable, much more awake and alert, no seizure activity reported. No nausea, no vomiting, no diarrhea. No leg pain or leg swelling. OBJECTIVE: GENERAL: In no acute distress. VITAL SIGNS: Temperature is 98, heart rate 76, respiratory rate is 20, blood pressure 150/90, pulse ox 96% on room air. HEENT: Moist mucous membrane. Crowded airway. NECK: Supple. No JVD. LUNGS: Have a fair airflow with rhonchi. HEART: S1, S2. ABDOMEN: Soft, nontender, no organomegaly. EXTREMITIES: No edema. NEUROLOGIC: Awake, alert, follows simple command. MEDICATIONS: She is on aspirin 81 mg daily, lorazepam 1 mg every 6 hours p.r.n., insulin coverage, Keppra 500 mg every 12 hours, Levemir 10 units subcu at bedtime, Lipitor 20 mg daily, metoprolol tartrate 50 mg daily, Norvasc 5 mg daily, Protonix 40 mg daily, Risperdal 0.5 mg twice a day, IV fluid normal saline 75 mL/hour, Vasotec 1.25 mg IV every 6 hours p.r.n. LABORATORY DATA: Reviewed and noted. Blood sugar is 225. Microbiology, blood culture, urine culture, there is no growth. Had MRI of the brain done which was unremarkable other than previous findings from hemorrhagic stroke. Chest x-ray shows no infiltrate or effusion. IMPRESSION: History of hemorrhagic stroke, seizure disorder, hypertension, diabetes, gastroesophageal reflux disease, schizophrenia, suspected sleep apnea syndrome, morbid obesity, change in mental status was probably secondary to seizure and was postictal, presently much more awake and alert. Continue seizure medications. Neurology followup. Sleep apnea precaution, avoid sedation. Encourage CPAP use. Gastric and deep venous thrombosis prophylaxis. Fall precaution. Will benefit from physical therapy for seizure activity. She was ambulatory with help of walker. Thank you and we will follow with you. Livia Francois MD
--- NOTE | 2018-07-22 05:33 | PN ---
DATE: 07/21/2018 SUBJECTIVE: Patient is a 73-year-old female. Patient was seen and examined on the bedside, looking comfortable. Awake and alert, but confused. No fever. No chills. No hematuria or hematochezia. No swelling of the legs. No headache. No dizziness. Patient is actually not able to give review of systems. PHYSICAL EXAMINATION: VITAL SIGNS: Temperature 98.1, pulse 62, respiratory rate 20, blood pressure 125/79, pulse oximetry 97%. HEENT: Head: Normocephalic atraumatic. Eyes: PERRLA. Extraocular muscles intact. Conjunctivae clear. Nose patent. Mucous membrane moist. NECK: Supple. No carotid bruit, JVD, or thyromegaly. CHEST: Bilaterally symmetrical. HEART: S1 and S2 positive. LUNGS: Clear to auscultation. ABDOMEN: Soft. Bowel sounds present. No organomegaly. EXTREMITIES: No edema. No cyanosis. NEUROLOGIC: Patient is awake, alert, but confused. Moving all 4 extremities. No focal deficit. MEDICATIONS: Amlodipine, aspirin, atorvastatin, enalapril, NS, Keppra, Levemir, Ativan, Lopressor, Protonix, Risperdal. LABORATORY DATA: White blood cells 7.4, hemoglobin 11.6, hematocrit 35.1, platelets 236. Sodium 139, potassium 3.5, BUN 15, creatinine 0.9, glucose 143. ASSESSMENT AND PLAN: Ms. Noy Bryant is a 73-year-old female with anemia, hypokalemia, hyperglycemia, hypertension, diabetes mellitus, has gastroesophageal reflux disease, dyspepsia, schizophrenia, cataracts, osteoarthritis, history of hemorrhagic stroke with residual right-sided weakness, right eye blindness, came with altered mental status,has generalized weakness for past 5 days. Patient also found to have focused seizures in Emergency Department. Patient's mental status is improving. CAT scan of the head is done, reviewed by me. Plan to do MRI without contrast. Head and neck CAT scan reviewed. EEG showed slowing, non-epileptiform activity. Continue Keppra, Ativan. Gastrointestinal and deep venous thrombosis prophylaxes. Repeat labs. We will follow up. Gayle Jones MD
[2018-07-22] MEDS: Pantoprazole 40 mg EC Tab PO SCH (06:22)
[2018-07-22] MEDS: Insulin Reg-LOW-Coverage SC SCH ×4 (10:00→21:53)
[2018-07-22] MEDS: levETIRAcetam 500mg IVPB 500 MG/100 ML BAG IV SCH ×2 (10:01→21:08)
[2018-07-22] MEDS: Insulin Detemir 100 units/ml Vial (Levemir) SC SCH (21:54)
--- NOTE | 2018-07-23 01:38 | PN ---
DATE: 07/22/2018 PULMONARY PROGRESS NOTE SUBJECTIVE: She is lying in the bed, having dinner. Night was unremarkable. Uses CPAP okay. No new seizure reported. No headache, no rhinitis. No nausea, vomiting, diarrhea, leg pain, leg swelling. OBJECTIVE: GENERAL: In no acute distress. VITAL SIGNS: Temperature is 98, heart rate 60, respiratory rate is 18, blood pressure 147/95, pulse ox 97% on room air. HEENT: Moist mucous membrane. Crowded airway. NECK: Supple. No JVD. LUNGS: Have a fair airflow with rhonchi. HEART: S1 and S2. ABDOMEN: Soft, nontender. No organomegaly. EXTREMITIES: No edema. NEUROLOGICAL: Awake and alert. Follows simple command. MEDICATIONS: She is on aspirin 81 mg daily, lorazepam 0-5 mg every 12 hours p.r.n., insulin coverage, Keppra 500 mg twice a day, Levemir 10 units subcu at bedtime, Lipitor 20 mg daily, metoprolol tartrate 50 mg daily, Norvasc 5 mg daily, Protonix 40 mg daily, Risperdal 0.5 mg twice a day, IV fluid normal saline 75 mL/hour, Vasotec is 1.25 mg every 6 hours p.r.n. LABORATORY DATA: Showed blood sugar this morning is 200. Toxicology was unremarkable. Microbiology: Blood culture, urine culture, nasal culture are unremarkable. IMPRESSION AND PLAN: History of hemorrhagic stroke, seizure disorder, hypertension, diabetes, gastroesophageal reflux disease, schizophrenia, suspected sleep apnea syndrome, morbid obesity, activities of daily living dysfunction. Pulmonary point of view, doing well. Keep head at 45 degrees. Continue antiseizure medication. Aspiration precaution. May discontinue IV fluid. Out of bed to chair. Start physical therapy. Fall precaution. May benefit from TRCU type of services. Thank you and we will follow with you. Livia Francois MD
[2018-07-23 02:02] VITALS: RESP 20
--- NOTE | 2018-07-23 03:28 | PN ---
DATE: 07/22/2018 SUBJECTIVE: The patient is a 73-year-old female. Patient was seen and examined at the bedside. Looks better. More awake and alert. Daughter and her nurse , Kori, were on the bedside. She did translation for me. Patient did physical therapy today. No fever. No chills. No nausea, vomiting or diarrhea. No headache. No dizziness. No chest pain. No palpitations. PHYSICAL EXAMINATION: VITAL SIGNS: Temperature 97.4, pulse 60, blood pressure 147/95, respiratory rate 19. HEENT: Head: Normocephalic, atraumatic. Eyes: PERRLA. Extraocular muscles intact. Conjunctivae clear. Nose patent. NECK: Supple. No carotid bruit, JVD, or thyromegaly. CHEST: Bilaterally symmetrical. HEART: S1 and S2 positive. LUNGS: Clear to auscultation. ABDOMEN: Soft. Bowel sounds positive. No organomegaly. EXTREMITIES: No edema. No cyanosis. NEUROLOGIC: Patient is awake, alert. Follows simple commands. MEDICATIONS: Aspirin, Ativan, Keppra, Levemir, Lipitor, Lopressor, amlodipine, Protonix, Risperdal, enalapril. LABORATORY DATA: White blood cell 7.4, hemoglobin 11.6, hematocrit 35.1, platelets 236. Glucose 200, 150, 129. ASSESSMENT AND PLAN: Ms. Noy Bryant is a 73-year-old female has anemia, insulin-dependent diabetes mellitus, not very well controlled, hemoglobin A1c is 10.1, hematuria, proteinuria, history of hemorrhagic stroke, seizure disorder new onset, hypertension, gastroesophageal reflux disease, schizophrenia, sleep apnea syndrome, morbid obesity, came with change in mental status probably secondary to seizure and was postictal, presently much more awake and alert. We will continue seizure medication. Neurology and Pulmonary is on the case. Sleep apnea precaution. Avoid sedation. Encourage continuous positive airway pressure use at night. Gastrointestinal and deep venous thrombosis prophylaxes. Fall precautions. Seizure precautions. Today patient did physical therapy. We will see how she will move , we have sent patient to subacute rehab. Repeat labs. We will follow up. Gayle Jones MD [facility] # [id number] MTDDaphney
[2018-07-23] MEDS: Pantoprazole 40 mg EC Tab PO SCH (05:22)
[2018-07-23] MEDS: Insulin Reg-LOW-Coverage SC SCH ×4 (08:02→21:40)
[2018-07-23] MEDS: levETIRAcetam 500mg IVPB 500 MG/100 ML BAG IV SCH ×2 (10:07→21:41)
--- NOTE | 2018-07-23 17:05 | PN ---
DATE: 07/23/2018 PULMONARY PROGRESS NOTE REFERRING PHYSICIAN: Gayle Jones MD SUBJECTIVE: She is lying in the bed, feels okay. No new seizure reported. Fully awake, alert. No cough. No sputum production. No nausea, vomiting, diarrhea, leg pain, leg swelling. OBJECTIVE: GENERAL: In no acute distress. VITAL SIGNS: Temperature is 98, heart rate is 56, respiratory rate is 20, blood pressure 142/86, pulse ox 100% on nasal cannula. HEENT: Moist mucous membrane. Crowded airway. NECK: Supple. No JVD. LUNGS: Have a fair airflow with rhonchi. HEART: S1 and S2. ABDOMEN: Soft and nontender. No organomegaly. EXTREMITIES: No edema. NEUROLOGICAL: Awake and alert. Follows simple command. MEDICATIONS: She is on aspirin 81 mg daily, lorazepam 0.25 mg IV every 12 hours p.r.n., insulin coverage, Keppra 500 mg every 12 hours, Levemir 10 units subcu at bedtime, Lipitor 20 mg daily, metoprolol tartrate 50 mg daily, Norvasc 5 mg daily, Protonix 40 mg daily, Risperdal 0.5 mg twice a day, Vasotec IV 1.25 mg every 6 hours p.r.n. LABORATORY DATA: Shows blood sugar this morning 116. IMPRESSION AND PLAN: History of hemorrhagic stroke with encephalopathy, ended up with seizures; hypertension; diabetes; gastroesophageal reflux disease; schizophrenia; suspected sleep apnea syndrome; morbid obesity; activities of daily living dysfunction. Pulmonary point of view, she is doing okay. Keep head at 45 degrees. Sleep apnea precaution. No more aspiration. Gastric prophylaxis. Deep venous thrombosis prophylaxis. We will recommend physical therapy. May benefit from TRCU type of services. Thank you and we will follow with you. Livia Francois MD
[2018-07-23] MEDS: Insulin Detemir 100 units/ml Vial (Levemir) SC SCH (21:42)
--- NOTE | 2018-07-24 02:37 | PN ---
DATE: 07/23/2018 SUBJECTIVE: Patient is a 73-year-old female. Patient is looking comfortable. No fever. No chills. No nausea, vomiting, or diarrhea. Fully awake and alert. No headache, no dizziness. No chest pain. No palpitation. PHYSICAL EXAMINATION: VITAL SIGNS: Temperature 98, heart rate 56, respiratory rate 20, blood pressure 140/80, pulse oximetry 100% on nasal cannula. HEENT: Head: Normocephalic, atraumatic. Eyes: PERRLA. Extraocular muscles intact. Conjunctivae clear. Nose patent. NECK: Supple. No carotid bruit, JVD, or thyromegaly. CHEST: Bilaterally symmetrical. HEART: S1 and S2 positive. LUNGS: Clear to auscultation. ABDOMEN: Soft. Bowel sounds present. No organomegaly. EXTREMITIES: No edema. No cyanosis. NEUROLOGIC: Awake, alert. Follows simple command. MEDICATIONS: Aspirin, lorazepam, insulin coverage, Keppra, Levemir, Lipitor, metoprolol, Norvasc, Protonix, Risperdal, Vasotec. LABORATORY DATA: We do not have recent lab today, but I reviewed old labs. Sugar 116. ASSESSMENT AND PLAN: Ms. Noy Bryant is a 73-year-old female with a history of hemorrhagic stroke with encephalopathy, came at this time with new onset of seizures, hypertension, diabetes mellitus, gastroesophageal reflux disease, schizophrenia, sleep apnea syndrome, morbid obesity, uncontrolled diabetes mellitus, history of uncontrolled hypertension. Sleep apnea precaution, be careful with aspiration. Gastric and deep venous thrombosis prophylaxes. Need rehab. Gastrointestinal and deep venous thrombosis prophylaxes. Repeat labs. We will follow up. Gayle Jones MD
[2018-07-24] MEDS: Pantoprazole 40 mg EC Tab PO SCH (05:43)
[2018-07-24] MEDS: Insulin Reg-LOW-Coverage SC SCH ×4 (08:12→21:17)
[2018-07-24] MEDS: levETIRAcetam 500mg IVPB 500 MG/100 ML BAG IV SCH ×2 (11:48→21:18)
[2018-07-24] MEDS: Insulin Detemir 100 units/ml Vial (Levemir) SC SCH (21:19)
--- NOTE | 2018-07-25 00:17 | PN ---
DATE: 07/24/2018 PULMONARY PROGRESS NOTE REFERRING PHYSICIAN: Gayle Jones MD. SUBJECTIVE: The patient is sitting in the chair, daughter is at bedside. Night was unremarkable. No new seizure. No headache. No rhinitis. No nausea. No vomiting, diarrhea. Has a Sierra catheter. No leg pain or leg swelling. Tolerated CPAP well. OBJECTIVE: GENERAL: In no acute distress. VITAL SIGNS: Temperature is 98, heart rate is 81, respiratory rate is 20, blood pressure 126/91, pulse ox 96% on room air. HEENT: Moist mucous membranes. No ulcer or thrush noted. NECK: Supple. No JVD. LUNGS: Have fair airflow with rhonchi. HEART; S1 and S2. ABDOMEN: Soft, nontender. No organomegaly. EXTREMITIES: There is no edema. NEUROLOGICAL: Awake and alert. Follows simple command. MEDICATIONS: She is on aspirin 81 mg daily, lorazepam 0.25 mg IV every 12 hours p.r.n., insulin coverage, Keppra 500 mg every 12 hours, Levemir 10 units subcu at bedtime, Lipitor 20 mg daily, metoprolol tartrate 50 mg daily, Norvasc 5 mg daily, Protonix 40 mg daily, Risperdal 0.5 mg twice a day, also getting Vasotec p.r.n. basis IV. LABORATORY DATA: Reviewed. Blood sugar this morning 222. IMPRESSION AND PLAN: History of hemorrhagic stroke with encephalopathy, no headache, new seizures, hypertension, diabetes, gastroesophageal reflux disease, history of schizophrenia, suspected sleep apnea syndrome, morbid obesity, activities of daily living dysfunction. Spoke to nursing staff. Requested to discontinue Sierra catheter. Follow bladder scan. Also spoke to the daughter at bedside. All the questions answered. Continue to encourage CPAP. Gastric prophylaxis, deep venous thrombosis prophylaxis, seizure medications. Will benefit from rehab and TRCU-type services. Thank you and we will follow with you. Livia Francois MD
--- NOTE | 2018-07-25 04:22 | CON ---
DATE: 07/24/2018 SUBJECTIVE: The patient is 73-year-old female, history of diabetes, GERD, hypertension, history of schizophrenia. The patient had history of intracranial hemorrhages about a year ago. The patient had right eye blindness. Psych consult was called because the patient is on psychotropic medication. The patient has mental illness. The patient was seen and examined. The patient presented to be alert. The patient is Ethiopian speaking, utilized PCP for translation. The patient presented to be in good mood. The patient reported that she feels safe in the hospital. The patient reported that her mood is okay. The patient reported that she is taking Risperdal on regular basis, and her primary psychiatrist is Dr. Becerra. The patient reported that she fills her medication in here, [facility]. Her doctor called in to the pharmacy. The patient never filled medication here in the pharmacy. Going back to the patient's presentation, the patient is odd, but not acutely psychotic. Vital signs are stable. Temperature 97.7, pulse is 65, blood pressure 149/95, respirations 20, and saturation is 99. Medications reviewed. The patient is on Norvasc, aspirin, Lipitor, Vasotec , Levemir, Humalog, Keppra, Ativan, Lopressor, Protonix, Risperdal 0.5 mg twice a day schedule. Labs reviewed, past history also reviewed. The patient was admitted to the psychiatric inpatient unit here in [place] under Dr. Becerra's service in February 2014. The patient was on Risperdal, but higher doses back then. MENTAL STATUS EXAMINATION: The patient presented to be alert and oriented, pleasant, cooperative. The patient reported that she feels comfortable. The patient feels safe in the hospital. The patient denied being depressed. Denied any thoughts of harming herself or others. Denied hearing voices, denied seeing things. Insight and judgment seemed to be fair. Impulses are well controlled. IMPRESSION: As per history, schizophrenia. Rule out mood disorder due to general medical condition. The patient has multiple medical issues. Please see above. PLAN: Continue current medication. Continue current management. The patient's medication list will be confirmed by pharmacy. We will clarify what pharmacy the patient is filling medication. The patient reported that she fills medications here in [facility], but it is incorrect information. We will call Dr. Becerra for collateral information. Should you have any questions give me a call back. Thank you very much for letting me participate in the care of your patient. Sarah Rubio MD DAREK
[2018-07-25] MEDS: Pantoprazole 40 mg EC Tab PO SCH (06:45)
[2018-07-25] MEDS: Insulin Reg-LOW-Coverage SC SCH ×3 (09:12→16:47)
[2018-07-25 09:18] VITALS: BP 147/84; TEMP 97.5; O2SAT 97
[2018-07-25] MEDS: levETIRAcetam 500mg IVPB 500 MG/100 ML BAG IV SCH (09:21)
--- NOTE | 2018-07-25 10:37 | PN ---
DATE: 07/24/2018 SUBJECTIVE: Patient is a 74-year-old female. Patient was seen and examined at the bedside on 07/24/2018, looking comfortable. No nausea, vomiting, or diarrhea. No hematuria, hematochezia. No swelling of legs. No chest pain or palpitation. No headache or dizziness. PHYSICAL EXAMINATION: VITAL SIGNS: Temperature 98, pulse 87, blood pressure 126/91, respiratory rate 20. HEENT: Head: Normocephalic, atraumatic. Eyes: PERRLA. Extraocular muscles intact. Conjunctivae clear. Nose patent. Mucous membrane moist. NECK: Supple. No carotid bruit, JVD or thyromegaly. CHEST: Bilaterally symmetrical. HEART: S1 and S2 positive. LUNGS: Clear to auscultation. ABDOMEN: Soft. Bowel sounds present. No organomegaly. EXTREMITIES: No edema. No cyanosis. NEUROLOGIC: Patient is awake, alert. Moving all four extremities. No focal deficit. MEDICATIONS: Aspirin, Ativan, insulin, Keppra, Levemir, Lipitor, Lopressor, Norvasc, Protonix, Risperdal, Vasotec. LABORATORY DATA: White blood cells 7.4, hemoglobin 11.6, hematocrit 35.1, platelets 236. Glucose 222, 211, 231, 119, 154. ASSESSMENT AND PLAN: Ms. Ching Chappell, 74-year-old lady with insulin-dependent uncontrolled diabetes mellitus type 2, anemia, proteinuria, hematuria, history of stroke, history of schizophrenia, history of hemorrhagic stroke with encephalopathy, ended up with the new onset of seizure, hypertension, gastroesophageal reflux disease, sleep apnea syndrome, morbid obesity, not able to do her activities of daily living, getting physical therapy. Plan is to send patient to subacute rehab. [facility] worker and case management . Patient is getting physical therapy. Repeat labs. We will follow up. Gayle Jones MD MTDD
--- NOTE | 2018-07-25 11:16 | PN ---
DATE: 07/25/2018 SUBJECTIVE: Shortly, the patient is a 73-year-old female with reported history of mental illness. The patient was admitted on the medical side for chest pain and generalized weakness. Psych was involved because of the past psychiatric history. The patient was seen initially yesterday, followed up today. The patient presented to be sleepy. As per report, the patient does not have any agitation or aggression. The patient is pleasant, cooperative, compliant with the medications. The patient had a good night sleep. The patient was not able to participate in interview because the patient wanted to sleep. We will respect that. In regards of the vital signs, vital signs are stable. Temperature 97.5, pulse 69, blood pressure 147/84, respiration 20, oxygen saturation is 97. Medications reviewed. The patient is on Norvasc, aspirin, Lipitor, Vasotec, Levemir, Humulin, Keppra, Ativan, Lopressor, Protonix, Risperdal 0.5 mg twice a day which was started by medical team. Labs reviewed. Most recent was from 07/20. MENTAL STATUS EXAMINATION: The patient was sleepy. Based on this mortgage underwriter evaluation from yesterday, the patient expressed no concerns about her depression. The patient presented to be calm, cooperative. No signs of depression, agitation, no signs of psychosis. Insight and judgment seems to be fair. Impulses are well controlled. IMPRESSION: As per history, schizophrenia, seems to be residual, chronic but the patient was presenting well. PLAN: Continue current management. Continue current medications. The patient pose no imminent danger to self or others. Family is involved. The patient's daughter is willing to accept the patient back home. The patient needs to be followed up with her outpatient psychiatrist as per the patient, she was seen Dr. Becerra in the community. Thank you very much for letting me participate in care of your patient. The patient pose no imminent danger to self or others. This mortgage underwriter will sign off. Should you have any questions, give me a call back. Sarah Rubio MD [facility] # [phone]
--- NOTE | 2018-07-25 15:02 | PCM.EEG ---
Electroencephalogram Report - Electroencephalogram Report Procedure Date: 07/18/18 Condition of Recording: Awake, Drowsy Medication: ASA, Atorvastatin, Insulin, Lipitor. Interpretation: [employer] This was a 16-channel EEG, 1-channel EKG , performed using an [employer] machine., electrodes were applied according to the 10/20 international placement system, impedances were less than 5 K Ohm. INDICATION; seizures. EEG findings During active states, the EEG was characterized by 10-20 Hz, 15-30 uV activity bilaterally in fronto-central regions, with slightly slower frequencies and higher amplitudes emerging on the right. Resting wakefulness was characterized by a symmetric posterior dominant rhythm of 8-9 Hz, 30-50 uV, which was reactive to eye opening and closing. Drowsiness was associated with slow roving eye movements, slowing and fragmentation of the posterior dominant rhythm, and bilateral 4-7 Hz, 40-70 uV theta activity, sometimes with a shifting predominance. Hyperventilation not preformed. Photic stimulation was performed and there were no changes in the record. Throughout the recording, there was evidence of continuous left frontal/ temporal 3-6 Hz, 30-75 uV slowing. I Impression: This is an abnormal EEG study that demonstrate the presence of a focal cortical abnormality involving the left frontal/temporal area, in keeping with a structural abnormality in the same area. No seizures were recorded.
[2018-07-25 19:09] VITALS: PULSE 60
--- NOTE | 2018-07-25 22:07 | PN ---
DATE: 07/25/2018 PULMONARY PROGRESS NOTE REFERRING PHYSICIAN: Dr. Jones SUBJECTIVE: She is lying in the bed head at 45 degrees. Night was unremarkable, tolerated CPAP well. No cough, no sputum production. No nausea, vomiting, diarrhea, leg pain or leg swelling. OBJECTIVE: GENERAL: In no acute distress. VITAL SIGNS: Temp is 98, heart rate is 60, respiratory rate is 20, blood pressure 147/84, pulse ox 97% on room air. HEENT: Moist mucous membranes. No ulcer or thrush noted. NECK: Supple. No JVD. LUNGS: Have a fair airflow with few rhonchi. HEART: S1 and S2. ABDOMEN: Soft, nontender, no organomegaly. EXTREMITIES: No edema. NEUROLOGIC: Awake and alert, follows simple command. MEDICATIONS: Reviewed. Noted no new change in medication reported since yesterday. LABORATORY DATA: Reviewed. Noted blood sugar is 168. Microbiology; blood culture, urine culture, there is no growth. IMPRESSION AND PLAN: Admitted with recurrent seizures, history of hemorrhagic stroke in the remote past, hypertension, diabetes, gastroesophageal reflux disease, schizophrenia, suspected sleep apnea syndrome, morbid obesity. Spoke to the patient's daughter yesterday. Discussed for sleep apnea and its relation to daytime sleepiness and memory loss. Recommended attended sleep study upon discharge as outpatient. Gastric prophylaxis, DVT prophylaxis. Fall precaution. Continue seizure meds. Thank you and we will follow with you. Livia Francois MD
== END 2018-07-25 19:08 | DRG 57 ==
LOC: ED 17:05 → ERH 22:37 → ICU 07-18 02:43 → 3RSO 07-18 22:52
PROVIDERS: ADMIT Internal Medicine; ATTEND Internal Medicine
DX: I69.198 Other sequelae of nontraumatic intracerebral hemorrhage (principal); G40.89 Other seizures; G93.89 Other specified disorders of brain; I77.819 Aortic ectasia, unspecified site; I51.7 Cardiomegaly; D64.9 Anemia, unspecified; E11.65 Type 2 diabetes mellitus with hyperglycemia; E66.01 Morbid (severe) obesity due to excess calories; F03.90 Unspecified dementia, unspecified severity, without behavioral disturbance, psychotic disturbance, mood disturbance, and anxiety; F20.9 Schizophrenia, unspecified; F31.9 Bipolar disorder, unspecified; F40.240 Claustrophobia; G47.30 Sleep apnea, unspecified; H54.61 Unqualified visual loss, right eye, normal vision left eye; I11.9 Hypertensive heart disease without heart failure; I25.10 Atherosclerotic heart disease of native coronary artery without angina pectoris; J44.9 Chronic obstructive pulmonary disease, unspecified; K21.9 Gastro-esophageal reflux disease without esophagitis; R29.704 NIHSS score 4; Z79.4 Long term (current) use of insulin; Z90.710 Acquired absence of both cervix and uterus; Z95.5 Presence of coronary angioplasty implant and graft; Z96.653 Presence of artificial knee joint, bilateral; E11.36 Type 2 diabetes mellitus with diabetic cataract; Z91.013 Allergy to seafood

== ENCOUNTER 2018-10-15 15:04 | Emergency (ER) | payer MEDICARE, OTHER ==
[2018-10-15 15:04] VITALS: BMI 32.5
--- NOTE | 2018-10-15 15:59 | ED PDOC ---
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 As per daughter patient has been expressing pain to the area, prompting her to present to the ED for medical evaluation. Daughter denies any other associated somatic complaints. Daughter denies any fevers, chills, headache, dizziness, chest pain, shortness of breath, dyspnea on exertion, cough, abdominal pain, nausea, vomiting, diarrhea, back pain, neck pain, or any other complaints. PMD: Dr. Jones Time/Duration: 1 week Symptom Onset: Gradual Symptom Course: Unchanged Activities at Onset: Light Context: Home Past Medical History - Provider Review Nursing Documentation Reviewed: Yes - Infectious Disease Hx of Infectious Diseases: None - Tetanus Immunization Tetanus Immunization: Unknown - Cardiac Hx Hypertension: Yes - Pulmonary Hx Respiratory Disorders: Yes Hx Tuberculosis: No Other/Comment: 06/04/2014. 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 - Neurological HX Cerebrovascular Accident: Yes - HEENT Hx HEENT Disorder: Yes Hx Cataracts: Yes - Renal Hx Renal Disorder: No - Endocrine/Metabolic Hx Diabetes Mellitus Type 2: Yes - Hematological/Oncological Hx Blood Disorders: Yes Hx Anemia: Yes - Integumentary Hx Dermatological Disorder: No - Musculoskeletal/Rheumatological Hx Arthritis: Yes - Gastrointestinal Hx Gastroesophageal Reflux: Yes - Genitourinary/Gynecological Hx Genitourinary Disorders: No - Psychiatric Hx Psychophysiologic Disorder: Yes Hx Anxiety: Yes Hx Bipolar Disorder: Yes Hx Substance Use: No - Surgical History Hx Cardiac Catheterization: Yes Hx Coronary Stent: Yes (ptca with stent) Hx Hysterectomy: Yes Hx Joint Replacement: Yes (r and left knee) Other/Comment: Cardiac Catheterization. 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 - Anesthesia Hx Anesthesia: Yes Hx Anesthesia Reactions: No Hx Malignant Hyperthermia: No - Suicidal Assessment Feels Threatened In Home Enviroment: No Family/Social History - Physician Review Nursing Documentation Reviewed: Yes Family/Social History: No Known Family HX Smoking Status: Never Smoked Hx Alcohol Use: No Hx Substance Use: No Hx Substance Use Treatment: No Allergies/Home Meds Allergies/Adverse Reactions: Allergies shrimp Allergy (Verified 07/17/18 17:24) SWELLING Home Medications: Home Meds Medication Instructions Recorded Confirmed Atorvastatin [Lipitor] 20 mg PO DAILY 03/04/18 07/18/18 Metoprolol Tartrate [Lopressor] 50 mg PO DAILY 03/04/18 07/18/18 Risperidone [Risperdal] 0.5 mg PO BID 03/04/18 07/18/18 Insulin Detemir [Levemir] 10 unit SC HS 05/06/18 07/18/18 amLODIPine [Norvasc] 1 tab PO DAILY 05/06/18 07/18/18 Review of Systems - Physician Review All systems were reviewed & negative as marked: Yes - Review of Systems Constitutional: absent: Fevers Respiratory: absent: SOB, Cough Cardiovascular: absent: Chest Pain Gastrointestinal: absent: Abdominal Pain, Diarrhea, Nausea, Vomiting Genitourinary Female: absent: Dysuria, Urine Output Changes Musculoskeletal: Arthralgias (left knee pain). absent: Back Pain, Neck Pain Skin: absent: Rash Neurological: absent: Headache Physical Exam Appearance: Positive for: Non-Toxic, Comfortable, Other (Obese) Pain Distress: None - Systems Exam Head: Present: Atraumatic, Normocephalic Pupils: Present: PERRL Extroacular Muscles: Present: EOMI Conjunctiva: Present: Normal Mouth: Present: Moist Mucous Membranes Respiratory/Chest: Present: Clear to Auscultation, Good Air Exchange. No: Respiratory Distress, Accessory Muscle Use Cardiovascular: Present: Regular Rate and Rhythm, Normal S1, S2. No: Murmurs Abdomen: No: Tenderness, Distention, Peritoneal Signs Upper Extremity: Present: Other (3/5 upper extremity strength). No: Cyanosis, Edema Lower Extremity: Present: Edema (+1 pitting edema bilaterally), NORMAL PULSES, Other (healed surgical scar to right knee. Flexion and extension of knee without any problem. ) Neurological: Present: GCS=15, CN II-XII Intact, Speech Normal Skin: Present: Warm, Dry, Normal Color. No: Rashes Psychiatric: Present: Alert, Oriented x 3, Normal Insight, Normal Concentration Medical Decision Making ED Course and Treatment: 10/15/18 15:48 Impression: 73 year old female presents to the ED for evaluation of bilateral lower extremity swelling and left knee pain. Differential Diagnosis included but are not limited to: -- DVT --MSK knee pain Plan: -- Valium -- Percocet -- US of lower extremity -- Reassess and disposition Prior Visits: Notes and results from previous visits were reviewed. Progress Notes: 10/15/18 17:58 US Doppler Negative for DVT b/l. Dr. Jones(PCP) evaluates patient and states she may go - RAD Interpretation Radiology Orders: 10/15/18 15:51 DUPLEX LOWER EXTRM VEIN BILAT [US] Stat - Medication Orders Current Medication Orders: Diazepam (Valium) 5 mg PO ONCE ONE; Protocol Stop: 10/15/18 15:49 Ketorolac Tromethamine (Toradol) 30 mg IVP STAT STA Stop: 10/15/18 15:49 - Scribe Statement The provider has reviewed the documentation as recorded by the Scribe Zoe Reyes. All medical record entries made by the Scribe were at my direction and personally dictated by me. I have reviewed the chart and agree that the record accurately reflects my personal performance of the history, physical exam, medical decision making, and the department course for this patient. I have also personally directed, reviewed, and agree with the discharge instructions and disposition. Disposition/Present on Arrival - Present on Arrival Any Indicators Present on Arrival: Yes History of DVT/PE: No History of Uncontrolled Diabetes: Yes Urinary Catheter: No History of Decub. Ulcer: No History Surgical Site Infection Following: None - Disposition Have Diagnosis and Disposition been Completed?: Yes Diagnosis: Leg edema, Knee pain, bilateral Disposition: HOME/ ROUTINE Disposition Time: 17:56 Patient Plan: Discharge Condition: IMPROVED Discharge Instructions (ExitCare): Chronic Knee Pain (DC), Dependent Edema (DC) Print Language: SWEDISH Additional Instructions: All medical record entries made by the Scribe were at my direction and personally dictated by me. I have reviewed the chart and agree that the record accurately reflects my personal performance of the history, physical exam, medical decision making, and the department course for this patient. I have also personally directed, reviewed, and agree with the discharge instructions and disposition. Please visit Dr. Jones(PCP) in 3-5 days for a follow up Prescriptions: oxyCODONE/Acetaminophen [Percocet 5/325 mg Tab] 1 ea PO PRN PRN #6 tab PRN Reason: Pain, Severe (8-10) Referrals: Gayle Jones MD [Staff Provider] - Follow up with primary Forms: [employer] ([place])
[2018-10-15 16:46] VITALS: RESP 18; TEMP 97.9
[2018-10-15] MEDS ORDERED: Oxycodone/Acetaminophen 5/325 mg Tab PO STA (17:05)
--- NOTE | 2018-10-15 17:10 | US ---
HISTORY: Leg pain and swelling. Evaluate for DVT PHYSICIAN(S): Dennis Michael MD. TECHNIQUE: Duplex sonography and color-flow Doppler with graded compression were used to evaluate the deep venous systems of both lower extremities. The exam is somewhat limited by edema FINDINGS: The visualized deep venous systems of both lower extremities are sonographically normal and compressible. Normal wave forms and augmentation are seen. There is no sonographic evidence for deep venous thrombosis in the visualized segments of both lower extremities. IMPRESSION: No sonographic evidence for deep venous thrombosis in the visualized segments of both lower extremities.
[2018-10-15 18:39] VITALS: PULSE 64; O2SAT 98
[2018-10-15 18:40] VITALS: BP 138/79
== END 2018-10-15 18:00 | disposition home or self-care (01) ==
LOC: ED 15:04
DX: R60.9 Edema, unspecified (principal); M25.562 Pain in left knee; M25.561 Pain in right knee; I10 Essential (primary) hypertension